=== PATIENT | female | born 1985 | race Caucasian/White ===

== ENCOUNTER 2016-12-15 11:42 | Emergency (ER) | payer SELFPAY ==
[2016-12-15] MEDS ORDERED: PROMETHAZINE HCL 25 MG/ML INJ IVP ONE (13:12)
[2016-12-15] MEDS ORDERED: LORazepam 2 MG/ML INJ IVP ONE (13:13)
--- NOTE | 2016-12-15 13:30 | EDPHY ---
H & P Stated Complaint: Exacerbation abd pain;@ [facility] Tuesday night for same Time Seen by Provider: 12/15/16 13:07 HPI/ROS: CHIEF COMPLAINT: Acute exacerbation of cyclic vomiting syndrome HISTORY OF PRESENT ILLNESS: The patient presents to the ED with an acute exacerbation of cyclic vomiting syndrome. The patient reportedly was hospitalized at [facility] several days ago with similar symptoms. The patient has a longstanding history of this diagnosis. We have seen her here in our department multiple times with this presentation in the past. The patient reports she is typically treated with IV anti emetics and Dilaudid. The patient states that her exacerbation of this particular episode is secondary to stress. She denies any marijuana use. The patient denies any complaints of atypical acute abdominal pain. She denies fever, cough, congestion or additional complaints. REVIEW OF SYSTEMS: A comprehensive 10 point review of systems is otherwise negative aside from elements mentioned in the history of present illness. Source: Patient Exam Limitations: No limitations - Personal History LMP (Females 10-55): 1-7 Days Ago Tetanus Vaccine Date: < 10 years - Medical/Surgical History Hx Asthma: Yes Hx Chronic Respiratory Disease: No Hx Diabetes: No Hx Cardiac Disease: No Hx Renal Disease: No Hx Cirrhosis: No Hx Alcoholism: No Hx HIV/AIDS: No Hx Splenectomy or Spleen Trauma: No Other PMH: PMH:cyclic vomiting, pancreatitis,. PSH:cholycystecomy, dental, - Social History Smoking Status: Former smoker - Physical Exam Exam: General Appearance: Alert, no distress Eyes: Pupils equal and round no pallor or injection ENT, Mouth: Mucous membranes moist Respiratory: There are no retractions, lungs are clear to auscultation Cardiovascular: Regular rate and rhythm Gastrointestinal: Mild diffuse tenderness, no peritoneal signs, normal bowel sounds Neurological: A&O, normal motor function, normal sensory exam, normal cranial nerves Skin: Warm and dry, no rashes Musculoskeletal: Neck is supple nontender Extremities: symmetrical, full range of motion Constitutional: Initial Vital Signs Temperature (C) 36.7 C 12/15/16 11:53 Heart Rate 68 12/15/16 11:53 Respiratory Rate 18 12/15/16 11:53 Blood Pressure 156/109 H 12/15/16 11:53 O2 Sat (%) 98 12/15/16 11:53 O2 Delivery Mode Room Air Allergies/Adverse Reactions: Penicillins Allergy (Severe, Verified 12/15/16 11:56) swells airway haloperidol [From Haldol] Allergy (Mild, Verified 12/15/16 11:56) agitation tramadol Allergy (Mild, Verified 12/15/16 11:56) agitation Home Medications: Medication Instructions Recorded Ondansetron Odt [Zofran Odt 4 mg 4 mg PO Q4 PRN 01/07/15 (*)] Prochlorperazine Maleate 25 mg CA Q6 PRN 01/07/15 [Compazine 25mg supp (*)] Diazepam [Valium 5 MG (*)] 5 mg PO Q8 PRN #15 tab 01/09/15 Amitriptyline HCl [Elavil 50 mg 100 mg PO HS 05/04/15 (*)] Promethazine HCl [Phenergan 25mg 25 mg PO Q6 PRN 05/04/15 (*)] Albuterol Hfa Anes Only [Proair 2 puffs IH Q4 PRN #0 mdi 05/05/15 Hfa Icu (*)] Prochlorperazine Maleate 25 mg CA TID PRN #10 suppr 12/15/16 [Compazine 25mg supp (*)] Medical Decision Making ED Course/Re-evaluation: I reviewed the patient's past medical records. I find her abdominal examination to be benign. She is hemodynamically stable and afebrile. The patient was given 25 mg of Phenergan IM and 1 mg of Ativan orally. I have told the patient that I will not treat cyclic vomiting with IV Dilaudid on narcotics. The patient was understanding of this plan. The patient underwent serial examinations in the ED. She remained well- appearing without active vomiting. I do not feel that further workup is indicated at this point time. The patient is noted to have unremarkable laboratory studies and a negative test. Patient was re-evaluated at 2:40 p.m.. She continues to complain of mild pain. She received 30 mg of IM Toradol. I also ordered an additional 1 mg of oral Ativan. I went evaluate the patient at 3:10 p.m. and found that she had left the department without further workup. She did not fall nursing staff or myself over decision to leave without reassessment. Differential Diagnosis: Differential diagnosis considered includes dehydration, cyclic vomiting syndrome , metabolic abnormality, intrauterine , ectopic - Data Points Laboratory Results: Laboratory Results 12/15/16 13:20 12/15/16 12/15/16 13:20 13:20 Sodium 141 mEq/L mEq/L (134-144) Potassium 3.4 mEq/L L mEq/L (3.5-5.2) Chloride 107 mEq/L mEq/L (97-110) Carbon Dioxide 18 mEq/l L mEq/l (22-31) Anion Gap 16 mEq/L mEq/L (8-16) BUN 9 mg/dL mg/dL (7-23) Creatinine 0.7 mg/dL mg/dL (0.6-1.0) Estimated GFR > 60 Glucose 107 mg/dL H mg/dL (70-100) Calcium 9.4 mg/dL mg/dL (8.5-10.4) Beta HCG, Qual NEGATIVE Medications Given: Discontinued Medications Ketorolac Tromethamine (Toradol) 30 mg IM EDNOW ONE Stop: 12/15/16 14:55 Last Admin: 12/15/16 14:58 Dose: 30 mg Lorazepam (Ativan Injection) 1 mg IVP EDNOW ONE Stop: 12/15/16 13:14 Last Admin: 12/15/16 13:58 Dose: Not Given Lorazepam (Ativan) 1 mg PO ONCE ONE Stop: 12/15/16 13:50 Last Admin: 12/15/16 13:54 Dose: 1 mg Lorazepam (Ativan) 1 mg PO ONCE ONE Stop: 12/15/16 14:54 Last Admin: 12/15/16 14:58 Dose: 1 mg Promethazine HCl (Phenergan) 25 mg IVP EDNOW ONE Stop: 12/15/16 13:13 Last Admin: 12/15/16 13:59 Dose: Not Given Promethazine HCl (Phenergan) 25 mg IM EDNOW ONE Stop: 12/15/16 13:49 Last Admin: 12/15/16 13:54 Dose: 25 mg Departure - Departure Disposition: Home, Routine, Self-Care Clinical Impression: Cyclic vomiting syndrome Condition: Good Instructions: Acute Nausea and Vomiting (ED) Additional Instructions: 1. Compazine as needed for nausea. 2. Please follow up with your primary care provider regarding your ongoing chronic pain management needs. Referrals: Hong Borrego MD [Primary Care Provider] - As per Instructions Prescriptions: Prochlorperazine Maleate [Compazine 25mg supp (*)] 25 mg CA TID PRN #10 suppr PRN Reason: for nausea
[2016-12-15] MEDS ORDERED: PROMETHAZINE HCL 25 MG/ML INJ IM ONE (13:48)
[2016-12-15 13:49] LABS: ANION GAP 16 mEq/L (8-16); CALCIUM 9.4 mg/dL (8.5-10.4); CARBON DIOXIDE 18 mEq/l (22-31); CHLORIDE 107 mEq/L (97-110); CREATININE 0.7 mg/dL (0.6-1.0); GLOMERULAR FILTRATION RATE > 60; GLUCOSE 107 mg/dL (70-100); POTASSIUM 3.4 mEq/L (3.5-5.2); SODIUM 141 mEq/L (134-144)
[2016-12-15] MEDS ORDERED: LORazepam 1 MG TAB PO ONE ×2 (13:49→14:53)
[2016-12-15] MEDS ORDERED: KETOROLAC 30 MG/1 ML SDV IM ONE (14:54)
[2016-12-15 15:01] VITALS: BP 168/108; PULSE 57; RESP 20; TEMP 97.9; O2SAT 99
== END 2016-12-15 15:32 | disposition home or self-care (01) ==
DX: G43.A0 Cyclical vomiting, in migraine, not intractable (principal); J45.909 Unspecified asthma, uncomplicated; Z87.891 Personal history of nicotine dependence
CPT/HCPCS: J1885; J2550

== ENCOUNTER 2017-08-30 21:46 | Emergency (ER) | payer SELFPAY ==
[2017-08-30] MEDS ORDERED: IBUPROFEN 600 MG TAB PO ONE ×2 (22:06→22:09)
[2017-08-30] MEDS ORDERED: CLINDAMYCIN 150MG PREPACK#6 BTL TAKEHOME ONE (23:19)
[2017-08-30] MEDS ORDERED: CIPROFLOXACIN 500MG PREPACK#2 BTL TAKEHOME ONE (23:19)
[2017-08-30] MEDS ORDERED: HYDROCOD/APAP 5/325 PREPACK#6 BTL TAKEHOME ONE (23:22)
--- NOTE | 2017-08-30 23:22 | EDPHY ---
H & P Time Seen by Provider: 08/30/17 22:15 HPI/ROS: CHIEF COMPLAINT: Dog bite left hand HISTORY OF PRESENT ILLNESS: 32-year-old female presents to the emergency department with dog bite to her left hand. The patient was playing with her own dog who subsequently bit the dorsal aspect of her left hand just prior to arrival. She is right-hand dominant. The dog is up-to-date on vaccinations. Her tetanus shot was 2 years ago. She describes pain especially to the dorsal aspect of her left hand. Denies retained foreign body. Has pain with range of motion. ROS: Denies numbness or tingling in her fingers, retained foreign body, pain in her left wrist or elbow. Denies pain in her left axilla. Past Medical/Surgical History: Cyclical vomiting syndrome Social History: Single and lives in [place] Smoking Status: Former smoker Physical Exam: On examination the patient has a deep 1/2 cm puncture wound to the dorsal aspect of her left hand overlying 2nd metacarpal. There is a smaller puncture wound just proximal to that area over the dorsal aspect of her left hand. There is a smaller superficial abrasion the dorsal aspect of her left middle finger overlying mid phalanx. She has soft tissue swelling without evidence of redness. No evidence of retained foreign body. She has full range of motion of her fingers. No injuries noted to the palmar aspect of her left hand. No rotational deformities noted. Constitutional: Initial Vital Signs Temperature (C) 37.6 C 08/30/17 21:52 Heart Rate 98 08/30/17 21:52 Respiratory Rate 16 08/30/17 21:52 Blood Pressure 135/93 H 08/30/17 21:52 O2 Sat (%) 98 08/30/17 21:52 O2 Delivery Mode Room Air Allergies/Adverse Reactions: Penicillins Allergy (Severe, Verified 12/15/16 11:56) swells airway haloperidol [From Haldol] Allergy (Mild, Verified 12/15/16 11:56) agitation tramadol Allergy (Mild, Verified 12/15/16 11:56) agitation Home Medications: Medication Instructions Recorded Ondansetron Odt [Zofran Odt 4 mg 4 mg PO Q4 PRN 01/07/15 (*)] Prochlorperazine Maleate 25 mg VT Q6 PRN 01/07/15 [Compazine 25mg supp (*)] Diazepam [Valium 5 MG (*)] 5 mg PO Q8 PRN #15 tab 01/09/15 Amitriptyline HCl [Elavil 50 mg 100 mg PO HS 05/04/15 (*)] Promethazine HCl [Phenergan 25mg 25 mg PO Q6 PRN 05/04/15 (*)] Albuterol Hfa Anes Only [Proair 2 puffs IH Q4 PRN #0 mdi 05/05/15 Hfa Icu (*)] Prochlorperazine Maleate 25 mg VT TID PRN #10 suppr 12/15/16 [Compazine 25mg supp (*)] Ciprofloxacin [Cipro 500 mg] 500 mg PO BID #14 tab 08/30/17 Clindamycin 450 mg PO TID #63 cap 08/30/17 MDM/Departure - [facility] Procedures: Verbal consent was obtained from the patient. The wounds to her left hand were anesthetized with 1% lidocaine with epinephrine. The wounds were then thoroughly irrigated and dressed. Patient tolerated this quite well. No sutures placed. Medications Given: Discontinued Medications Hydrocodone Bitart/Acetaminophen ([place] 5/325mg Prepack#6) 1 btl TAKEHOME EDNOW ONE Stop: 08/30/17 23:23 Last Admin: 08/30/17 23:34 Dose: 1 btl Ciprofloxacin (Cipro 500mg Prepack#2) 1 btl TAKEHOME EDNOW ONE Stop: 08/30/17 23:20 Last Admin: 08/30/17 23:34 Dose: 1 btl Clindamycin (Cleocin 150 Mg Prepack#6) 1 btl TAKEHOME EDNOW ONE PRN Reason: Protocol Stop: 08/30/17 23:20 Last Admin: 08/30/17 23:35 Dose: 1 btl Ibuprofen (Motrin) 600 mg PO EDNOW ONE Stop: 08/30/17 22:10 Last Admin: 08/30/17 22:10 Dose: 600 mg ED Course/Re-evaluation: 32-year-old female presents emergency department with dog bite to her left hand. Patient's tetanus shot is current. The wounds were thoroughly irrigated. They will not be closed. She has a known penicillin allergy. She was started on clindamycin 450 mg three times daily for 1 week and ciprofloxacin 500 mg twice daily for 1 week. We did discuss delayed primary closure. She may return to the emergency department in 72 hr for possible closure of her wounds after she has been on oral antibiotics for 72 hr. Patient verbalized understanding and agreed she was given a take-home pack of hydrocodone for her pain. She was encouraged to elevate her hand. The case was discussed with Dr. Hong Joe, secondary supervising physician , who did not directly evaluate the patient but agrees with treatment plan. - Depart Disposition: Home, Routine, Self-Care Clinical Impression: Dog bite of left hand Qualifiers: Encounter type: initial encounter Qualified Code(s): S61.452A - Open bite of left hand, initial encounter; W54.0XXA - Bitten by dog, initial encounter; W54.0XXA - Bitten by dog, initial encounter Condition: Good Instructions: Ciprofloxacin (By mouth), Hydrocodone/Acetaminophen (By mouth), Animal Bite (ED), Acute Wounds (ED) Additional Instructions: Clindamycin and ciprofloxacin as prescribed for 1 week to prevent infection. Return to the emergency department after you have been on oral antibiotics for 72 hr for laceration repair of the wound to the dorsal aspect of the left hand. Return to the emergency department sooner if you develop redness, swelling, increased pain, fever, purulent drainage. Prescriptions: Ciprofloxacin [Cipro 500 mg] 500 mg PO BID #14 tab Clindamycin 450 mg PO TID #63 cap Referrals: Hong Borrego MD [Primary Care Provider] - As per Instructions
[2017-08-30 23:24] VITALS: BP 142/91
== END 2017-08-30 23:38 | disposition home or self-care (01) ==
DX: S61.452A Open bite of left hand, initial encounter (principal); Z87.891 Personal history of nicotine dependence; W54.0XXA Bitten by dog, initial encounter; Y99.8 Other external cause status; Y93.89 Activity, other specified

== ENCOUNTER 2017-08-31 17:23 | Inpatient (IN) | payer SELFPAY ==
--- NOTE | 2017-08-31 18:15 | EDPHY ---
H & P Smoking Status: Former smoker Time Seen by Provider: 08/31/17 18:00 HPI/ROS: CHIEF COMPLAINT: Swelling left hand HISTORY OF PRESENT ILLNESS: 32-year-old female presents to the emergency department with concerns about increasing pain and swelling to the dorsal aspect of her left hand. She was seen in the emergency department yesterday evening after she was bit by her own dog. Her wounds were thoroughly irrigated. She has a history of penicillin allergy and was started on clindamycin and ciprofloxacin last night. She has taken this medication as prescribed and continued today. She was concerned because over last 2-3 hour she has noticed more acute swelling and pain and was concerned about progressing infection. She had x-rays obtained last night which revealed no fractures. Her tetanus shot is current. Denies numbness in her fingers, retained foreign body. Denies fevers, chills. REVIEW OF SYSTEMS: Constitutional: No fever, no chills. Eyes: No double or blurry vision. ENT: No sore throat. Respiratory: No cough, no shortness of breath. Cardiac: No chest pain. Gastrointestinal: No abdominal pain, vomiting or diarrhea. Genitourinary: No dysuria. Musculoskeletal: No neck or back pain. Skin: No rashes. Neurological: No headache. (Deb Matias) Past Medical/Surgical History: Cyclical vomiting syndrome (Deb Matias) Social History: Single (Deb Matias) Physical Exam: General Appearance: Alert, no distress. Temperature 37.2 degrees. Nontoxic appearing. Eyes: Pupils equal and round. Extraocular motions are all intact. ENT: Mouth: Mucous membranes moist. Respiratory: No wheezing, rhonchi, or rales, lungs are clear to auscultation. Cardiovascular: Regular rate and rhythm. Gastrointestinal: Abdomen is soft and nontender, no masses, no rebound or guarding, bowel sounds normal. Neurological: Alert and oriented x 3, cranial nerves II through XII grossly intact Skin: See extremities. Warm and dry, no rashes. Musculoskeletal: Nontender to palpate along the cervical, thoracic or lumbar spine. Neck is supple. Extremities: Healing puncture wound to the dorsal aspect of her left hand between the webspace of the thumb and left index finger. She also has a smaller puncture wound just proximal to that. There is soft tissue swelling and some mild erythema. There is no lymphangitis. She is able to fully extend her fingers. She is able to make a fist. She also has a healing abrasion noted to the dorsal aspect of her left 3rd finger overlying mid phalanx. Nontender to palpate the left axilla. No palpable bony tenderness. Psychiatric: Patient is oriented X 3, there is no agitation. (Deb Matias) Constitutional: Initial Vital Signs Temperature (C) 37.2 C 08/31/17 17:28 Heart Rate 92 08/31/17 17:28 Respiratory Rate 16 08/31/17 17:28 Blood Pressure 133/92 H 08/31/17 17:28 O2 Sat (%) 98 08/31/17 17:28 O2 Delivery Mode Room Air Allergies/Adverse Reactions: Penicillins Allergy (Severe, Verified 12/15/16 11:56) swells airway haloperidol [From Haldol] Allergy (Mild, Verified 12/15/16 11:56) agitation tramadol Allergy (Mild, Verified 12/15/16 11:56) agitation Home Medications: Medication Instructions Recorded Prochlorperazine Maleate 25 mg [place] Q6 PRN 01/07/15 [Compazine 25mg supp (*)] Promethazine HCl [Phenergan 25mg 25 mg PO Q6H PRN 05/04/15 (*)] Ciprofloxacin [Cipro 500 mg] 500 mg PO BID #14 tab 08/30/17 Clindamycin 450 mg PO TID #63 cap 08/30/17 Albuterol [Proventil Inhaler HFA 1 - 2 puffs IH Q4H PRN 08/31/17 (*)] Amitriptyline HCl 150 mg PO HS 08/31/17 Diazepam [Valium 5 MG (*)] 5 mg PO HS PRN 08/31/17 MDM/Departure - MDM Medications Given: Ciprofloxacin/Dextrose (Cipro 400 Mg (Premix)) 200 mls @ 200 mls/hr IV EDNOW ONE PRN Reason: Protocol Stop: 08/31/17 20:34 Last Admin: 08/31/17 20:00 Dose: 200 mls Metronidazole/Sodium Chloride (Flagyl 500 Mg (Premix)) 100 mls @ 100 mls/hr IV EDNOW ONE PRN Reason: Protocol Stop: 08/31/17 20:34 Last Admin: 08/31/17 19:43 Dose: 100 mls Discontinued Medications Hydromorphone HCl (Dilaudid) 0.5 mg IVP EDNOW ONE Stop: 08/31/17 20:03 Last Admin: 08/31/17 20:05 Dose: 0.5 mg Ketorolac Tromethamine (Toradol) 30 mg IVP EDNOW ONE Stop: 08/31/17 18:58 Last Admin: 08/31/17 19:00 Dose: 30 mg ED Course/Re-evaluation: Independent physician evaluation The patient presents to the ED with worsening left hand redness, swelling and tenderness in the setting of a recent dog bite. Physical exam: Left hand: Swelling noted along the dorsum of the left hand with erythema and tenderness. Neuro: Sensation intact to light touch, normal range of motion noted in the fingers. Musculoskeletal: No wrist effusion She has no clinical evidence of a septic arthritis or abscess. She does have progressive cellulitis. The patient will be admitted to the hospital for IV antibiotic therapy. (Elijah Keita) The patient was also seen examined by Dr. Keita, secondary supervising physician. He recommended blood cultures and IV antibiotics and admission to the hospital. The patient has been taking ciprofloxacin and clindamycin as prescribed. She has a penicillin allergy which causes throat swelling and difficulty breathing as a child. She was started on 500 mg of IV metronidazole and 4 mg of IV ciprofloxacin. Blood cultures are pending. White blood cell count is 9.8. Chemistries are otherwise unremarkable. She is afebrile and nontoxic-appearing. The patient will be admitted to Dr. Jose Antonio Aldridge who will come see the patient in the emergency department. (Deb Matias) - Depart Disposition: [facility] Inpatient Acute Clinical Impression: Cellulitis of left hand Dog bite of left hand with infection Qualifiers: Encounter type: subsequent encounter Qualified Code(s): S61.452D - Open bite of left hand, subsequent encounter; L08.9 - Local infection of the skin and subcutaneous tissue, unspecified; L08.9 - Local infection of the skin and subcutaneous tissue, unspecified; W54.0XXD - Bitten by dog, subsequent encounter ; W54.0XXD - Bitten by dog, subsequent encounter Condition: Good
[2017-08-31 18:36] LABS: PLATELET COUNT 425 10^3/uL (150-400)
[2017-08-31] MEDS ORDERED: KETOROLAC 30 MG/1 ML SDV IVP ONE (18:57)
[2017-08-31] MEDS ORDERED: KETOROLAC 30 MG/1 ML SDV ONE (18:58)
[2017-08-31] MEDS ORDERED: CIPROFLOXACIN 400 MG/DEXTROSE 200 ML IV ONE (19:35)
[2017-08-31] MEDS ORDERED: HYDROmorphONE/DILAUDID 2 MG/ML INJ ONE (19:56)
[2017-08-31] MEDS ORDERED: ACETAMINOPHEN 325 MG TAB PO PRN (19:57)
[2017-08-31] MEDS ORDERED: ONDANSETRON DISINTEGRATING 4 MG TAB PO PRN (19:57)
[2017-08-31] MEDS ORDERED: IBUPROFEN 200 MG TAB PO PRN (19:57)
[2017-08-31] MEDS ORDERED: ONDANSETRON 4 MG/2 ML VIAL IVP PRN (19:57)
[2017-08-31] MEDS ORDERED: KETOROLAC 30 MG/1 ML SDV IVP PRN (20:00)
[2017-08-31] MEDS ORDERED: HYDROmorphONE/DILAUDID 2 MG/ML INJ IVP ONE (20:02)
[2017-08-31] MEDS ORDERED: DIAZEPAM 5 MG TAB PO PRN (20:37)
[2017-08-31] MEDS ORDERED: ALBUTEROL 60 PUFFS/8 GM MDI IH PRN (20:37)
[2017-08-31] MEDS ORDERED: PROCHLORPERAZINE MALEATE 25 MG SUPPR PR PRN (20:37)
[2017-08-31] MEDS ORDERED: PROMETHAZINE HCL 25 MG TAB PO PRN (20:37)
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
[2017-08-31] MEDS: LORazepam 1 MG TAB PO PRN (21:11)
[2017-08-31] MEDS ORDERED: HYDROmorphONE/DILAUDID 1 MG/ML INJ IVP ONE (21:22)
[2017-08-31] MEDS: oxyCODONE IR 5 MG TAB PO PRN (22:34)
[2017-08-31] MEDS: AMITRIPTYLINE HCL 50 MG TAB PO SCH (22:59)
[2017-08-31] MEDS: HYDROmorphone HCL/NS 0.5 MG/ML SYR IVP PRN (23:51)
[2017-09-01] MEDS: oxyCODONE IR 5 MG TAB PO PRN ×4 (04:10→22:58)
[2017-09-01] MEDS: HYDROmorphone HCL/NS 0.5 MG/ML SYR IVP PRN ×6 (04:44→21:19)
[2017-09-01 05:00] LABS: PLATELET COUNT 346 10^3/uL (150-400)
[2017-09-01] MEDS: CIPROFLOXACIN 400 MG/DEXTROSE 200 ML IV SCH ×2 (08:57→20:13)
--- NOTE | 2017-09-01 13:17 | HOSPPROG ---
Hospitalist Progress Note Assessment/Plan: 32-year-old female presents with acute dog bite and resultant hand trauma with cellulitis. First encounter, chart reviewed. Plan: 1. Cellulitis. -dog bite trauma, -IV ciprofloxacin and clindamycin, -discharge on doxycycline and Flagyl -consider MRI if not improving -blood cultures currently pending continue to monitor -follow white blood cell count, monitor for fever -good mobility 2. Traumatic dog bite. -Most recent tetanus booster 2014, currently up-to-date -treat with antibiotics as above -treat pain with Tylenol, ibuprofen, Toradol, oxycodone, IV Dilaudid for breakthrough, ice if tolerates -patient reports that the bite was unintentional on the part of the animal and was not aggressive act, no further action required on our part 3. Chronic cyclic vomiting syndrome. -Symptoms currently in remission, continue home medications -given patient's strong mood/anxiety component, she has requested as needed Ativan during hospitalization and will comply for Diet. Regular Prophylaxis. Low risk, SCDs Code. Full Disposition. Will need further IV abx in hospital. change to inpt status given needs. Subjective: Feeling well. Hand still warm and red. Still having some pain. Objective: Vital Signs Temp Pulse Resp BP Pulse Ox 36.9 C 71 18 140/92 H 97 09/01/17 11:27 09/01/17 11:27 09/01/17 11:27 09/01/17 11:27 09/01/17 11:27 Laboratory Results 09/01/17 04:40 08/31/17 09/01/17 09/02/17 05:59 05:59 05:59 Intake Total 1300 Balance 1300 - Physical Exam Constitutional: no apparent distress, appears nourished, obese, uncomfortable Eyes: PERRL, anicteric sclera, EOMI Ears, Nose, Mouth, Throat: moist mucous membranes, hearing normal, ears appear normal Cardiovascular: regular rate and rhythym, No JVD, No edema Respiratory: no respiratory distress, no rales or rhonchi, clear to auscultation , reduced air movement Gastrointestinal: normoactive bowel sounds, No tenderness, No ascites Skin: warm, abrasion, erythema, No mottled Musculoskeletal: full muscle strength, no joint effusions, pain with ROM Neurologic: AAOx3 Psychiatric: interacting appropriately, not anxious, not encephalopathic, thought process linear ICD10 Worksheet Patient Problems: Problems Problem Status Onset Hyperglycemia Active Leukocytosis Active Hypokalemia Active Pancreatitis Acute Cellulitis Acute Dog bite of arm Acute Dog bite of left hand Acute Cellulitis of left hand Acute Dog bite of left hand with infection Acute
--- NOTE | 2017-09-01 14:45 | ASMTCMCOM ---
CM Note CM Note Notes: Reviewed chart, pt works and is independent with ADLs. Anticipate will dc home independent when medically stable. CM available for any changes. DC Plan: Independent Date Signed: 09/01/2017 02:44 PM Electronically Signed By:Babs Byers RN
--- NOTE | 2017-09-01 14:48 | ASMTLACE ---
THERESE Acuity / Level of Answers: Yes Care: Did the patient have an inpatient admission? Comorbidities - select Answers: Other Notes: TBI, Gilbert's syndrome all that apply # of Emergency department Answers: 1-2 visits in the last 6 months Score: 5 Date Signed: 09/01/2017 02:47 PM Electronically Signed By:Babs Byers RN
--- NOTE | 2017-09-01 15:45 | PDMN ---
Medical Necessity Medical necessity: Patient meets inpatient criteria per physician note and [facility] [place] [facility] -70 Cellulitis (failed O/P management of L hand cellulitis from dog bite, with ongoing pain, erythema, warmth after 24 hrs of IV antibiotics and earlier p.o antibiotics; LOS will be > 2 midnights for ongoing IV antibiotics, ongoing breath-through pain control with IV Dilaudid as necessary, continued monitoring of wound and WBC, possible MRI if no improvement.)
[2017-09-01] MEDS: LORazepam 1 MG TAB PO PRN (20:14)
[2017-09-01] MEDS: AMITRIPTYLINE HCL 50 MG TAB PO SCH (22:58)
[2017-09-02] MEDS: HYDROmorphone HCL/NS 0.5 MG/ML SYR IVP PRN ×2 (02:41→06:24)
[2017-09-02] MEDS: oxyCODONE IR 5 MG TAB PO PRN ×2 (04:05→08:33)
[2017-09-02 07:59] VITALS: BP 118/85
[2017-09-02] MEDS ORDERED: metroNIDAZOLE 500 MG TAB PO SCH ×2 (09:56→12:00)
[2017-09-02] MEDS ORDERED: DOXYCYCLINE HYCLATE 100 MG CAP/TAB PO SCH (10:00)
--- NOTE | 2017-09-02 12:54 | GDS ---
[f rep st] DISCHARGE SUMMARY DISCHARGE DIAGNOSIS: Dog bite. PHYSICAL EXAM: GENERAL: The patient is alert. VITAL SIGNS: Afebrile at 37, pulse is 85, respiratory rate 16, blood pressure is 118/85, she is satu rating 98% on room air. I have seen evaluated the patient on the day of discharge. HOSPITAL COURSE: The patient is a 32-year-old female who presented to the emergency room after suffe ring a traumatic dog bite. She was evaluated and diagnosed with cellulitis as well as a traumatic do g bite. She was treated with IV ciprofloxacin and clindamycin. She has now been transitioned to ora l doxycycline and Flagyl. Her cellulitis has completely resolved. Her swelling is significantly imp roved. She has mobility in all of her fingers. Her pain is significantly decreased. She will follo w up in the outpatient setting with her primary care physician. She has been instructed to return to the emergency room if any of her condition changes, becomes worse, more erythema is present or pain is increased. She is comfortable in agreement with this plan. DISCHARGE MEDICATIONS: Please refer to EMR form. I have provided the patient a prescription for dox ycycline as well as Flagyl and oxycodone IR #10. DISPOSITION: There are no pending studies. Again, followup will be with her primary care physician as needed. /[id number]/MODL
== END 2017-09-02 10:33 | disposition home or self-care (01) | DRG 603 ==
LOC: OBSVTOIN 19:53 → F3E 21:40
PROVIDERS: ADMIT Internal Medicine; ATTEND Internal Medicine
DX: L03.113 Cellulitis of right upper limb (principal); S61.451D Open bite of right hand, subsequent encounter; W54.0XXD Bitten by dog, subsequent encounter; Y93.K9 Activity, other involving animal care; G43.A0 Cyclical vomiting, in migraine, not intractable
CPT/HCPCS: 96374; G0378; J0744; J1170; J1885

== ENCOUNTER 2017-09-02 20:40 | Emergency (ER) | payer SELFPAY ==
--- NOTE | 2017-09-02 21:12 | EDPHY ---
H & P Stated Complaint: dog bite tues, increased redness/swelling since d/c Time Seen by Provider: 09/02/17 21:05 HPI/ROS: CHIEF COMPLAINT: wound infection HISTORY OF PRESENT ILLNESS: The patient is a 32-year-old female who comes to the emergency department after being discharged a few hours ago. She was bitten by her dog a few days ago and was seen here and had irrigated and was started on ciprofloxacin and clindamycin because of penicillin allergy. She came back next day because she felt it was getting worse and was admitted to the hospital for 2 days on IV ciprofloxacin and clindamycin. Her erythema improved significantly and she was discharged today. She was transitioned to Flagyl and doxycycline and also given a prescription for oxycodone. She came back this evening concerned because her hand is slightly more swollen and feels tight. She has not had a fever. The rash is not significantly progressed. REVIEW OF SYSTEMS: Constitutional: denies: chills, fever, recent illness, recent injury EENTM: denies: blurred vision, double vision, nose congestion Respiratory: denies: cough, shortness of breath Cardiac: denies: chest pain, irregular heart rate, lightheadedness, palpitations Gastrointestinal/Abdominal: denies: abdominal pain, diarrhea, nausea, vomiting, blood streaked stools Genitourinary: denies: dysuria, frequency, hematuria, pain Musculoskeletal: denies: joint pain, muscle pain Skin: See HPI Neurological: denies: headache, numbness, paresthesia, tingling, dizziness, weakness Hematologic/Lymphatic: denies: blood clots, easy bleeding, easy bruising Immunologic/allergic: denies: HIV/AIDS, transplant EXAM: GENERAL: Well-appearing, well-nourished and in no acute distress. HEAD: Atraumatic, normocephalic. EYES: Pupils equal round and reactive to light, extraocular movements intact, sclera anicteric, conjunctiva are normal. ENT: TMs normal, nares patent, oropharynx clear without exudates. Moist mucous membranes. NECK: Normal range of motion, supple without lymphadenopathy or JVD. LUNGS: Breath sounds clear to auscultation bilaterally and equal. No wheezes rales or rhonchi. HEART: Regular rate and rhythm without murmurs, rubs or gallops. ABDOMEN: Soft, nontender, normoactive bowel sounds. No guarding, no rebound. No masses appreciated. BACK: No CVA tenderness, no spinal tenderness, step-offs or deformities EXTREMITIES: Normal range of motion, no pitting or edema. No clubbing or cyanosis. NEUROLOGICAL: Cranial nerves II through XII grossly intact. Normal speech, normal gait. 5/5 strength, normal movement in all extremities, normal sensation PSYCH: Normal mood, normal affect. SKIN: 3 bite wounds to the dorsum of left hand with surrounding erythema that extends to about the wrist. No purulence. Minimal swelling. Source: Patient Exam Limitations: No limitations - Personal History LMP (Females 10-55): 1-7 Days Ago Current Tetanus/Diphtheria Vaccine: Yes Tetanus Vaccine Date: 2014 - Medical/Surgical History Hx Asthma: Yes Hx Chronic Respiratory Disease: No Hx Diabetes: No Hx Cardiac Disease: No Hx Renal Disease: No Hx Cirrhosis: No Hx Alcoholism: No Hx HIV/AIDS: No Hx Splenectomy or Spleen Trauma: No Other PMH: PMH:cyclic vomiting, pancreatitis,. PSH:cholycystecomy, dental, - Family History Significant Family History: No pertinent family hx - Social History Smoking Status: Former smoker Alcohol Use: Sober Drug Use: None Constitutional: Initial Vital Signs Temperature (C) 37.1 C 09/02/17 20:42 Heart Rate 113 H 09/02/17 20:42 Respiratory Rate 20 09/02/17 20:42 Blood Pressure 111/81 H 09/02/17 20:42 O2 Sat (%) 98 09/02/17 20:42 O2 Delivery Mode Room Air Allergies/Adverse Reactions: Penicillins Allergy (Severe, Verified 09/02/17 20:44) swells airway haloperidol [From Haldol] Allergy (Mild, Verified 09/02/17 20:44) agitation tramadol Allergy (Mild, Verified 09/02/17 20:44) agitation Home Medications: Medication Instructions Recorded Prochlorperazine Maleate 25 mg SD Q6 PRN 01/07/15 [Compazine 25mg supp (*)] Promethazine HCl [Phenergan 25mg 25 mg PO Q6H PRN 05/04/15 (*)] Albuterol [Proventil Inhaler HFA 1 - 2 puffs IH Q4H PRN 08/31/17 (*)] Amitriptyline HCl 150 mg PO HS 08/31/17 Diazepam [Valium 5 MG (*)] 5 mg PO HS PRN 08/31/17 Acetaminophen [Tylenol 325mg (*)] 650 mg PO Q4HRS PRN tab 09/02/17 Doxycycline Hyclate [Vibramycin 100 mg PO BID #14 capsule 09/02/17 100 MG (*)] Ibuprofen [Motrin (*)] 400 mg PO Q4HRS PRN tab 09/02/17 metroNIDAZOLE [Flagyl 500 mg (*)] 500 mg PO Q8HRS #21 tab 09/02/17 oxyCODONE IR [Oxycodone Ir (*)] 5 - 10 mg PO Q3HRS PRN #10 tab 09/02/17 Medical Decision Making ED Course/Re-evaluation: The patient's hand has a very mild cellulitis. It seems to be improving overall. At this point I do not think is a good idea to change antibiotics again. She certainly does not need readmission at this time. She is still likely at therapeutic levels for her most recent IV infusions. We agreed to watch it for another 24 hr at home and return if it worsens or she develops a fever and cetera. She is happy with this and declines further workup or testing at this time. Differential Diagnosis: Partial list of the Differential diagnosis considered include but were not limited to; cellulitis, wound infection, foreign body and although unlikely based on the history and physical exam, I also considered tenosynovitis, fracture. I discussed these differential diagnoses and the plan with the patient as well as the usual and expected course. The patient understands that the diagnosis is provisional and that in medicine we are not always correct and that further workup is often warranted. Usual and customary warnings were given. All of the patient's questions were answered. The patient was instructed to return to the emergency department should the symptoms at all worsen or return, otherwise to followup with the physician as we discussed. Departure - Departure Disposition: Home, Routine, Self-Care Clinical Impression: Dog bite of left hand with infection Qualifiers: Encounter type: initial encounter Qualified Code(s): S61.452A - Open bite of left hand, initial encounter Condition: Fair Instructions: Animal Bite (ED), Cellulitis (ED) Referrals: Hong Borrego MD [Primary Care Provider] - As per Instructions
[2017-09-02 21:39] VITALS: BP 119/86
== END 2017-09-02 21:39 | disposition home or self-care (01) ==
DX: L08.9 Local infection of the skin and subcutaneous tissue, unspecified (principal); J45.909 Unspecified asthma, uncomplicated; S61.452D Open bite of left hand, subsequent encounter; Z87.891 Personal history of nicotine dependence; W54.0XXD Bitten by dog, subsequent encounter

== ENCOUNTER 2017-09-28 10:05 | Observation (INO) | payer SELFPAY ==
--- NOTE | 2017-09-28 10:19 | EDPHY ---
H & P Stated Complaint: UPPER ABD PAIN N/V/D Time Seen by Provider: 09/28/17 10:17 HPI/ROS: CHIEF COMPLAINT: Acute vomiting HISTORY OF PRESENT ILLNESS: The patient presents to the ED with acute vomiting and abdominal pain. She has a history of cyclic vomiting syndrome which has been relatively quiescent over the past several months. The patient did attempt to use rectal Compazine at home. She has continued to have bilious vomiting. The patient has a past medical history significant for cholecystectomy. The patient denies any recent fever, cough or congestion. She became symptomatic at 2 o'clock in the morning. REVIEW OF SYSTEMS: A comprehensive 10 point review of systems is otherwise negative aside from elements mentioned in the history of present illness. Source: Patient Exam Limitations: No limitations - Personal History LMP (Females 10-55): 15-21 Days Ago Current Tetanus Diphtheria and Acellular Pertussis (TDAP): Yes Tetanus Vaccine Date: 2014 - Medical/Surgical History Hx Asthma: Yes Hx Chronic Respiratory Disease: No Hx Diabetes: No Hx Cardiac Disease: No Hx Renal Disease: No Hx Cirrhosis: No Hx Alcoholism: No Hx HIV/AIDS: No Hx Splenectomy or Spleen Trauma: No Other PMH: PMH:cyclic vomiting, pancreatitis,. PSH:cholycystecomy, dental, - Social History Smoking Status: Former smoker - Physical Exam Exam: General Appearance: Alert, mild discomfort Eyes: Pupils equal and round no pallor or injection ENT, Mouth: Mucous membranes moist Respiratory: There are no retractions, lungs are clear to auscultation Cardiovascular: Regular rate and rhythm Gastrointestinal: Minimal epigastric tenderness to palpation Neurological: 5/5 strength all 4 extremities Skin: Warm and dry, no rashes Musculoskeletal: Neck is supple nontender Extremities: symmetrical, full range of motion Constitutional: Initial Vital Signs Temperature (C) 36.4 C 09/28/17 10:08 Heart Rate 78 09/28/17 10:08 Respiratory Rate 18 09/28/17 10:08 Blood Pressure 143/123 H 09/28/17 10:08 O2 Sat (%) 98 09/28/17 10:08 O2 Delivery Mode Room Air Allergies/Adverse Reactions: Penicillins Allergy (Severe, Verified 09/28/17 10:05) swells airway haloperidol [From Haldol] Allergy (Mild, Verified 09/28/17 10:05) agitation tramadol Allergy (Mild, Verified 09/28/17 10:05) agitation Home Medications: Medication Instructions Recorded Promethazine HCl [Phenergan 25mg 25 mg PO Q6H PRN 05/04/15 (*)] Albuterol [Proventil Inhaler HFA 1 - 2 puffs IH Q4H PRN 08/31/17 (*)] Amitriptyline HCl 150 mg PO HS 08/31/17 Diazepam [Valium 5 MG (*)] 5 mg PO HS PRN 08/31/17 Acetaminophen [Tylenol 325mg (*)] 650 mg PO Q4HRS PRN tab 09/02/17 Medical Decision Making ED Course/Re-evaluation: The patient presents to the ED with an acute exacerbation of her chronic cyclic vomiting syndrome. The patient had an IV established. She received 2 L of normal saline. She received IV Ativan, Zofran and rehydration. The patient's laboratory studies are unremarkable. She has no clinical evidence of peritonitis, pancreatitis or hepatitis. The patient was not given narcotic medications for management of her chronic abdominal pain. I did review the patient's past medical records. The patient continued to have nausea and vomiting in the emergency department. She was given a small dose of IV ketamine. The patient continues to have ongoing vomiting. She will be admitted to the hospital for ongoing symptoms. Differential Diagnosis: Differential diagnosis considered includes cyclic vomiting syndrome, dehydration , pancreatitis - Data Points Laboratory Results: Laboratory Results 09/28/17 10:43 09/28/17 09/28/17 12:25 10:43 Sodium 145 mEq/L mEq/L (135-145) Potassium 4.2 mEq/L mEq/L (3.3-5.0) Chloride 108 mEq/L mEq/L (97-110) Carbon Dioxide 20 mEq/l L mEq/l (22-31) Anion Gap 17 mEq/L H mEq/L (8-16) BUN 7 mg/dL mg/dL (7-23) Creatinine 0.7 mg/dL mg/dL (0.6-1.0) Estimated GFR > 60 Glucose 149 mg/dL H mg/dL (70-100) Calcium 9.8 mg/dL mg/dL (8.5-10.4) Total Bilirubin 1.1 mg/dL mg/dL (0.1-1.4) Conjugated Bilirubin 0.4 mg/dL mg/dL (0.0-0.5) Unconjugated Bilirubin 0.7 mg/dL mg/dL (0.0-1.1) AST 26 IU/L IU/L (14-46) ALT 34 IU/L IU/L (9-52) Alkaline Phosphatase 78 IU/L IU/L (38-126) Total Protein 7.5 g/dL g/dL (6.3-8.2) Albumin 4.7 g/dL g/dL (3.5-5.0) Lipase 292 IU/L IU/L (23-300) Urine Color YELLOW Urine Appearance MODERATELY TURBID Urine pH 8.0 H (5.0-7.5) Ur Specific Prince 1.012 (1.002-1.030) Urine Protein NEGATIVE (NEGATIVE) Urine Ketones NEGATIVE (NEGATIVE) Urine Blood 2+ H (NEGATIVE) Urine Nitrate NEGATIVE (NEGATIVE) Urine Bilirubin NEGATIVE (NEGATIVE) Urine Urobilinogen NEGATIVE EU EU (0.2-1.0) Ur Leukocyte Esterase NEGATIVE (NEGATIVE) Urine RBC 5-10 /hpf H /hpf (0-3) Urine WBC 0-1 /hpf /hpf (0-3) Ur Epithelial Cells TRACE /lpf /lpf (NONE-1+) Urine Bacteria TRACE /hpf H /hpf (NONE SEEN) Urine Mucus TRACE /lpf /lpf (NONE-1+) Urine Glucose 1+ H (NEGATIVE) Medications Given: Discontinued Medications Sodium Chloride (Ns) 1,000 mls @ 0 mls/hr IV EDNOW ONE; Wide Open PRN Reason: Protocol Stop: 09/28/17 10:40 Last Admin: 09/28/17 10:53 Dose: 1,000 mls Sodium Chloride (Ns) 1,000 mls @ 0 mls/hr IV ONCE ONE PRN Reason: Wide Open Stop: 09/28/17 12:36 Last Admin: 09/28/17 12:37 Dose: 1,000 mls Ketamine HCl (Ketamine) 22.7 mg 0.2 mg/kg (22.7 mg) IVP EDNOW ONE Stop: 09/28/17 14:05 Last Admin: 09/28/17 14:24 Dose: 22.7 mg Ketorolac Tromethamine (Toradol) 30 mg IVP EDNOW ONE Stop: 09/28/17 10:40 Last Admin: 09/28/17 10:54 Dose: 30 mg Lorazepam (Ativan Injection) 1 mg IVP EDNOW ONE Stop: 09/28/17 11:14 Last Admin: 09/28/17 11:15 Dose: 1 mg Lorazepam (Ativan Injection) 1 mg IVP EDNOW ONE Stop: 09/28/17 12:31 Last Admin: 09/28/17 12:35 Dose: 1 mg Promethazine HCl (Phenergan) 12.5 mg IVP EDNOW ONE Stop: 09/28/17 10:40 Last Admin: 09/28/17 10:55 Dose: 12.5 mg Promethazine HCl (Phenergan) 12.5 mg IVP ONCE ONE Stop: 09/28/17 12:31 Last Admin: 09/28/17 12:33 Dose: 12.5 mg Departure - Departure Disposition: [facility] Acute Clinical Impression: Cyclic vomiting syndrome Condition: Fair Referrals: Hong Borrego MD [Primary Care Provider] - As per Instructions
[2017-09-28] MEDS ORDERED: NS 1,000 ML IV ONE ×2 (10:39→12:35)
[2017-09-28] MEDS ORDERED: KETOROLAC 30 MG/1 ML SDV IVP ONE (10:39)
[2017-09-28] MEDS ORDERED: PROMETHAZINE HCL 25 MG/ML INJ IVP ONE ×2 (10:39→12:30)
[2017-09-28] MEDS ORDERED: LORazepam 2 MG/ML INJ IVP ONE ×2 (11:13→12:30)
[2017-09-28] MEDS ORDERED: KETAMINE 200 MG/20 ML VIAL IVP ONE (14:04)
[2017-09-28] MEDS ORDERED: ONDANSETRON DISINTEGRATING 4 MG TAB PO PRN ×2 (16:15→16:43)
[2017-09-28] MEDS ORDERED: ACETAMINOPHEN 325 MG TAB PO PRN ×2 (16:15→16:43)
[2017-09-28] MEDS ORDERED: ONDANSETRON 4 MG/2 ML VIAL IVP PRN ×2 (16:15→16:43)
[2017-09-28] MEDS ORDERED: DIAZEPAM 5 MG TAB PO PRN (16:53)
[2017-09-28 17:07] LABS: PLATELET COUNT 475 10^3/uL (150-400)
[2017-09-28] MEDS: LORazepam 2 MG/ML INJ IVP PRN ×2 (17:11→21:36)
[2017-09-28] MEDS: NS 1,000 ML IV SCH (17:11)
[2017-09-28] MEDS: KETOROLAC 15 MG/1 ML SDV IVP SCH ×2 (17:20→23:32)
[2017-09-28] MEDS: PROMETHAZINE HCL 25 MG/ML INJ IVP PRN ×2 (17:20→23:33)
--- NOTE | 2017-09-28 17:42 | GHP ---
[f rep st] HISTORY AND PHYSICAL DATE OF ADMISSION: 09/28/2017 HISTORY OF PRESENT ILLNESS: The patient is a pleasant 32-year-old female with history of recent admi ssion for infected dog bite not requiring surgery, as well as a history of cyclic vomiting syndrome. Her last flare-up was about a year ago. She underwent cognitive behavioral therapy and has actually done quite well. She describes numerous psychosocial stressors, including her grandmother being recently diagnosed wit h pancreatic cancer and her hospitalization. At 2 a.m., she presented with vomiting nausea, and abdo jaqueline pain. She was seen in the emergency department where normal labs were obtained and no peritoneal signs were noted. She is admitted for further evaluation. She failed management with Phenergan, Ativan, and k etamine in the emergency department. She denies fever, chills, urinary symptoms. She has not have a history of kidney stones. REVIEW OF SYSTEMS: Complete 10-point review of systems conducted is negative, except as noted in the HPI. PAST MEDICAL HISTORY: 1. Cyclic vomiting syndrome. 2. Recent dog bite. ALLERGIES: Penicillin, haloperidol, and tramadol. MEDICATIONS: Amitriptyline and diazepam HS. SOCIAL HISTORY: No tobacco. No alcohol. Lives locally. FAMILY HISTORY: As in the HPI. REVIEW OF SYSTEMS: See HPI. She describes her pain as bilateral and down the lateral side of her ab domen. PHYSICAL EXAMINATION: VITAL SIGNS: Temp 36, blood pressure 143/123, now 102/86, pulse 80, breathing 18 times a minute, 96% on room air. GENERAL: In no acute distress. HEENT: Sclerae anicteric. Darlene pharynx is clear. Mucous membranes moist. NECK: Supple. No lymphadenopathy or JVD. LUNGS: Clear to auscultation bilaterally. HEART: S1, S2. ABDOMEN: Soft, nontender, nondistended. LOWER EXTRE MITIES: Without edema. Calves are nontender. SKIN: Without rash. NEUROLOGIC: Exam non-focal. LABORATORY DATA: UA shows 2+ blood with 5-10 red cells. Sodium 145, potassium 4.2, chloride 108, bi carb 20, BUN 7, creatinine 0.7 glucose 149. LFTs, lipase normal. I discussed the case with Dr. Elijah Keita. ASSESSMENT/PLAN: 32-year-old female with cyclic vomiting syndrome. 1. Cyclic vomiting. Patient has cyclic vomiting syndrome. I observed her emesis. Her emesis was b ilious in nature. We discussed the role of narcotics and determined that there was little to no role for narcotics. We will manage her with scheduled Toradol and p.r.n. antiemetics, as well as some p. r.n. Ativan. No further imaging is indicated. 2. Question kidney stones. The patient has bilateral syndrome symptoms making nephrolithiasis less likely. We will follow. I have not chosen to do imaging at this time. 3. Recent dog bite. Her hand looks excellent without evidence of residual infection. 4. Prophylaxis. Low risk. DISPOSITION: Observation status. /[id number]/MODL
[2017-09-28] MEDS: HYDROmorphONE/DILAUDID 1 MG/ML INJ IVP PRN (18:29)
[2017-09-28] MEDS ORDERED: AMITRIPTYLINE HCL 100 MG TAB PO SCH (21:00)
[2017-09-28] MEDS ORDERED: CALCIUM CARBONATE 500 MG CHEWABLE TAB PO PRN (21:27)
[2017-09-28] MEDS ORDERED: oxyCODONE IR 5 MG TAB PO ONE (21:28)
[2017-09-29] MEDS: HYDROmorphONE/DILAUDID 1 MG/ML INJ IVP PRN ×2 (01:34→07:44)
[2017-09-29] MEDS: KETOROLAC 15 MG/1 ML SDV IVP SCH ×2 (04:20→10:59)
[2017-09-29] MEDS: NS 1,000 ML IV SCH (07:44)
[2017-09-29] MEDS: PROMETHAZINE HCL 25 MG/ML INJ IVP PRN ×2 (07:47→14:44)
[2017-09-29] MEDS: LORazepam 2 MG/ML INJ IVP PRN (11:10)
--- NOTE | 2017-09-29 11:44 | ASMTCMCOM ---
CM Note CM Note Notes: Pt admitted for cyclic vomitting. Pt will likely have no DC needs. Date Signed: 09/29/2017 11:44 AM Electronically Signed By:Alia Dent LCSW
[2017-09-29] MEDS ORDERED: ONDANSETRON 4 MG/2 ML VIAL IVP ONE (12:08)
--- NOTE | 2017-09-29 12:22 | HOSPPROG ---
Hospitalist Progress Note Assessment/Plan: 32 yo f cyclic vomiting still w sx we have dc'd narcotics and benzos- I discussed this plan w her and she concurs dc IVF encourage po hope for dc later today Subjective: still w abdominal pain and nausea Objective: Vital Signs Temp Pulse Resp BP Pulse Ox 36.7 C 76 16 121/81 H 95 09/29/17 07:48 09/29/17 07:48 09/29/17 07:48 09/29/17 07:48 09/29/17 07:48 09/28/17 09/29/17 09/30/17 05:59 05:59 05:59 Intake Total 2900 Balance 2900 - Physical Exam Constitutional: no apparent distress, appears nourished Eyes: PERRL, anicteric sclera Ears, Nose, Mouth, Throat: moist mucous membranes, hearing normal Cardiovascular: regular rate and rhythym, no murmur, rub, or gallop Respiratory: no respiratory distress, no rales or rhonchi Gastrointestinal: normoactive bowel sounds, No guarding, No rebound Genitourinary: no bladder fullness Skin: warm, normal color Musculoskeletal: full muscle strength Neurologic: AAOx3 ICD10 Worksheet Patient Problems: Problems Problem Status Onset Cyclic vomiting syndrome Acute Hyperglycemia Active Hypokalemia Active Leukocytosis Active Cellulitis Acute Cellulitis of left hand Acute Dog bite of arm Acute Dog bite of left hand Acute Pancreatitis Acute
--- NOTE | 2017-09-29 16:17 | GDS ---
[f rep st] DISCHARGE SUMMARY DISCHARGE DIAGNOSES: 1. Cyclic vomiting. 2. Recent hospitalization for dog bite. HISTORY AND HOSPITAL COURSE: Patient presented with abdominal pain, nausea, and vomiting that was re fractory to the emergency department management including ketamine and Phenergan. She was admitted. We discussed narcotics and initially try to avoid them, but ultimately, overnight, she received some IV Dilaudid that was discontinued this morning. The patient continued to have abdominal pain but no further vomiting. Patient has a fair amount of insight into her condition. She has been through cognitive behavioral t herapy with vast improvement. We wish to not escalate her care into the realm of narcotics and IV me dicine, so she is currently tolerating orals. I gave her prescription for Phenergan suppositories an d she is discharged home. /[id number]/MODL
[2017-09-29 16:27] VITALS: BP 112/80
== END 2017-09-29 17:15 | disposition home or self-care (01) ==
LOC: F1N 16:17
PROVIDERS: ADMIT Internal Medicine; ATTEND Internal Medicine
DX: G43.A0 Cyclical vomiting, in migraine, not intractable (principal); R10.9 Unspecified abdominal pain; E86.9 Volume depletion, unspecified
CPT/HCPCS: 96374; G0378; J1170; J1200; J1885; J2060; J2405; J2550

== ENCOUNTER 2017-09-30 07:01 | Observation (INO) | payer SELFPAY ==
[2017-09-30] MEDS ORDERED: FAMOTIDINE 20 MG/NACL 50 ML IV ONE (07:19)
[2017-09-30] MEDS ORDERED: NS 1,000 ML IV ONE (07:19)
[2017-09-30] MEDS ORDERED: ONDANSETRON 4 MG/2 ML VIAL IVP ONE ×2 (07:19→08:23)
[2017-09-30] MEDS ORDERED: HYDROmorphONE/DILAUDID 2 MG/ML INJ IVP ONE ×2 (07:19→08:16)
[2017-09-30] MEDS ORDERED: PROMETHAZINE HCL 25 MG/ML INJ IVP ONE ×2 (07:19→08:23)
--- NOTE | 2017-09-30 07:24 | EDPHY ---
H & P Time Seen by Provider: 09/30/17 07:13 HPI/ROS: HPI Cyclic vomiting exacerbation. 32-year-old female by private vehicle with significant other. Patient has a long history of cyclic vomiting. She was just seen in our emergency department 2 days ago and admitted overnight for this exact complaint. Multiple different antiemetic combination medications were given without significant relief to the patient. She has had successful stoppage of her cyclic vomiting with IV narcotics. Ultimately, she was given IV hydromorphone with good relief of her abdominal pain and vomiting and discharged home yesterday. She felt all right last night but then woke up this morning with the same crampy abdominal pain and associated nausea and vomiting, inability to keep fluids down, which has been the trade ari of her multiple previous exacerbations of this cyclic vomiting. She states that she only uses narcotics when she has these exacerbations. She is asking frankly for IV Dilaudid. Saying that she does not want to be admitted again and this is the only thing that will work for her. ROS: Constitutional: No fever, no chills. No weakness. Eyes: No discharge. No changes in vision. ENT: No sore throat. No nasal congestion or rhinorrhea. Respiratory: No cough. No shortness of breath. Cardiac: No chest pain, no palpitations. Gastrointestinal: As above, no diarrhea. Genitourinary: No hematuria. No dysuria or increased frequency with urination. Musculoskeletal: No back pain. No neck pain. No myalgias or arthralgias. Skin: No rashes. Neurological: No headache. No focal weakness or altered sensation. Past medical history: Cyclic vomiting, recent dog bite. Social history: Here with boyfriend. No alcohol. No tobacco. Physical Exam: General Appearance: Alert, no distress. Vomit basin at her side. This patient is responding to questions appropriately and in full sentences. This patient appears well-hydrated and well-nourished. Eyes: Pupils equal and round no pallor or injection. No lid edema, erythema or injection. Respiratory: There are no retractions, lungs are clear to auscultation with good air movement bilaterally. Cardiovascular: Regular rate and rhythm. No murmur. Gastrointestinal: Abdomen is soft and nontender, no masses, bowel sounds normal. No focal tenderness at McBurney's point. No Elise sign. Neurological: Motor sensory function is grossly intact. Cranial nerves are normal. Gait is normal. Skin: Warm and dry, no rashes. Musculoskeletal: Neck is supple and nontender. Extremities are symmetrical. All joints range without pain or impingement. Psychiatric: No agitation. No depression. Database: EKG: Imaging: Procedures: Emergency department course: Vital signs reviewed. She is moderately hypertensive. I reviewed her medication allergies. She is allergic to Haldol. She states that Toradol has been ineffective. Considering her recurrent exacerbations of her cyclic vomiting and to try and avoid another admission for this problem alone she will be given 1 mg of IV hydromorphone, 6.25 mg of IV Phenergan, 4 mg of IV Zofran and 20 mg of IV Pepcid initially. She will be given 1 L of IV normal saline over the next hour. 8:15 a.m., patient re-evaluated. She is sleeping but easily arousable. She states that she still has some nausea and is asking for 1 more round of pain and nausea medication. I agreed to give her another 0.5 mg of IV hydromorphone , 6.25 mg of IV Phenergan and 4 mg of IV Zofran. 9:00 a.m., patient re-evaluated. The patient states she is still feeling nauseous. She is currently not able to tolerate oral fluids. She is asking for admission. Repeat abdominal exam is unchanged from above. Hospitalist paged. 9:10 a.m., spoke with on-call hospitalist. They are very familiar with this patient. Her presentation today was discussed in detail. He accepts this patient for admission for continued IV hydration and IV antiemetics. Patient admitted to the hospitalist service in stable condition. Note: I spoke with hospitalist Dr. Aldridge. He requested that we keep the patient in the emergency department until he evaluates her. The patient and remained symptomatic on his evaluation. She was admitted to the hospitalist service as above. Differential Diagnosis: The differential diagnosis on this patient includes but is not limited to cyclic vomiting exacerbation. Bowel obstruction, appendicitis, food-borne illness, other surgical etiology of vomiting unlikely. This represents a partial list of diagnoses considered. These considerations are based on history , physical exam, past history, reassessment and diagnostic testing. Smoking Status: Former smoker Constitutional: Initial Vital Signs Temperature (C) 36.7 C 09/30/17 07:09 Heart Rate 76 09/30/17 07:09 Respiratory Rate 18 09/30/17 07:09 Blood Pressure 179/129 H 09/30/17 07:09 O2 Sat (%) 98 09/30/17 07:09 O2 Delivery Mode Room Air Allergies/Adverse Reactions: Penicillins Allergy (Severe, Verified 09/30/17 07:09) swells airway haloperidol [From Haldol] Allergy (Mild, Verified 09/30/17 07:09) agitation tramadol Allergy (Mild, Verified 09/30/17 07:09) agitation Home Medications: Medication Instructions Recorded Amitriptyline HCl 150 mg PO HS 08/31/17 Diazepam [Valium 5 MG (*)] 5 mg PO HS PRN 08/31/17 Promethazine HCl [Phenergan 12.5mg 12.5 mg IN Q6 PRN #24 suppr 09/29/17 supp (*)] Medical Decision Making - Data Points Laboratory Results: Laboratory Results 09/30/17 09:51 09/30/17 10:30 09/30/17 09/30/17 09/30/17 10:30 09:51 09:51 WBC 14.90 10^3/uL H 10^3/uL (3.80-9.50) RBC 4.32 10^6/uL 10^6/uL (4.18-5.33) Hgb 13.0 g/dL g/dL (12.6-16.3) Hct 37.5 % L % (38.0-47.0) MCV 86.8 fL fL (81.5-99.8) MCH 30.1 pg pg (27.9-34.1) MCHC 34.7 g/dL g/dL (32.4-36.7) RDW 12.4 % % (11.5-15.2) Plt Count 396 10^3/uL 10^3/uL (150-400) MPV 8.5 fL L fL (8.7-11.7) Neut % (Auto) 80.5 % H % (39.3-74.2) Lymph % (Auto) 13.2 % L % (15.0-45.0) Letcher % (Auto) 4.8 % % (4.5-13.0) Eos % (Auto) 0.5 % L % (0.6-7.6) Baso % (Auto) 0.6 % % (0.3-1.7) Nucleat RBC Rel Count 0.0 % % (0.0-0.2) Absolute Neuts (auto) 12.00 10^3/uL H 10^3/uL (1.70-6.50) Absolute Lymphs (auto) 1.97 10^3/uL 10^3/uL (1.00-3.00) Absolute Monos (auto) 0.71 10^3/uL 10^3/uL (0.30-0.80) Absolute Eos (auto) 0.07 10^3/uL 10^3/uL (0.03-0.40) Absolute Basos (auto) 0.09 10^3/uL 10^3/uL (0.02-0.10) Absolute Nucleated RBC 0.00 10^3/uL 10^3/uL (0-0.01) Immature Gran % 0.4 % % (0.0-1.1) Immature Gran # 0.06 10^3/uL 10^3/uL (0.00-0.10) Sodium 142 mEq/L mEq/L REJ (135-145) Potassium 3.9 mEq/L mEq/L REJ (3.3-5.0) Chloride 106 mEq/L mEq/L REJ (97-110) Carbon Dioxide 21 mEq/l L mEq/l REJ (22-31) Anion Gap 15 mEq/L mEq/L REJ (8-16) BUN 12 mg/dL mg/dL REJ (7-23) Creatinine 0.7 mg/dL mg/dL REJ (0.6-1.0) Estimated GFR > 60 REJ Glucose 100 mg/dL mg/dL REJ (70-100) Calcium 8.8 mg/dL mg/dL REJ (8.5-10.4) Total Bilirubin Pending REJ Conjugated Bilirubin REJ Unconjugated Bilirubin REJ AST Pending REJ ALT Pending REJ Alkaline Phosphatase Pending REJ Total Protein Pending REJ Albumin Pending REJ Lipase REJ Medications Given: Discontinued Medications Hydromorphone HCl (Dilaudid) 1 mg IVP EDNOW ONE Stop: 09/30/17 07:20 Last Admin: 09/30/17 07:35 Dose: 1 mg Hydromorphone HCl (Dilaudid) 0.5 mg IVP EDNOW ONE Stop: 09/30/17 08:17 Last Admin: 09/30/17 08:20 Dose: 0.5 mg Sodium Chloride (Ns) 1,000 mls @ 0 mls/hr IV EDNOW ONE; Wide Open PRN Reason: Protocol Stop: 09/30/17 07:20 Last Admin: 09/30/17 07:33 Dose: 1,000 mls Famotidine/Sodium Chloride (Pepcid 20 Mg (Premix)) 50 mls @ 200 mls/hr IV EDNOW ONE Stop: 09/30/17 07:33 Last Admin: 09/30/17 07:36 Dose: 50 mls Olanzapine (Zyprexa Im Injection) 5 mg IV EDNOW ONE Stop: 09/30/17 10:35 Last Admin: 09/30/17 10:47 Dose: Not Given Ondansetron HCl (Zofran) 4 mg IVP EDNOW ONE Stop: 09/30/17 07:20 Last Admin: 09/30/17 07:33 Dose: 4 mg Ondansetron HCl (Zofran) 4 mg IVP EDNOW ONE Stop: 09/30/17 08:24 Last Admin: 09/30/17 08:25 Dose: 4 mg Promethazine HCl (Phenergan) 6.25 mg IVP EDNOW ONE Stop: 09/30/17 07:20 Last Admin: 09/30/17 07:34 Dose: 6.25 mg Promethazine HCl (Phenergan) 6.25 mg IVP EDNOW ONE Stop: 09/30/17 08:24 Last Admin: 09/30/17 08:25 Dose: 6.25 mg Departure - Departure Disposition: [facility] Acute Clinical Impression: Cyclic vomiting syndrome
[2017-09-30] MEDS ORDERED: HYDROmorphONE/DILAUDID 1 MG/ML INJ ONE ×2 (07:27→08:19)
[2017-09-30 09:59] LABS: PLATELET COUNT 396 10^3/uL (150-400)
[2017-09-30] MEDS ORDERED: OLANZapine 10 MG/2 ML VIAL IV ONE (10:34)
[2017-09-30] MEDS ORDERED: PROMETHAZINE HCL 25 MG/ML INJ IVP PRN (10:44)
[2017-09-30] MEDS ORDERED: ACETAMINOPHEN 325 MG TAB PO PRN (10:44)
[2017-09-30] MEDS ORDERED: ONDANSETRON 4 MG/2 ML VIAL IVP PRN (10:44)
[2017-09-30] MEDS ORDERED: PROMETHAZINE HCL 25 MG TAB PO PRN (10:44)
[2017-09-30] MEDS ORDERED: HYDROmorphONE/DILAUDID 2 MG TAB PO ONE (10:48)
[2017-09-30] MEDS ORDERED: OLANZapine DISINTEGR 5 MG TAB PO PRN (10:48)
[2017-09-30] MEDS: DICYCLOMINE 20 MG TAB PO PRN ×2 (12:34→18:42)
[2017-09-30] MEDS: LORazepam 2 MG/ML INJ IVP PRN ×2 (12:34→18:42)
[2017-09-30] MEDS: HYDROmorphONE/DILAUDID 1 MG/ML INJ IVP PRN ×5 (13:05→21:34)
[2017-09-30] MEDS ORDERED: BISACODYL 10 MG SUPP PR PRN (13:30)
[2017-09-30] MEDS ORDERED: MAGNESIUM HYDROXIDE 30 ML UDCUP PO PRN (13:30)
[2017-09-30] MEDS ORDERED: LACTULOSE 20 GM/30 ML UDCUP PO PRN (13:30)
[2017-09-30] MEDS ORDERED: POLYETHYLENE GLYCOL 3350 17 GM PKT PO PRN (13:30)
[2017-09-30] MEDS: NS 1,000 ML IV SCH (13:46)
[2017-09-30] MEDS: ONDANSETRON DISINTEGRATING 4 MG TAB PO PRN (13:49)
[2017-09-30] MEDS: SENNOSIDES/DOCUSATE SODIUM TAB PO SCH ×2 (13:51→20:51)
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
[2017-09-30] MEDS ORDERED: PROMETHAZINE HCL 12.5 MG SUPPR PR PRN (18:23)
[2017-09-30] MEDS ORDERED: DIAZEPAM 5 MG TAB PO PRN (18:23)
[2017-09-30] MEDS ORDERED: AMITRIPTYLINE HCL 100 MG TAB PO SCH (21:00)
[2017-10-01] MEDS: HYDROmorphONE/DILAUDID 1 MG/ML INJ IVP PRN ×4 (00:44→07:42)
[2017-10-01] MEDS: ONDANSETRON DISINTEGRATING 4 MG TAB PO PRN (04:43)
[2017-10-01 04:51] LABS: PLATELET COUNT 370 10^3/uL (150-400)
[2017-10-01 07:37] VITALS: BP 118/75
[2017-10-01] MEDS: NS 1,000 ML IV SCH (07:49)
[2017-10-01] MEDS ORDERED: ENOXAPARIN 40 MG/0.4 ML SYR SC SCH (09:00)
[2017-10-01] MEDS: SENNOSIDES/DOCUSATE SODIUM TAB PO SCH (10:10)
--- NOTE | 2017-10-01 12:41 | GDS ---
[f rep st] DISCHARGE SUMMARY DISCHARGE DIAGNOSIS: Cyclic vomiting. PHYSICAL EXAM: GENERAL: The patient is alert. VITAL SIGNS: Afebrile at 36.8, pulse is 90, respira tory rate 16, blood pressure is 118/75. She is saturating 98% on room air. I have seen and evaluate d the patient on the day of discharge. HOSPITAL COURSE: The patient is a 32-year-old female who has a longstanding history of cyclic vomiti ng disorder. She was previously in the hospital secondary to cyclic vomiting with outside stressor i nduced. Her symptoms have resolved. She is tolerating a regular diet. She has had no further episo fanta of vomiting. She is facing her anxiety and triggers head on regarding this episode. She will be discharged home to followup in the outpatient setting with her primary care physician. DISCHARGE MEDICATIONS: Please refer to EMR form. I have provided the patient a prescription for Dil audid 2 mg, #5. /[id number]/MODL
== END 2017-10-01 11:44 | disposition home or self-care (01) ==
LOC: UNDOADMOB 09:13 → F3N 11:10
PROVIDERS: ADMIT Internal Medicine; ATTEND Hospitalist
DX: G43.A0 Cyclical vomiting, in migraine, not intractable (principal); R10.10 Upper abdominal pain, unspecified; E86.9 Volume depletion, unspecified; F41.9 Anxiety disorder, unspecified; E80.4 Gilbert syndrome; Z87.820 Personal history of traumatic brain injury; Z87.891 Personal history of nicotine dependence; Z88.0 Allergy status to penicillin; Z88.6 Allergy status to analgesic agent
CPT/HCPCS: 96365; G0378; J1170; J1650; J2060; J2405; J2550

== ENCOUNTER 2018-01-12 13:41 | Emergency (ER) | payer SELFPAY ==
[2018-01-12] MEDS ORDERED: CAPSACIAN 0.075% CREAM TP ONE (13:56)
[2018-01-12] MEDS ORDERED: ONDANSETRON 4 MG/2 ML VIAL IVP ONE (14:06)
[2018-01-12] MEDS ORDERED: HYDROmorphONE/DILAUDID 1 MG/ML INJ IVP ONE ×2 (14:06→15:44)
[2018-01-12] MEDS ORDERED: LORazepam 2 MG/ML INJ IVP ONE (14:06)
[2018-01-12] MEDS ORDERED: NS 1,000 ML IV ONE (14:06)
--- NOTE | 2018-01-12 14:06 | EDPHY ---
H & P Stated Complaint: UPPER ABD PAIN N/V - Personal History LMP (Females 10-55): 15-21 Days Ago Tetanus Vaccine Date: 2014 - Medical/Surgical History Hx Asthma: Yes Hx Chronic Respiratory Disease: No Hx Diabetes: No Hx Cardiac Disease: No Hx Renal Disease: No Hx Cirrhosis: No Hx Alcoholism: No Hx HIV/AIDS: No Hx Splenectomy or Spleen Trauma: No Other PMH: PMH:cyclic vomiting, pancreatitis,. PSH:cholycystecomy, dental, - Social History Smoking Status: Former smoker Time Seen by Provider: 01/12/18 13:53 HPI/ROS: CHIEF COMPLAINT: Vomiting abdominal pain HISTORY OF PRESENT ILLNESS: 32-year-old female history of cyclic vomiting syndrome, remote history of cholecystectomy, prior hospital admissions for intractable vomiting, arrives via private vehicle complaining of intractable vomiting and diffuse abdominal pain since yesterday. REVIEW OF SYSTEMS: 10 systems reviewed and negative with the exception of the elements mentioned in the history of present illness PAST MEDICAL & SURGICAL HISTORY: Cyclic vomiting syndrome. Cholecystectomy SOCIAL HISTORY:Nonsmoker PHYSICAL EXAM (Prior to examination, patient consented to physical exam, hands were washed and my usual and customary physical exam procedures followed) 1) GENERAL: Well-developed, well-nourished, alert and oriented. Appears uncomfortable and anxious 2) HEAD: Normocephalic, atraumatic 3) HEENT: Pupils equal, round, reactive to light bilaterally. Sclera anicteric. Nasopharynx, oropharynx, clear, no lesions. Dry mucous membranes. 4) NECK: Full range of motion, no meningeal signs. 5) LUNGS: Clear auscultation bilaterally, no wheezes, no rhonchi, no retractions. 6) HEART: Regular rate and rhythm, no murmur, no heave, no gallop. 7) ABDOMEN: Guarding abdomen, diffusely tender to palpation all quadrants., 8) MUSCULOSKELETAL: Moving all extremities, no focal areas of tenderness, no obvious trauma. No peripheral edema or discoloration. 9) BACK: No CVA tenderness, no midline vertebral tenderness, no fluctuance, no step-off, no obvious trauma, no visual or palpable abnormality. 10) SKIN: No rash, no petechiae. 11) Psychiatric: Patient is oriented X 3, there is no agitation. DIFFERENTIAL DIAGNOSIS: My differential diagnosis includes, but is not limited to, acute appendicitis, acute cholecystitis, bowel obstruction, acute pancreatitis, ovarian torsion, ectopic , gastritis and urinary tract infection. The patient understands that this diagnosis is provisional and can never be 100% accurate. This is a partial list of diagnoses considered. These considerations are based on history, physical exam, past history and reassessment. (Stalin Jones) Constitutional: Initial Vital Signs Temperature (C) 37 C 01/12/18 13:48 Heart Rate 74 01/12/18 13:48 Respiratory Rate 18 01/12/18 13:48 Blood Pressure 135/119 H 01/12/18 13:48 O2 Sat (%) 99 01/12/18 13:48 O2 Delivery Mode Room Air O2 (L/minute) 2 Allergies/Adverse Reactions: Penicillins Allergy (Severe, Verified 01/13/18 07:11) swells airway haloperidol [From Haldol] Allergy (Mild, Verified 01/13/18 07:11) agitation tramadol Allergy (Mild, Verified 01/13/18 07:11) agitation Home Medications: Medication Instructions Recorded Amitriptyline HCl 150 mg PO HS 08/31/17 Diazepam [Valium 5 MG (*)] 5 mg PO HS PRN 08/31/17 Promethazine HCl [Phenergan 12.5mg 12.5 mg MO Q6 PRN #24 suppr 09/29/17 supp (*)] Acetaminophen [Tylenol 325mg (*)] 650 mg PO Q4HRS PRN tab 10/01/17 oxyCODONE/APAP 5/325 [Percocet 1 tab PO Q6 PRN #5 tab 01/16/18 5/325 (*)] Medical Decision Making ED Course/Re-evaluation: 2:03 p.m: I reviewed the patient's old medical records. Patient states that this feels like her usual exacerbation of her cyclic vomiting syndrome. Diffusely tender to palpation all quadrants. Remote history of cholecystectomy. Discussed options for treatment. Discussed alternatives to opiates. Specifically discussed capsaicin which she states does not work and declines this. Discussed Haldol and/or ketamine which she declines stating that she does not like the way it makes her feel. States that she typically gets relief with IV Dilaudid and Phenergan but does not want Phenergan in IV form. I have agreed to administer a dose of Dilaudid as well as Zofran Benadryl Ativan and re-evaluate. 2:55 p.m.: Re-evaluation, resting comfortably states that she has by enlarged asymptomatic but would like to be observed for a further period of time in the ER 3:44 p.m.: Re-evaluation. She is requesting further dose of Dilaudid. Agreed to give her 1 final dose . At this time, I think that acute surgical abdominal pathology is less than likely this patient. I do not think that imaging studies are currently indicated. She would like to be discharged home after next dose of medication. 4:39 p.m.: Re-evaluation, sleeping, easily woken. She would like to be discharged. Recommend follow up with her bee tender and primary care provider. At this time I do not think that further diagnostic studies are indicated. I saw this patient independently based on established practice protocols. Care of patient under supervision of secondary supervising physician Dr Gonzalez . (Stalin Jones) Other Provider: The patient was evaluated and managed by the Physician Enamel Cracker. I discussed the patient's presentation and course with the physician library serials assistant and agree with the evaluation. My co-signature indicates that I have reviewed this chart and I agree with the findings and plan of care as documented. I am the secondary supervising physician. (Denia Gonzalez) - Data Points Laboratory Results: Laboratory Results 01/12/18 14:12 01/12/18 14:12 Medications Given: Discontinued Medications Capsaicin (Capsacian 0.075%) 1 michelle TP EDNOW ONE Stop: 01/12/18 13:57 Last Admin: 01/12/18 15:25 Dose: 1 tube Diphenhydramine HCl (Benadryl Injection) 25 mg IVP EDNOW ONE Stop: 01/12/18 14:07 Last Admin: 01/12/18 14:36 Dose: 25 mg Hydromorphone HCl (Dilaudid) 1 mg IVP EDNOW ONE Stop: 01/12/18 14:07 Last Admin: 01/12/18 14:35 Dose: 1 mg Hydromorphone HCl (Dilaudid) 1 mg IVP EDNOW ONE Stop: 01/12/18 15:45 Last Admin: 01/12/18 15:58 Dose: 1 mg Sodium Chloride (Ns) 1,000 mls @ 0 mls/hr IV EDNOW ONE; Wide Open PRN Reason: Protocol Stop: 01/12/18 14:07 Last Admin: 01/12/18 14:35 Dose: 1,000 mls Lorazepam (Ativan Injection) 1 mg IVP EDNOW ONE Stop: 01/12/18 14:07 Last Admin: 01/12/18 14:36 Dose: 1 mg Ondansetron HCl (Zofran) 4 mg IVP EDNOW ONE Stop: 01/12/18 14:07 Last Admin: 01/12/18 14:36 Dose: 4 mg Departure - Departure Disposition: Home, Routine, Self-Care Clinical Impression: Abdominal pain, Cyclic vomiting syndrome Condition: Good Instructions: Acute Nausea and Vomiting (ED) Additional Instructions: Seek immediate medical attention if you develop new or worsening symptoms, if you develop fevers, chills, inability to tolerate oral intake or any other symptoms that concerns you. Referrals: Hong Borrego MD [Primary Care Provider] - 1-2 days without fail David Daniel MD, FACG [Medical Doctor] - 1-2 days without fail
[2018-01-12 14:24] LABS: PLATELET COUNT 475 10^3/uL (150-400)
[2018-01-12 16:59] VITALS: BP 118/77
== END 2018-01-12 16:58 | disposition home or self-care (01) ==
DX: R10.9 Unspecified abdominal pain (principal); G43.A0 Cyclical vomiting, in migraine, not intractable; E86.9 Volume depletion, unspecified; Z87.891 Personal history of nicotine dependence; Z90.49 Acquired absence of other specified parts of digestive tract
CPT/HCPCS: 96374; J1170; J1200; J2060; J2405

== ENCOUNTER 2018-01-13 07:10 | Inpatient (IN) | payer SELFPAY ==
--- NOTE | 2018-01-13 08:02 | EDPHY ---
H & P Time Seen by Provider: 01/13/18 07:48 HPI/ROS: HPI Cyclic vomiting exacerbation. 32-year-old female by private vehicle with her . This patient has a long history of cyclic vomiting. I have seen her in the past personally. She has been to our emergency department multiple times for this disorder. She was just seen here yesterday for cyclic vomiting. She was given 2 rounds of Dilaudid as well as Zofran Benadryl and Ativan. She felt better was discharged to home. She tells me that once the Dilaudid wore off she started vomiting again and has been vomiting through the night. She describes having the same crampy diffuse abdominal pain which she has had in the past associated with her cyclic vomiting. She describes this episode as typical of her previous exacerbations of cyclic vomiting. ROS: Constitutional: No fever, no chills. No weakness. Eyes: No discharge. No changes in vision. ENT: No sore throat. No nasal congestion or rhinorrhea. Respiratory: No cough. No shortness of breath. Cardiac: No chest pain, no palpitations. Gastrointestinal: As above, no diarrhea. Genitourinary: No hematuria. No dysuria or increased frequency with urination. Musculoskeletal: No back pain. No neck pain. No myalgias or arthralgias. Skin: No rashes. Neurological: No headache. No focal weakness or altered sensation. Past medical history: Pancreatitis, cyclic vomiting syndrome, cholecystectomy. Social history: Here with her . Nonsmoker. No alcohol. Physical Exam: General Appearance: Alert, no distress. This patient is responding to questions appropriately and in full sentences. This patient appears well- hydrated and well-nourished. Eyes: Pupils equal and round no pallor or injection. No lid edema, erythema or injection. Respiratory: There are no retractions, lungs are clear to auscultation with good air movement bilaterally. Cardiovascular: Regular rate and rhythm. No murmur. Gastrointestinal: Abdomen is soft and nontender, no masses, bowel sounds normal. No focal tenderness at McBurney's point. No Elise sign. Neurological: Motor sensory function is grossly intact. Cranial nerves are normal. Gait is normal. Skin: Warm and dry, no rashes. Musculoskeletal: Neck is supple and nontender. Extremities are symmetrical. All joints range without pain or impingement. Psychiatric: No agitation. No depression. Database: EKG: Imaging: Procedures: Emergency department course: Triage vital signs reviewed. She is mildly tachycardic. Vital signs are otherwise unremarkable. She states that Dilaudid is the only medication that works for her. I discussed my concern that she was becoming addicted to narcotic pain medication. She tells me that she has been dealing with this for 9 years and does not use narcotics outside of her visits to the emergency department for this problem. After further discussion I agreed to give her a dose of Dilaudid I will also give her some Valium. She was started on IV normal saline with 1-2 L to be given over the next 1-2 hours. 9:15 a.m., the patient states she was feeling better but is now feeling nauseous again. She is requesting more medication. She will be given an additional 0.5 mg of IV hydromorphone and 6.25 mg of IV Phenergan. 10:00 a.m., patient re-evaluated, sleepy, easily arousable, repeat abdominal exam she is soft, nontender nondistended. She states that she was feeling better but is now feeling nauseous again. She reports she tried to drink some oral fluids and vomited. She is now requesting admission. I feel this is reasonable. She does have a significant elevation of her lipase which is new compared to her previous workups. Hospitalist paged. 10:15 a.m., spoke with hospitalist. Case discussed in detail. Patient accepted for admission. Her remaining emergency department course under my care has been uneventful. She was admitted in stable condition to the hospitalist service. Differential Diagnosis: The differential diagnosis on this patient includes but is not limited to cyclic vomiting syndrome, pancreatitis. Bowel obstruction, food-borne illness, DKA, cholecystitis, appendicitis unlikely. This represents a partial list of diagnoses considered. These considerations are based on history, physical exam , past history, reassessment and diagnostic testing. Smoking Status: Former smoker Constitutional: Initial Vital Signs Temperature (C) 36.9 C 01/13/18 07:12 Heart Rate 107 H 01/13/18 07:12 Respiratory Rate 18 01/13/18 07:12 Blood Pressure 153/102 H 01/13/18 07:12 O2 Sat (%) 97 01/13/18 07:12 O2 Delivery Mode Room Air Allergies/Adverse Reactions: Penicillins Allergy (Severe, Verified 01/13/18 07:11) swells airway haloperidol [From Haldol] Allergy (Mild, Verified 01/13/18 07:11) agitation tramadol Allergy (Mild, Verified 01/13/18 07:11) agitation Home Medications: Medication Instructions Recorded Amitriptyline HCl 150 mg PO HS 08/31/17 Diazepam [Valium 5 MG (*)] 5 mg PO HS PRN 08/31/17 Promethazine HCl [Phenergan 12.5mg 12.5 mg MD Q6 PRN #24 suppr 09/29/17 supp (*)] Acetaminophen [Tylenol 325mg (*)] 650 mg PO Q4HRS PRN tab 10/01/17 Medical Decision Making - Data Points Laboratory Results: Laboratory Results 01/13/18 08:26 01/13/18 08:26 01/13/18 01/13/18 01/13/18 08:26 08:26 08:26 WBC 14.53 10^3/uL H 10^3/uL (3.80-9.50) RBC 4.36 10^6/uL 10^6/uL (4.18-5.33) Hgb 13.2 g/dL g/dL (12.6-16.3) Hct 38.0 % % (38.0-47.0) MCV 87.2 fL fL (81.5-99.8) MCH 30.3 pg pg (27.9-34.1) MCHC 34.7 g/dL g/dL (32.4-36.7) RDW 12.4 % % (11.5-15.2) Plt Count 434 10^3/uL H 10^3/uL (150-400) MPV 8.5 fL L fL (8.7-11.7) Neut % (Auto) 75.1 % H % (39.3-74.2) Lymph % (Auto) 16.5 % % (15.0-45.0) [place] % (Auto) 6.2 % % (4.5-13.0) Eos % (Auto) 0.7 % % (0.6-7.6) Baso % (Auto) 0.7 % % (0.3-1.7) Nucleat RBC Rel Count 0.0 % % (0.0-0.2) Absolute Neuts (auto) 10.91 10^3/uL H 10^3/uL (1.70-6.50) Absolute Lymphs (auto) 2.40 10^3/uL 10^3/uL (1.00-3.00) Absolute Monos (auto) 0.90 10^3/uL H 10^3/uL (0.30-0.80) Absolute Eos (auto) 0.10 10^3/uL 10^3/uL (0.03-0.40) Absolute Basos (auto) 0.10 10^3/uL 10^3/uL (0.02-0.10) Absolute Nucleated RBC 0.00 10^3/uL 10^3/uL (0-0.01) Immature Gran % 0.8 % % (0.0-1.1) Immature Gran # 0.12 10^3/uL H 10^3/uL (0.00-0.10) Sodium 140 mEq/L mEq/L (135-145) Potassium 3.6 mEq/L mEq/L (3.3-5.0) Chloride 103 mEq/L mEq/L (97-110) Carbon Dioxide 24 mEq/l mEq/l (22-31) Anion Gap 13 mEq/L mEq/L (8-16) BUN 5 mg/dL L mg/dL (7-23) Creatinine 0.6 mg/dL mg/dL (0.6-1.0) Estimated GFR > 60 Glucose 129 mg/dL H mg/dL (70-100) Calcium 9.4 mg/dL mg/dL (8.5-10.4) Total Bilirubin 1.1 mg/dL mg/dL (0.1-1.4) Conjugated Bilirubin 0.1 mg/dL mg/dL (0.0-0.5) Unconjugated Bilirubin 1.0 mg/dL mg/dL (0.0-1.1) AST 20 IU/L IU/L (14-46) ALT 37 IU/L IU/L (9-52) Alkaline Phosphatase 68 IU/L IU/L (38-126) Total Protein 6.9 g/dL g/dL (6.3-8.2) Albumin 4.2 g/dL g/dL (3.5-5.0) Lipase 1313 IU/L H IU/L (23-300) Beta HCG, Qual NEGATIVE Medications Given: Discontinued Medications Diazepam (Valium) 5 mg IVP EDNOW ONE Stop: 01/13/18 08:06 Last Admin: 01/13/18 08:31 Dose: 5 mg Hydromorphone HCl (Dilaudid) 0.5 mg IVP EDNOW ONE Stop: 01/13/18 08:05 Last Admin: 01/13/18 08:28 Dose: 0.5 mg Hydromorphone HCl (Dilaudid) 0.5 mg IVP EDNOW ONE Stop: 01/13/18 09:08 Last Admin: 01/13/18 09:23 Dose: 0.5 mg Sodium Chloride (Ns) 1,000 mls @ 0 mls/hr IV EDNOW ONE; Wide Open PRN Reason: Protocol Stop: 01/13/18 08:05 Last Admin: 01/13/18 08:30 Dose: 1,000 mls Sodium Chloride (Ns) 1,000 mls @ 0 mls/hr IV EDNOW ONE; Wide Open PRN Reason: Protocol Stop: 01/13/18 08:05 Last Admin: 01/13/18 09:24 Dose: 1,000 mls Famotidine/Sodium Chloride (Pepcid 20 Mg (Premix)) 50 mls @ 200 mls/hr IV EDNOW ONE Stop: 01/13/18 08:18 Last Admin: 01/13/18 08:32 Dose: 50 mls Promethazine HCl (Phenergan) 6.25 mg IVP EDNOW ONE Stop: 01/13/18 08:05 Last Admin: 01/13/18 08:31 Dose: 6.25 mg Promethazine HCl (Phenergan) 6.25 mg IVP ONCE ONE Stop: 01/13/18 09:09 Last Admin: 01/13/18 09:23 Dose: 6.25 mg Departure - Departure Disposition: [facility] Inpatient Acute Clinical Impression: Cyclic vomiting syndrome, Pancreatitis Referrals: Hong Borrego MD [Primary Care Provider] - As per Instructions
[2018-01-13] MEDS ORDERED: FAMOTIDINE 20 MG/NACL 50 ML IV ONE (08:04)
[2018-01-13] MEDS ORDERED: NS 1,000 ML IV ONE ×2 (08:04)
[2018-01-13] MEDS ORDERED: PROMETHAZINE HCL 25 MG/ML INJ IVP ONE ×2 (08:04→09:08)
[2018-01-13] MEDS ORDERED: HYDROmorphONE/DILAUDID 2 MG/ML INJ IVP ONE ×3 (08:04→11:44)
[2018-01-13] MEDS ORDERED: DIAZEPAM 5 MG/ML 1 ML SYR IVP ONE (08:05)
[2018-01-13 08:36] LABS: PLATELET COUNT 434 10^3/uL (150-400)
[2018-01-13] MEDS ORDERED: ACETAMINOPHEN 325 MG TAB PO PRN (10:51)
[2018-01-13] MEDS ORDERED: LORazepam 2 MG/ML INJ IVP PRN (10:51)
[2018-01-13] MEDS ORDERED: PROMETHAZINE HCL 12.5 MG SUPPR PR PRN (10:53)
[2018-01-13] MEDS ORDERED: HYDROmorphONE/DILAUDID 1 MG/ML INJ IVP ONE (10:58)
[2018-01-13] MEDS ORDERED: HYDROmorphONE/DILAUDID 1 MG/ML INJ IVP PRN (11:11)
--- NOTE | 2018-01-13 11:16 | PDGENHP ---
History and Physical - Chief Complaint abdominal pain - History of Present Illness 32yo F with functional abdominal pain/cyclic vomiting syndrome presents with abdominal pain and nausea. Symptoms started 2 days ago. Came to ED yesterday, got pain meds and anti-emetics with relief, felt well enough to go home. Symptoms returned last night which consist of severe, cramping upper abdominal pain associated with nausea and bilious vomiting. No diarrhea, fevers, chills. No recent travel or antibiotics. Tried valium and phenergan suppository without relief. Not tolerating PO. She states that this episode is slightly different than past cyclic vomiting exacerbations as she has more pain and less vomiting than usual. In ED, slightly tachycardic. Received IV pain and nausea medications but unable to control symptoms and lipase elevated so being admitted for acute pancreatitis. I have reviewed prior records including recent discharge summary from 09/2017 and prior abdominal imaging dating back to 2011. History Information - Allergies/Home Medication List Allergies/Adverse Reactions: Penicillins Allergy (Severe, Verified 01/13/18 07:11) swells airway haloperidol [From Haldol] Allergy (Mild, Verified 01/13/18 07:11) agitation tramadol Allergy (Mild, Verified 01/13/18 07:11) agitation Home Medications: Amitriptyline HCl 150 mg PO HS 08/31/17 [Last Taken 01/12/18] Diazepam [Valium 5 MG (*)] 5 mg PO HS PRN 08/31/17 [Last Taken 01/12/18] I have personally reviewed and updated: family history, medical history, social history, surgical history - Past Medical History Additional medical history: Cyclic vomiting syndrome/functional abdominal pain, Gilbert's syndrome, etcopic , TBI, idiopathic pancreatitis - Surgical History Additional surgical history: Cholecystectomy, last EGD December 2014 - Family History Additional family history: No family history of immune deficiency disorder, second-degree relative with breast cancer, biliary disease; grandmother (92yo) recently diagnosed with pancreatic cancer - Social History Smoking Status: Former smoker Alcohol Use: None Drug Use: Marijuana (smokes daily) Additional social history: Lives with , works for local [employer], currently in a lapse with her health insurance Review of Systems Review of Systems: ROS: 10pt was reviewed & negative except for what was stated in HPI & below Physical Exam Physical Exam: Temp Pulse Resp BP Pulse Ox 36.9 C 72 16 160/110 H 94 01/13/18 07:12 01/13/18 10:25 01/13/18 10:25 01/13/18 10:25 01/13/18 10:25 Constitutional: appears nourished, uncomfortable (related to pain) Eyes: PERRL, anicteric sclera, EOMI Ears, Nose, Mouth, Throat: moist mucous membranes, hearing normal, ears appear normal, no oral mucosal ulcers Cardiovascular: regular rate and rhythym, no murmur, rub, or gallop, No edema Respiratory: no respiratory distress, no rales or rhonchi, clear to auscultation Gastrointestinal: normoactive bowel sounds, tenderness (bilateral upper quadrants), guarding (voluntary), No hepatosplenomegally, No distension Skin: warm, normal color, no rashes or abrasions, no fluctuance, no induration, No mottled Musculoskeletal: full muscle strength, no muscle tenderness, normal joint ROM, no joint effusions Neurologic: AAOx3 Psychiatric: interacting appropriately, not anxious, not encephalopathic, thought process linear, other (tearful) Lab Data & Imaging Review 01/13/18 08:26 01/13/18 08:26 WBC 14.53 10^3/uL (3.80-9.50) H 01/13/18 08:26 RBC 4.36 10^6/uL (4.18-5.33) 01/13/18 08:26 Hgb 13.2 g/dL (12.6-16.3) 01/13/18 08:26 Hct 38.0 % (38.0-47.0) 01/13/18 08:26 MCV 87.2 fL (81.5-99.8) 01/13/18 08:26 MCH 30.3 pg (27.9-34.1) 01/13/18 08:26 MCHC 34.7 g/dL (32.4-36.7) 01/13/18 08:26 RDW 12.4 % (11.5-15.2) 01/13/18 08:26 Plt Count 434 10^3/uL (150-400) H 01/13/18 08:26 MPV 8.5 fL (8.7-11.7) L 01/13/18 08:26 Neut % (Auto) 75.1 % (39.3-74.2) H 01/13/18 08:26 Lymph % (Auto) 16.5 % (15.0-45.0) 01/13/18 08:26 [place] % (Auto) 6.2 % (4.5-13.0) 01/13/18 08:26 Eos % (Auto) 0.7 % (0.6-7.6) 01/13/18 08:26 Baso % (Auto) 0.7 % (0.3-1.7) 01/13/18 08:26 Nucleat RBC Rel Count 0.0 % (0.0-0.2) 01/13/18 08:26 Absolute Neuts (auto) 10.91 10^3/uL (1.70-6.50) H 01/13/18 08:26 Absolute Lymphs (auto) 2.40 10^3/uL (1.00-3.00) 01/13/18 08:26 Absolute Monos (auto) 0.90 10^3/uL (0.30-0.80) H 01/13/18 08:26 Absolute Eos (auto) 0.10 10^3/uL (0.03-0.40) 01/13/18 08:26 Absolute Basos (auto) 0.10 10^3/uL (0.02-0.10) 01/13/18 08:26 Absolute Nucleated RBC 0.00 10^3/uL (0-0.01) 01/13/18 08:26 Immature Gran % 0.8 % (0.0-1.1) 01/13/18 08:26 Immature Gran # 0.12 10^3/uL (0.00-0.10) H 01/13/18 08:26 Sodium 140 mEq/L (135-145) 01/13/18 08:26 Potassium 3.6 mEq/L (3.3-5.0) 01/13/18 08:26 Chloride 103 mEq/L (97-110) 01/13/18 08:26 Carbon Dioxide 24 mEq/l (22-31) 01/13/18 08:26 Anion Gap 13 mEq/L (8-16) 01/13/18 08:26 BUN 5 mg/dL (7-23) L 01/13/18 08:26 Creatinine 0.6 mg/dL (0.6-1.0) 01/13/18 08:26 Estimated GFR > 60 01/13/18 08:26 Glucose 129 mg/dL (70-100) H 01/13/18 08:26 Calcium 9.4 mg/dL (8.5-10.4) 01/13/18 08:26 Total Bilirubin 1.1 mg/dL (0.1-1.4) 01/13/18 08:26 Conjugated Bilirubin 0.1 mg/dL (0.0-0.5) 01/13/18 08:26 Unconjugated Bilirubin 1.0 mg/dL (0.0-1.1) 01/13/18 08:26 AST 20 IU/L (14-46) 01/13/18 08:26 ALT 37 IU/L (9-52) 01/13/18 08:26 Alkaline Phosphatase 68 IU/L (38-126) 01/13/18 08:26 Total Protein 6.9 g/dL (6.3-8.2) 01/13/18 08:26 Albumin 4.2 g/dL (3.5-5.0) 01/13/18 08:26 Lipase 1313 IU/L (23-300) H 01/13/18 08:26 Beta HCG, Qual NEGATIVE 01/13/18 08:26 Assessment & Plan Assessment: 32yo F with functional abdominal pain/cyclic vomiting syndrome presents with 2 days of abdominal pain and nausea/emesis found to have acute pancreatitis. Plan: #Acute pancreatitis: Manifested as abd pain, elevated lipase. Unclear precipitant. Has h/o idiopathic pancreatitis in the past with lab and imaging work up unrevealing for etiology. Doesn't have gallbladder and bilirubin normal. Not a drinker. - Clear diet, advance as tolerates - IVF with LR - Abdominal US (not done since 2014) - Check triglycerides - IV dilaudid, IV anti-emetics #Functional abdominal pain/cyclic vomiting syndrome: Seems to be acutely exacerbated by above. She's had this for 9 years with extensive lab (autoimmune , celiac, cortisol, A1c, etc) work up and EGD/imaging. Previously has seen Dr Collazo in GI clinic. - IV ativan - Continue home amitriptyline, which she says helps significantly - Has tried cognitive behavioral therapy recently without much benefit #Leukocytosis: Related to above. Monitor. VTE ppx: LMWH Code: full Dispo: Admit under observation for management of acute pancreatitis with IV pain and nausea medications.
--- NOTE | 2018-01-13 12:42 | ASMTCMCOM ---
CM Note CM Note Notes: Pt admitted for abdominal pain and cyclic vomiting, pt has non etoh pancreatitis. Anticipate she will dc home w/support of when medically stable. CM available for any changes. DC Plan: Independent Date Signed: 01/13/2018 12:23 PM Electronically Signed By:Babs Byers RN
[2018-01-13] MEDS: LR 1,000 ML IV SCH (13:05)
[2018-01-13] MEDS: ONDANSETRON DISINTEGRATING 4 MG TAB PO PRN ×3 (13:23→22:07)
[2018-01-13] MEDS: HYDROmorphONE/DILAUDID 1 MG/ML INJ IVP PRN ×4 (15:15→22:18)
[2018-01-13] MEDS: AMITRIPTYLINE HCL 100 MG TAB PO SCH (21:43)
[2018-01-13] MEDS: HYDROmorphONE/DILAUDID 2 MG TAB PO PRN ×2 (21:43→22:07)
[2018-01-14] MEDS: ONDANSETRON 4 MG/2 ML VIAL IVP PRN ×3 (00:05→17:45)
[2018-01-14] MEDS: HYDROmorphONE/DILAUDID 1 MG/ML INJ IVP PRN ×5 (00:18→10:35)
[2018-01-14 06:00] LABS: PLATELET COUNT 428 10^3/uL (150-400)
[2018-01-14] MEDS: ENOXAPARIN 40 MG/0.4 ML SYR SC SCH (08:22)
[2018-01-14] MEDS: HYDROmorphONE/DILAUDID 2 MG TAB PO PRN (08:22)
[2018-01-14] MEDS: LR 1,000 ML IV SCH ×2 (08:28→17:45)
[2018-01-14] MEDS ORDERED: NALOXONE HCL 0.4 MG/ML INJ IVP PRN (09:38)
[2018-01-14] MEDS ORDERED: PROMETHAZINE HCL 25 MG/ML INJ IVP PRN (09:39)
[2018-01-14] MEDS: HYDROmorphONE/DILAUDID 6 MG/30 ML PCA IV PRN ×2 (11:48→23:48)
--- NOTE | 2018-01-14 12:17 | HOSPPROG ---
Hospitalist Progress Note Assessment/Plan: 32yo F with functional abdominal pain/cyclic vomiting syndrome presents with 2 days of abdominal pain and nausea/emesis found to have acute pancreatitis. First encounter, chart reviewed. Reviewed ultrasound. Plan: #Acute pancreatitis: Manifested as abd pain and elevated lipase. Unclear precipitant. Has h/o idiopathic pancreatitis in the past with lab and imaging work up unrevealing for etiology. Doesn't have gallbladder and bilirubin normal. Not a drinker. - NPO - IVF with LR - Abdominal US stable - triglycerides stable - IV DONOR CENTER TECHNICIAN, antimetics #Functional abdominal pain/cyclic vomiting syndrome: Seems to be acutely exacerbated by above. She's had this for 9 years with extensive lab (autoimmune, celiac, cortisol, A1c, etc) work up and EGD/imaging. Previously has seen Dr Collazo in GI clinic. - IV ativan - Continue home amitriptyline, which she says helps significantly - Has tried cognitive behavioral therapy recently without much benefit #Leukocytosis: Related to above. Monitor. VTE ppx: LMWH Code: full Dispo: Unclear, cont supportive care for acute pancreatitis. D/W pt education regarding care and follow up. Subjective: Still having stabbing abd pain. Not throwing up. Some nausea. Objective: Vital Signs Temp Pulse Resp BP Pulse Ox 36.9 C 77 18 153/113 H 99 01/14/18 11:54 01/14/18 11:54 01/14/18 11:54 01/14/18 11:54 01/14/18 11:54 Laboratory Results 01/14/18 05:02 01/14/18 05:02 01/13/18 01/14/18 01/15/18 05:59 05:59 05:59 Intake Total 2550 Output Total 0 Balance 2550 - Physical Exam Constitutional: appears nourished, obese, uncomfortable Eyes: PERRL, anicteric sclera, EOMI Ears, Nose, Mouth, Throat: moist mucous membranes, hearing normal, ears appear normal Cardiovascular: regular rate and rhythym, No JVD, No tachycardia, No edema Respiratory: no respiratory distress, no rales or rhonchi, reduced air movement Gastrointestinal: tenderness, distension, No ascites, No rebound Skin: warm, normal color, No mottled Musculoskeletal: full muscle strength, normal joint ROM, no joint effusions Neurologic: AAOx3 Psychiatric: interacting appropriately, not anxious, not encephalopathic, thought process linear ICD10 Worksheet Patient Problems: Problems Problem Status Onset Hyperglycemia Active Leukocytosis Active Hypokalemia Active Pancreatitis Acute Cellulitis Acute Dog bite of arm Acute Dog bite of left hand Acute Cellulitis of left hand Acute Cyclic vomiting syndrome Acute
--- NOTE | 2018-01-14 13:04 | PDMN ---
Medical Necessity Medical necessity: Change to inpt as of 01/13/18 @ 1334. Pt meets inpt criteria per MD order and [facility] M-250, Pancreatitis. 32 y/o w/abd pain/cyclic vomiting syndrome admitted w/acute pancreatitis, presents w/abd pain and nusea, elevated lipase (1313), leukocytosis (WBC 14.24), hx of idiopathic pancreatitis. Cont NPO ,IVF, IV Dilaudid COMPUTER HARDWARE TECHNICIAN for pain, IV Zofran for N/V, anticipate >2MN for med nec ongoing monitoring/treatment of acute pancreatitis.
[2018-01-14] MEDS: AMITRIPTYLINE HCL 100 MG TAB PO SCH (20:45)
[2018-01-15] MEDS: ENOXAPARIN 40 MG/0.4 ML SYR SC SCH (07:36)
[2018-01-15] MEDS ORDERED: LORazepam 2 MG/ML INJ IM PRN (09:14)
--- NOTE | 2018-01-15 09:15 | HOSPPROG ---
Hospitalist Progress Note Assessment/Plan: 32yo F with functional abdominal pain/cyclic vomiting syndrome presents with 2 days of abdominal pain and nausea/emesis found to have acute pancreatitis. Plan: #Acute pancreatitis: Manifested as abd pain and elevated lipase. Unclear precipitant. Has h/o idiopathic pancreatitis in the past with lab and imaging work up unrevealing for etiology. Doesn't have gallbladder and bilirubin normal. Not a drinker. - NPO - IVF with LR - Abdominal US stable - triglycerides stable - IV WARDROBE SUPERVISOR, antimetics #Functional abdominal pain/cyclic vomiting syndrome: -stable, no symptoms -She's had this for 9 years with extensive lab (autoimmune, celiac, cortisol , A1c, etc) work up and EGD/imaging. - IV ativan helps - Continue home amitriptyline, which she says helps significantly - Has tried cognitive behavioral therapy recently without much benefit #Leukocytosis: Related to above. Monitor. VTE ppx: LMWH Code: full Dispo: Unclear, cont supportive care for acute pancreatitis. D/W pt education regarding care and follow up. cont bowel rest at this time. Subjective: Still having some pain but controlled with WARDROBE SUPERVISOR. Not feeling hungry. Anxious this am. Objective: Vital Signs Temp Pulse Resp BP Pulse Ox 36.8 C 84 12 131/97 H 95 01/15/18 08:00 01/15/18 08:00 01/15/18 08:00 01/15/18 08:00 01/15/18 08:00 Laboratory Results 01/14/18 05:02 01/14/18 05:02 01/14/18 01/15/18 01/16/18 05:59 05:59 05:59 Intake Total 550 200 Output Total 0 Balance 550 200 - Physical Exam Constitutional: appears nourished, obese Eyes: PERRL, anicteric sclera Ears, Nose, Mouth, Throat: moist mucous membranes, hearing normal Cardiovascular: regular rate and rhythym, No JVD Respiratory: no respiratory distress, reduced air movement Gastrointestinal: tenderness, distension, No ascites, No guarding Skin: warm, normal color Musculoskeletal: normal joint ROM, no joint effusions, generalized weakness Neurologic: AAOx3 Psychiatric: not encephalopathic, thought process linear, anxious ICD10 Worksheet Patient Problems: Problems Problem Status Onset Hyperglycemia Active Leukocytosis Active Hypokalemia Active Pancreatitis Acute Cellulitis Acute Dog bite of arm Acute Dog bite of left hand Acute Cellulitis of left hand Acute Cyclic vomiting syndrome Acute
[2018-01-15] MEDS: ONDANSETRON 4 MG/2 ML VIAL IVP PRN ×2 (13:12→21:18)
[2018-01-15] MEDS: LR 1,000 ML IV SCH (13:55)
[2018-01-15] MEDS: LORazepam 2 MG/ML INJ IVP PRN ×2 (13:55→21:18)
[2018-01-15] MEDS: AMITRIPTYLINE HCL 100 MG TAB PO SCH (21:19)
[2018-01-16] MEDS: LORazepam 2 MG/ML INJ IVP PRN (05:02)
[2018-01-16] MEDS: ONDANSETRON 4 MG/2 ML VIAL IVP PRN (05:02)
--- NOTE | 2018-01-16 08:39 | HOSPPROG ---
Hospitalist Progress Note Assessment/Plan: 32yo F with functional abdominal pain/cyclic vomiting syndrome presents with 2 days of abdominal pain and nausea/emesis found to have acute pancreatitis. #Acute pancreatitis,has h/o idiopathic pancreatitis -having less pain today #Functional abdominal pain/cyclic vomiting syndrome -this precipitated the above -she has had this x 9 years, and says she had this as a child -antidepressant has helped. #Leukocytosis: Rel -better #plan: trial of clear liquids Subjective: Chhaya says she is much better than when being admitted. Objective: Vital Signs Temp Pulse Resp BP Pulse Ox 36.6 C 85 16 118/88 H 95 01/16/18 04:00 01/16/18 04:00 01/16/18 04:00 01/16/18 04:00 01/16/18 04:00 Laboratory Results 01/16/18 04:58 01/16/18 04:58 01/15/18 01/16/18 01/17/18 05:59 05:59 05:59 Intake Total 200 0 Balance 200 0 - Physical Exam Constitutional: no apparent distress, obese Eyes: PERRL Ears, Nose, Mouth, Throat: hearing normal Cardiovascular: regular rate and rhythym Respiratory: no respiratory distress Gastrointestinal: normoactive bowel sounds, tenderness (epigastric area) Skin: warm Musculoskeletal: full muscle strength Neurologic: AAOx3 Psychiatric: interacting appropriately ICD10 Worksheet Patient Problems: Problems Problem Status Onset Cyclic vomiting syndrome Acute Pancreatitis Acute Hyperglycemia Active Hypokalemia Active Leukocytosis Active Cellulitis Acute Cellulitis of left hand Acute Dog bite of arm Acute Dog bite of left hand Acute
[2018-01-16] MEDS: ENOXAPARIN 40 MG/0.4 ML SYR SC SCH (09:27)
[2018-01-16] MEDS ORDERED: HYDROmorphone HCL 0.5 MG/0.5 ML SYR IVP PRN (11:00)
[2018-01-16] MEDS ORDERED: LORazepam 0.5 MG TAB PO ONE (14:31)
[2018-01-16 15:36] VITALS: BP 130/81
--- NOTE | 2018-01-16 17:53 | GDS ---
DISCHARGE DIAGNOSES: 1. Acute pancreatitis. 2. Functional abdominal pain with associated cyclic vomiting syndrome. 3. Leukocytosis. HISTORY OF PRESENT ILLNESS: Briefly, the patient is a very sweet 32-year-old woman with functional a bdominal pain, cyclic vomiting syndrome. She presented to the emergency room with abdominal pain and nausea. She came to the emergency room yesterday and got some pain medications and antiemetics with relief and felt well enough to go home. She returned because she had ongoing abdominal pain. In e emergency room, she was slightly tachycardic, and her lipase was elevated. She was admitted for ac [place] pancreatitis. She was treated with IV pain medications, as well as hydration. Today, she is eat ing and drinking well. She has tolerated a low-fat diet and has not had any narcotics throughout the day. She will be discharged home. HOSPITAL COURSE: 1. Acute pancreatitis. The pain is almost completely resolved. 2. Functional abdominal pain with cyclic vomiting syndrome. She has had this for 9 years. Antidepre ssants have helped. Encouraged her if this should return, to follow up with Gastroenterology. 3. Leukocytosis, better. DISCHARGE CONDITION: Stable. Blood pressure is 130/81, heart rate of 90, respiratory rate of 16, O2 sats on room air 95%. Temperature is 36.9 Celsius. DISCHARGE MEDICATIONS: Please see the EMR. DISCHARGE INSTRUCTIONS: 1. To stay on a low-fat diet. 2. She was given a prescription for 5 Percocet in case she should have further pain. I told her to not drink or drive while on these medications. 3. Her liver is mildly enlarged, and she has a fatty liver. She should get a followup ultrasound in 3-6 months. 4. If she develops fever, chills, and unable to take adequate intake, to return to the ER. /[id number]/MODL
== END 2018-01-16 17:06 | disposition home or self-care (01) | DRG 440 ==
LOC: F3E 11:53 → OBSVTOIN 13:34
PROVIDERS: ADMIT Internal Medicine; ATTEND Internal Medicine
DX: K85.90 Acute pancreatitis without necrosis or infection, unspecified (principal); G43.A0 Cyclical vomiting, in migraine, not intractable; E86.9 Volume depletion, unspecified
CPT/HCPCS: 96374; J1170; J1650; J2060; J2405; J2550; J3360

== ENCOUNTER 2018-01-24 09:23 | Observation (INO) | payer SELFPAY ==
--- NOTE | 2018-01-24 09:41 | EDPHY ---
H & P Stated Complaint: ABD PAIN HX CYCLICAL VOMITING/PANCREATITIS DC FROM HOSP 01/16 IS OUT OF MEDS Time Seen by Provider: 01/24/18 09:39 HPI/ROS: CHIEF COMPLAINT: Abdominal pain HISTORY OF PRESENT ILLNESS: 33-year-old female arrives via private vehicle. Patient has recent hospital admission for functional abdominal pain, cyclic vomiting syndrome, idiopathic pancreatitis. Patient states that she woke this morning with similar symptoms, intractable retching, diffuse nonfocal abdominal pain. Feels like her usual episodes. At prior hospital admission she was seen the ER the day previously and felt better however returned the next day with intractable symptoms. She is concerned that this will occur again. REVIEW OF SYSTEMS: 10 systems reviewed and negative with the exception of the elements mentioned in the history of present illness PAST MEDICAL & SURGICAL HISTORY: Idiopathic pancreatitis. Cyclic vomiting. Chronic abdominal pain. SOCIAL HISTORY:Nonsmoker. No alcohol. PHYSICAL EXAM (Prior to examination, patient consented to physical exam, hands were washed and my usual and customary physical exam procedures followed) 1) GENERAL: [Well-developed, well-nourished, alert and oriented .appears uncomfortable. Retching. 2) HEAD: Normocephalic, atraumatic 3) HEENT: Pupils equal, round, reactive to light bilaterally. Sclera anicteric. Nasopharynx, oropharynx, clear, no lesions. MoistDry mucous membranes. Ears bilaterally with normal tympanic membranes. 4) NECK: Full range of motion, no meningeal signs. 5) LUNGS: Clear auscultation bilaterally, no wheezes, no rhonchi, no retractions. 6) HEART: Regular rate and rhythm, no murmur, no heave, no gallop. 7) ABDOMEN: Diffusely tender to palpation all quadrants. Soft., 8) MUSCULOSKELETAL: Moving all extremities, no focal areas of tenderness, no obvious trauma. No peripheral edema or discoloration. 9) BACK: No CVA tenderness, no midline vertebral tenderness, no fluctuance, no step-off, no obvious trauma, no visual or palpable abnormality. 10) SKIN: No rash, no petechiae. 11) Psychiatric: Patient is oriented X 3, there is no agitation. DIFFERENTIAL DIAGNOSIS: My differential diagnosis includes, but is not limited to, acute appendicitis, acute cholecystitis, bowel obstruction, acute pancreatitis, ovarian torsion, ectopic , gastritis and urinary tract infection. The patient understands that this diagnosis is provisional and can never be 100% accurate. This is a partial list of diagnoses considered. These considerations are based on history, physical exam, past history and reassessment. - Personal History LMP (Females 10-55): 1-7 Days Ago Current Tetanus Diphtheria and Acellular Pertussis (TDAP): Yes Tetanus Vaccine Date: 2014 - Medical/Surgical History Hx Asthma: Yes Hx Chronic Respiratory Disease: No Hx Diabetes: No Hx Cardiac Disease: No Hx Renal Disease: No Hx Cirrhosis: No Hx Alcoholism: No Hx HIV/AIDS: No Hx Splenectomy or Spleen Trauma: No Other PMH: PMH:cyclic vomiting, pancreatitis,. PSH:cholycystecomy, major dental , - Social History Smoking Status: Former smoker Constitutional: Initial Vital Signs Temperature (C) 37.1 C 01/24/18 09:26 Heart Rate 88 01/24/18 09:26 Respiratory Rate 18 01/24/18 09:26 Blood Pressure 177/116 H 01/24/18 09:26 O2 Sat (%) 97 01/24/18 09:26 O2 Delivery Mode Nasal Cannula O2 (L/minute) 2 Allergies/Adverse Reactions: Penicillins Allergy (Severe, Verified 01/24/18 09:25) swells airway haloperidol [From Haldol] Allergy (Mild, Verified 01/24/18 09:25) agitation tramadol Allergy (Mild, Verified 01/24/18 09:25) agitation Home Medications: Medication Instructions Recorded Amitriptyline HCl 150 mg PO HS 08/31/17 Diazepam [Valium 5 MG (*)] 5 mg PO HS PRN 08/31/17 Promethazine HCl [Phenergan 12.5mg 12.5 mg PA Q6 PRN #24 suppr 09/29/17 supp (*)] Acetaminophen [Tylenol 325mg (*)] 650 mg PO Q4HRS PRN tab 10/01/17 oxyCODONE/APAP 5/325 [Percocet 1 tab PO Q6 PRN #5 tab 01/16/18 5/325 (*)] Medical Decision Making ED Course/Re-evaluation: 9:47 a.m.: I am familiar with this patient having seen her in the ER previously. I have reviewed her old medical records. States that the only thing that works for her is Dilaudid. I have agreed to initial dosages of Dilaudid. Have discussed other alternatives such as ketamine, Haldol however states that she is either allergic or does not like the way it makes her feel. 10:30 a.m.: Re-evaluation no dictation after 2 mg of Dilaudid, 1 mg of Ativan, complaining of continued symptoms. She does not feel she can be discharged home. 10:46 a.m.: Phone consultation with hospitalist, Emily, admit to Dr. Damari Carmona - Data Points Laboratory Results: Laboratory Results 01/24/18 09:49 01/24/18 09:49 01/24/18 01/24/18 01/24/18 09:49 09:49 09:49 WBC 8.01 10^3/uL 10^3/uL (3.80-9.50) RBC 4.50 10^6/uL 10^6/uL (4.18-5.33) Hgb 13.6 g/dL g/dL (12.6-16.3) Hct 40.1 % % (38.0-47.0) MCV 89.1 fL fL (81.5-99.8) MCH 30.2 pg pg (27.9-34.1) MCHC 33.9 g/dL g/dL (32.4-36.7) RDW 12.7 % % (11.5-15.2) Plt Count 383 10^3/uL 10^3/uL (150-400) MPV 8.5 fL L fL (8.7-11.7) Neut % (Auto) 70.2 % % (39.3-74.2) Lymph % (Auto) 21.7 % % (15.0-45.0) Pettis % (Auto) 4.9 % % (4.5-13.0) Eos % (Auto) 1.6 % % (0.6-7.6) Baso % (Auto) 0.5 % % (0.3-1.7) Nucleat RBC Rel Count 0.0 % % (0.0-0.2) Absolute Neuts (auto) 5.62 10^3/uL 10^3/uL (1.70-6.50) Absolute Lymphs (auto) 1.74 10^3/uL 10^3/uL (1.00-3.00) Absolute Monos (auto) 0.39 10^3/uL 10^3/uL (0.30-0.80) Absolute Eos (auto) 0.13 10^3/uL 10^3/uL (0.03-0.40) Absolute Basos (auto) 0.04 10^3/uL 10^3/uL (0.02-0.10) Absolute Nucleated RBC 0.00 10^3/uL 10^3/uL (0-0.01) Immature Gran % 1.1 % % (0.0-1.1) Immature Gran # 0.09 10^3/uL 10^3/uL (0.00-0.10) Sodium 141 mEq/L mEq/L (135-145) Potassium 3.8 mEq/L mEq/L (3.3-5.0) Chloride 104 mEq/L mEq/L (97-110) Carbon Dioxide 26 mEq/l mEq/l (22-31) Anion Gap 11 mEq/L mEq/L (8-16) BUN 4 mg/dL L mg/dL (7-23) Creatinine 0.6 mg/dL mg/dL (0.6-1.0) Estimated GFR > 60 Glucose 147 mg/dL H mg/dL (70-100) Calcium 9.2 mg/dL mg/dL (8.5-10.4) Total Bilirubin 0.7 mg/dL mg/dL (0.1-1.4) Conjugated Bilirubin 0.1 mg/dL mg/dL (0.0-0.5) Unconjugated Bilirubin 0.6 mg/dL mg/dL (0.0-1.1) AST 77 IU/L H IU/L (14-46) ALT 132 IU/L H IU/L (9-52) Alkaline Phosphatase 82 IU/L IU/L (38-126) Total Protein 7.0 g/dL g/dL (6.3-8.2) Albumin 4.3 g/dL g/dL (3.5-5.0) Lipase 187 IU/L IU/L (23-300) Beta HCG, Qual NEGATIVE Medications Given: Discontinued Medications Hydromorphone HCl (Dilaudid) 2 mg IVP EDNOW ONE Stop: 01/24/18 09:47 Last Admin: 01/24/18 10:03 Dose: 2 mg Hydromorphone HCl (Dilaudid) 1 mg IVP EDNOW ONE Stop: 01/24/18 10:30 Last Admin: 01/24/18 10:39 Dose: 1 mg Sodium Chloride (Ns) 1,000 mls @ 0 mls/hr IV ONCE ONE PRN Reason: Wide Open Stop: 01/24/18 09:47 Last Admin: 01/24/18 10:03 Dose: 1,000 mls Lorazepam (Ativan Injection) 1 mg IVP EDNOW ONE Stop: 01/24/18 09:47 Last Admin: 01/24/18 10:06 Dose: 1 mg Ondansetron HCl (Zofran) 4 mg IVP EDNOW ONE Stop: 01/24/18 09:47 Last Admin: 01/24/18 10:06 Dose: 4 mg Departure - Departure Disposition: [facility] Inpatient Acute Clinical Impression: Intractable abdominal pain Intractable vomiting Qualifiers: Vomiting type: cyclical vomiting Nausea presence: with nausea Qualified Code(s) : G43.A1 - Cyclical vomiting, intractable Condition: Fair Referrals: Hong Borrego MD [Primary Care Provider] - As per Instructions
[2018-01-24] MEDS ORDERED: LORazepam 2 MG/ML INJ IVP ONE (09:46)
[2018-01-24] MEDS ORDERED: ONDANSETRON 4 MG/2 ML VIAL IVP ONE (09:46)
[2018-01-24] MEDS ORDERED: HYDROmorphONE/DILAUDID 1 MG/ML INJ IVP ONE ×2 (09:46→10:29)
[2018-01-24] MEDS ORDERED: NS 1,000 ML IV ONE (09:46)
[2018-01-24 09:56] LABS: PLATELET COUNT 383 10^3/uL (150-400)
[2018-01-24] MEDS ORDERED: ONDANSETRON DISINTEGRATING 4 MG TAB PO PRN (10:59)
[2018-01-24] MEDS ORDERED: ACETAMINOPHEN 325 MG TAB PO PRN ×2 (10:59→12:24)
[2018-01-24] MEDS ORDERED: HYDROmorphONE/DILAUDID 1 MG/ML INJ IVP PRN (11:06)
--- NOTE | 2018-01-24 11:48 | ASMTCMCOM ---
CM Note CM Note Notes: Patient re-admitted with acute on chronic pancreatitis/abdominal pain. Chart reviewed, patient discharged home from IP admission on 01/16/18. I have LM with patient's PCP's (Dr. Borrego) RN [employer], [facility] #[id number] regarding patient's ER return/admission Date Signed: 01/24/2018 11:47 AM Electronically Signed By:Kaye Telles RN
[2018-01-24] MEDS ORDERED: PROMETHAZINE HCL 25 MG TAB PO PRN (12:24)
[2018-01-24] MEDS ORDERED: ALBUTEROL 60 PUFFS/8 GM MDI IH PRN (12:24)
[2018-01-24] MEDS ORDERED: DIAZEPAM 5 MG TAB PO PRN (12:24)
[2018-01-24] MEDS: ONDANSETRON 4 MG/2 ML VIAL IVP PRN ×2 (12:36→19:20)
[2018-01-24] MEDS ORDERED: NS 1,000 ML IV SCH (12:45)
[2018-01-24] MEDS: KETOROLAC 30 MG/1 ML SDV IVP PRN ×2 (12:54→20:34)
[2018-01-24] MEDS: DICYCLOMINE 10 MG CAP PO SCH ×2 (15:05→20:51)
[2018-01-24] MEDS ORDERED: PROMETHAZINE HCL 25 MG/ML INJ IVP PRN (15:22)
--- NOTE | 2018-01-24 15:38 | GHP ---
DATE OF ADMISSION: 01/24/2018 CHIEF COMPLAINT: Abdominal pain, epigastric pain. HISTORY OF PRESENT ILLNESS: A 33-year-old female with functional abdominal pain, plus cyclic vomitin g syndrome, presenting with recurrent abdominal pain. She was recently hospitalized 01/13 through , with abdominal pain. At that time, she described severe cramping upper abdominal pain associated with nausea and bilious vomiting. Her lipase was elevated greater than 1300. Ultrasound did not sh ow intra/extrahepatic biliary dilatation. She was treated with IV opioids and eating at time of disc harge. She says was doing well until this morning. Last night, she ate dinner, including falafel an d hummus at 7 p.m. She awoke at 3 in the morning with menstrual cramps, took some Advil, went back t o bed. When she awoke this morning, she had vomiting that was nonbloody. Denies fevers, chills, or sweats. No dysuria. Denies alcohol. Uses marijuana twice a week, which is much less than previous. Denies ill contacts. Does not follow upwith GI outpatient, but was provided Dr. Dubon' number at last visit, and she h as not scheduled appointment. PAST MEDICAL HISTORY: Cyclic vomiting syndrome diagnosed 2008, functional abdominal pain, Guillain-B arre syndrome, ectopic , TBI, idiopathic pancreatitis January 13. PAST SURGICAL HISTORY: Cholecystectomy, EGD in 2014. SOCIAL HISTORY: Lives in [place] with her fiance. Has a good support system. Uses marijuana 2 time s a week. 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 FAMILY HISTORY: Cousin with cystic fibrosis. Maternal grandmother with breast cancer. ALLERGIES: Tramadol, penicillins, and Haldol. HOME MEDICATIONS: Promethazine 25 mg q.6 hours p.r.n., herbal supplement, Valium 5 mg p.r.n., amitri ptyline 150 mg q.h.s., albuterol as needed, Tylenol. PHYSICAL EXAM: VITAL SIGNS: Temperature 36.9, blood pressure 119/87, heart rate in the 70s, respira tions 16, 98% on room air. GENERAL: Overweight, in no acute distress. HEENT: PERRLA. Slightly dr y mucous membranes. CV: Regular rhythm. LUNGS: Clear. ABDOMEN: Obese. Epigastric tenderness to palpation. No rebound or guarding. Positive bowel sounds. : No May musculoskeletal 5/5 upper lower extremity strength. NEURO: 2 through 12 intact. PSYCH: Alert and oriented x3. LABORATORY DATA: Sodium 141, potassium 3.8, chloride 104, carbon dioxide 26, BUN 4, creatinine 0.6, glucose 147. Total bilirubin 0.7, conjugated 0.1, AST of 77, ALT 132, albumin 4.3, protein 7.0. Neg ative urine . Lipase 187 (1313 on 01/13). WBC 8, hemoglobin 13, hematocrit 40, platelets 3 83. ASSESSMENT/PLAN: 1. Acute on chronic abdominal pain, history of cyclic vomiting/functional abdominal pain: Likely vincent s a component of irritable bowel syndrome as reports intermittent diarrhea. Her lipase is normal tod ay. Minimal elevation in AST, ALT. She is afebrile without leukocytosis. Denies alcohol. Will pro vide supportive care with intravenous fluids, p.r.n. opioids and antiemetics. Stressed the importanc e of establishing care with Gastroenterology as an outpatient and finding other modalities to help wi th this pain, including cognitive behavior therapy, exercise and weight loss. We will also trial Tor adol and Bentyl. She is afebrile without leukocytosis. Ultrasound at last week showed in mild hepat omegaly and steatosis. She has had extensive evaluation in the past, including negative serology and hepatitis testing. Denies nonsteroidal anti-inflammatory drugs. N.P.O., intravenous fluids. 2. Deep venous thrombosis prophylaxis. Low risk, ambulatory. DISPOSITION: Warrants observation admission given acute intractable pain warranting IV opioids, anti emetics, and fluids. /[id number]/MODL
[2018-01-24] MEDS ORDERED: DICYCLOMINE 10 MG CAP PO SCH (16:00)
[2018-01-24] MEDS: HYDROmorphONE/DILAUDID 1 MG/ML INJ IVP PRN ×4 (16:43→23:34)
[2018-01-24] MEDS ORDERED: AMITRIPTYLINE HCL 100 MG TAB PO SCH (21:00)
[2018-01-24] MEDS: LORazepam 2 MG/ML INJ IVP PRN (23:04)
[2018-01-25] MEDS: HYDROmorphONE/DILAUDID 1 MG/ML INJ IVP PRN ×4 (01:43→08:59)
[2018-01-25] MEDS: ONDANSETRON 4 MG/2 ML VIAL IVP PRN (02:52)
[2018-01-25] MEDS: KETOROLAC 30 MG/1 ML SDV IVP PRN (02:52)
[2018-01-25] MEDS: DICYCLOMINE 10 MG CAP PO SCH ×2 (05:46→13:06)
[2018-01-25 08:13] VITALS: BP 130/85
[2018-01-25] MEDS: LORazepam 2 MG/ML INJ IVP PRN (08:28)
[2018-01-25] MEDS ORDERED: MAG HYDROX/AL HYDROX/SIMETH 30 ML UDCUP PO ONE (08:34)
[2018-01-25] MEDS ORDERED: HYOSCYAMINE SULFATE 0.125 MG TAB PO ONE (08:34)
[2018-01-25] MEDS ORDERED: LIDOCAINE 2% VISCOUS 15 ML UDCUP PO ONE (08:34)
[2018-01-25] MEDS ORDERED: oxyCODONE IR 5 MG TAB PO PRN (08:35)
[2018-01-25] MEDS ORDERED: Herbals/Supplements -Info Only PO SCH (09:00)
--- NOTE | 2018-01-25 14:18 | GDS ---
DISCHARGE DIAGNOSES: 1. Acute on chronic functional abdominal pain. 2. Cyclic vomiting syndrome. 3. Possible irritable bowel syndrome. 4. Hepatosis. 5. Recent pancreatitis, idiopathic. 6. Guillain-Owendale syndrome. 7. Ectopic . 8. Traumatic brain injury. HISTORY OF PRESENT ILLNESS: A 33-year-old female with functional abdominal pain , cyclic vomiting syndrome, presenting with recurrent abdominal pain. She was recently hospitalized 01/13 through at [facility] with abdominal pain, with an elevated lipase greater than 1300. Ultrasound at that time did not show intra/ extrahepatic biliary dilatation. She was treated with IV opioids and eating at the time of discharge. She says she was doing well until this morning of admission. She had eaten dinner, including falafel and hummus at 7 p.m., and awoke at 3 in the morning with menstrual cramps, took some Advil and went back to bed. When she woke, she had vomiting that was nonbloody and epigastric abdominal pain similar to last presentation. Denies NSAID use. HOSPITAL COURSE BY PROBLEM: 1. Acute on chronic functional abdominal pain: Labs are reassuring here. She had mild transaminitis that is trending down at discharge. No evidence of obstructive pattern. Ultrasound on last admission showed hepatosis. She was provided Dr. Dubon' number with [facility] to follow up as this is going to be a chronic issue. My concern is that patient will have frequent admissions for opioids. Had a long discussion as ways of dealing with stress, anxiety and pain. Those include other modalities, such as Bentyl, cognitive therapy, which she is doing, along with exercise and weight loss diet. She has been afebrile, without leukocytosis. 2. Cyclic vomiting syndrome: No evidence of infection. UA is negative. Does still smoke marijuana a couple times a week. I explained that this could be contributing and to avoid if possible. 3. Obesity. Counseled on diet and exercise. DISPOSITION: Patient is stable for discharge home. NEW MEDICATIONS: None. FOLLOWUP: 1. Follow up with her primary care physician. 2. Establish care with Dr. Dubon. She was provided number at last admission and again today. PHYSICAL EXAM: VITAL SIGNS: Today, temperature 36.9, blood pressure 130/85, heart rate 70s, respirations 18, 96% on room air. GENERAL: She is anxious and tearful, but no acute distress. HEENT: PERRLA. Moist mucous membranes. CV: Regular rate and rhythm. LUNGS: Clear. ABDOMEN: Soft. Pain is out of proportion. Positive bowel sounds. No rebound or guarding. : No May. MUSCULOSKELETAL: 5/5 upper and lower extremity strength. NEURO: 2 through 12 intact. PSYCH: Alert, oriented x3. She is anxious, tearful. Time spent on discharge: Greater than 30 minutes counseling patient on other modalities besides opioids and recommend followup with Dr. uDbon and her PCP. /[id number]/MODL MTDD
--- NOTE | 2018-01-25 15:59 | ASMTLACE ---
[facility] Length of stay for Answers: 1 day current admission Comorbidities - select Answers: Other Notes: Idiopathic pancreatitis all that apply # of Emergency department Answers: 5-8 visits in the last 6 months Social determinants Answers: Mental health diagnosis (anxiety, depression, pers onality disorders, etc.) Score: 9 Date Signed: 01/25/2018 03:59 PM Electronically Signed By:Babs Byers RN
== END 2018-01-25 15:50 | disposition home or self-care (01) ==
LOC: F3E 11:46
PROVIDERS: ADMIT Internal Medicine; ATTEND Internal Medicine
DX: R10.9 Unspecified abdominal pain (principal); G43.A1 Cyclical vomiting, in migraine, intractable; K76.89 Other specified diseases of liver; E66.9 Obesity, unspecified; Z87.820 Personal history of traumatic brain injury
CPT/HCPCS: 96374; G0378; J1170; J1885; J2060; J2405; J2550

== ENCOUNTER 2018-04-19 08:36 | Inpatient (IN) | payer SELFPAY ==
[2018-04-19] MEDS ORDERED: NS 1,000 ML IV ONE (09:04)
[2018-04-19] MEDS ORDERED: HYDROmorphONE/DILAUDID 2 MG/ML INJ IVP ONE ×2 (09:18→12:15)
[2018-04-19] MEDS ORDERED: FAMOTIDINE 20 MG/NACL 50 ML IV ONE (09:18)
[2018-04-19] MEDS ORDERED: METOCLOPRAMIDE 10 MG/2 ML VIAL IVP ONE (09:18)
[2018-04-19] MEDS ORDERED: LORazepam 2 MG/ML INJ IVP ONE ×2 (09:19→12:15)
--- NOTE | 2018-04-19 09:24 | EDPHY ---
HPI/HX/ROS/PE/MDM Narrative: CLINICAL IMPRESSION: Cyclic vomiting syndrome, chronic abdominal pain ASSESSMENT/PLAN: This is a 33-year-old female well-known to the emergency department and [facility] who has a history of cyclic vomiting syndrome and chronic intermittent abdominal pain, and idiopathic pancreatitis Patient presents to the ED with 4 days of abdominal pain and 24 hr of vomiting. Patient is initially requesting"IV Ativan, IV Phenergan, and IV Dilaudid. She had a very small peripheral venous access and I therefore did not feel comfortable giving her IV Phenergan. However she received Reglan, Benadryl, IV Ativan, Zofran, fluids, and 2 single doses of Dilaudid. She also received capsaicin cream. She continued to have intermittent abdominal pain and cramping. Labs are reassuring. Mild hypokalemia 3.3. Normal lipase, no leukocytosis. Patient admits that she does continue to intermittently smoke marijuana. She also states she has uninsured and has not followed up with GI. She has been trying home Phenergan without relief. Unfortunately despite IV therapies patient continued to have pain at, bilious emesis, and was ultimately admitted to the hospitalist service. Case management will likely need to be involved with this patient as she continues to present to the ED with similar symptoms. DIFFERENTIAL DX: Differential diagnosis includes but not limited to pancreatitis, electrolyte imbalance, cyclic vomiting syndrome, Abdominal pain includes but not limited to urinary tract infection, pyelonephritis, infection, ectopic , salpingitis, TOA, ovarian torsion, ovarian cyst, endometriosis, uterine fibroids , acute appendicitis, acute diverticulitis, small-bowel obstruction, constipation ED PROCEDURES: See lab results below ED COURSE: 1:00 p.m.. Patient reassessed after 2nd round of IV analgesics, antiemetics, and application of capsaicin cream. She is now sitting in bed comfortable, looking on her phone, and willing to try ice chips. She is concerned that she may bounce back. I discussed that we will give her 30 more minutes of observation and if symptoms return she will be admitted. Patient agrees to this plan. 1:50 p.m.: Patient reassessed, states she tried 3 ice chips and immediately had nausea and abdominal pain. Given the patient has been observed for nearly 5 hr without resolution in her symptoms she will be admitted. Patient in agreement this plan. 2:00 p.m.: Discussed with Emily from hospital service. Dr. Rivas to admit. Patient in stable condition. CHIEF COMPLAINT: Abdominal pain nausea and vomiting HPI: This is a 33-year-old female with a known history of cyclic vomiting disorder who presents to the emergency department with 3 days of abdominal pain associated with her menstrual cycle and vomiting that began this morning. Patient is sleeping comfortably when I enter the room but but then begins writhing around stating that she is in"severe pain". She admits to using marijuana but has done so for 9 years. She has not seen a GI specialist for this and states she currently does not have insurance which is her reason for not following up. She has been admitted in the past for this. She denies alcohol. She states she has also been diagnosed with idiopathic pancreatitis and feels this may be occurring again today. She denies and UTI symptoms. No flank pain. No bloody emesis. She did have diarrhea this morning. Patient is specifically requesting "IV Dilaudid, IV Phenergan, IV Ativan". Patient says she has tried ketamine in the past with adverse reactions. She gets anaphylaxis with penicillin and also reports a severe reaction with Toradol. Patient's last admission for the symptoms was in December of this year. She has been trying her own promethazine at home. She has a prescription for diazepam as well but has not been using this. She has a small IV in place on the ventral forearm with good flush although unable to draw labs. I explained to her that I would like an adequate IV before I give IV Phenergan. PMH: Idiopathic pancreatitis, cyclic vomiting syndrome Pertinent Past Surgical History: Cholecystectomy, major dental work Family History: None reported Social History: Smokes marijuana intermittently, no cigarette smoking, no alcohol use, , lives with her REVIEW OF SYSTEMS: All other systems negative Constitutional: No fever, no chills, positive for appetite change. Cardiovascular: No chest pain, no palpitations. Respiratory: No cough, no shortness of breath. Gastrointestinal: Positive for abdominal pain, nausea and diarrhea] Genitourinary: No hematuria, dysuria, flank pain, pelvic pain Musculoskeletal: No back pain, joint swelling, joint pain, myalgias. Skin: No rashes, color change. Neurological: No headache, dizziness, weakness. PHYSICAL EXAM: General Appearance: Alert, oriented, appropriate, cooperative, NAD, well hydrated, non-toxic appearing, VSS, no hypoxia, laying comfortably in the bed on arrival to the room but then becomes tearful, wailing, writhing in pain when I began talking to her. Neck: Supple, nontender, no lymphadenopathy, no midline pain, FROM, no meningismus. Respiratory: There are no retractions, lungs are clear to auscultation. Cardiac: Regular rate and rhythm, no murmurs or gallops. Gastrointestinal: Abdomen is soft, diffusely tender bowel sounds normal, no masses/hernia, no rigidity, guarding or focal peritoneal findings. Patient presentation and subjective complaints out of proportion to exam findings Neurological: Alert and oriented x 3, CN 2-12 grossly intact Skin: Warm, dry, no rashes, no nodules on palpation. Musculoskeletal: Extremities are symmetrical, full range of motion, no tenderness, deformity, swelling, or erythema. Psychiatric: Patient is oriented X 3, there is no agitation. MEDICAL DECISION MAKING: Patient was seen independently. Secondary supervising physician at time of evaluation was Dr. Rm. Diagnosis: Cyclic vomiting syndrome, chronic intermittent abdominal pain. New, requires workup Summary: See Assessment and Plan for summary of ED visit Clinical lab tests: ordered / reviewed. Discussed with hospitalist Emily who accepts admission Patient Progress: Stable. - Data Points Laboratory Results: Laboratory Results 04/19/18 09:55 18 09:55 04/19/18 04/19/1818 09:55 09:55 09:22 WBC 12.79 10^3/uL H 10^3/uL (3.80-9.50) RBC 4.30 10^6/uL 10^6/uL (4.18-5.33) Hgb 13.2 g/dL g/dL (12.6-16.3) Hct 38.0 % % (38.0-47.0) MCV 88.4 fL fL (81.5-99.8) MCH 30.7 pg pg (27.9-34.1) MCHC 34.7 g/dL g/dL (32.4-36.7) RDW 12.5 % % (11.5-15.2) Plt Count 383 10^3/uL 10^3/uL (150-400) MPV 8.8 fL fL (8.7-11.7) Neut % (Auto) 85.1 % H % (39.3-74.2) Lymph % (Auto) 10.2 % L % (15.0-45.0) [place] % (Auto) 3.1 % L % (4.5-13.0) Eos % (Auto) 0.2 % L % (0.6-7.6) Baso % (Auto) 0.7 % % (0.3-1.7) Nucleat RBC Rel Count 0.0 % % (0.0-0.2) Absolute Neuts (auto) 10.87 10^3/uL H 10^3/uL (1.70-6.50) Absolute Lymphs (auto) 1.31 10^3/uL 10^3/uL (1.00-3.00) Absolute Monos (auto) 0.40 10^3/uL 10^3/uL (0.30-0.80) Absolute Eos (auto) 0.03 10^3/uL 10^3/uL (0.03-0.40) Absolute Basos (auto) 0.09 10^3/uL 10^3/uL (0.02-0.10) Absolute Nucleated RBC 0.00 10^3/uL 10^3/uL (0-0.01) Immature Gran % 0.7 % % (0.0-1.1) Immature Gran # 0.09 10^3/uL 10^3/uL (0.00-0.10) Sodium 141 mEq/L mEq/L (135-145) Potassium 3.3 mEq/L L mEq/L (3.5-5.2) Chloride 111 mEq/L H mEq/L (97-110) Carbon Dioxide 20 mEq/l L mEq/l (22-31) Anion Gap 10 mEq/L mEq/L (6-14) BUN 7 mg/dL mg/dL (7-23) Creatinine 0.7 mg/dL mg/dL (0.6-1.0) Estimated GFR > 60 Glucose 160 mg/dL H mg/dL (70-100) Calcium 8.9 mg/dL mg/dL (8.5-10.4) Total Bilirubin 1.0 mg/dL mg/dL (0.1-1.4) Conjugated Bilirubin 0.3 mg/dL mg/dL (0.0-0.5) Unconjugated Bilirubin 0.7 mg/dL mg/dL (0.0-1.1) AST 29 IU/L IU/L (14-46) ALT 37 IU/L IU/L (9-52) Alkaline Phosphatase 75 IU/L IU/L (38-126) Total Protein 6.9 g/dL g/dL (6.3-8.2) Albumin 4.3 g/dL g/dL (3.5-5.0) Lipase 231 IU/L IU/L (23-300) Beta HCG, Qual NEGATIVE Urine Color Urine Appearance Urine pH Ur Specific [place] Urine Protein Urine Ketones Urine Blood Urine Nitrate Urine Bilirubin Urine Urobilinogen Ur Leukocyte Esterase Urine RBC Urine WBC Ur Epithelial Cells Urine Mucus Urine Glucose 04/19/18 09:00 WBC RBC Hgb Hct MCV MCH MCHC RDW Plt Count MPV Neut % (Auto) Lymph % (Auto) [place] % (Auto) Eos % (Auto) Baso % (Auto) Nucleat RBC Rel Count Absolute Neuts (auto) Absolute Lymphs (auto) Absolute Monos (auto) Absolute Eos (auto) Absolute Basos (auto) Absolute Nucleated RBC Immature Gran % Immature Gran # Sodium Potassium Chloride Carbon Dioxide Anion Gap BUN Creatinine Estimated GFR Glucose Calcium Total Bilirubin Conjugated Bilirubin Unconjugated Bilirubin AST ALT Alkaline Phosphatase Total Protein Albumin Lipase Beta HCG, Qual Urine Color YELLOW Urine Appearance CLEAR Urine pH 7.0 (5.0-7.5) Ur Specific [place] 1.015 (1.002-1.030) Urine Protein NEGATIVE (NEGATIVE) Urine Ketones TRACE H (NEGATIVE) Urine Blood 3+ H (NEGATIVE) Urine Nitrate NEGATIVE (NEGATIVE) Urine Bilirubin NEGATIVE (NEGATIVE) Urine Urobilinogen NEGATIVE EU EU (0.2-1.0) Ur Leukocyte Esterase NEGATIVE (NEGATIVE) Urine RBC 15-25 /hpf H /hpf (0-3) Urine WBC 1-3 /hpf /hpf (0-3) Ur Epithelial Cells TRACE /lpf /lpf (NONE-1+) Urine Mucus TRACE /lpf /lpf (NONE-1+) Urine Glucose 1+ H (NEGATIVE) Medications Given: Discontinued Medications Capsaicin (Capsacian 0.075%) 1 michelle TP EDNOW ONE Stop: 04/19/18 10:40 Last Admin: 04/19/18 12:34 Dose: 1 imchelle Diphenhydramine HCl (Benadryl Injection) 50 mg IVP EDNOW ONE Stop: 04/19/18 09:20 Last Admin: 04/19/18 09:27 Dose: 50 mg Hydromorphone HCl (Dilaudid) 1 mg IVP EDNOW ONE Stop: 04/19/18 09:19 Last Admin: 04/19/18 09:29 Dose: 1 mg Hydromorphone HCl (Dilaudid) 1 mg IVP EDNOW ONE Stop: 04/19/18 12:16 Last Admin: 04/19/18 12:23 Dose: 1 mg Sodium Chloride (Ns) 1,000 mls @ 0 mls/hr IV EDNOW ONE; Wide Open PRN Reason: Protocol Stop: 04/19/18 09:05 Last Admin: 04/19/18 09:29 Dose: 1,000 mls Famotidine/Sodium Chloride (Pepcid 20 Mg (Premix)) 50 mls @ 200 mls/hr IV EDNOW ONE Stop: 04/19/18 09:32 Last Admin: 04/19/18 09:41 Dose: 50 mls Lorazepam (Ativan Injection) 1 mg IVP EDNOW ONE Stop: 04/19/18 09:20 Last Admin: 04/19/18 09:27 Dose: 1 mg Lorazepam (Ativan Injection) 1 mg IVP EDNOW ONE Stop: 04/19/18 12:16 Last Admin: 04/19/18 12:24 Dose: 1 mg Metoclopramide HCl (Reglan Injection) 10 mg IVP EDNOW ONE Stop: 04/19/18 09:19 Last Admin: 04/19/18 09:29 Dose: 10 mg Ondansetron HCl (Zofran) 4 mg IVP EDNOW ONE Stop: 04/19/18 10:39 Last Admin: 04/19/18 10:47 Dose: 4 mg Ondansetron HCl (Zofran) 4 mg IVP EDNOW ONE Stop: 04/19/18 12:16 Last Admin: 04/19/18 12:24 Dose: 4 mg General Time Seen by Provider: 04/19/18 08:56 Initial Vital Signs: Initial Vital Signs Temperature (C) 36.7 C 04/19/18 08:40 Heart Rate 87 04/19/18 08:40 Respiratory Rate 20 04/19/18 08:40 Blood Pressure 119/109 H 04/19/18 08:40 O2 Sat (%) 99 04/19/18 08:40 O2 Delivery Mode Room Air Allergies/Adverse Reactions: Penicillins Allergy (Severe, Verified 04/19/18 08:40) swells airway haloperidol [From Haldol] Allergy (Mild, Verified 04/19/18 08:40) agitation tramadol Allergy (Mild, Verified 04/19/18 08:40) agitation Home Medications: Medication Instructions Recorded Amitriptyline HCl 150 mg PO HS 08/31/17 Diazepam [Valium 5 MG (*)] 5 mg PO DAILY PRN 08/31/17 Acetaminophen [Tylenol 325mg (*)] 650 mg PO Q4HRS PRN tab 10/01/17 Albuterol [Proventil Inhaler HFA 1 - 2 puffs IH Q4HRS PRN 01/24/18 (*)] Herbals/Supplements -Info Only 1 ea PO DAILY 01/24/18 Promethazine HCl [Phenergan 25mg 25 mg PO Q6HRS PRN 01/24/18 (*)] Promethazine HCl [Phenergan 12.5mg 12.5 mg [place] DAILY PRN 04/19/18 supp (*)] Departure - Departure Disposition: [facility] Acute Clinical Impression: Cyclic vomiting syndrome Qualifiers: Vomiting Intractability: intractable Nausea presence: with nausea Qualified Code(s): G43.A1 - Cyclical vomiting, intractable Abdominal pain Qualifiers: Abdominal location: generalized Qualified Code(s): R10.84 - Generalized abdominal pain Condition: Fair
[2018-04-19 10:11] LABS: PLATELET COUNT 383 10^3/uL (150-400)
[2018-04-19] MEDS ORDERED: ONDANSETRON 4 MG/2 ML VIAL IVP ONE ×2 (10:38→12:15)
[2018-04-19] MEDS: CAPSACIAN 0.075% CREAM TP ONE ×2 (12:12→12:34)
[2018-04-19] MEDS ORDERED: ACETAMINOPHEN 325 MG TAB PO PRN (15:49)
[2018-04-19] MEDS ORDERED: HYDROCODONE/APAP 5/325 TAB PO PRN (15:49)
[2018-04-19] MEDS ORDERED: LORazepam 2 MG/ML INJ IVP PRN (15:49)
[2018-04-19] MEDS ORDERED: LORazepam 0.5 MG TAB PO PRN (15:49)
[2018-04-19] MEDS ORDERED: ALBUTEROL 60 PUFFS/8 GM MDI IH PRN (15:51)
[2018-04-19] MEDS ORDERED: NS 1,000 ML IV SCH (16:00)
[2018-04-19] MEDS: ONDANSETRON 4 MG/2 ML VIAL IVP PRN (16:31)
[2018-04-19] MEDS: HYDROmorphONE/DILAUDID 1 MG/ML INJ IVP PRN ×2 (16:33→16:59)
--- NOTE | 2018-04-19 16:34 | PDGENHP ---
History and Physical - Chief Complaint abdominal pain/vomiting - History of Present Illness 33 yo F with hx of cyclic vomiting, functional abdominal pain and idiopathic pancreatitis presenting with several days of abdominal pain and nausea and vomiting very similar to her prior episodes of cyclic vomiting. She notes that this problem all began in 2008 at which time she underwent significant amounts of testing, quit alcohol, tobacco and marijuana and ultimately was diagnosed with cyclic vomiting. She has noted that it seems to be associated with stress and can often accompany her menstrual cycle. She is currently on her period and also has been under a lot of stress from the recent of her grandmother. She notes that she is very careful about what she eats and though she has begun to smoke MJ again on occasion, she still does not smoke cigarettes or use alcohol. She has previously achieved remission on amitriptyline in the past, but notes that she began having sxs again in the last 3 years. She was last hospitalized here in December twice, once for acute pancreatitis and once for abd pain/n/v. History Information - Allergies/Home Medication List Allergies/Adverse Reactions: Penicillins Allergy (Severe, Verified 04/19/18 08:40) swells airway haloperidol [From Haldol] Allergy (Mild, Verified 04/19/18 08:40) agitation tramadol Allergy (Mild, Verified 04/19/18 08:40) agitation Home Medications: Amitriptyline HCl 150 mg PO HS 08/31/17 [Last Taken 04/17/18] Diazepam [Valium 5 MG (*)] 5 mg PO DAILY PRN 08/31/17 [Last Taken 01/23/18] Albuterol [Proventil Inhaler HFA (*)] 1 - 2 puffs IH Q4HRS PRN 01/24/18 [Last Taken Unknown] Herbals/Supplements -Info Only 1 ea PO DAILY 01/24/18 [Last Taken Unknown] Promethazine HCl [Phenergan 25mg (*)] 25 mg PO Q6HRS PRN 01/24/18 [Last Taken ] Promethazine HCl [Phenergan 12.5mg supp (*)] 12.5 mg [place] DAILY PRN 04/19/18 [ Last Taken Unknown] I have personally reviewed and updated: family history, medical history, social history, surgical history - Past Medical History Additional medical history: Cyclic vomiting syndrome/functional abdominal pain, Gilbert's syndrome, etcopic , TBI, idiopathic pancreatitis - Surgical History Additional surgical history: Cholecystectomy, last EGD December 2014 - Family History Additional family history: No family history of immune deficiency disorder, second-degree relative with breast cancer, biliary disease; grandmother (92yo) recently diagnosed with pancreatic cancer - Social History Smoking Status: Former smoker Alcohol Use: None Drug Use: Marijuana Additional social history: Lives with , works for local [employer], currently in a lapse with her health insurance Review of Systems Review of Systems: ROS: 10pt was reviewed & negative except for what was stated in HPI & below Physical Exam Physical Exam: Temp Pulse Resp BP Pulse Ox 36.7 C 66 16 116/72 98 04/19/18 08:40 04/19/18 14:26 04/19/18 14:26 04/19/18 14:26 04/19/18 14:26 Constitutional: no apparent distress, appears nourished Eyes: PERRL, anicteric sclera Ears, Nose, Mouth, Throat: moist mucous membranes, hearing normal Cardiovascular: regular rate and rhythym, no murmur, rub, or gallop, No edema Respiratory: no respiratory distress, no rales or rhonchi Gastrointestinal: soft, non-tender abdomen, No normoactive bowel sounds, No guarding, No rebound Genitourinary: no bladder tenderness Skin: warm, normal color Musculoskeletal: full muscle strength Neurologic: sensation intact bilaterally Psychiatric: interacting appropriately, not anxious, not encephalopathic Lab Data & Imaging Review 04/19/18 09:55 04/19/18 09:55 WBC 12.79 10^3/uL (3.80-9.50) H 04/19/18 09:55 RBC 4.30 10^6/uL (4.18-5.33) 04/19/18 09:55 Hgb 13.2 g/dL (12.6-16.3) 04/19/18 09:55 Hct 38.0 % (38.0-47.0) 04/19/18 09:55 MCV 88.4 fL (81.5-99.8) 04/19/18 09:55 MCH 30.7 pg (27.9-34.1) 04/19/18 09:55 MCHC 34.7 g/dL (32.4-36.7) 04/19/18 09:55 RDW 12.5 % (11.5-15.2) 04/19/18 09:55 Plt Count 383 10^3/uL (150-400) 04/19/18 09:55 MPV 8.8 fL (8.7-11.7) 04/19/18 09:55 Neut % (Auto) 85.1 % (39.3-74.2) H 04/19/18 09:55 Lymph % (Auto) 10.2 % (15.0-45.0) L 04/19/18 09:55 [place] % (Auto) 3.1 % (4.5-13.0) L 04/19/18 09:55 Eos % (Auto) 0.2 % (0.6-7.6) L 04/19/18 09:55 Baso % (Auto) 0.7 % (0.3-1.7) 04/19/18 09:55 Nucleat RBC Rel Count 0.0 % (0.0-0.2) 04/19/18 09:55 Absolute Neuts (auto) 10.87 10^3/uL (1.70-6.50) H 04/19/18 09:55 Absolute Lymphs (auto) 1.31 10^3/uL (1.00-3.00) 04/19/18 09:55 Absolute Monos (auto) 0.40 10^3/uL (0.30-0.80) 04/19/18 09:55 Absolute Eos (auto) 0.03 10^3/uL (0.03-0.40) 04/19/18 09:55 Absolute Basos (auto) 0.09 10^3/uL (0.02-0.10) 04/19/18 09:55 Absolute Nucleated RBC 0.00 10^3/uL (0-0.01) 04/19/18 09:55 Immature Gran % 0.7 % (0.0-1.1) 04/19/18 09:55 Immature Gran # 0.09 10^3/uL (0.00-0.10) 04/19/18 09:55 Sodium 141 mEq/L (135-145) 04/19/18 09:55 Potassium 3.3 mEq/L (3.5-5.2) L 04/19/18 09:55 Chloride 111 mEq/L (97-110) H 04/19/18 09:55 Carbon Dioxide 20 mEq/l (22-31) L 04/19/18 09:55 Anion Gap 10 mEq/L (6-14) 04/19/18 09:55 BUN 7 mg/dL (7-23) 04/19/18 09:55 Creatinine 0.7 mg/dL (0.6-1.0) 04/19/18 09:55 Estimated GFR > 60 04/19/18 09:55 Glucose 160 mg/dL (70-100) H 04/19/18 09:55 Calcium 8.9 mg/dL (8.5-10.4) 04/19/18 09:55 Total Bilirubin 1.0 mg/dL (0.1-1.4) 04/19/18 09:55 Conjugated Bilirubin 0.3 mg/dL (0.0-0.5) 04/19/18 09:55 Unconjugated Bilirubin 0.7 mg/dL (0.0-1.1) 04/19/18 09:55 AST 29 IU/L (14-46) 04/19/18 09:55 ALT 37 IU/L (9-52) 04/19/18 09:55 Alkaline Phosphatase 75 IU/L (38-126) 04/19/18 09:55 Total Protein 6.9 g/dL (6.3-8.2) 04/19/18 09:55 Albumin 4.3 g/dL (3.5-5.0) 04/19/18 09:55 Lipase 231 IU/L (23-300) 04/19/18 09:55 Beta HCG, Qual NEGATIVE 04/19/18 09:22 Urine Color YELLOW 04/19/18 09:00 Urine Appearance CLEAR 04/19/18 09:00 Urine pH 7.0 (5.0-7.5) 04/19/18 09:00 Ur Specific [place] 1.015 (1.002-1.030) 04/19/18 09:00 Urine Protein NEGATIVE (NEGATIVE) 04/19/18 09:00 Urine Ketones TRACE (NEGATIVE) H 04/19/18 09:00 Urine Blood 3+ (NEGATIVE) H 04/19/18 09:00 Urine Nitrate NEGATIVE (NEGATIVE) 04/19/18 09:00 Urine Bilirubin NEGATIVE (NEGATIVE) 04/19/18 09:00 Urine Urobilinogen NEGATIVE EU (0.2-1.0) 04/19/18 09:00 Ur Leukocyte Esterase NEGATIVE (NEGATIVE) 04/19/18 09:00 Urine RBC 15-25 /hpf (0-3) H 04/19/18 09:00 Urine WBC 1-3 /hpf (0-3) 04/19/18 09:00 Ur Epithelial Cells TRACE /lpf (NONE-1+) 04/19/18 09:00 Urine Mucus TRACE /lpf (NONE-1+) 04/19/18 09:00 Urine Glucose 1+ (NEGATIVE) H 04/19/18 09:00 Assessment & Plan Assessment: Abdominal pain (Acute) Cyclic vomiting syndrome (Acute) 33 yo F with PMH of functional abdominal pain, cyclic vomiting and prior bouts of pancreatitis admitted with n/v/abd pain # n/v/abd pain: much improved already with IV dilaudid, ativan, benadryl and zofran given in the ER. She notes that this is the 'cocktail' that usually will work for her to break her bouts once they have begun. She does not have any associated sxs such as fever, blood or mucous in diarrhea or vomit or other unusual sxs. She notes the trigger is likely increased stress from her grandmothers and her menstrual cycle. # cyclic vomiting: as above. Continue amitriptyline. # hx of pancreatitis: presumably idiopathic, does not have elevated lipase currently # hypokalemia: likely due to n/v--will replete # elevated wbc: presumably stress related, will trend # observation status Patient new to my care. Old records reviewed and summarized as above. Care plan reviewed with ER doctor including plans for observation.
[2018-04-19] MEDS: DIAZEPAM 5 MG TAB PO PRN (16:59)
[2018-04-19] MEDS: oxyCODONE IR 5 MG TAB PO PRN ×2 (18:54→19:54)
[2018-04-19] MEDS: AMITRIPTYLINE HCL 100 MG TAB PO SCH (19:54)
[2018-04-20] MEDS: oxyCODONE IR 5 MG TAB PO PRN (00:01)
[2018-04-20] MEDS: HYDROmorphONE/DILAUDID 1 MG/ML INJ IVP PRN ×9 (04:17→22:35)
[2018-04-20] MEDS: ONDANSETRON 4 MG/2 ML VIAL IVP PRN ×5 (04:17→22:35)
[2018-04-20] MEDS: PROMETHAZINE HCL 25 MG/ML INJ IVP PRN ×4 (04:36→20:33)
[2018-04-20] MEDS ORDERED: HYDROmorphONE/DILAUDID 2 MG/ML INJ IVP ONE (05:05)
[2018-04-20] MEDS: ONDANSETRON DISINTEGRATING 4 MG TAB PO PRN (07:30)
[2018-04-20] MEDS ORDERED: LORazepam 2 MG/ML INJ IVP ONE (07:34)
[2018-04-20] MEDS: CAPSAICIN 0.025% CREAM TP PRN (07:40)
--- NOTE | 2018-04-20 11:43 | HOSPPROG ---
Hospitalist Progress Note Assessment/Plan: 33 yo F w cyclic vomiting and possible chronic pancreatitis here w vomiting, abdominal pain ?chronic pancreatitis: I don't believe she has chronic or acute pancreatitis no steatorrhea elevated lipase can occur in setting of vomiting without pancreatitis she has never had particularly high lipase MRCP today. if normal, will remove this from her problem list cyclic vomiting: recent stressor of of grandmother has been on chronic narcotics and no longer we discussed this at length continue IV narcotics today w goal to transition to po she agreed w this plan no furher escalation of narcotics add simethicone dc IVF follow anxiety: on TCA may benefit from additonal med dispo: change to inpt proph: lmwh Subjective: a lot of pain this AM. previous hospital records reviewed. 35 minutes spent at bedside Objective: Vital Signs Temp Pulse Resp BP Pulse Ox 36.8 C 83 18 135/93 H 99 04/20/18 07:21 04/20/18 07:21 04/20/18 07:21 04/20/18 07:21 04/20/18 07:21 Laboratory Results 04/20/18 04:25 04/19/18 04/20/18 04/21/18 05:59 05:59 05:59 Intake Total 1000 Output Total 2 Balance 998 - Physical Exam Constitutional: no apparent distress, other (tearful) Eyes: PERRL, anicteric sclera Ears, Nose, Mouth, Throat: moist mucous membranes, hearing normal Cardiovascular: regular rate and rhythym, no murmur, rub, or gallop Respiratory: no respiratory distress, no rales or rhonchi Gastrointestinal: normoactive bowel sounds, soft, non-tender abdomen, No guarding, No rebound Genitourinary: no bladder fullness, No hobson in urethra Skin: warm, normal color Musculoskeletal: full muscle strength ICD10 Worksheet Patient Problems: Problems Problem Status Onset Abdominal pain Acute Cyclic vomiting syndrome Acute Hyperglycemia Active Hypokalemia Active Leukocytosis Active Cellulitis Acute Cellulitis of left hand Acute Dog bite of arm Acute Dog bite of left hand Acute Intractable abdominal pain Acute Intractable vomiting Acute Pancreatitis Acute
[2018-04-20] MEDS: SIMETHICONE 80 MG TAB CHEW PO SCH ×3 (12:02→22:35)
--- NOTE | 2018-04-20 12:21 | ASMTCMCOM ---
CM Note CM Note Notes: Pt admitted to hospital for cyclic vomiting, she has been here for same symptoms before. States was triggered by stress of grandmother passing and her menstrual cycle. She lives at home w/her /fiance, anticipate she will dc home independent when medically stable. CM available for any chagnes. DC Plan: Independent Date Signed: 04/20/2018 12:20 PM Electronically Signed By:Babs Byers RN
[2018-04-20] MEDS ORDERED: GADOBUTROL 10 ML VIAL IVP ONE (14:30)
--- NOTE | 2018-04-20 14:43 | PDMN ---
Medical Necessity Medical necessity: Change to inpt as of 04/20/18 @ 11:44. Pt meets inpt criteria per MD order and MCG M-[id number], Vomiting. 33 y/o w/hx of cyclic vomiting and possible chronic pancreatitis admitted with N/V, abd pain, hypokalemia. Upgraded to inpt for persistent abd pain requiring IV Dilaudid and PO pain meds and persistent N/V requiring IV Phenergan and IV Zofran, still on cl liq diet, still hypokalemic at 3.3, MRCP today. Est LOS>2MN for med nec ongoing eval/ treatment of above.
[2018-04-20] MEDS ORDERED: MAG HYDROX/AL HYDROX/SIMETH 30 ML UDCUP PO PRN (19:04)
[2018-04-20] MEDS: AMITRIPTYLINE HCL 100 MG TAB PO SCH (22:35)
[2018-04-21] MEDS: HYDROmorphONE/DILAUDID 1 MG/ML INJ IVP PRN ×4 (00:39→07:15)
[2018-04-21] MEDS: PROMETHAZINE HCL 25 MG/ML INJ IVP PRN ×2 (02:55→09:28)
[2018-04-21] MEDS: ONDANSETRON 4 MG/2 ML VIAL IVP PRN (05:00)
[2018-04-21] MEDS: oxyCODONE IR 5 MG TAB PO PRN ×3 (08:18→14:28)
[2018-04-21] MEDS: SIMETHICONE 80 MG TAB CHEW PO SCH ×2 (08:18→14:50)
[2018-04-21] MEDS ORDERED: ENOXAPARIN 40 MG/0.4 ML SYR SC SCH (09:00)
[2018-04-21] MEDS: CAPSAICIN 0.025% CREAM TP PRN (09:30)
[2018-04-21 11:52] VITALS: BP 120/83
[2018-04-21] MEDS: ONDANSETRON DISINTEGRATING 4 MG TAB PO PRN (12:51)
[2018-04-21] MEDS: DIAZEPAM 5 MG TAB PO PRN (12:51)
--- NOTE | 2018-04-21 13:58 | HOSPPROG ---
Hospitalist Progress Note Assessment/Plan: 33 yo F w cyclic vomiting and possible chronic pancreatitis here w vomiting, abdominal pain ?chronic pancreatitis: I don't believe she has chronic or acute pancreatitis no steatorrhea elevated lipase can occur in setting of vomiting without pancreatitis she has never had particularly high lipase MRCP normal she does not have pancreatitis cyclic vomiting: recent stressor of of grandmother has been on chronic narcotics and no longer we discussed this at length continue IV narcotics today w goal to transition to po she agreed w this plan no furher escalation of narcotics add simethicone dc IVF follow anxiety: on TCA may benefit from additonal med dispo: change to inpt proph: [facility] home today see dc summary Subjective: MRCP w no evidence of chronic pancreatitis. amenable to dc Objective: Vital Signs Temp Pulse Resp BP Pulse Ox 36.9 C 84 16 120/83 H 97 04/21/18 11:50 04/21/18 11:50 04/21/18 08:00 04/21/18 11:50 04/21/18 11:50 04/20/18 04/21/18 04/22/18 05:59 05:59 05:59 Intake Total 500 Balance 500 - Physical Exam Constitutional: no apparent distress, appears nourished Eyes: PERRL, anicteric sclera Ears, Nose, Mouth, Throat: moist mucous membranes, hearing normal Cardiovascular: regular rate and rhythym, no murmur, rub, or gallop Respiratory: no respiratory distress, no rales or rhonchi Gastrointestinal: normoactive bowel sounds, soft, non-tender abdomen Genitourinary: no bladder fullness, No hobson in urethra Skin: warm Musculoskeletal: full muscle strength, other (areas of infiltrated IV indurated but no warmth or fluctuance) Neurologic: AAOx3 ICD10 Worksheet Patient Problems: Problems Problem Status Onset Abdominal pain Acute Cyclic vomiting syndrome Acute Hyperglycemia Active Hypokalemia Active Leukocytosis Active Cellulitis Acute Cellulitis of left hand Acute Dog bite of arm Acute Dog bite of left hand Acute Intractable abdominal pain Acute Intractable vomiting Acute Pancreatitis Acute
--- NOTE | 2018-04-21 19:15 | GDS ---
DISCHARGE DIAGNOSES: 1. Cyclic vomiting with recurrence. 2. History of chronic narcotic use, although she is no longer on chronic narcotics. 3. Functional abdominal pain, Gilbert syndrome. 4. The patient has been given a diagnosis of idiopathic pancreatitis. She does not have this. Please see admission history and physical by Dr. Michelle Suarez. The patient presented with abdomin al pain, nausea and vomiting, this is attributed to the of her grandmother recently. She has r eceived 24 hours of IV narcotics which have been discontinued. She is now tolerating orals. MRCP wa s performed, showing no evidence of chronic pancreatitis. She does not have chronic pancreatitis. H er previous elevation of lipase had been due to the vomiting. This is discussed with the patient. S he is provided with prescriptions for Zofran ODT and Compazine suppositories. She has Phenergan at h ome. She is also given 3 Percocet. /[id number]/MODL
== END 2018-04-21 14:50 | disposition home or self-care (01) | DRG 103 ==
LOC: F3E 15:45 → OBSVTOIN 04-20 11:44
PROVIDERS: ADMIT Internal Medicine; ATTEND Internal Medicine
DX: G43.A0 Cyclical vomiting, in migraine, not intractable (principal); E80.4 Gilbert syndrome; F12.90 Cannabis use, unspecified, uncomplicated; F41.9 Anxiety disorder, unspecified
CPT/HCPCS: 96365; A9585; G0378; J1170; J1200; J1650; J2060; J2405; J2550; J2765

== ENCOUNTER 2018-04-24 08:26 | Inpatient (IN) | payer SELFPAY ==
--- NOTE | 2018-04-24 08:44 | EDPHY ---
H & P Time Seen by Provider: 04/24/18 08:42 HPI/ROS: CHIEF COMPLAINT: Abdominal pain and vomiting HISTORY OF PRESENT ILLNESS: Patient has a diagnosis of cyclic vomiting syndrome diagnosed in 2008, was recently admitted with increased stress on the of her grandmother. Returns today with recurrent and worsening symptoms. She says pain and vomiting is severe, not helped by home medications. Identical to previous episodes of cyclic vomiting. Worse with oral intake. Associated with worsening anxiety. Slight amount of diarrhea but no vomiting blood or coffee grounds. REVIEW OF SYSTEMS: Eye: no change in vision ENT: no sore throat Cardiac: no chest pain or syncope Pulmonary: no cough or SOB Abdomen: HPI Musculoskeletal: no back pain Skin: no rash Neuro: no headache Constitutional: no fever : no urinary symptoms A comprehensive 10 point review of systems is otherwise negative aside from elements mentioned in the history of present illness. PAST MEDICAL HISTORY: [facility] includes discharge summary dated 04/21 2018, does not have pancreatitis, abnormal MRI abdomen on April 20. Previous admissions from the ED on January 24, January 13 with ED visit on January 12, September 30, September 28. Social history: Here with her mother General Appearance: Alert and conversant, cooperative. Eyes: No scleral icterus. ENT, Mouth: Dry mucous membranes. Respiratory: Normal respiratory effort, breath sounds equal, lungs are clear to auscultation. Cardiovascular: Regular rate and rhythm. Gastrointestinal: She has some generalized abdominal tenderness but no rebound or guarding. No peritoneal signs, bowel sounds present. Neurological: Alert, face symmetric, normal motor and sensory in extremities. Skin: Warm and dry, no rashes. Musculoskeletal: No peripheral edema. Psychiatric: Tearful, anxious. Emergency Department course/MDM: Heart rate noted to be 121, afebrile. Had a long discussion about treatment for her diagnosis, and avoiding IV opioids. She is willing to try other therapy. She is aware that there is likely a psychological component to her symptoms. 1005: symptoms improved; additional 1 mg IV Ativan. Admission for treatment of continued worsening symptoms, not adequately controlled as an outpatient. No opioids in the ER discussed and consented. Smoking Status: Former smoker Constitutional: Initial Vital Signs Temperature (C) 36.9 C 04/24/18 08:39 Heart Rate 121 H 04/24/18 08:39 Respiratory Rate 20 04/24/18 08:39 Blood Pressure 176/124 H 04/24/18 08:39 O2 Sat (%) 98 04/24/18 08:39 O2 Delivery Mode Room Air Allergies/Adverse Reactions: Penicillins Allergy (Severe, Verified 04/24/18 08:38) swells airway haloperidol [From Haldol] Allergy (Mild, Verified 04/24/18 08:38) agitation tramadol Allergy (Mild, Verified 04/24/18 08:38) agitation Home Medications: Medication Instructions Recorded Amitriptyline HCl 150 mg PO HS 08/31/17 Diazepam [Valium 5 MG (*)] 5 mg PO DAILY PRN 08/31/17 Acetaminophen [Tylenol 325mg (*)] 650 mg PO Q4HRS PRN tab 10/01/17 Albuterol [Proventil Inhaler HFA 1 - 2 puffs IH Q4HRS PRN 01/24/18 (*)] Herbals/Supplements -Info Only 1 ea PO DAILY 01/24/18 Promethazine HCl [Phenergan 25mg 25 mg PO Q6HRS PRN 01/24/18 (*)] Promethazine HCl [Phenergan 12.5mg 12.5 mg OR DAILY PRN 04/19/18 supp (*)] Ondansetron Odt [Zofran Odt 4 mg 4 mg PO Q4 PRN #20 tab 04/21/18 (*)] Prochlorperazine Maleate 25 mg OR Q6 PRN #20 suppr 04/21/18 [Compazine 25mg supp (*)] oxyCODONE HCL/ACETAMINOPHEN 1 each PO Q4 PRN #3 tablet 04/21/18 [Percocet 10-325 mg Tablet] Medical Decision Making Differential Diagnosis: Differential considered including but not limited to bowel obstruction, cyclic vomiting syndrome, gastroenteritis, pancreatitis Consult/Admit Bed Type: [place] [id number] - Data Points Laboratory Results: Laboratory Results 04/24/18 09:05 04/24/18 09:05 04/24/18 04/24/18 04/24/18 09:05 09:05 09:05 WBC 15.01 10^3/uL H 10^3/uL (3.80-9.50) RBC 4.71 10^6/uL 10^6/uL (4.18-5.33) Hgb 14.5 g/dL g/dL (12.6-16.3) Hct 39.0 % % (38.0-47.0) MCV 82.8 fL fL (81.5-99.8) MCH 30.8 pg pg (27.9-34.1) MCHC 37.2 g/dL H g/dL (32.4-36.7) RDW 12.5 % % (11.5-15.2) Plt Count 433 10^3/uL H 10^3/uL (150-400) MPV 8.6 fL L fL (8.7-11.7) Neut % (Auto) 85.4 % H % (39.3-74.2) Lymph % (Auto) 9.0 % L % (15.0-45.0) [place] % (Auto) 4.5 % % (4.5-13.0) Eos % (Auto) 0.1 % L % (0.6-7.6) Baso % (Auto) 0.5 % % (0.3-1.7) Nucleat RBC Rel Count 0.0 % % (0.0-0.2) Absolute Neuts (auto) 12.80 10^3/uL H 10^3/uL (1.70-6.50) Absolute Lymphs (auto) 1.35 10^3/uL 10^3/uL (1.00-3.00) Absolute Monos (auto) 0.68 10^3/uL 10^3/uL (0.30-0.80) Absolute Eos (auto) 0.02 10^3/uL L 10^3/uL (0.03-0.40) Absolute Basos (auto) 0.08 10^3/uL 10^3/uL (0.02-0.10) Absolute Nucleated RBC 0.00 10^3/uL 10^3/uL (0-0.01) Immature Gran % 0.5 % % (0.0-1.1) Immature Gran # 0.08 10^3/uL 10^3/uL (0.00-0.10) Sodium 137 mEq/L mEq/L (135-145) Potassium 3.2 mEq/L L mEq/L (3.5-5.2) Chloride 103 mEq/L mEq/L (97-110) Carbon Dioxide 21 mEq/l L mEq/l (22-31) Anion Gap 13 mEq/L mEq/L (6-14) BUN 16 mg/dL mg/dL (7-23) Creatinine 0.8 mg/dL mg/dL (0.6-1.0) Estimated GFR > 60 Glucose 159 mg/dL H mg/dL (70-100) Calcium 9.4 mg/dL mg/dL (8.5-10.4) Beta HCG, Qual NEGATIVE Medications Given: Discontinued Medications Diphenhydramine HCl (Benadryl Injection) 25 mg IVP EDNOW ONE Stop: 04/24/18 08:57 Last Admin: 04/24/18 09:22 Dose: 25 mg Ketamine HCl (Ketamine) 30 mg IVP EDNOW ONE Stop: 04/24/18 09:01 Last Admin: 04/24/18 09:24 Dose: 30 mg Lorazepam (Ativan Injection) 2 mg IVP EDNOW ONE Stop: 04/24/18 08:56 Last Admin: 04/24/18 09:18 Dose: 2 mg Lorazepam (Ativan Injection) 1 mg IVP EDNOW ONE Stop: 04/24/18 10:08 Last Admin: 04/24/18 10:49 Dose: 1 mg Metoclopramide HCl (Reglan Injection) 10 mg IVP EDNOW ONE Stop: 04/24/18 08:57 Last Admin: 04/24/18 09:20 Dose: 10 mg Departure - Departure Disposition: [facility] Acute Clinical Impression: Cyclic vomiting syndrome Qualifiers: Vomiting Intractability: intractable Nausea presence: with nausea Qualified Code(s): G43.A1 - Cyclical vomiting, intractable Condition: Good
[2018-04-24] MEDS ORDERED: LORazepam 2 MG/ML INJ IVP ONE ×2 (08:55→10:07)
[2018-04-24] MEDS ORDERED: METOCLOPRAMIDE 10 MG/2 ML VIAL IVP ONE (08:56)
[2018-04-24] MEDS ORDERED: KETAMINE 200 MG/20 ML VIAL IVP ONE (09:00)
[2018-04-24 09:13] LABS: PLATELET COUNT 433 10^3/uL (150-400)
[2018-04-24] MEDS ORDERED: ONDANSETRON DISINTEGRATING 4 MG TAB PO PRN (12:27)
[2018-04-24] MEDS ORDERED: ACETAMINOPHEN 325 MG TAB PO PRN (12:27)
[2018-04-24] MEDS ORDERED: CYCLOBENZAPRINE 10 MG TAB PO PRN (12:57)
[2018-04-24] MEDS ORDERED: ALBUTEROL 60 PUFFS/8 GM MDI IH PRN (13:07)
--- NOTE | 2018-04-24 13:31 | GHP ---
DATE OF ADMISSION: 04/24/2018 The patient is a 33-year-old female with a history of cyclic vomiting and chronic abdominal pain. She presents today with recurrent nausea, vomiting, abdominal pain. I had taken care of her previously last week and discharged her 3 days prior. Symptoms never really improved. In the past, she has been on chronic narcotics but weaned herself off, although she still feels that they are an important part of her inpatient management. She has not had fever, chills. She has been eating okay but not great. She is unable to keep things down now. REVIEW OF SYSTEMS: Complete 10-point review of systems conducted negative as in the HPI. PAST MEDICAL HISTORY: Cyclic vomiting/functional abdominal pain, Gilbert's, ectopic . TBI. She does not have pancreatitis. She had MRCP last week that was normal. She has had a cholecystectomy. FAMILY HISTORY: Grandmother recently . This is a stress for her. SOCIAL HISTORY: Former smoker. No alcohol. Occasional marijuana though less recently. PHYSICAL EXAMINATION: PRESENTING VITALS: Temp 36.9, blood pressure 176/124, pulse 121, now 82, breathing 20 times a minute, 98% on room air. GENERAL: No acute distress. HEENT: Sclerae anicteric. Oropharynx clear. Mucous membranes moist. NECK: Supple. No lymphadenopathy or JVD. LUNGS: Clear to auscultation bilaterally. HEART: S1, S2. ABDOMEN: Soft, nontender, nondistended. LOWER EXTREMITIES: No edema. Calves are nontender. SKIN: Without rash. NEUROLOGIC: Exam is nonfocal. LABS: White count is 15, hematocrit 39, platelets are 433,000. Sodium 137, potassium 3.2, chloride 103, bicarb 21, BUN 16, creatinine 0.8, glucose 159. Beta HCG is negative. I discussed case Dr. Meng Knowles. ASSESSMENT/PLAN: A 33-year-old female with functional abdominal pain. 1. Functional abdominal pain/cyclic vomiting. The patient has cyclic vomiting. She agrees to no narcotics. I think the patient is not drug-seeking per se, but does have a bit of an unhealthy relationship with wanting narcotics in these acute episodes. 2. She has contracted to manage this episode without narcotics. I placed her on Phenergan, Benadryl, Flexeril. p.r.n. Ativan as well as Zofran. She has an unremarkable abdominal exam. 3. Hyperkalemia. This is mild. We will give her potassium containing intravenous fluids. 4. Leukocytosis. She typically has leukocytosis when presenting with these episodes. 5. Prophylaxis. Low risk given age. DISPOSITION: Observation status. /[id number]/MODL MTDD
[2018-04-24] MEDS: ONDANSETRON 4 MG/2 ML VIAL IVP PRN ×3 (13:38→22:59)
[2018-04-24] MEDS: D5W 1/2 NS W/ 20 KCl/L 1,000 ML IV SCH (13:38)
[2018-04-24] MEDS: LORazepam 2 MG/ML INJ IVP PRN ×3 (13:38→22:59)
[2018-04-24] MEDS: PROMETHAZINE HCL 25 MG/ML INJ IVP PRN ×2 (14:54→21:04)
[2018-04-24] MEDS: KETOROLAC 30 MG/1 ML SDV IVP PRN (16:08)
[2018-04-24] MEDS ORDERED: MAG HYDROX/AL HYDROX/SIMETH 30 ML UDCUP PO ONE (19:53)
[2018-04-24] MEDS ORDERED: LIDOCAINE 2% VISCOUS 15 ML UDCUP PO ONE (19:53)
[2018-04-24] MEDS ORDERED: HYOSCYAMINE SULFATE 0.125 MG TAB PO ONE (19:53)
[2018-04-24] MEDS: AMITRIPTYLINE HCL 100 MG TAB PO SCH (21:04)
[2018-04-25] MEDS: DIAZEPAM 5 MG TAB PO PRN ×2 (00:02→13:39)
[2018-04-25] MEDS: D5W 1/2 NS W/ 20 KCl/L 1,000 ML IV SCH ×2 (03:54→20:54)
[2018-04-25] MEDS: PROMETHAZINE HCL 25 MG/ML INJ IVP PRN ×3 (03:54→17:50)
[2018-04-25] MEDS: LORazepam 2 MG/ML INJ IVP PRN ×2 (04:38→09:00)
[2018-04-25] MEDS: ONDANSETRON 4 MG/2 ML VIAL IVP PRN (04:38)
[2018-04-25] MEDS: METOCLOPRAMIDE 10 MG/2 ML VIAL IVP PRN ×2 (07:44→17:49)
[2018-04-25] MEDS ORDERED: Herbals/Supplements -Info Only PO SCH (09:00)
[2018-04-25] MEDS: ONDANSETRON 4 MG/2 ML VIAL IVP SCH ×4 (09:24→20:49)
--- NOTE | 2018-04-25 12:25 | ASMTCMCOM ---
CM Note CM Note Notes: Pt discharged 3 days ago with the same symptome of cyclical vomiting and abdominal pain. She discharged independent with support of fiance/. So far cause of her pain has not been found. Anticipate she will dc again independent when medically stable. CM available for any changes. DC Plan: Independent Date Signed: 04/25/2018 12:25 PM Electronically Signed By:Babs Byers RN
--- NOTE | 2018-04-25 12:29 | HOSPPROG ---
Hospitalist Progress Note Assessment/Plan: DIAGNOSES: PLANS: SUBJECTIVE: OBJECTIVE Vitals reviewed: Patient Access Associate, my review: Exam: alert oriented skin warm dry color ok resps not labored lungs clear BSs heart regular abd soft nondistended nontender, bowel sounds present limbs warm, no edema iv site ok Objective: Vital Signs Temp Pulse Resp BP Pulse Ox 36.8 C 96 16 117/85 H 92 04/25/18 11:09 04/25/18 11:09 04/25/18 11:09 04/25/18 11:09 04/25/18 11:09 Laboratory Results 04/25/18 04:44 04/24/18 04/25/18 04/26/18 06:59 06:59 06:59 Intake Total 200 Output Total 200 Balance 0 ICD10 Worksheet Patient Problems: Problems Problem Status Onset Cyclic vomiting syndrome Acute Hyperglycemia Active Hypokalemia Active Leukocytosis Active Abdominal pain Acute Cellulitis Acute Cellulitis of left hand Acute Dog bite of arm Acute Dog bite of left hand Acute Intractable abdominal pain Acute Intractable vomiting Acute Pancreatitis Acute
[2018-04-25] MEDS: MBX SOLN 30 ML BOTTLE PO PRN ×4 (12:30→21:00)
[2018-04-25] MEDS ORDERED: DIAZEPAM 5 MG TAB PO PRN (13:17)
[2018-04-25] MEDS ORDERED: PROCHLORPERAZINE MALEATE 25 MG SUPPR PR PRN (13:17)
--- NOTE | 2018-04-25 13:23 | HOSPPROG ---
Hospitalist Progress Note Assessment/Plan: 33 yo F w cyclic vo,iting continue non narcotic management change ativan to valium compazine suppositories replete potassium change to inpt Subjective: tearful. still w crampy pain Objective: Vital Signs Temp Pulse Resp BP Pulse Ox 36.8 C 96 16 117/85 H 92 04/25/18 11:09 04/25/18 11:09 04/25/18 11:09 04/25/18 11:09 04/25/18 11:09 Laboratory Results 04/25/18 04:44 04/24/18 04/25/18 04/26/18 05:59 05:59 05:59 Intake Total 200 Output Total 200 Balance 0 - Physical Exam Constitutional: no apparent distress, appears nourished Eyes: PERRL, anicteric sclera Ears, Nose, Mouth, Throat: moist mucous membranes, hearing normal Cardiovascular: regular rate and rhythym, no murmur, rub, or gallop, tachycardia Respiratory: no respiratory distress, no rales or rhonchi Gastrointestinal: normoactive bowel sounds, soft, non-tender abdomen, No guarding, No rebound Genitourinary: no bladder fullness, No hobson in urethra Skin: warm, normal color Musculoskeletal: full muscle strength ICD10 Worksheet Patient Problems: Problems Problem Status Onset Cyclic vomiting syndrome Acute Hyperglycemia Active Hypokalemia Active Leukocytosis Active Abdominal pain Acute Cellulitis Acute Cellulitis of left hand Acute Dog bite of arm Acute Dog bite of left hand Acute Intractable abdominal pain Acute Intractable vomiting Acute Pancreatitis Acute
[2018-04-25] MEDS: KETOROLAC 30 MG/1 ML SDV IVP PRN ×2 (13:35→20:08)
[2018-04-25] MEDS ORDERED: DIAZEPAM 10 MG/2 ML SYR IVP PRN (15:01)
[2018-04-25] MEDS ORDERED: DIAZEPAM 5 MG/ML 1 ML SYR IVP PRN (15:07)
[2018-04-25] MEDS: DIAZEPAM 5 MG/ML 1 ML SYR IVP PRN (20:49)
[2018-04-25] MEDS: AMITRIPTYLINE HCL 100 MG TAB PO SCH (22:57)
[2018-04-26] MEDS: PROMETHAZINE HCL 25 MG/ML INJ IVP PRN ×3 (00:30→21:26)
[2018-04-26] MEDS: METOCLOPRAMIDE 10 MG/2 ML VIAL IVP PRN ×3 (00:30→23:24)
[2018-04-26] MEDS: DIAZEPAM 5 MG/ML 1 ML SYR IVP PRN ×3 (01:33→11:44)
[2018-04-26] MEDS: ONDANSETRON 4 MG/2 ML VIAL IVP SCH ×6 (01:33→21:42)
[2018-04-26] MEDS: KETOROLAC 30 MG/1 ML SDV IVP PRN ×2 (03:05→09:12)
[2018-04-26] MEDS: D5W 1/2 NS W/ 20 KCl/L 1,000 ML IV SCH ×2 (07:47→15:46)
--- NOTE | 2018-04-26 08:15 | PDMN ---
Medical Necessity Medical necessity: MCG: M370 vomiting- A-1 day INPT for ongoing vomiting req IVF, IV antiemetics , IV pain, IV valium,
[2018-04-26] MEDS ORDERED: HYDROmorphONE/DILAUDID 2 MG/ML INJ IVP ONE (09:48)
--- NOTE | 2018-04-26 14:04 | HOSPPROG ---
Hospitalist Progress Note Assessment/Plan: 33 yo F w cyclic vomiting, first encounter this hospital course. >35 minutes spent at bedside. #Cyclic vomiting continue supportive management one dose iv Dilaudid d/w pt and family regarding therapy and outpt follow up # Hypokalemia replete potassium #Dispo likely DC in am if tolerating PO Subjective: Still very tearful. Having pain and nausea. Objective: Vital Signs Temp Pulse Resp BP Pulse Ox 36.7 C 93 18 135/94 H 96 04/26/18 11:14 04/26/18 11:14 04/26/18 11:14 04/26/18 11:14 04/26/18 11:14 04/25/18 04/26/18 04/27/18 05:59 05:59 05:59 Intake Total 200 100 Balance 200 100 - Physical Exam Constitutional: appears nourished, obese, uncomfortable Eyes: PERRL, anicteric sclera, EOMI Ears, Nose, Mouth, Throat: moist mucous membranes, hearing normal, ears appear normal Cardiovascular: regular rate and rhythym, No JVD, No edema Respiratory: no respiratory distress, no rales or rhonchi, reduced air movement Gastrointestinal: normoactive bowel sounds, No tenderness, No ascites Skin: warm, normal color, No mottled Musculoskeletal: full muscle strength, normal joint ROM, no joint effusions Neurologic: AAOx3 Psychiatric: not encephalopathic, thought process linear, anxious ICD10 Worksheet Patient Problems: Problems Problem Status Onset Hyperglycemia Active Leukocytosis Active Hypokalemia Active Pancreatitis Acute Cellulitis Acute Dog bite of arm Acute Dog bite of left hand Acute Cellulitis of left hand Acute Cyclic vomiting syndrome Acute Intractable abdominal pain Acute Intractable vomiting Acute Abdominal pain Acute
[2018-04-26] MEDS ORDERED: HYDROmorphONE/DILAUDID 1 MG/ML INJ IVP ONE (15:20)
[2018-04-26] MEDS: DIAZEPAM 5 MG TAB PO PRN (15:49)
[2018-04-26] MEDS: AMITRIPTYLINE HCL 100 MG TAB PO SCH (21:18)
[2018-04-27] MEDS: DIAZEPAM 5 MG/ML 1 ML SYR IVP PRN ×2 (00:31→09:09)
[2018-04-27] MEDS: D5W 1/2 NS W/ 20 KCl/L 1,000 ML IV SCH (03:00)
[2018-04-27] MEDS: KETOROLAC 30 MG/1 ML SDV IVP PRN (03:08)
[2018-04-27] MEDS: PROMETHAZINE HCL 25 MG/ML INJ IVP PRN (03:09)
[2018-04-27] MEDS: ONDANSETRON 4 MG/2 ML VIAL IVP SCH ×3 (04:20→08:50)
[2018-04-27] MEDS: METOCLOPRAMIDE 10 MG/2 ML VIAL IVP PRN (06:40)
[2018-04-27 08:36] VITALS: BP 150/70
[2018-04-27] MEDS ORDERED: HYDROmorphONE/DILAUDID 1 MG/ML INJ IVP ONE (10:03)
[2018-04-27] MEDS ORDERED: PROMETHAZINE HCL 25 MG/ML INJ IVP ONE (10:07)
[2018-04-27] MEDS ORDERED: DIAZEPAM 5 MG/ML 1 ML SYR IVP ONE (10:07)
--- NOTE | 2018-04-27 14:26 | GDS ---
DISCHARGE DIAGNOSES: 1. Anxiety. 2. Cyclic vomiting. 3. Hypokalemia. PHYSICAL EXAM: GENERAL: The patient is alert. VITAL SIGNS: Afebrile at 36.8, pulse is 86, respira tory rate is 13, blood pressure is 150/70. She is saturating 97% on room air. I have seen and evaluated the patient on the day of discharge. HOSPITAL COURSE: The patient is a 33-year-old female who has a history of anxiety-induced cyclic vom iting. She was admitted to the hospital secondary to cyclic vomiting episode and received supportive management during this hospitalization. Her condition has significantly improved. She is toleratin g a regular diet. She did have notable hypokalemia at the time of admission and received potassium r eplacement. She has returned to close to her baseline and will be discharged home. To follow up in the outpatient setting with a therapist of her choice as well as her primary care physician. There a re no pending studies. DISCHARGE MEDICATIONS: Please refer to EMR form. I have provided her a prescription for Valium 5 mg , #5, as well as Dilaudid 2 mg, #4. I have not discontinued any of her other previously prescribed h ome medications. I spent a significant amount of time counseling the patient as far as outpatient th erapies and resources. Again, greater than 35 minutes spent in management and disposition of this rito dheeraj. /[id number]/MODL
== END 2018-04-27 16:17 | disposition home or self-care (01) | DRG 103 ==
LOC: F3E 11:38 → OBSVTOIN 04-25 13:18
PROVIDERS: ADMIT Internal Medicine; ATTEND Internal Medicine
DX: G43.A0 Cyclical vomiting, in migraine, not intractable (principal); F41.9 Anxiety disorder, unspecified; E87.6 Hypokalemia
CPT/HCPCS: 96374; G0378; J1170; J1200; J1885; J2060; J2405; J2550; J2765; J3360

== ENCOUNTER 2018-06-16 23:53 | Observation (INO) | payer OTHER ==
[2018-06-17] MEDS ORDERED: ONDANSETRON 4 MG/2 ML VIAL IVP ONE (00:17)
[2018-06-17] MEDS ORDERED: NS 1,000 ML IV ONE ×3 (00:17→04:52)
--- NOTE | 2018-06-17 00:19 | EDPHY ---
H & P Stated Complaint: Abdominal pain N/V Time Seen by Provider: 06/17/18 00:19 HPI/ROS: HPI CHIEF COMPLAINT: Nausea and vomiting HISTORY OF PRESENT ILLNESS: This is a very pleasant 33-year-old female, she suffers from cyclic vomiting syndrome and anxiety, she presents emergency room nausea vomiting. She states she has has intermittent nausea vomiting since Tuesday. Mainly watery, some yellow bile. She denies any blood. She complains of anxiety, increasing vomiting. Patient states feels exactly like her previous cyclic vomiting syndrome that improves with Ativan anxiety medicine. Past Medical History: Significant medical history for cyclic vomiting syndrome. Past Surgical History: No recent surgery Social History: Denies drugs alcohol tobacco. Family History: Noncontributory ROS REVIEW OF SYSTEMS: 10 Systems were reviewed and negative with the exception of the elements mentioned in the history of present illness. Exam Constitutional nontoxic no acute distress, triage nursing summary reviewed, vital signs reviewed, awake/alert. Eyes normal conjunctivae and sclera, EOMI, PERRLA. HENT normal inspection, atraumatic, moist mucus membranes, no epistaxis, neck supple/ no meningismus, no raccoon eyes. Respiratory clear to auscultation bilaterally, normal breath sounds, no respiratory distress, no wheezing. Cardiovascular rate normal, regular rhythm, no murmur, no edema, distal pulses normal. Gastrointestinal mild tenderness diffusely. No peritoneal signs., no rebound , no guarding, normal bowel sounds, no distension, no pulsatile mass. Genitourinary no CVA tenderness. Musculoskeletal no midline vertebral tenderness, full range of motion, no calf swelling, no tenderness of extremities, no meningismus, good pulses, neurovascularly intact. Skin pink, warm, & dry, no rash, skin atraumatic. Neurologic awake, alert and oriented x 3, AAOx3, moves all 4 extremities equally, motor intact, sensory intact, CN II-XII intact, normal cerebellar, normal vision, normal speech. Psychiatric normal mood/affect. Heme/Lymph/Immune no lymphadenopathy. Differential Diagnosis: Differential diagnosis includes but is not limited to and in no particular order: Bowel obstruction, appendicitis, gallbladder disease, diverticulitis, colitis, enteritis, perforated viscus, gastritis, GERD , esophagitis, urinary tract infection, pyelonephritis, kidney stones Medical Decision Making: Plan for this patient IV establishment IV fluid bolus 2 L normal saline, IV Ativan 2 mg for anxiety, IV Pepcid for GI upset, Zofran for nausea, basic blood work, and re-evaluate. Re-evaluation: 0453: Patient re-evaluated this time she states she felt better after IV Ativan and fluids. She has had 2 L of fluid. However she states her nausea returning requesting more medication. She is requesting Dilaudid as well as Ativan. I have ordered her 0.5 of Dilaudid for pain control as well as 1 more mg IV Ativan and a third L of fluid will re-evaluate. 0651: Long discussed with the patient after multiple rounds of medications IV fluids the patient states she does not really feel much better would like to be admitted to the hospital for ongoing nausea vomiting. Source: Patient - Personal History LMP (Females 10-55): 8-14 Days Ago Current Tetanus/Diphtheria Vaccine: Yes Current Tetanus Diphtheria and Acellular Pertussis (TDAP): Yes Tetanus Vaccine Date: 2014 - Medical/Surgical History Hx Asthma: Yes Hx Chronic Respiratory Disease: No Hx Diabetes: No Hx Cardiac Disease: No Hx Renal Disease: No Hx Cirrhosis: No Hx Alcoholism: No Hx HIV/AIDS: No Hx Splenectomy or Spleen Trauma: No Other PMH: PMH:cyclic vomiting, pancreatitis,. PSH:cholycystecomy, major dental - Social History Smoking Status: Former smoker Constitutional: Initial Vital Signs Temperature (C) 37.1 C 06/16/18 23:58 Heart Rate 99 06/16/18 23:58 Respiratory Rate 18 06/16/18 23:58 Blood Pressure 159/116 H 06/16/18 23:58 O2 Sat (%) 99 06/16/18 23:58 O2 Delivery Mode Room Air Allergies/Adverse Reactions: Penicillins Allergy (Severe, Verified 06/16/18 23:57) swells airway haloperidol [From Haldol] Allergy (Mild, Verified 06/16/18 23:57) agitation tramadol Allergy (Mild, Verified 06/16/18 23:57) agitation Home Medications: Medication Instructions Recorded Amitriptyline HCl 150 mg PO HS 08/31/17 LORazepam [Ativan] 1 mg PO TID PRN #10 tablet 06/18/18 Prochlorperazine Maleate 10 mg PO Q6HRS PRN #10 tab 06/18/18 [Compazine 10mg (*)] oxyCODONE IR [Oxycodone Ir (*)] 5 - 10 mg PO Q6H PRN #10 tab 06/18/18 Medical Decision Making - Data Points Laboratory Results: Laboratory Results 06/17/18 00:32 06/17/18 00:32 Medications Given: Discontinued Medications Al Hydroxide/Mg Hydroxide (Maalox Susp) 30 ml PO ONCE ONE Stop: 06/17/18 02:21 Last Admin: 06/17/18 02:30 Dose: 30 ml Amitriptyline HCl (Elavil) 150 mg PO HS NAMRATA Stop: 12/14/18 20:59 Last Admin: 06/17/18 20:46 Dose: 150 mg Diphenhydramine HCl (Benadryl Injection) 25 mg IVP EDNOW ONE Stop: 06/17/18 04:53 Last Admin: 06/17/18 04:56 Dose: 25 mg Famotidine (Pepcid) 20 mg IVP EDNOW ONE Stop: 06/17/18 00:25 Last Admin: 06/17/18 00:38 Dose: 20 mg Hydromorphone HCl (Dilaudid) 0.5 mg IVP EDNOW ONE Stop: 06/17/18 01:00 Last Admin: 06/17/18 01:04 Dose: 0.5 mg Hydromorphone HCl (Dilaudid) 0.5 mg IVP EDNOW ONE Stop: 06/17/18 04:53 Last Admin: 06/17/18 04:56 Dose: 0.5 mg Hydromorphone HCl (Dilaudid) 0.5 mg IVP EDNOW ONE Stop: 06/17/18 07:37 Last Admin: 06/17/18 07:43 Dose: 0.5 mg Hydromorphone HCl (Dilaudid) 0.2 - 0.5 mg IVP Q2HRS PRN PRN Reason: Pain, Severe Unable to Take PO Stop: 06/27/18 08:45 Last Admin: 06/18/18 06:22 Dose: 0.5 mg Hydromorphone HCl (Dilaudid) 0.2 - 0.5 mg IVP Q6H PRN PRN Reason: Pain, Severe Unable to Take PO Stop: 06/27/18 09:37 Last Admin: 06/18/18 08:19 Dose: 0.5 mg Hyoscyamine Sulfate (Levsin, Hyomax-Sl) 0.25 mg PO ONCE ONE Stop: 06/17/18 02:21 Last Admin: 06/17/18 02:30 Dose: 0.25 mg Sodium Chloride (Ns) 1,000 mls @ 0 mls/hr IV EDNOW ONE; Wide Open PRN Reason: Protocol Stop: 06/17/18 00:18 Last Admin: 06/17/18 00:32 Dose: 1,000 mls Sodium Chloride (Ns) 1,000 mls @ 0 mls/hr IV ONCE ONE PRN Reason: Wide Open Stop: 06/17/18 00:25 Last Admin: 06/17/18 00:38 Dose: 1,000 mls Sodium Chloride (Ns) 1,000 mls @ 0 mls/hr IV ONCE ONE PRN Reason: Wide Open Stop: 06/17/18 04:53 Last Admin: 06/17/18 04:59 Dose: 1,000 mls Sodium Chloride (Ns) 1,000 mls @ 100 mls/hr IV CONT NAMRATA Stop: 12/14/18 08:59 Last Admin: 06/18/18 08:26 Dose: 1,000 mls Ketorolac Tromethamine (Toradol) 15 mg IVP EDNOW ONE Stop: 06/17/18 00:56 Last Admin: 06/17/18 01:03 Dose: 15 mg Lidocaine (Lidocaine 2% Viscous) 15 ml PO ONCE ONE Stop: 06/17/18 02:21 Last Admin: 06/17/18 02:30 Dose: 15 ml Lorazepam (Ativan Injection) 2 mg IVP ONCE ONE Stop: 06/17/18 00:24 Last Admin: 06/17/18 00:38 Dose: 2 mg Lorazepam (Ativan Injection) 1 mg IVP EDNOW ONE Stop: 06/17/18 04:54 Last Admin: 06/17/18 04:56 Dose: 1 mg Lorazepam (Ativan Injection) 0.5 - 1 mg IVP Q4H PRN PRN Reason: anxiety/n/v Stop: 12/14/18 08:45 Last Admin: 06/18/18 08:18 Dose: 1 mg Ondansetron HCl (Zofran) 4 mg IVP EDNOW ONE Stop: 06/17/18 00:18 Last Admin: 06/17/18 00:32 Dose: 4 mg Potassium Chloride (Klor-Con) 40 meq PO ONCE ONE PRN Reason: Protocol Stop: 06/17/18 10:10 Last Admin: 06/17/18 10:18 Dose: 40 meq Potassium Chloride (Klor-Con) 10 - 40 meq PO ONCE ONE PRN Reason: Protocol Stop: 06/17/18 20:26 Last Admin: 06/17/18 20:46 Dose: 30 meq Promethazine HCl (Phenergan) 6.25 - 12.5 mg IVP Q6HRS PRN PRN Reason: Nausea/Vomiting, Use 2nd Stop: 12/14/18 08:45 Last Admin: 06/18/18 06:22 Dose: 12.5 mg Departure - Departure Disposition: Home, Routine, Self-Care Clinical Impression: Anxiety Cyclic vomiting syndrome Qualifiers: Vomiting Intractability: intractable Nausea presence: with nausea Qualified Code(s): G43.A1 - Cyclical vomiting, intractable Condition: Good
[2018-06-17] MEDS ORDERED: LORazepam 2 MG/ML INJ IVP ONE ×2 (00:23→04:53)
[2018-06-17] MEDS ORDERED: FAMOTIDINE 20 MG/2 ML SDV IVP ONE (00:24)
[2018-06-17] MEDS ORDERED: KETOROLAC 15 MG/1 ML SDV IVP ONE (00:55)
[2018-06-17] MEDS ORDERED: HYDROmorphONE/DILAUDID 2 MG/ML INJ IVP ONE ×2 (00:59→04:52)
[2018-06-17 01:01] LABS: PLATELET COUNT 452 10^3/uL (150-400)
[2018-06-17] MEDS ORDERED: MAG HYDROX/AL HYDROX/SIMETH 30 ML UDCUP PO ONE (02:20)
[2018-06-17] MEDS ORDERED: LIDOCAINE 2% VISCOUS 15 ML UDCUP PO ONE (02:20)
[2018-06-17] MEDS ORDERED: HYOSCYAMINE SULFATE 0.125 MG TAB PO ONE (02:20)
[2018-06-17] MEDS ORDERED: HYDROmorphONE/DILAUDID 2 MG/ML INJ ONE (04:53)
[2018-06-17] MEDS ORDERED: LORazepam 2 MG/ML INJ ONE (04:54)
[2018-06-17] MEDS ORDERED: HYDROmorphONE/DILAUDID 1 MG/ML INJ IVP ONE (07:36)
[2018-06-17] MEDS ORDERED: ACETAMINOPHEN 325 MG TAB PO PRN (08:46)
[2018-06-17] MEDS ORDERED: ONDANSETRON 4 MG/2 ML VIAL IVP PRN (08:46)
[2018-06-17] MEDS ORDERED: LORazepam 2 MG/ML INJ IVP PRN (08:46)
[2018-06-17] MEDS ORDERED: ONDANSETRON DISINTEGRATING 4 MG TAB PO PRN (08:46)
[2018-06-17] MEDS ORDERED: oxyCODONE IR 5 MG TAB PO PRN (08:46)
[2018-06-17] MEDS ORDERED: HYDROCODONE/APAP 5/325 TAB PO PRN (08:46)
[2018-06-17] MEDS ORDERED: HYDROmorphONE/DILAUDID 1 MG/ML INJ IVP PRN (08:46)
[2018-06-17] MEDS ORDERED: DIAZEPAM 5 MG TAB PO PRN (08:48)
[2018-06-17] MEDS ORDERED: PROTOCOL MAGNESIUM 1 DOSE IV PRN (08:49)
[2018-06-17] MEDS ORDERED: PROTOCOL POTASSIUM 1 DOSE MISC PRN (08:49)
[2018-06-17] MEDS: NS 1,000 ML IV SCH ×2 (09:08→20:52)
[2018-06-17] MEDS ORDERED: PROCHLORPERAZINE MALEATE 10 MG TAB PO PRN (09:37)
--- NOTE | 2018-06-17 09:38 | PDGENHP ---
History and Physical - Chief Complaint nausea/vomiting and abdominal pain - History of Present Illness 33 yo F with PMH that includes cyclic vomiting syndrome as well as chronic functional abdominal pain presenting with flare of cyclic vomiting with associated severe abdominal pain. Patient was treated in the ER with the combination of medications that are typically effective which includes compazine , ativan and dilaudid however her pain and nausea continued and it was determined that she would require at least overnight management. She had two hospitalizations for similar issues in April and notes that since then she has had symptoms intermittently but not so severe that she has required hospitalization. She notes she was previously on chronic high dose narcotics for her chronic abdominal pain but has been off of them at home for some time, yet she does states that without them in the hospital she tends to not improve quickly. She does admit to smoking marijuana daily but states she had these symptoms even when she quit MJ for 2 years and therefore does not feel that this is MJ hyperemesis syndrome. She has recently gotten into counseling and is working on CBT as a means to hopefuly decrease these episodes. History Information - Allergies/Home Medication List Allergies/Adverse Reactions: Penicillins Allergy (Severe, Verified 06/16/18 23:57) swells airway haloperidol [From Haldol] Allergy (Mild, Verified 06/16/18 23:57) agitation tramadol Allergy (Mild, Verified 06/16/18 23:57) agitation Home Medications: Amitriptyline HCl 150 mg PO HS 08/31/17 [Last Taken 06/16/18] Promethazine HCl [Phenergan 25mg (*)] 25 mg PO Q6HRS PRN 01/24/18 [Last Taken 12:00] Diazepam [Valium 5 MG (*)] 5 mg PO BID PRN 06/17/18 [Last Taken 3 Weeks Ago ~] I have personally reviewed and updated: family history, medical history, social history, surgical history - Past Medical History Additional medical history: Cyclic vomiting syndrome/functional abdominal pain, Gilbert's syndrome, etcopic , TBI, idiopathic pancreatitis - Surgical History Additional surgical history: Cholecystectomy, last EGD December 2014 - Family History Additional family history: No family history of immune deficiency disorder, second-degree relative with breast cancer, biliary disease; grandmother (92yo) recently diagnosed with pancreatic cancer - Social History Smoking Status: Former smoker Alcohol Use: None Drug Use: Marijuana Additional social history: Lives with carlos, works for local [employer] Review of Systems Review of Systems: ROS: 10pt was reviewed & negative except for what was stated in HPI & below Physical Exam Physical Exam: Temp Pulse Resp BP Pulse Ox 36.9 C 81 16 129/103 H 97 06/17/18 08:10 06/17/18 08:10 06/17/18 08:10 06/17/18 08:10 06/17/18 08:10 Constitutional: no apparent distress, appears nourished Eyes: PERRL Ears, Nose, Mouth, Throat: moist mucous membranes, hearing normal Cardiovascular: regular rate and rhythym, no murmur, rub, or gallop Respiratory: no respiratory distress, no rales or rhonchi Gastrointestinal: normoactive bowel sounds, soft, non-tender abdomen Genitourinary: no bladder tenderness Skin: warm, normal color Musculoskeletal: full muscle strength Neurologic: AAOx3 Psychiatric: interacting appropriately, not anxious, not encephalopathic Lab Data & Imaging Review 06/17/18 00:32 06/17/18 00:32 WBC 12.37 10^3/uL (3.80-9.50) H 06/17/18 00:32 RBC 4.43 10^6/uL (4.18-5.33) 06/17/18 00:32 Hgb 13.4 g/dL (12.6-16.3) 06/17/18 00:32 Hct 38.0 % (38.0-47.0) 06/17/18 00:32 MCV 85.8 fL (81.5-99.8) 06/17/18 00:32 MCH 30.2 pg (27.9-34.1) 06/17/18 00:32 MCHC 35.3 g/dL (32.4-36.7) 06/17/18 00:32 RDW 12.3 % (11.5-15.2) 06/17/18 00:32 Plt Count 452 10^3/uL (150-400) H 06/17/18 00:32 MPV 8.6 fL (8.7-11.7) L 06/17/18 00:32 Neut % (Auto) 70.2 % (39.3-74.2) 06/17/18 00:32 Lymph % (Auto) 21.7 % (15.0-45.0) 06/17/18 00:32 [place] % (Auto) 6.1 % (4.5-13.0) 06/17/18 00:32 Eos % (Auto) 0.8 % (0.6-7.6) 06/17/18 00:32 Baso % (Auto) 0.7 % (0.3-1.7) 06/17/18 00:32 Nucleat RBC Rel Count 0.0 % (0.0-0.2) 06/17/18 00:32 Absolute Neuts (auto) 8.68 10^3/uL (1.70-6.50) H 06/17/18 00:32 Absolute Lymphs (auto) 2.68 10^3/uL (1.00-3.00) 06/17/18 00:32 Absolute Monos (auto) 0.76 10^3/uL (0.30-0.80) 06/17/18 00:32 Absolute Eos (auto) 0.10 10^3/uL (0.03-0.40) 06/17/18 00:32 Absolute Basos (auto) 0.09 10^3/uL (0.02-0.10) 06/17/18 00:32 Absolute Nucleated RBC 0.00 10^3/uL (0-0.01) 06/17/18 00:32 Immature Gran % 0.5 % (0.0-1.1) 06/17/18 00:32 Immature Gran # 0.06 10^3/uL (0.00-0.10) 06/17/18 00:32 Sodium 140 mEq/L (135-145) 06/17/18 00:32 Potassium 3.2 mEq/L (3.5-5.2) L 06/17/18 00:32 Chloride 107 mEq/L (97-110) 06/17/18 00:32 Carbon Dioxide 20 mEq/l (22-31) L 06/17/18 00:32 Anion Gap 13 mEq/L (6-14) 06/17/18 00:32 BUN 13 mg/dL (7-23) 06/17/18 00:32 Creatinine 0.9 mg/dL (0.6-1.0) 06/17/18 00:32 Estimated GFR > 60 06/17/18 00:32 Glucose 156 mg/dL (70-100) H 06/17/18 00:32 Calcium 9.9 mg/dL (8.5-10.4) 06/17/18 00:32 Magnesium 1.9 mg/dL (1.6-2.3) 06/17/18 00:32 Total Bilirubin 2.1 mg/dL (0.1-1.4) H 06/17/18 00:32 Conjugated Bilirubin 0.4 mg/dL (0.0-0.5) 06/17/18 00:32 Unconjugated Bilirubin 1.7 mg/dL (0.0-1.1) H 06/17/18 00:32 AST 23 IU/L (14-46) 06/17/18 00:32 ALT 33 IU/L (9-52) 06/17/18 00:32 Alkaline Phosphatase 81 IU/L (38-126) 06/17/18 00:32 Total Protein 7.5 g/dL (6.3-8.2) 06/17/18 00:32 Albumin 4.7 g/dL (3.5-5.0) 06/17/18 00:32 Lipase 660 IU/L (23-300) H 06/17/18 00:32 Beta HCG, Qual NEGATIVE 06/17/18 00:32 Specimen Hemolysis Cancelled 06/17/18 00:32 Urine Color YELLOW 06/17/18 01:55 Urine Appearance HAZY 06/17/18 01:55 Urine pH 8.0 (5.0-7.5) H 06/17/18 01:55 Ur Specific [place] 1.014 (1.002-1.030) 06/17/18 01:55 Urine Protein NEGATIVE (NEGATIVE) 06/17/18 01:55 Urine Ketones 1+ (NEGATIVE) H 06/17/18 01:55 Urine Blood 2+ (NEGATIVE) H 06/17/18 01:55 Urine Nitrate NEGATIVE (NEGATIVE) 06/17/18 01:55 Urine Bilirubin NEGATIVE (NEGATIVE) 06/17/18 01:55 Urine Urobilinogen 2.0 EU (0.2-1.0) H 06/17/18 01:55 Ur Leukocyte Esterase NEGATIVE (NEGATIVE) 06/17/18 01:55 Urine RBC 1-3 /hpf (0-3) 06/17/18 01:55 Urine WBC 1-3 /hpf (0-3) 06/17/18 01:55 Ur Epithelial Cells 2+ /lpf (NONE-1+) H 06/17/18 01:55 Urine Bacteria TRACE /hpf (NONE SEEN) H 06/17/18 01:55 Urine Mucus TRACE /lpf (NONE-1+) 06/17/18 01:55 Urine Glucose 1+ (NEGATIVE) H 06/17/18 01:55 Assessment & Plan Assessment: Cyclic vomiting syndrome (Acute) Anxiety (Acute) 33 yo F with PMH of cyclic vomiting syndrome and functional abdominal pain here for flare of both # cyclic vomiting syndrome: patient with frequent recent episodes for same, sxs have improved somewhat s/p treatment in ER with ativan, phenergan and dilaudid but still unable to tolerate PO and dry on exam. Will continue IVF, antiemetics as needed, monitor electrolytes # acute on chronic abdominal pain: functional abdominal pain, patient has been told in the past that she has chronic pancreatitis however recent MRCP without any evidence of that. Reviewed prior notes and discussed with patient and her father at length that some of her relationship to pain medications are unhealthy and put her at increased risk. She agrees and seems to have insight into this but insists that without IV narcotics her hospital stays and flares are prolonged--in reviewing her records that does seem to be confirmed. Will continue opiates for the first 24 hours, if sxs have not resolved at that point will dc opiates--patient agrees to this plan. # ? depression/anxiety/ptsd: patient not very forthcoming but does acknowledge there is likely a psychiatric component to her presentation. She is in counseling and does agree to conintinue looking into that going forward. # hypokalemia: repleting # elevated bilirubin: 2/2 [place] # leukocytosis: in setting of stress response, will recheck in am # observation status Patient new to my care. Old records reviewed and summarized as above. Care plan reviewed with ER doctor as above. Further hx obtained from patients father present at bedside.
[2018-06-17] MEDS: PROMETHAZINE HCL 25 MG/ML INJ IVP PRN ×2 (09:58→16:15)
[2018-06-17] MEDS: HYDROmorphONE/DILAUDID 1 MG/ML INJ IVP PRN ×7 (10:04→23:01)
[2018-06-17] MEDS: LORazepam 2 MG/ML INJ IVP PRN ×4 (10:07→23:01)
[2018-06-17] MEDS ORDERED: POTASSIUM CL 10 MEQ TAB PO ONE ×2 (10:09→20:25)
--- NOTE | 2018-06-17 14:48 | ASMTCMCOM ---
CM Note CM Note Notes: Reviewed pt chart, she is well known to [facility]. She has frequent episodes of cyclic vomiting and anxiety. She lives at home with and is otherwise independent. Anticipate she will dc home w/support of family when medically stable. CM available for any changes. DC Plan: Independent Date Signed: 06/17/2018 02:47 PM Electronically Signed By:Babs Byers RN
[2018-06-17] MEDS ORDERED: AMITRIPTYLINE HCL 50 MG TAB PO SCH (21:00)
[2018-06-18] MEDS: LORazepam 2 MG/ML INJ IVP PRN ×2 (04:12→08:18)
[2018-06-18] MEDS: HYDROmorphONE/DILAUDID 1 MG/ML INJ IVP PRN ×2 (04:13→06:22)
[2018-06-18] MEDS: PROMETHAZINE HCL 25 MG/ML INJ IVP PRN (06:22)
[2018-06-18] MEDS ORDERED: HYDROmorphONE/DILAUDID 1 MG/ML INJ IVP PRN (08:03)
[2018-06-18 08:11] VITALS: BP 134/78
[2018-06-18] MEDS: NS 1,000 ML IV SCH (08:26)
--- NOTE | 2018-06-18 09:11 | PDDCSUM ---
Discharge Summary Discharge Summary: Dates of service 06/17-06/18/18 Consultations/procedures: none Hospital course by problem: 33 yo F with PMH of cyclic vomiting syndrome and functional abdominal pain here for flare of both # cyclic vomiting syndrome: patient with frequent recent episodes for same, sxs have nearly completely resolved overnight and patient able to take small amounts of PO--will dc home with 3 day rx of compazine and ativan which she states has been working well. She will continue to f/u with her PCP and therapist and is working on establishing care with GI doctor. # acute on chronic abdominal pain: functional abdominal pain, much improved, dc with 5 doses of oxycodone, as next # ? opiate use disorder: patient very adamant that she does not use opiates as an outpatient though she acknowledges a prior opiate dependency and states she still has a very high tolerance. Query if some of her sxs could be related to opiate withdrawal if she is not being forthcoming regarding her outpatient use. It would be useful to get a full drug screen prior to her receiving opiates here in the future. # ? depression/anxiety/ptsd: patient not very forthcoming but does acknowledge there is likely a psychiatric component to her presentation. She is in counseling and does agree to continue looking into that going forward. # hypokalemia: repletedd # elevated bilirubin: / [place] # leukocytosis: in setting of stress response DC home f/u with PCP and therapist, continue to look into options of establishing care with GI (having issues due to insurance) Items for follow up: continued therapy --consideration for extensive drug testing as an OP or on next ER visit as there are concerns that she continues perhaps to have an opiate use disorder and perhaps opiate withdrawal is contributing to her presentations here > 35 min spent in dc more than half in counseling patient regarding above
--- NOTE | 2018-06-18 09:27 | ASMTLACE ---
[facility] Length of stay for Answers: 1 day current admission Comorbidities - select Answers: Other Notes: TBI all that apply # of Emergency department Answers: 5-8 visits in the last 6 months Social determinants Answers: Mental health diagnosis (anxiety, depression, pers onality disorders, etc.) Score: 9 Date Signed: 06/18/2018 09:26 AM Electronically Signed By:Delmy Morales RN
--- NOTE | 2018-06-18 09:29 | ASMTDCNOTE ---
Case Management Discharge Discharge Order Complete? Answers: Yes Patient to Obtain Answers: Independently Medications Transportation Arranged Answers: Family/Friends Family Notified Answers: Yes Discharge Comments Notes: Medically cleared to discharge . No needs identifed. Date Signed: 06/18/2018 09:28 AM Electronically Signed By:Delmy Morales RN
== END 2018-06-18 10:13 | disposition home or self-care (01) ==
LOC: F1N 06-17 08:01
PROVIDERS: ADMIT Family Medicine; ATTEND Family Medicine
DX: G43.A1 Cyclical vomiting, in migraine, intractable (principal); R10.9 Unspecified abdominal pain; F41.9 Anxiety disorder, unspecified; E86.9 Volume depletion, unspecified; Z90.49 Acquired absence of other specified parts of digestive tract; Z88.0 Allergy status to penicillin; Z87.891 Personal history of nicotine dependence
CPT/HCPCS: G0378; J1170; J1200; J1885; J2060; J2405; J2550

== ENCOUNTER 2018-07-27 05:25 | Observation (INO) | payer OTHER ==
[2018-07-27] MEDS ORDERED: NS 1,000 ML IV ONE ×3 (05:32→07:12)
--- NOTE | 2018-07-27 05:32 | EDPHY ---
H & P Stated Complaint: VOMTING FOR PAST 3 DAYS UNABLE TO KEEP FLUIDS IN Time Seen by Provider: 07/27/18 05:32 HPI/ROS: HPI CHIEF COMPLAINT: Nausea/vomiting HISTORY OF PRESENT ILLNESS: 33-year-old female, very familiar to myself as well as the emergency room, she has a history of cyclic vomiting syndrome, she presents to the emergency room with nausea and vomiting. States she has been like this for the past 3 days . Denies significant pain anywhere. Mainly vomiting clear fluids, as well as some yellow bile. Denies blood. She states she had increased stress and was recently [place] the mountains and thinks this is what triggered it. Denies chest pain or shortness of breath. Denies fever. Feels very similar to her previous cyclic vomiting syndrome episodes. She states she gets relief with IV Ativan/IV Phenergan. Past Medical History: History of cyclic vomiting syndrome, pancreatitis, Chronic abdominal pain, Chronic nausea/vomiting. Past Surgical History: Cholecystectomy Social History: Marijuana Use. Family History: Noncontributory ROS REVIEW OF SYSTEMS: 10 Systems were reviewed and negative with the exception of the elements mentioned in the history of present illness. Exam Constitutional triage nursing summary reviewed, vital signs reviewed, awake/ alert. VSS. Eyes normal conjunctivae and sclera, EOMI, PERRLA. HENT normal inspection, atraumatic, moist mucus membranes, no epistaxis, neck supple/ no meningismus, no raccoon eyes. Respiratory clear to auscultation bilaterally, normal breath sounds, no respiratory distress, no wheezing. Cardiovascular rate normal, regular rhythm, no murmur, no edema, distal pulses normal. Gastrointestinal benign abdomen on exam, no significant tenderness on exam, no peritoneal signs, no rebound, no guarding, normal bowel sounds, no distension , no pulsatile mass. Genitourinary no CVA tenderness. Musculoskeletal no midline vertebral tenderness, full range of motion, no calf swelling, no tenderness of extremities, no meningismus, good pulses, neurovascularly intact. Skin pink, warm, & dry, no rash, skin atraumatic. Neurologic awake, alert and oriented x 3, AAOx3, moves all 4 extremities equally, motor intact, sensory intact, CN II-XII intact, normal cerebellar, normal vision, normal speech. Psychiatric normal mood/affect. Heme/Lymph/Immune no lymphadenopathy. Differential Diagnosis: Differential diagnosis includes but is not limited to and in no particular order: Cyclic vomiting syndrome, , Bowel obstruction, appendicitis, gallbladder disease, diverticulitis, colitis, enteritis, perforated viscus, gastritis, GERD, esophagitis, urinary tract infection, pyelonephritis, kidney stones Medical Decision Making: Upon arrival: Plan for this patient IV establishment IV fluid bolus, IV Phenergan, IV Ativan, IV Benadryl, IV Pepcid, 2 L of fluid, basic labs and re-evaluate. Re-evaluation: Labs reviewed. 0630M: Abdomen re-evaluated, soft nt, not vomiting in ER. Will continue to observe in hospital, as patient prefers to be in the hospital and declined to go home do to ongoing nausea. 0708: Patient re-evaluated this time she continues to complain of nausea and vomiting. I have given her multiple medications here in emergency room as well as 2 L of fluid. She states with minimal improvement. I offered go home with medications however she has declined this and wants to be admitted to the hospital for ongoing nausea. (no vomiting in ER) Call casanova with father yelling: at 8am. 0803AM: Patient is demanding more Dilaudid. She states that she wants more Dilaudid and has not had enough. The father at bedside is yelling at me in my face, stating that they demanded to know what medication she got, which I did explain that she got multiple doses of nausea medicine, IV fluids, IV Benadryl, IV Pepcid and, IV Ativan, IV Phenergan, IV Dilaudid. They are requesting more Dilaudid and explained that I would not give any more Dilaudid in the ER, however I would be happy to observe her today in the hospital for ongoing nausea (she has not had further vomiting in ER). Father is quite upset she is not getting more IV dilaudid. I explained that she has gotten 2 doses of IV Dilaudid here which is very powered for narcotic. She had her father demanded to have more IV Dilaudid however I have declined to give her further doses of a very powerful narcotic. I did offer her more IV fluids, nausea medicine admission to the hospital. She has agreed for admission to the hospital. Mark VIDES at bedside, witnessed father yelling at me, demanding narcotics. 0816AM: Patient admitted to the hospitalist service for ongoing care, nausea, CVS. Patient should be admitted to the hospital for ongoing nausea/abdominal pain control. Will contact hospalist service for admission. Patient had large amount og medication given in the ER, with some improvement. Plan for admission for further care. Spoke with Emily LOUIE, who agrees to admit patient to hospalist service Dr. Madison. Additionally, patient nausea vomiting and abdominal pain is been a treated aggressively here in emergency room with 3 L of fluid, IV Phenergan, IV Zofran, IV Ativan, IV Pepcid, IV Benadryl, IV Dilaudid. Source: Patient - Personal History LMP (Females 10-55): 8-14 Days Ago Current Tetanus/Diphtheria Vaccine: Yes Current Tetanus Diphtheria and Acellular Pertussis (TDAP): Yes Tetanus Vaccine Date: 2014 - Medical/Surgical History Hx Asthma: Yes Hx Chronic Respiratory Disease: No Hx Diabetes: No Hx Cardiac Disease: No Hx Renal Disease: No Hx Cirrhosis: No Hx Alcoholism: No Hx HIV/AIDS: No Hx Splenectomy or Spleen Trauma: No Other PMH: PMH:cyclic vomiting, pancreatitis,. PSH:cholycystecomy, major dental - Social History Smoking Status: Former smoker Constitutional: Initial Vital Signs Temperature (C) 37.0 C 07/27/18 05:28 Heart Rate 95 07/27/18 05:28 Respiratory Rate 18 07/27/18 05:28 Blood Pressure 144/122 H 07/27/18 05:28 O2 Sat (%) 97 07/27/18 05:28 O2 Delivery Mode Room Air Allergies/Adverse Reactions: Penicillins Allergy (Severe, Verified 07/27/18 05:30) swells airway haloperidol [From Haldol] Allergy (Mild, Verified 07/27/18 05:30) agitation tramadol Allergy (Mild, Verified 07/27/18 05:30) agitation Home Medications: Medication Instructions Recorded Amitriptyline HCl [Elavil 100 MG 100 mg PO HS 07/27/18 (*)] Citalopram [CeleXA 20 MG] 20 mg PO HS 07/27/18 clonazePAM [klonoPIN (*)] 1 mg PO DAILY PRN 07/27/18 Promethazine HCl [Phenergan 12.5mg 12.5 mg PO TID PRN #20 tablet 07/29/18 tab] oxyCODONE HCL/ACETAMINOPHEN 1 each PO Q4HRS PRN #15 tablet 07/29/18 [Percocet 10-325 mg Tablet] Medical Decision Making - Data Points Laboratory Results: Laboratory Results 07/27/18 05:50 07/27/18 05:50 Medications Given: Discontinued Medications Amitriptyline HCl (Elavil) 100 mg PO HS NAMRATA Stop: 01/23/19 20:59 Last Admin: 07/28/18 21:56 Dose: 100 mg Citalopram Hydrobromide (Celexa) 20 mg PO HS NAMRATA Stop: 01/23/19 20:59 Last Admin: 07/28/18 21:56 Dose: 20 mg Clonazepam (Klonopin) 1 mg PO DAILY PRN PRN Reason: Anxiety Stop: 01/23/19 08:33 Last Admin: 07/27/18 09:34 Dose: 1 mg Diphenhydramine HCl (Benadryl Injection) 25 mg IVP EDNOW ONE Stop: 07/27/18 05:39 Last Admin: 07/27/18 05:47 Dose: 25 mg Diphenhydramine HCl (Benadryl Injection) 6.25 mg IVP ONCE ONE Stop: 07/27/18 08:26 Last Admin: 07/27/18 08:28 Dose: 6.25 mg Diphenhydramine HCl (Benadryl Injection) 25 mg IVP Q4HRS PRN PRN Reason: nausea Stop: 01/23/19 11:30 Last Admin: 07/29/18 05:26 Dose: 25 mg Famotidine (Pepcid) 20 mg IVP EDNOW ONE Stop: 07/27/18 05:39 Last Admin: 07/27/18 05:47 Dose: 20 mg Hydromorphone HCl (Dilaudid) 0.25 mg IVP EDNOW ONE Stop: 07/27/18 06:03 Last Admin: 07/27/18 06:05 Dose: 0.25 mg Hydromorphone HCl (Dilaudid) 0.25 mg IVP EDNOW ONE Stop: 07/27/18 06:38 Last Admin: 07/27/18 06:41 Dose: 0.25 mg Hydromorphone HCl (Dilaudid) 0.5 mg IVP Q8HRS PRN PRN Reason: Pain, Severe Unable to Take PO Stop: 08/06/18 11:32 Last Admin: 07/28/18 12:16 Dose: 0.5 mg Hydromorphone HCl (Dilaudid) 0.5 mg IVP ONCE ONE Stop: 07/28/18 09:18 Last Admin: 07/28/18 09:35 Dose: 0.5 mg Hydromorphone HCl (Dilaudid) 0.5 - 1 mg IVP Q4HRS PRN PRN Reason: Pain, Severe ABLE TO TAKE PO Stop: 08/06/18 11:32 Last Admin: 07/29/18 07:45 Dose: 1 mg Sodium Chloride (Ns) 1,000 mls @ 0 mls/hr IV EDNOW ONE; Wide Open PRN Reason: Protocol Stop: 07/27/18 05:33 Last Admin: 07/27/18 05:46 Dose: 1,000 mls Sodium Chloride (Ns) 1,000 mls @ 0 mls/hr IV EDNOW ONE; Wide Open PRN Reason: Protocol Stop: 07/27/18 05:33 Last Admin: 07/27/18 05:46 Dose: 1,000 mls Sodium Chloride (Ns) 1,000 mls @ 0 mls/hr IV ONCE ONE PRN Reason: Wide Open Stop: 07/27/18 07:13 Last Admin: 07/27/18 07:29 Dose: 1,000 mls Potassium Chloride/Sodium Chloride (Ns W/ 20 Kcl/L) 1,000 mls @ 75 mls/hr IV CONT NAMRATA Stop: 01/23/19 08:44 Last Admin: 07/29/18 05:29 Dose: 1,000 mls Ketorolac Tromethamine (Toradol) 15 mg IVP ONCE ONE Stop: 07/28/18 05:43 Last Admin: 07/28/18 06:01 Dose: 15 mg Ketorolac Tromethamine (Toradol) 30 mg IVP ONCE ONE Stop: 07/28/18 09:19 Last Admin: 07/28/18 09:34 Dose: 30 mg Lorazepam (Ativan Injection) 1 mg IVP EDNOW ONE Stop: 07/27/18 05:39 Last Admin: 07/27/18 05:47 Dose: 1 mg Lorazepam (Ativan Injection) 0.5 mg IVP Q8HRS PRN PRN Reason: Anxiety Stop: 01/23/19 11:31 Last Admin: 07/29/18 05:27 Dose: 0.5 mg Metoclopramide HCl (Reglan Injection) 10 mg IVP Q6HRS PRN PRN Reason: GI Motility, unable to take PO Stop: 01/23/19 08:38 Last Admin: 07/27/18 09:32 Dose: 10 mg Ondansetron HCl (Zofran) 4 mg IVP EDNOW ONE Stop: 07/27/18 06:38 Last Admin: 07/27/18 06:40 Dose: 4 mg Ondansetron HCl (Zofran) 4 mg IVP Q4HRS PRN PRN Reason: Nausea/Vomiting, Can't Take PO Stop: 01/23/19 08:38 Last Admin: 07/27/18 11:09 Dose: 4 mg Oxycodone/Acetaminophen (Percocet 5/325) 1 tab PO Q8HRS PRN PRN Reason: Pain, Severe Able to Take PO Stop: 08/06/18 11:41 Last Admin: 07/29/18 11:13 Dose: 1 tab Pantoprazole Sodium (Protonix) 40 mg IVP BID NAMRATA Stop: 01/23/19 08:59 Last Admin: 07/29/18 10:46 Dose: 40 mg Promethazine HCl (Phenergan) 6.25 mg IVP ONCE ONE Stop: 07/27/18 05:39 Last Admin: 07/27/18 05:47 Dose: 6.25 mg Promethazine HCl (Phenergan) 12.5 mg IVP ONCE ONE Stop: 07/27/18 08:20 Last Admin: 07/27/18 08:23 Dose: 12.5 mg Promethazine HCl (Phenergan) 6.25 - 12.5 mg IVP Q6HRS PRN PRN Reason: Nausea/Vomiting, Use 2nd Stop: 01/23/19 08:38 Last Admin: 07/28/18 15:13 Dose: 12.5 mg Departure - Departure Disposition: [facility] Inpatient Acute Clinical Impression: Vomiting Qualifiers: Vomiting type: unspecified Vomiting Intractability: non-intractable Nausea presence: with nausea Qualified Code(s): R11.2 - Nausea with vomiting, unspecified Condition: Good
[2018-07-27] MEDS ORDERED: FAMOTIDINE 20 MG/2 ML SDV IVP ONE (05:38)
[2018-07-27] MEDS ORDERED: LORazepam 2 MG/ML INJ IVP ONE (05:38)
[2018-07-27] MEDS ORDERED: PROMETHAZINE HCL 25 MG/ML INJ IVP ONE ×2 (05:38→08:19)
[2018-07-27] MEDS ORDERED: FAMOTIDINE 20 MG/2 ML SDV ONE (05:45)
[2018-07-27 05:55] LABS: PLATELET COUNT 487 10^3/uL (150-400)
[2018-07-27] MEDS ORDERED: HYDROmorphONE/DILAUDID 1 MG/ML INJ IVP ONE ×2 (06:02→06:37)
[2018-07-27] MEDS ORDERED: ONDANSETRON 4 MG/2 ML VIAL IVP ONE (06:37)
[2018-07-27] MEDS ORDERED: PROMETHAZINE HCL 25 MG/ML INJ ONE (07:56)
[2018-07-27] MEDS ORDERED: clonazePAM 1 MG TAB PO PRN (08:34)
[2018-07-27] MEDS ORDERED: ONDANSETRON DISINTEGRATING 4 MG TAB PO PRN (08:39)
[2018-07-27] MEDS ORDERED: ONDANSETRON 4 MG/2 ML VIAL IVP PRN (08:39)
[2018-07-27] MEDS ORDERED: METOCLOPRAMIDE 10 MG/2 ML VIAL IVP PRN (08:39)
[2018-07-27] MEDS ORDERED: ACETAMINOPHEN 325 MG TAB PO PRN (08:39)
[2018-07-27] MEDS: NS W/ 20 KCl/L 1,000 ML IV SCH ×2 (09:46→18:02)
[2018-07-27] MEDS: PANTOPRAZOLE SODIUM 40 MG VIAL IVP SCH ×2 (10:05→19:48)
--- NOTE | 2018-07-27 11:36 | PDGENHP ---
History and Physical - Chief Complaint Nausea, abd pain - History of Present Illness 33-year-old female with history of cyclic vomiting syndrome, she presents with nausea and vomiting. States he shas been like this for the past 3 days . Per ER report denied significant pain anywhere but now that she is on floor reports epigastric pain radiating to all quadrants. Mainly clear fluids that she vomits as well as some yellow bile. Denies blood. She states she had increased stress and [place] the [place] and thinks this is what triggered it. Denies chest pain or shortness of breath. Denies fever. Feels very similar to her previous cyclic vomiting syndrome episodes. She states she gets relief with IV Ativan/IV Phenergan/IV Dilaudid. She reports her pain is out of control and has not been addressed with 0.25mg IV Dilaudid in the ER. Reports that the "longer you wait, the longer and more days it will take for me to get better and leave the hospital". Past Medical History: History of cyclic vomiting syndrome, pancreatitis, Chronic abdominal pain, Chronic nausea/vomiting. Past Surgical History: Cholecystectomy Social History: Denies drugs alcohol tobacco. Family History: Noncontributory History Information - Allergies/Home Medication List Allergies/Adverse Reactions: Penicillins Allergy (Severe, Verified 07/27/18 05:30) swells airway haloperidol [From Haldol] Allergy (Mild, Verified 07/27/18 05:30) agitation tramadol Allergy (Mild, Verified 07/27/18 05:30) agitation Home Medications: Amitriptyline HCl [Elavil 100 MG (*)] 100 mg PO HS 07/27/18 [Last Taken 07/25/18 ] Citalopram [CeleXA] 20 mg PO HS 07/27/18 [Last Taken 07/25/18] clonazePAM [klonoPIN (*)] 1 mg PO DAILY PRN 07/27/18 [Last Taken 07/25/18] I have personally reviewed and updated: medical history, social history - Past Medical History Additional medical history: Cyclic vomiting syndrome/functional abdominal pain, Gilbert's syndrome, etcopic , TBI, idiopathic pancreatitis - Surgical History Additional surgical history: Cholecystectomy, last EGD December 2014 - Family History Additional family history: No family history of immune deficiency disorder, second-degree relative with breast cancer, biliary disease; grandmother (92yo) recently diagnosed with pancreatic cancer - Social History Smoking Status: Former smoker Additional social history: Lives with carlos, works for local [employer] Review of Systems Review of Systems: ROS: 10pt was reviewed & negative except for what was stated in HPI & below Physical Exam Physical Exam: Temp Pulse Resp BP Pulse Ox 36.9 C 62 18 144/94 H 98 07/27/18 10:23 07/27/18 10:23 07/27/18 10:23 07/27/18 10:23 07/27/18 10:23 Constitutional: no apparent distress Eyes: PERRL, EOMI Ears, Nose, Mouth, Throat: moist mucous membranes, hearing normal Cardiovascular: regular rate and rhythym, No edema Respiratory: no respiratory distress, no rales or rhonchi, clear to auscultation Gastrointestinal: other, No guarding (mostly epigastric pain with mild tenderness which is generalized), No rebound, No distension Skin: warm Neurologic: AAOx3 Psychiatric: interacting appropriately, not anxious, not encephalopathic, agitated Lymph, Heme, Immunologic: No petechiae Lab Data & Imaging Review 07/27/18 05:50 07/27/18 05:50 WBC 12.04 10^3/uL (3.80-9.50) H 07/27/18 05:50 RBC 4.83 10^6/uL (4.18-5.33) 07/27/18 05:50 Hgb 14.3 g/dL (12.6-16.3) 07/27/18 05:50 Hct 41.4 % (38.0-47.0) 07/27/18 05:50 MCV 85.7 fL (81.5-99.8) 07/27/18 05:50 MCH 29.6 pg (27.9-34.1) 07/27/18 05:50 MCHC 34.5 g/dL (32.4-36.7) 07/27/18 05:50 RDW 12.4 % (11.5-15.2) 07/27/18 05:50 Plt Count 487 10^3/uL (150-400) H 07/27/18 05:50 MPV 8.4 fL (8.7-11.7) L 07/27/18 05:50 Neut % (Auto) 47.8 % (39.3-74.2) 07/27/18 05:50 Lymph % (Auto) 41.2 % (15.0-45.0) 07/27/18 05:50 Burke % (Auto) 8.8 % (4.5-13.0) 07/27/18 05:50 Eos % (Auto) 0.5 % (0.6-7.6) L 07/27/18 05:50 Baso % (Auto) 1.2 % (0.3-1.7) 07/27/18 05:50 Nucleat RBC Rel Count 0.0 % (0.0-0.2) 07/27/18 05:50 Absolute Neuts (auto) 5.76 10^3/uL (1.70-6.50) 07/27/18 05:50 Absolute Lymphs (auto) 4.96 10^3/uL (1.00-3.00) H 07/27/18 05:50 Absolute Monos (auto) 1.06 10^3/uL (0.30-0.80) H 07/27/18 05:50 Absolute Eos (auto) 0.06 10^3/uL (0.03-0.40) 07/27/18 05:50 Absolute Basos (auto) 0.14 10^3/uL (0.02-0.10) H 07/27/18 05:50 Absolute Nucleated RBC 0.00 10^3/uL (0-0.01) 07/27/18 05:50 Immature Gran % 0.5 % (0.0-1.1) 07/27/18 05:50 Immature Gran # 0.06 10^3/uL (0.00-0.10) 07/27/18 05:50 ESR 10 MM/HR (0-20) 07/27/18 05:50 Sodium 136 mEq/L (135-145) 07/27/18 05:50 Potassium 3.3 mEq/L (3.5-5.2) L 07/27/18 05:50 Chloride 98 mEq/L (97-110) 07/27/18 05:50 Carbon Dioxide 26 mEq/l (22-31) 07/27/18 05:50 Anion Gap 12 mEq/L (6-14) 07/27/18 05:50 BUN 20 mg/dL (7-23) 07/27/18 05:50 Creatinine 0.9 mg/dL (0.6-1.0) 07/27/18 05:50 Estimated GFR > 60 07/27/18 05:50 Glucose 126 mg/dL (70-100) H 07/27/18 05:50 Calcium 9.6 mg/dL (8.5-10.4) 07/27/18 05:50 Magnesium 2.1 mg/dL (1.6-2.3) 07/27/18 05:50 Total Bilirubin 2.4 mg/dL (0.1-1.4) H 07/27/18 05:50 Conjugated Bilirubin 0.4 mg/dL (0.0-0.5) 07/27/18 05:50 Unconjugated Bilirubin 2.0 mg/dL (0.0-1.1) H 07/27/18 05:50 AST 54 IU/L (14-46) H 07/27/18 05:50 ALT 49 IU/L (9-52) 07/27/18 05:50 Alkaline Phosphatase 88 IU/L (38-126) 07/27/18 05:50 C-Reactive Protein < 5.0 mg/L (<10.0) 07/27/18 05:50 Total Protein 7.7 g/dL (6.3-8.2) 07/27/18 05:50 Albumin 4.8 g/dL (3.5-5.0) 07/27/18 05:50 Lipase 548 IU/L (23-300) H 07/27/18 05:50 Beta HCG, Qual NEGATIVE 07/27/18 05:50 Assessment & Plan Assessment: #acute on chronic abd pain, etiology unclear. Likely functional pain #Emesis, cyclic vomiting syndrome #elevated lipase, slight -possibly chronically elevated -negative CRP or ESR today -negative MRCP and abd MRI on 04/18 #Hypokalemia #Marijuana use, she eats it -reports that she quit 2 years ago with no improvement of her symptoms. Denies MJ Hyperemesis syndrome #Leukocytosis, no left shift, likely reactive Plan: Her pain is likely functional She is demanding IV narcotics as abd pain is very painful, reports that Dilaudid , Phenergan, Ativan, Benadryl, Zofran are the only meds that will bring her back to baseline She agrees to the following: -Dilaudid 0.5mg IV TID PRN -Ativan 0.5mg IV TID PRN -IV Phenergan, Benadryl, Zofran -She will only get IV narcotics at this regimen x 24 hrs and will transition to PO tomorrow. No additional increase to her acute pain meds today.
[2018-07-27] MEDS: HYDROmorphONE/DILAUDID 1 MG/ML INJ IVP PRN ×2 (11:47→19:47)
[2018-07-27] MEDS: OXYCODONE/APAP 5/325 TAB PO PRN (15:41)
[2018-07-27] MEDS: PROMETHAZINE HCL 25 MG/ML INJ IVP PRN (16:22)
[2018-07-27] MEDS: LORazepam 2 MG/ML INJ IVP PRN (16:28)
[2018-07-27] MEDS: AMITRIPTYLINE HCL 100 MG TAB PO SCH (19:48)
[2018-07-27] MEDS: CITALOPRAM 20 MG TAB PO SCH (19:48)
[2018-07-28] MEDS: PROMETHAZINE HCL 25 MG/ML INJ IVP PRN ×3 (03:46→15:13)
[2018-07-28] MEDS: HYDROmorphONE/DILAUDID 1 MG/ML INJ IVP PRN ×6 (03:46→22:05)
[2018-07-28] MEDS: NS W/ 20 KCl/L 1,000 ML IV SCH ×2 (03:50→17:52)
[2018-07-28 05:31] LABS: PLATELET COUNT 324 10^3/uL (150-400)
[2018-07-28] MEDS ORDERED: KETOROLAC 15 MG/1 ML SDV IVP ONE (05:42)
[2018-07-28] MEDS: LORazepam 2 MG/ML INJ IVP PRN ×2 (06:08→15:13)
[2018-07-28] MEDS: PANTOPRAZOLE SODIUM 40 MG VIAL IVP SCH ×2 (08:16→21:56)
[2018-07-28] MEDS ORDERED: HYDROmorphONE/DILAUDID 1 MG/ML INJ IVP ONE (09:17)
[2018-07-28] MEDS ORDERED: KETOROLAC 30 MG/1 ML SDV IVP ONE (09:18)
--- NOTE | 2018-07-28 10:31 | ASMTCMCOM ---
CM Note CM Note Notes: Pt well known to [facility], she is admitted with n/v abdominal pain. She lives at home with her boyfriend and will dc home independent when medically stable. CM available for any changes. DC Plan: Independent Date Signed: 07/28/2018 10:23 AM Electronically Signed By:Babs Byers RN
--- NOTE | 2018-07-28 17:59 | HOSPPROG ---
Hospitalist Progress Note Assessment/Plan: #acute on chronic abd pain, etiology unclear. Likely functional pain #Emesis, cyclic vomiting syndrome #elevated lipase, slight -possibly chronically elevated -negative CRP or ESR today -negative MRCP and abd MRI on 04/18 #Hypokalemia #Marijuana use, she eats it -reports that she quit 2 years ago with no improvement of her symptoms. Denies MJ Hyperemesis syndrome #Leukocytosis, no left shift, likely reactive Plan: Her pain is likely functional increase IV Dilaudid cont Phenergan, Ativan, Benadryl, Zofran Subjective: no cp or sob. still with nausea and significant abd pain. requesting increase to IV Dilaudid Objective: Vital Signs Temp Pulse Resp BP Pulse Ox 36.9 C 80 16 119/72 98 07/28/18 15:25 07/28/18 15:25 07/28/18 15:25 07/28/18 15:25 07/28/18 15:25 Laboratory Results 07/28/18 05:22 07/28/18 05:22 07/27/18 07/28/18 07/29/18 05:59 05:59 05:59 Intake Total 3807 500 Output Total 100 Balance 3707 500 - Physical Exam Constitutional: no apparent distress Eyes: PERRL, EOMI Ears, Nose, Mouth, Throat: moist mucous membranes, hearing normal Cardiovascular: regular rate and rhythym, No edema Respiratory: no respiratory distress, no rales or rhonchi, clear to auscultation Gastrointestinal: normoactive bowel sounds, tenderness (mid epigastric) Skin: warm Neurologic: AAOx3 Psychiatric: interacting appropriately, not anxious, not encephalopathic ICD10 Worksheet Patient Problems: Problems Problem Status Onset Vomiting Acute Hyperglycemia Active Hypokalemia Active Leukocytosis Active Abdominal pain Acute Anxiety Acute Cellulitis Acute Cellulitis of left hand Acute Cyclic vomiting syndrome Acute Dog bite of arm Acute Dog bite of left hand Acute Intractable abdominal pain Acute Intractable vomiting Acute Pancreatitis Acute
[2018-07-28] MEDS: CITALOPRAM 20 MG TAB PO SCH (21:56)
[2018-07-28] MEDS: AMITRIPTYLINE HCL 100 MG TAB PO SCH (21:56)
[2018-07-29] MEDS: HYDROmorphONE/DILAUDID 1 MG/ML INJ IVP PRN ×2 (03:23→07:45)
[2018-07-29] MEDS: LORazepam 2 MG/ML INJ IVP PRN (05:27)
[2018-07-29] MEDS: NS W/ 20 KCl/L 1,000 ML IV SCH (05:29)
[2018-07-29] MEDS: PANTOPRAZOLE SODIUM 40 MG VIAL IVP SCH (10:46)
[2018-07-29 11:12] VITALS: BP 139/84
[2018-07-29] MEDS: OXYCODONE/APAP 5/325 TAB PO PRN (11:13)
--- NOTE | 2018-07-29 13:43 | PDDCSUM ---
Discharge Summary Discharge Summary: Pt is a 33 yo female who was admitted with acute on chronic abd pain. She spent a total of 2 nights in the hospital. She was given IV medications per below. Today she reports that her abd pain has resolved and has requested discharge. Etiology of her abd pain remains unknown, but likely functional Inpatient Med/Strategy. She was treated with the following. If she need a future admission would use this as a starting point. We attempted a dose lower than below but were unsuccessful. -Dilaudid 0.5-1 IV q 4hrs prn (she requested a taper that included a starting point of Dilaudid 1 mg q 2hrs. She did well w/o this taper or starting point). Would decrease frequency of IV narcotics daily. -Phenergan 12.5 mg IV q 8hrs PRN nausea -Benadryl IV PRN Nausea -Ativan 0.5 mg IV q 8hrs prn nausea She is being discharged on Phenergan 12.5 mg PRN #20 and Percocet 10/325 #15. She is encouraged to f/u with her PCP next week DDX: #acute on chronic abd pain, etiology unclear. Likely functional pain #Emesis, cyclic vomiting syndrome #elevated lipase, slight -possibly chronically elevated -negative CRP or ESR today -negative MRCP and abd MRI on 04/18 #Hypokalemia #Marijuana use, she eats it -reports that she quit 2 years ago with no improvement of her symptoms. Denies MJ Hyperemesis syndrome #Leukocytosis, no left shift, likely reactive Exam: NAD AAOX3 RRR CTA B S/NT/ND Meds: see med rec total time spent on d/c is 35 mins
[2018-07-29] MEDS ORDERED: PANTOPRAZOLE SODIUM 40 MG TAB PO SCH (21:00)
== END 2018-07-29 15:08 | disposition home or self-care (01) ==
LOC: F3E 10:12
PROVIDERS: ADMIT Family Medicine; ATTEND Family Medicine
DX: R10.9 Unspecified abdominal pain (principal); G89.29 Other chronic pain; E86.9 Volume depletion, unspecified; G43.A0 Cyclical vomiting, in migraine, not intractable; E87.6 Hypokalemia; F12.10 Cannabis abuse, uncomplicated; D72.829 Elevated white blood cell count, unspecified; R74.8 Abnormal levels of other serum enzymes; E80.4 Gilbert syndrome; J45.909 Unspecified asthma, uncomplicated; Z87.891 Personal history of nicotine dependence; Z87.820 Personal history of traumatic brain injury; Z88.0 Allergy status to penicillin
CPT/HCPCS: 96374; G0378; J1170; J1200; J1885; J2060; J2405; J2550; J2765

== ENCOUNTER 2018-08-29 09:24 | Inpatient (IN) | payer OTHER ==
--- NOTE | 2018-08-29 10:06 | EDPHY ---
H & P Time Seen by Provider: 08/29/18 09:52 HPI/ROS: Chief complaint. Abdominal pain HPI. 33-year-old female with history of cyclic vomiting syndrome and pancreatitis presents with nausea vomiting and upper abdominal pain. She was hospitalized July 27 for 2 days for similar symptoms. She tells me she has had flare-up for the past couple weeks and has been managing it with her Phenergan for nausea. She has had some abdominal pain for the past 2 weeks. However her menstrual. Began 3 days ago which typically increases her symptoms. Yesterday she began have nausea vomiting and increased pain. Symptoms were not controlled by Phenergan. This appears to be typical flare-up per patient ROS 10 systems were reviewed and negative with the exception of the elements mentioned in the history of present illness Past Medical/Surgical History: Cyclic vomiting syndrome, pancreatitis, cholecystectomy Social History: Single, nonsmoker, no alcohol Smoking Status: Former smoker Physical Exam: General Appearance: Alert well-developed female moderate distress vital signs significant for initial blood pressure 181/125 Eyes: Pupils equal and round no pallor or injection. ENT, Mouth: Mucous membranes are moist. Respiratory: There are no retractions, lungs are clear to auscultation. Cardiovascular: Regular rate and rhythm. Gastrointestinal: Abdomen is soft with tenderness in the epigastrium. Normal bowel sounds. No masses Neurological: Awake and alert, sensory and motor exams grossly normal. Skin: Warm and dry, no rashes. Musculoskeletal: Neck is supple nontender. Extremities symmetrical, full range of motion. Psychiatric: Patient is oriented X 3, there is no agitation. Constitutional: Initial Vital Signs Temperature (C) 36.7 C 08/29/18 09:30 Heart Rate 62 08/29/18 09:30 Respiratory Rate 18 08/29/18 09:30 Blood Pressure 181/125 H 08/29/18 09:30 O2 Sat (%) 99 08/29/18 09:30 Allergies/Adverse Reactions: Penicillins Allergy (Severe, Verified 08/29/18 09:30) swells airway haloperidol [From Haldol] Allergy (Mild, Verified 08/29/18 09:30) agitation tramadol Allergy (Mild, Verified 08/29/18 09:30) agitation Home Medications: Medication Instructions Recorded Promethazine HCl [Phenergan 12.5mg 12.5 mg PO TID PRN #20 tablet 07/29/18 tab] Citalopram Hydrobromide [Celexa] 40 mg PO HS 08/29/18 clonazePAM [Klonopin (*)] 0.5 mg PO DAILY PRN 08/29/18 Medical Decision Making Procedures: IV normal saline. Patient is given IV Ativan, Phenergan, Dilaudid, Benadryl ED Course/Re-evaluation: Re-evaluation 10:45 a.m.. Patient continues to have abdominal pain and nausea. Patient and I discussed laboratory evaluation, treatment plan including recommendation for admission. She expresses understanding and agreement I consulted discussed case with hospitalist who agrees to the admission Differential Diagnosis: Patient has had previous pancreatitis with similar symptoms of presentation today. I considered pancreatitis, electrolyte abnormalities, dehydration - Data Points Laboratory Results: Laboratory Results 08/29/18 09:55 08/29/18 09:55 08/29/18 08/29/18 08/29/18 09:55 09:55 09:55 WBC 14.76 10^3/uL H 10^3/uL (3.80-9.50) RBC 4.56 10^6/uL 10^6/uL (4.18-5.33) Hgb 13.5 g/dL g/dL (12.6-16.3) Hct 40.7 % % (38.0-47.0) MCV 89.3 fL fL (81.5-99.8) MCH 29.6 pg pg (27.9-34.1) MCHC 33.2 g/dL g/dL (32.4-36.7) RDW 12.7 % % (11.5-15.2) Plt Count 447 10^3/uL H 10^3/uL (150-400) MPV 8.7 fL fL (8.7-11.7) Neut % (Auto) 86.0 % H % (39.3-74.2) Lymph % (Auto) 9.1 % L % (15.0-45.0) [place] % (Auto) 3.0 % L % (4.5-13.0) Eos % (Auto) 0.5 % L % (0.6-7.6) Baso % (Auto) 0.7 % % (0.3-1.7) Nucleat RBC Rel Count 0.0 % % (0.0-0.2) Absolute Neuts (auto) 12.70 10^3/uL H 10^3/uL (1.70-6.50) Absolute Lymphs (auto) 1.34 10^3/uL 10^3/uL (1.00-3.00) Absolute Monos (auto) 0.44 10^3/uL 10^3/uL (0.30-0.80) Absolute Eos (auto) 0.07 10^3/uL 10^3/uL (0.03-0.40) Absolute Basos (auto) 0.10 10^3/uL 10^3/uL (0.02-0.10) Absolute Nucleated RBC 0.00 10^3/uL 10^3/uL (0-0.01) Immature Gran % 0.7 % % (0.0-1.1) Immature Gran # 0.11 10^3/uL H 10^3/uL (0.00-0.10) Sodium 139 mEq/L mEq/L (135-145) Potassium 3.1 mEq/L L mEq/L (3.5-5.2) Chloride 101 mEq/L mEq/L (97-110) Carbon Dioxide 22 mEq/l mEq/l (22-31) Anion Gap 16 mEq/L H mEq/L (6-14) BUN 7 mg/dL mg/dL (7-23) Creatinine 0.6 mg/dL mg/dL (0.6-1.0) Estimated GFR > 60 Glucose 172 mg/dL H mg/dL (70-100) Calcium 9.7 mg/dL mg/dL (8.5-10.4) Total Bilirubin 1.6 mg/dL H mg/dL (0.1-1.4) Conjugated Bilirubin 0.1 mg/dL mg/dL (0.0-0.5) Unconjugated Bilirubin 1.5 mg/dL H mg/dL (0.0-1.1) AST 67 IU/L H IU/L (14-46) ALT 106 IU/L H IU/L (9-52) Alkaline Phosphatase 122 IU/L IU/L (38-126) Total Protein 7.7 g/dL g/dL (6.3-8.2) Albumin 4.7 g/dL g/dL (3.5-5.0) Lipase 1011 IU/L H IU/L (23-300) Beta HCG, Qual NEGATIVE Medications Given: Diphenhydramine HCl (Benadryl Injection) 25 mg IVP Q4HRS PRN PRN Reason: Itching Stop: 02/25/19 13:35 Last Admin: 08/29/18 14:41 Dose: 25 mg Hydromorphone HCl (Dilaudid) 0.5 - 1 mg IVP Q2HRS PRN PRN Reason: Pain, Severe Unable to Take PO Stop: 09/08/18 13:32 Last Admin: 08/29/18 13:58 Dose: 1 mg Discontinued Medications Diphenhydramine HCl (Benadryl Injection) 12.5 mg IVP EDNOW ONE Stop: 08/29/18 10:12 Last Admin: 08/29/18 10:28 Dose: 12.5 mg Hydromorphone HCl (Dilaudid) 1 mg IVP EDNOW ONE Stop: 08/29/18 10:11 Last Admin: 08/29/18 10:28 Dose: 1 mg Hydromorphone HCl (Dilaudid) 1 mg IVP EDNOW ONE Stop: 08/29/18 10:55 Last Admin: 08/29/18 11:06 Dose: 1 mg Lorazepam (Ativan Injection) 1 mg IVP EDNOW ONE Stop: 08/29/18 10:12 Last Admin: 08/29/18 10:28 Dose: 1 mg Promethazine HCl (Phenergan) 12.5 mg IVP EDNOW ONE Stop: 08/29/18 10:11 Last Admin: 08/29/18 10:28 Dose: 12.5 mg Promethazine HCl (Phenergan) 12.5 mg IVP EDNOW ONE Stop: 08/29/18 10:55 Last Admin: 08/29/18 11:06 Dose: 12.5 mg Departure - Departure Disposition: [facility] Acute Clinical Impression: Abdominal pain Qualifiers: Abdominal location: epigastric Qualified Code(s): R10.13 - Epigastric pain Pancreatitis Qualifiers: Chronicity: acute Acute pancreatitis complication: unspecified Condition: Fair
[2018-08-29] MEDS ORDERED: HYDROmorphONE/DILAUDID 2 MG/ML INJ IVP ONE ×2 (10:10→10:54)
[2018-08-29] MEDS ORDERED: PROMETHAZINE HCL 25 MG/ML INJ IVP ONE ×2 (10:10→10:54)
[2018-08-29] MEDS ORDERED: LORazepam 2 MG/ML INJ IVP ONE (10:11)
[2018-08-29 10:24] LABS: PLATELET COUNT 447 10^3/uL (150-400)
[2018-08-29] MEDS ORDERED: ACETAMINOPHEN 325 MG TAB PO PRN (13:33)
[2018-08-29] MEDS ORDERED: PROTOCOL POTASSIUM 1 DOSE MISC PRN (13:34)
[2018-08-29] MEDS: HYDROmorphONE/DILAUDID 1 MG/ML INJ IVP PRN ×5 (13:58→22:35)
--- NOTE | 2018-08-29 14:19 | GHP ---
[f rep st] HISTORY AND PHYSICAL DATE OF ADMISSION: 08/29/2018 CHIEF COMPLAINT: Abdominal pain. HISTORY: The patient is a 33-year-old female, who has had intermittent episodes of nausea, vomiting, and abdominal pain dating back to 2008. She had a big workup in 2008 that was negative. She was di agnosed with cyclic vomiting syndrome. She has intermittently had elevated lipase, but never any CT evidence of pancreatic abnormality or any imaging evidence of pancreatic abnormality. She was just d ischarged from the hospital 1 month ago. She says she never really got better after that last flare. She was just trying to power through. Last Tuesday, she started her menstrual cycle. These pain episodes correlate with her menstrual cycle approximately 75% of the time. She woke up at 2 a.m. thi s morning with severe vomiting and has come back to the emergency room. Over the last year, her abdo jaqueline pain has gotten dramatically worse than it has over the more prolonged period. She has never b een evaluated for endometriosis. She describes a severe epigastric pain radiating to her back. She had one episode of diarrhea this morning. There has been no blood in her stool or vomitus. She does not use control. She had been on oral contraceptives in the past, and it might have improved her pain. She is not currently using anything for control. She lives with her fiance, and the y have been together since they were 18 years old. She would totally be fine if she got , al though, despite using absolutely no protection, has not occurred. test is negati ve in the emergency room. PAST MEDICAL HISTORY: 1. Cyclic vomiting diagnosed in 2008 as discussed above. 2. Possible pancreatitis. 3. Gilbert. 4. Traumatic brain injury. PAST SURGICAL HISTORY: Cholecystectomy. MEDICATIONS: Please see computerized record for full detailed list. ALLERGIES: Penicillin, Haldol, and tramadol. SOCIAL HISTORY: No smoking. No alcohol. She adamantly denies alcohol, stating she knows she has vincent d intermittent lipase elevations in the past. She does, however, smoke marijuana. At one point, she stopped marijuana for 2 years to rule out cannabis hyperemesis. Her symptoms got worse off the el walt because she could no longer use it for the nausea. She is smoking less marijuana than previous ly, currently once per day. She lives with her fiance. 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 REVIEW OF SYSTEMS: Complete review of systems obtained. Review of systems is negative regarding con stitutional, HEENT, GI, pulmonary, vascular, , hematologic, skin, muscle, endocrine, and psychiatri c except for positives as in HPI. FAMILY HISTORY: Reviewed and noncontributory to presenting complaint. PHYSICAL EXAMINATION: GENERAL: A well-developed, well-nourished female, visibly uncomfortable, writ mary in bed, unable to sit still because she is in so much pain. VITAL SIGNS: Temperature is 37.0, pulse 65, blood pressure 138/82, and saturating 95% on room air. EYES: Normal conjunctivae. Pupils react to light. ENT: Normal ears and nose. Hearing intact. Normal lips and teeth. Oropharynx mo ist. NECK: Trachea midline. No thyromegaly. CHEST: Normal symmetric chest rise. LUNGS: Clear t o auscultation bilaterally. CARDIOVASCULAR: Regular rate and rhythm. No murmur. No extremity luis fernando a. ABDOMEN: Soft. Some positive epigastric tenderness to palpation without rebound or guarding. N o hepatosplenomegaly. SKIN: Warm, dry, and intact without rash. MUSCULOSKELETAL: No cyanosis or c lubbing. Strength is 5/5 in upper and lower extremities. NEUROLOGICAL: Cranial nerves are intact. Normal sensation to light touch. PSYCHIATRIC: Alert and oriented x3. She is pleasant and cooperat spring, although visibly in pain. Normal judgment and insight. Normal memory. LABORATORY DATA: White count 14.76, hematocrit 40.7, and platelets 447. Sodium 139, potassium 3.1, chloride 101, bicarbonate 22, BUN 7, creatinine 0.6, and glucose 172. AST is 67, and ALT is 106. MEDICAL RECORDS REVIEW: Medical records are extensive. I reviewed them in depth. Her last abdomina l CT scan was 2014. She did have an MRCP in April 2018 that was negative. She has had 2 admissio ns already for 2019. She had 7 admissions in 2018. That was an escalation from 2017 where there wer e no admissions. ASSESSMENT/PLAN: 1. Severe epigastric pain with mildly elevated lipase in the setting of a longstanding nausea, vomit ing, and abdominal pain history. I query if she might have endometriosis given her infertility and h ow these pain episodes often correlate with onset of her menstrual cycle. It has been quite a long t gertrude since her last CT scan of the abdomen and pelvis. We will check a CT today, which will get a goo d look at her pancreas and liver, as well as evaluate for any obstruction or possible ovarian abnorma lities. Otherwise, she will be treated supportively with intravenous Dilaudid and antiemetics. 2. Hypokalemia. This is due to her vomiting. This will be repleted. 3. Increased LFTs. She does have a body mass index of 34 and may have an element of fatty liver dis ease. CODE STATUS: Full. ADMISSION STATUS: We will admit to observation. Reevaluate tomorrow regarding ongoing need for hosp italization. DVT PROPHYLAXIS: She is high risk. We will place her on subcu Lovenox. /[id number]/MODL
[2018-08-29] MEDS: NS 1,000 ML IV SCH (14:53)
[2018-08-29] MEDS: PROMETHAZINE HCL 25 MG/ML INJ IVP PRN (18:22)
[2018-08-29] MEDS: POTASSIUM Cl (KCl) 100 ML IV SCH ×3 (20:51→21:38)
[2018-08-29] MEDS: LORazepam 2 MG/ML INJ IVP PRN (22:47)
[2018-08-29] MEDS: CITALOPRAM 20 MG TAB PO SCH (23:14)
[2018-08-30] MEDS: PROMETHAZINE HCL 25 MG/ML INJ IVP PRN ×4 (01:23→18:32)
[2018-08-30] MEDS: HYDROmorphONE/DILAUDID 1 MG/ML INJ IVP PRN ×10 (01:29→22:55)
[2018-08-30] MEDS: NS 1,000 ML IV SCH ×2 (04:57→14:21)
[2018-08-30 07:17] LABS: HEPATITIS A ANTIBODY IGM (BCH) NEGATIVE (NEGATIVE); HEPATITIS B CORE AB IGM NEGATIVE (NEGATIVE); HEPATITIS B SURFACE ANTIGEN NEGATIVE (NEGATIVE); HEPATITIS C ANTIBODY TOTAL NEGATIVE (NEGATIVE)
[2018-08-30] MEDS: ENOXAPARIN 40 MG/0.4 ML SYR SC SCH (08:15)
[2018-08-30] MEDS: clonazePAM 0.5 MG TAB PO PRN (08:29)
[2018-08-30 08:43] LABS: PLATELET COUNT 396 10^3/uL (150-400)
[2018-08-30] MEDS ORDERED: ENOXAPARIN 40 MG/0.4 ML SYR SC SCH (09:00)
[2018-08-30] MEDS: ONDANSETRON 4 MG/2 ML VIAL IVP PRN ×2 (09:16→16:12)
[2018-08-30] MEDS: POTASSIUM Cl (KCl) 100 ML IV SCH ×2 (09:34→15:58)
[2018-08-30] MEDS ORDERED: IOPAMIDOL (ISOVUE-300) 100 ML BTL ONE (10:09)
[2018-08-30] MEDS ORDERED: POTASSIUM CL 20 MEQ TAB PO ONE (13:00)
[2018-08-30] MEDS: LORazepam 2 MG/ML INJ IVP PRN ×2 (14:10→22:54)
--- NOTE | 2018-08-30 15:22 | ASMTCMCOM ---
CM Note CM Note Notes: Pt discussed in rounds and chart reviewed for discharge. Pt is a 33yr old admitted with nausea, vomiting and abdominal pain with pancreatitis. PMH of Cyclic vomiting Syndrome, Gilbert, TBI. Pt denies Alcohol and smokes Marijuana. Live with her fianc and live in [place]. CM available for needs. PLAN: Likely home independently when medically cleared. Date Signed: 08/30/2018 03:21 PM Electronically Signed By:Carina Howell
[2018-08-30] MEDS ORDERED: HYDROmorphONE/DILAUDID 1 MG/ML INJ IVP PRN (16:16)
--- NOTE | 2018-08-30 16:43 | HOSPPROG ---
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 * Obesity BMI 34 * Fatty liver disease -weight loss advised Subjective: Doing better, ready to wean dilaudid Objective: Vital Signs Temp Pulse Resp BP Pulse Ox 37.0 C 74 16 121/87 H 95 08/30/18 15:20 08/30/18 15:20 08/30/18 15:20 08/30/18 15:20 08/30/18 15:20 Laboratory Results 08/30/18 08:29 08/30/18 04:56 08/29/18 08/30/18 08/31/18 05:59 05:59 05:59 Intake Total 300 1500 Output Total 1775 Balance -14[address] abd/pelvis - large fibroid, cystic ovaries, fatty liver - Physical Exam Constitutional: no apparent distress, appears nourished, not in pain Cardiovascular: regular rate and rhythym, no murmur, rub, or gallop Respiratory: no respiratory distress, no rales or rhonchi, clear to auscultation Gastrointestinal: normoactive bowel sounds, soft, non-tender abdomen, no palpable masses Skin: no rashes or abrasions, no fluctuance, no induration Neurologic: AAOx3, sensation intact bilaterally Psychiatric: interacting appropriately, not anxious, not encephalopathic, thought process linear ICD10 Worksheet Patient Problems: Problems Problem Status Onset Hyperglycemia Active Leukocytosis Active Hypokalemia Active Pancreatitis Acute Cellulitis Acute Dog bite of arm Acute Dog bite of left hand Acute Cellulitis of left hand Acute Cyclic vomiting syndrome Acute Intractable abdominal pain Acute Intractable vomiting Acute Abdominal pain Acute Anxiety Acute Vomiting Acute
[2018-08-30] MEDS ORDERED: POTASSIUM CL 10 MEQ TAB PO ONE (20:28)
[2018-08-30] MEDS: CITALOPRAM 20 MG TAB PO SCH (20:39)
--- NOTE | 2018-08-30 22:55 | PDMN ---
Medical Necessity Medical necessity: Change to inpt as of 08/30/18 @ 12:43, meets inpt criteria per MD order and MCG M-05, Abdominal Pain, Undiagnosed, upgraded to inpt for ongoing pain management needs and N/V outside of obs window, pt rec'd IV Dilaudid every 2-4 hours since MN today for pain, IV antiemetics for N/V. 33 y/ o admitted w/severe epigastric pain in setting of longstanding N/V and abd pain hx, hypokalemia, and elevated LFT's. K 3.1 on admission, then improved, now back down to 3.2. Est LOS>2MN for ongoing eval/management of above.
[2018-08-31] MEDS: PROMETHAZINE HCL 25 MG/ML INJ IVP PRN (04:04)
[2018-08-31] MEDS: HYDROmorphONE/DILAUDID 1 MG/ML INJ IVP PRN (04:04)
[2018-08-31] MEDS: oxyCODONE IR 5 MG TAB PO PRN ×3 (06:08→13:22)
[2018-08-31] MEDS ORDERED: POTASSIUM CL 10 MEQ TAB PO ONE (08:11)
[2018-08-31] MEDS ORDERED: diphenhydrAMINE 25 MG CAP PO PRN (08:35)
[2018-08-31] MEDS: ENOXAPARIN 40 MG/0.4 ML SYR SC SCH (09:37)
[2018-08-31] MEDS: clonazePAM 0.5 MG TAB PO PRN (09:55)
[2018-08-31 12:05] VITALS: BP 129/79
--- NOTE | 2018-08-31 15:08 | ASMTLACE ---
GERALDINEE Length of stay for Answers: 1 day current admission Acuity / Level of Answers: Yes Care: Did the patient have an inpatient admission? Comorbidities - select Answers: Opioid dependence all that apply / Chronic pain Other Notes: Cyclic vomiting syndrome; Pancreatitis # of Emergency department Answers: 5-8 visits in the last 6 months Score: 13 Date Signed: 08/31/2018 03:07 PM Electronically Signed By:Maryellen Carlos RN
--- NOTE | 2018-08-31 19:37 | GDS ---
[f rep st] DISCHARGE SUMMARY DISCHARGE DIAGNOSES: 1. Recurrent abdominal pain. 2. Possible endometriosis. 3. Infertility. 4. Possible polycystic ovarian disease. 5. Uterine fibroid. 6. Obesity, BMI 34. 7. Fatty liver disease. HISTORY: Chhaya is a 33-year-old female who has recurrent admissions for abdominal pain. These t ypically correlate with her menstrual cycle. She has never been evaluated for endometriosis. She di d get a CT scan of the abdomen and pelvis, which was relatively unremarkable, though it did show poly cystic ovaries and a uterine fibroid. She has been struggling with infertility, and has not been abl e to get despite not using any protection. She was admitted and did get IV Dilaudid prior t o transitioning on oral medications. I recommended she follow up with [facility] to discuss the possibility of endometriosis as her diagnosis, as well as workup for possible polycystic ovarian syndrome, and e valuate her uterine fibroid. She made an appointment with [facility] for next week. DISCHARGE MEDICATIONS: Please see computerized record for full detailed list. New medications: Oxycodone 5-10 mg p.o. q.3 hours as needed, 20 tablets were dispensed. DISCHARGE INSTRUCTIONS: Recommend outpatient Gynecology follow up to discuss possible endometriosis, possible polycystic ovarian syndrome, and uterine fibroid seen on CT scan. Greater than 30 minutes' time spent arranging this discharge. Patient seen examined by me on the day of discharge. /[id number]/MODL
== END 2018-08-31 15:50 | disposition home or self-care (01) | DRG 761 ==
LOC: INTOOBSV 11:00 → F1N 13:21 → OBSVTOIN 08-30 12:43
PROVIDERS: ADMIT Internal Medicine; ATTEND Internal Medicine
DX: N80.9 Endometriosis, unspecified (principal); E28.2 Polycystic ovarian syndrome; D25.9 Leiomyoma of uterus, unspecified; E66.9 Obesity, unspecified; K76.0 Fatty (change of) liver, not elsewhere classified; E87.6 Hypokalemia; Z68.34 Body mass index [BMI] 34.0-34.9, adult; Z87.891 Personal history of nicotine dependence
CPT/HCPCS: 96374; G0378; G0472; J1170; J1200; J1650; J2060; J2405; J2550; J3480; Q9967

== ENCOUNTER 2018-09-02 03:53 | Observation (INO) | payer OTHER ==
--- NOTE | 2018-09-02 04:03 | EDPHY ---
H & P Stated Complaint: Abdominal pain Time Seen by Provider: 09/02/18 04:03 HPI/ROS: HPI CHIEF COMPLAINT: Nausea vomiting. HISTORY OF PRESENT ILLNESS: Patient is a 33-year-old female well known to myself as well as the emergency room, she has a history of cyclic vomiting syndrome, traumatic brain injury, pancreatitis, presents emergency room nausea vomiting. Patient reports to me that she was just in the hospital for pancreatitis. She was discharged . She spent a day home in Tuesday and did rather well. Early this morning she started developing nausea and vomiting. Mainly clear yellow. No blood. Denies any chest pain or shortness of breath does complain of mid abdominal pain. Patient states that she Past Medical History: History of cyclic vomiting syndrome, pancreatitis, traumatic brain injury, Marcy Past Surgical History: Denies recent surgery Social History: Denies drugs alcohol tobacco. Family History: Noncontributory ROS REVIEW OF SYSTEMS: 10 Systems were reviewed and negative with the exception of the elements mentioned in the history of present illness. Exam Constitutional nontoxic appearing, triage nursing summary reviewed, vital signs reviewed, awake/alert. Eyes normal conjunctivae and sclera, EOMI, PERRLA. HENT normal inspection, atraumatic, moist mucus membranes, no epistaxis, neck supple/ no meningismus, no raccoon eyes. Respiratory clear to auscultation bilaterally, normal breath sounds, no respiratory distress, no wheezing. Cardiovascular rate normal, regular rhythm, no murmur, no edema, distal pulses normal. Gastrointestinal mild tender palpation epigastric, no rebound, no guarding, normal bowel sounds, no distension, no pulsatile mass. Genitourinary no CVA tenderness. Musculoskeletal no midline vertebral tenderness, full range of motion, no calf swelling, no tenderness of extremities, no meningismus, good pulses, neurovascularly intact. Skin pink, warm, & dry, no rash, skin atraumatic. Neurologic awake, alert and oriented x 3, AAOx3, moves all 4 extremities equally, motor intact, sensory intact, CN II-XII intact, normal cerebellar, normal vision, normal speech. Psychiatric normal mood/affect. Heme/Lymph/Immune no lymphadenopathy. Differential Diagnosis: Differential diagnosis includes but is not limited to and in no particular order: Bowel obstruction, appendicitis, gallbladder disease, diverticulitis, colitis, enteritis, perforated viscus, gastritis, GERD , esophagitis, urinary tract infection, pyelonephritis, kidney stones Medical Decision Making: Plan for this patient IV establishment IV fluid bolus , IV Phenergan for nausea, IV Pepcid, IV fluids, lab work, check lipase, CBC and chemistry, IV Dilaudid 0.5 mg for pain control, and re-evaluate. Re-evaluation: 0534: Patient re-evaluated still complaining of abdominal pain nausea vomiting. Dry heaving here. Labs reviewed lipase 900s Given ongoing abdominal pain nausea vomiting plan for admission. Patient's complicated medical history of cyclic vomiting syndrome and pancreatitis. Continues to have nausea vomiting. Mild tender palpation epigastric. No chest pain or shortness of breath. Plan for readmission hospital given she was just discharged. Spoke with the hospitalist service Dr. Javier Agrees to admit. Source: Patient - Personal History LMP (Females 10-55): 1-7 Days Ago Current Tetanus/Diphtheria Vaccine: Yes Current Tetanus Diphtheria and Acellular Pertussis (TDAP): Yes Tetanus Vaccine Date: 2014 - Medical/Surgical History Hx Asthma: Yes Hx Chronic Respiratory Disease: No Hx Diabetes: No Hx Cardiac Disease: No Hx Renal Disease: No Hx Cirrhosis: No Hx Alcoholism: No Hx HIV/AIDS: No Hx Splenectomy or Spleen Trauma: No Other PMH: PMH:cyclic vomiting, pancreatitis, TBI, asthma. PSH:cholycystecomy, major dental - Social History Smoking Status: Former smoker Constitutional: Initial Vital Signs Temperature (C) 36.9 C 09/02/18 03:55 Heart Rate 91 09/02/18 03:55 Respiratory Rate 18 09/02/18 03:55 Blood Pressure 160/130 H 09/02/18 03:55 O2 Sat (%) 97 09/02/18 03:55 O2 Delivery Mode Room Air Allergies/Adverse Reactions: Penicillins Allergy (Severe, Verified 09/02/18 03:54) swells airway haloperidol [From Haldol] Allergy (Mild, Verified 09/02/18 03:54) agitation tramadol Allergy (Mild, Verified 09/02/18 03:54) agitation Home Medications: Medication Instructions Recorded Promethazine HCl [Phenergan 12.5mg 12.5 mg PO TID PRN #20 tablet 07/29/18 tab] Citalopram Hydrobromide [Celexa] 40 mg PO HS 08/29/18 clonazePAM [Klonopin (*)] 0.5 mg PO DAILY PRN 08/29/18 oxyCODONE IR [Oxycodone Ir (*)] 5 - 10 mg PO Q3HRS PRN #20 tab 08/31/18 Promethazine HCl [Phenergan 12.5mg 12.5 mg ME Q6 PRN #12 suppr 09/03/18 supp (*)] oxyCODONE IR [Oxycodone Ir (*)] 5 - 10 mg PO Q3HRS PRN #12 tab 09/03/18 Medical Decision Making - Data Points Laboratory Results: Laboratory Results 09/02/18 05:05 09/02/18 04:20 Medications Given: Discontinued Medications Hydrocodone Bitart/Acetaminophen ([place] 5/325) 1 - 2 tab PO Q3HRS PRN PRN Reason: Pain, Moderate Able to Take PO Stop: 09/12/18 05:38 Last Admin: 09/03/18 15:24 Dose: 2 tab Citalopram Hydrobromide (Celexa) 40 mg PO HS NAMRATA Stop: 03/01/19 20:59 Last Admin: 09/02/18 20:02 Dose: 40 mg Diphenhydramine HCl (Benadryl Injection) 50 mg IVP EDNOW ONE Stop: 09/02/18 04:21 Last Admin: 09/02/18 04:25 Dose: 50 mg Famotidine (Pepcid) 20 mg IVP EDNOW ONE Stop: 09/02/18 04:21 Last Admin: 09/02/18 04:25 Dose: 20 mg Hydromorphone HCl (Dilaudid) 0.5 mg IVP EDNOW ONE Stop: 09/02/18 04:22 Last Admin: 09/02/18 04:27 Dose: 0.5 mg Hydromorphone HCl (Dilaudid) 0.5 mg IVP EDNOW ONE Stop: 09/02/18 05:26 Last Admin: 09/02/18 05:28 Dose: 0.5 mg Hydromorphone HCl (Dilaudid) 0.5 - 1 mg IVP Q4HRS PRN PRN Reason: Breakthrough pain Stop: 09/12/18 06:53 Last Admin: 09/03/18 06:39 Dose: 0.5 mg Hydromorphone HCl (Dilaudid) 0.5 mg IVP EDNOW ONE Stop: 09/02/18 07:01 Last Admin: 09/02/18 06:56 Dose: 0.5 mg Sodium Chloride (Ns) 1,000 mls @ 0 mls/hr IV EDNOW ONE; Wide Open PRN Reason: Protocol Stop: 09/02/18 04:21 Last Admin: 09/02/18 04:28 Dose: 1,000 mls Famotidine 20 mg/ Sodium (Chloride) 102 mls @ 408 mls/hr IV EDNOW ONE Stop: 09/02/18 04:34 Last Admin: 09/02/18 04:45 Dose: Not Given Sodium Chloride (Ns) 1,000 mls @ 0 mls/hr IV ONCE ONE PRN Reason: Wide Open Stop: 09/02/18 04:22 Last Admin: 09/02/18 04:28 Dose: 1,000 mls Potassium Chloride/Sodium Chloride (Ns W/ 20 Kcl/L) 1,000 mls @ 100 mls/hr IV CONT NAMRATA Stop: 03/01/19 05:44 Last Admin: 09/03/18 04:42 Dose: 1,000 mls Potassium Chloride (Potassium Cl 10 Meq (Premix)) 100 mls @ 100 mls/hr IV Q1H NAMRATA Stop: 09/02/18 17:59 Last Admin: 09/02/18 16:56 Dose: Not Given Lorazepam (Ativan Injection) 1 mg IVP Q4HRS PRN PRN Reason: Anxiety, Unable to Take PO Stop: 03/01/19 05:49 Last Admin: 09/03/18 06:39 Dose: 1 mg Ondansetron HCl (Zofran) 4 mg IVP Q4HRS PRN PRN Reason: Nausea/Vomiting, Can't Take PO Stop: 03/01/19 05:36 Last Admin: 09/03/18 08:36 Dose: 4 mg Ondansetron HCl (Zofran Odt) 4 mg PO Q4HRS PRN PRN Reason: Nausea/Vomiting, Use 1st Stop: 03/01/19 05:36 Last Admin: 09/03/18 08:32 Dose: 4 mg Oxycodone HCl (Oxycodone Ir) 5 - 10 mg PO Q3HRS PRN PRN Reason: Pain, Severe Able to Take PO Stop: 09/12/18 05:38 Last Admin: 09/03/18 13:30 Dose: 10 mg Promethazine HCl (Phenergan) 25 mg IVP EDNOW ONE Stop: 09/02/18 05:28 Last Admin: 09/02/18 05:28 Dose: 25 mg Promethazine HCl (Phenergan) 6.25 - 12.5 mg IVP Q6HRS PRN PRN Reason: Nausea/Vomiting, Use 2nd Stop: 03/01/19 05:36 Last Admin: 09/03/18 04:49 Dose: 12.5 mg Point of Care Test Results: Chemistry 09/02/18 05:06 POC Sodium 143 mEq/L mEq/L (135-145) POC Potassium 2.9 mEq/L L mEq/L (3.3-5.0) POC Chloride 107 mEq/L mEq/L (97-110) POC Total CO2 20 mEq/L L mEq/L (22-31) POC BUN 3 mg/dL L mg/dL (7-23) POC Creatinine 0.6 mg/dL mg/dL (0.6-1.0) POC Glucose 146 mg/dL H mg/dL (70-100) ISTAT H&H 09/02/18 05:06 POC Hgb 14.3 gm/dL gm/dL (12.6-16.3) POC Hct 42 % % (38-47) Departure - Departure Disposition: [facility] Inpatient Acute Clinical Impression: Vomiting Qualifiers: Vomiting type: unspecified Vomiting Intractability: intractable Nausea presence : with nausea Qualified Code(s): R11.2 - Nausea with vomiting, unspecified Condition: Fair
[2018-09-02] MEDS ORDERED: HYDROmorphONE/DILAUDID 1 MG/ML INJ ONE ×2 (04:07→05:25)
[2018-09-02] MEDS ORDERED: FAMOTIDINE 20 MG/2 ML SDV IVP ONE (04:20)
[2018-09-02] MEDS ORDERED: NS 1,000 ML IV ONE ×2 (04:20→04:21)
[2018-09-02] MEDS ORDERED: FAMOTIDINE 20 MG in NS 100 ML IV ONE (04:20)
[2018-09-02] MEDS ORDERED: HYDROmorphONE/DILAUDID 2 MG/ML INJ IVP ONE ×3 (04:21→07:00)
[2018-09-02] MEDS ORDERED: PROMETHAZINE HCL 25 MG/ML INJ IVP ONE (05:27)
[2018-09-02] MEDS ORDERED: PROMETHAZINE HCL 25 MG/ML INJ ONE (05:27)
[2018-09-02] MEDS ORDERED: ONDANSETRON DISINTEGRATING 4 MG TAB PO PRN (05:37)
[2018-09-02] MEDS ORDERED: ACETAMINOPHEN 325 MG TAB PO PRN (05:37)
[2018-09-02] MEDS ORDERED: HYDROmorphONE/DILAUDID 1 MG/ML INJ IVP PRN (05:39)
--- NOTE | 2018-09-02 06:06 | PDGENHP ---
History and Physical - Chief Complaint Abdominal pain - History of Present Illness 33 yo F w/ chronic abdominal pain presents with recurrent pain. She was discharged on 08/31 after treatment for the same. This simmons her 11th admission for the same over the last year. No clear etiology has been found; strong suspicion for functional pain. Some consideration was given to endometriosis and PCOS last admission; she is supposed to follow up with [facility]. After discharge she tells me oral opiates helped for about a day but then stopped working. She complains of severe epi-gastric pain in the usual location and character. She is tearfully requesting IV narcotics as soon as I enter the room. In the ED thus far she has been treated with Dilaudid 1 mg IV, Benadryl 50 mg IV, Famotidine 20 mg IV, Phenergan 25 mg IV, and 2 L IVF. She tells me these medications have not helped. Case discussed with ED physician Dr. Nicole; records reviewed and summarized above. History Information - Allergies/Home Medication List Allergies/Adverse Reactions: Penicillins Allergy (Severe, Verified 09/02/18 03:54) swells airway haloperidol [From Haldol] Allergy (Mild, Verified 09/02/18 03:54) agitation tramadol Allergy (Mild, Verified 09/02/18 03:54) agitation Home Medications: Citalopram Hydrobromide [Celexa] 40 mg PO HS 08/29/18 [Last Taken 08/28/18] clonazePAM [Klonopin (*)] 0.5 mg PO DAILY PRN 08/29/18 [Last Taken Unknown] I have personally reviewed and updated: family history, medical history - Past Medical History Additional medical history: Cyclic vomiting syndrome/functional abdominal pain, Gilbert's syndrome, etcopic , TBI, idiopathic pancreatitis - Surgical History Additional surgical history: Cholecystectomy, last EGD December 2014 - Family History Additional family history: No family history of immune deficiency disorder, second-degree relative with breast cancer, biliary disease; grandmother (92yo) recently diagnosed with pancreatic cancer - Social History Smoking Status: Former smoker Additional social history: Lives with carlos, works for [employer] Review of Systems Review of Systems: ROS: 10pt was reviewed & negative except for what was stated in HPI & below Physical Exam Physical Exam: Temp Pulse Resp BP Pulse Ox 36.9 C 68 18 159/102 H 98 05/04/19 03:55 09/02/18 05:41 09/02/18 05:41 09/02/18 05:41 09/02/18 05:41 Constitutional: obese, uncomfortable Eyes: PERRL, anicteric sclera Ears, Nose, Mouth, Throat: moist mucous membranes, no oral mucosal ulcers Cardiovascular: regular rate and rhythym, no murmur, rub, or gallop Respiratory: no respiratory distress, clear to auscultation Gastrointestinal: other (Will not allow me to examine) Skin: warm, normal color Musculoskeletal: full muscle strength, no muscle tenderness Neurologic: AAOx3, CN II-XII Intact Psychiatric: interacting appropriately, anxious, depressed Lab Data & Imaging Review 09/02/18 05:05 09/02/18 04:20 WBC REJ 09/02/18 05:05 RBC REJ 09/02/18 05:05 Hgb REJ 09/02/18 05:05 POC Hgb 14.3 gm/dL (12.6-16.3) 09/02/18 05:06 Hct REJ 09/02/18 05:05 POC Hct 42 % (38-47) 09/02/18 05:06 MCV REJ 09/02/18 05:05 MCH REJ 09/02/18 05:05 MCHC REJ 09/02/18 05:05 RDW REJ 09/02/18 05:05 Plt Count REJ 09/02/18 05:05 MPV REJ 09/02/18 05:05 Neut % (Auto) REJ 09/02/18 05:05 Lymph % (Auto) REJ 09/02/18 05:05 [place] % (Auto) REJ 09/02/18 05:05 Eos % (Auto) REJ 09/02/18 05:05 Baso % (Auto) REJ 09/02/18 05:05 Nucleat RBC Rel Count REJ 09/02/18 05:05 Absolute Neuts (auto) REJ 09/02/18 05:05 Absolute Lymphs (auto) REJ 09/02/18 05:05 Absolute Monos (auto) REJ 09/02/18 05:05 Absolute Eos (auto) REJ 09/02/18 05:05 Absolute Basos (auto) REJ 09/02/18 05:05 Absolute Nucleated RBC REJ 09/02/18 05:05 Immature Gran % REJ 09/02/18 05:05 Immature Gran # REJ 09/02/18 05:05 VBG Lactic Acid 3.3 mmol/L (0.7-2.1) H 09/02/18 05:05 POC Sodium 143 mEq/L (135-145) 09/02/18 05:06 Sodium 140 mEq/L (135-145) 09/02/18 04:20 POC Potassium 2.9 mEq/L (3.3-5.0) L 09/02/18 05:06 Potassium 3.8 mEq/L (3.5-5.2) 09/02/18 04:20 POC Chloride 107 mEq/L (97-110) 09/02/18 05:06 Chloride 107 mEq/L (97-110) 09/02/18 04:20 Carbon Dioxide 17 mEq/l (22-31) L 09/02/18 04:20 POC Total CO2 20 mEq/L (22-31) L 09/02/18 05:06 Anion Gap 16 mEq/L (6-14) H 09/02/18 04:20 POC BUN 3 mg/dL (7-23) L 09/02/18 05:06 BUN 6 mg/dL (7-23) L 09/02/18 04:20 Creatinine 0.6 mg/dL (0.6-1.0) 09/02/18 04:20 POC Creatinine 0.6 mg/dL (0.6-1.0) 09/02/18 05:06 Estimated GFR > 60 09/02/18 04:20 Glucose 137 mg/dL (70-100) H 09/02/18 04:20 POC Glucose 146 mg/dL (70-100) H 09/02/18 05:06 Calcium 9.7 mg/dL (8.5-10.4) 09/02/18 04:20 Total Bilirubin 2.2 mg/dL (0.1-1.4) H 09/02/18 04:20 Conjugated Bilirubin 0.3 mg/dL (0.0-0.5) 09/02/18 04:20 Unconjugated Bilirubin 1.9 mg/dL (0.0-1.1) H 09/02/18 04:20 AST 41 IU/L (14-46) 09/02/18 04:20 ALT 45 IU/L (9-52) 09/02/18 04:20 Alkaline Phosphatase 96 IU/L (38-126) 09/02/18 04:20 Total Protein 7.8 g/dL (6.3-8.2) 09/02/18 04:20 Albumin 4.8 g/dL (3.5-5.0) 09/02/18 04:20 Lipase 932 IU/L (23-300) H 09/02/18 04:20 Urine Color PALE YELLOW 09/02/18 05:05 Urine Appearance HAZY 09/02/18 05:05 Urine pH 8.0 (5.0-7.5) H 09/02/18 05:05 Ur Specific [place] 1.006 (1.002-1.030) 09/02/18 05:05 Urine Protein NEGATIVE (NEGATIVE) 09/02/18 05:05 Urine Ketones NEGATIVE (NEGATIVE) 09/02/18 05:05 Urine Blood 2+ (NEGATIVE) H 09/02/18 05:05 Urine Nitrate NEGATIVE (NEGATIVE) 09/02/18 05:05 Urine Bilirubin NEGATIVE (NEGATIVE) 09/02/18 05:05 Urine Urobilinogen NEGATIVE EU (0.2-1.0) 09/02/18 05:05 Ur Leukocyte Esterase NEGATIVE (NEGATIVE) 09/02/18 05:05 Urine RBC 1-3 /hpf (0-3) 09/02/18 05:05 Urine WBC 1-3 /hpf (0-3) 09/02/18 05:05 Ur Epithelial Cells 1+ /lpf (NONE-1+) 09/02/18 05:05 Urine Bacteria TRACE /hpf (NONE SEEN) H 09/02/18 05:05 Urine Mucus TRACE /lpf (NONE-1+) 09/02/18 05:05 Urine Glucose 1+ (NEGATIVE) H 09/02/18 05:05 Assessment & Plan Assessment: 33 yo F w/ hx of chronic abdominal pain presents with recurrence. Plan: 1. Acute on chronic abdominal pain - Unclear etiology; discharged 08/31 after period of observation for the same. Lipase 900's but lower than last check. Vital signs and laboratory work-up reassuring. CT scan from 08/30 did not reveal any acute findings. She will not allow me to examine her abdomen. Last admission it was recommended she follow up with [facility] for evaluation of possible endometriosis and/or PCOS. - Admit for observation - NPO, mIVF, anti-emetics - Pain control order set - will limit IV opiates to q4h; would discontinue quickly today if possible Diet - NPO, mIVF Code - Full Ppx - Low risk Dispo - Admit under observation status
[2018-09-02 06:22] LABS: PLATELET COUNT 207 10^3/uL (150-400)
[2018-09-02] MEDS: ONDANSETRON 4 MG/2 ML VIAL IVP PRN ×2 (06:50→20:00)
[2018-09-02 07:02] LABS: INR 0.93 (0.83-1.16); PROTIME(PATIENT) 12.1 SEC (12.0-15.0)
[2018-09-02] MEDS: LORazepam 2 MG/ML INJ IVP PRN ×3 (07:47→17:27)
[2018-09-02] MEDS: NS W/ 20 KCl/L 1,000 ML IV SCH ×2 (07:54→18:40)
[2018-09-02] MEDS: oxyCODONE IR 5 MG TAB PO PRN ×3 (07:54→15:18)
[2018-09-02] MEDS: HYDROCODONE/APAP 5/325 TAB PO PRN ×2 (09:31→20:00)
[2018-09-02] MEDS: HYDROmorphONE/DILAUDID 1 MG/ML INJ IVP PRN ×3 (13:34→21:33)
[2018-09-02] MEDS: PROMETHAZINE HCL 25 MG/ML INJ IVP PRN ×2 (13:34→21:33)
[2018-09-02] MEDS ORDERED: POTASSIUM Cl (KCl) 100 ML IV SCH (14:00)
--- NOTE | 2018-09-02 14:38 | HOSPPROG ---
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 [employer] to visit continue narcotic sparing regimen Objective: Vital Signs Temp Pulse Resp BP Pulse Ox 36.8 C 109 H 18 129/91 H 94 09/02/18 12:09 09/02/18 12:09 09/02/18 12:09 09/02/18 12:09 09/02/18 12:09 Laboratory Results 09/02/18 05:55 PT 12.1 SEC (12.0-15.0) 09/02/18 06:20 INR 0.93 (0.83-1.16) 09/02/18 06:20 ICD10 Worksheet Patient Problems: Problems Problem Status Onset Vomiting Acute Hyperglycemia Active Hypokalemia Active Leukocytosis Active Abdominal pain Acute Anxiety Acute Cellulitis Acute Cellulitis of left hand Acute Cyclic vomiting syndrome Acute Dog bite of arm Acute Dog bite of left hand Acute Intractable abdominal pain Acute Intractable vomiting Acute Pancreatitis Acute
[2018-09-02] MEDS ORDERED: clonazePAM 0.5 MG TAB PO PRN (14:40)
--- NOTE | 2018-09-02 14:46 | PDCONSULT ---
Specialist Physicians Note: CONSULTING SERVICE: Hospitalist Medicine HISTORY OF PRESENT ILLNESS: Juan José is a 33 yo (suspected MAB vs ectopic 20 yrs ago) female with a history of longstanding chronic abdominal pain and cyclic vomiting syndrome who was admitted from the ER early this morning with an acute exacerbation of her chronic pain. She describes a progression that begins with periumbilical and upper epigastric pain that evolves and leads to nausea and vomiting, and then vomiting seems to just further exacerbate her pain. There has never been a clear explanation for this pain, despite approximately 11 hospital admissions this past year and obviously quite a bit of evaluation. Leading diagnosis is functional abdominal pain. There has been a question raised as to whether this could be related to endometiosis. She has also been noted to have uterine fibroids and multiple ovarian cysts on recent and past CT scans - no recent pelvic US. She used to not notice a connection between her CVS and pain and her menstrual cycle, but over the past 8-12 months does wonder if there's a connection. She reports that her acute attacks are indeed maybe monthly and "around the time" of her period. She says sometimes the pain preceeds bleeding, sometimes follows it. She admits that she can have attacks that are not temporally related to her period. She reports that periods have certainly been heavy and moreso recently, but with regard to pain she doesn't report a long history of painful periods. Occasional dyspareunia but not consistent. She was on OCP's years ago, but never Mirena/Nexplanon, has not been on anything in the past many many years. Family history of infertility issues, but not neccessarily known endo. They have been sexually active for years without protection, she suspects she has infertility, but would still like to be able to have kids if possible. She does describe some lower abdominal bloating and rectal pain with her period. No bladder changes with cycle. OBJECTIVE: No exam today. Laboratory Results 09/02/18 05:55 09/02/18 15:05 IMAGING: CT Scan of the Abdomen and Pelvis (With Contrast) Clinical Indications: Pancreatitis Technique: Dilute contrast was given orally prior to scanning. 90 ml of Isovue -300 were given intravenously by machine power injection. Multidetector helical CT imaging was performed from the diaphragm to the symphysis pubis. Dose reduction techniques were utilized. Compared to previous study from 01/05/2015 Findings: Abdomen: The lung bases are clear, and there is no significant pleural fluid. There is mild hepatomegaly and mild diffuse fatty infiltration of the liver. No enhancing hepatic masses with focal fatty eventration along the falciform ligament. No biliary ductal dilatation. Gallbladder surgically absent. The pancreas and spleen are normal. The adrenal glands and kidneys are within normal limits with a stable small left renal cystic lesion which is incompletely characterized but compatible with simple cyst with Hounsfield units average 13. No mesenteric or retroperitoneal lymphadenopathy. No destructive osseous lesions. Pelvis: The urinary bladder is is decompressed. Gas density tubular structure in the vagina compatible with tampon. Bilateral adnexal cystic lesions are seen the largest of which on the left measures 3.3 cm. Heterogenous appearance of the uterus with dominant intramural mass compatible with fibroid which is increased in size when compared to previous study from 01/15/2015. Ultrasound of the pelvis could be obtained for evaluation of these findings as clinically warranted. Impression: 1. No evidence of pancreatitis. 2. Mild hepatomegaly and diffuse fatty infiltration of the liver. ASSESSMENT & RECOMMENDATIONS: I am not convinced that her constellation of symptoms aligns with endometriosis. While its notable that there seems to be a connection between her cycle and her pain/vomiting attacks, there are many other features that don' t quite align with endo. She does not describe consistent significant dysmenorrhea, nor dyspareunia, but does have cramping certainly. It's also curious that her pain will sometimes preceed bleeding, sometimes follow, and sometimes not be connected at all - which is a little inconsistent with endo. Upper abdominal/distant endometriosis is still a possibility though. I don't think that ovarian cysts, possible diagnosis of PCOS or uterine fibroids have anything to do with her acute problems. We discussed possible treatment options for endo, and that these generally fall into surgical and medical management. I think that we should entertain the idea of medical management first as a treatment and diagnostic tool before we venture into surgery for her - which could help if there's an identifiable problem, but also may not and could lead to scar tissue. Medical mgmt can range from OCP's and Depo-Provera to more significant suppression of estrogen production with Depo-Lupron. There is a newly- available oral version of Lupron called Orlissa which has excellent initial clinical data and seems to work as well as Lupron in suppressing endometriosis- related pain and has far less hypo-estrogenic side effects. This is called Orlissa and I gave the patient that name to research. My recommendation would be to see her as an outpatient for Pelvic US and Rx of Orlissa. If that medication resolves or helps her pain than endometriosis more likely, if it has no effect that would be another step towards ruling that out. I recommended that after Orlissa we then transition to another strategy to continue to suppress her period with pills or Mirena. Ovarian cysts, PCOS and menorrhagia/fibroids also best dealt with as outpatient. Available for any questions - [phone]. VIOLA
--- NOTE | 2018-09-02 16:42 | ASMTCMCOM ---
CM Note CM Note Notes: Pt has been admitted with abdominal pain and vomiting. She was just discharged from [facility] 08/31 for similar sx. She has a hx of cyclic vomiting syndrome, Gilbert's syndrome, depression/anxiety, idiopathic pancreatitis. She has been hospitalized approximately 11 times over the past year for similar sx. She lives with her fiance in [place]. Anticipate she will d/c home independent when medically cleared. Met with pt and her mother. Pt very tearful and expressing frustration over what she feels is inconsistent care and lack of concern from [facility] providers, including the ED. Hospitalist informed of pt's concerns. Also provided pt rep card if pt feels she would like to pursue her concerns. CM will follow for any change in d/c needs. D/C plan: likely home independent Date Signed: 09/02/2018 04:41 PM Electronically Signed By:ANGELINA Joseph
[2018-09-02] MEDS ORDERED: CITALOPRAM 20 MG TAB PO SCH (21:00)
[2018-09-03] MEDS: HYDROmorphONE/DILAUDID 1 MG/ML INJ IVP PRN ×2 (02:26→06:39)
[2018-09-03] MEDS: LORazepam 2 MG/ML INJ IVP PRN ×2 (02:26→06:39)
[2018-09-03] MEDS: NS W/ 20 KCl/L 1,000 ML IV SCH (04:42)
[2018-09-03] MEDS: oxyCODONE IR 5 MG TAB PO PRN ×3 (04:49→13:30)
[2018-09-03] MEDS: PROMETHAZINE HCL 25 MG/ML INJ IVP PRN (04:49)
[2018-09-03] MEDS: ONDANSETRON 4 MG/2 ML VIAL IVP PRN (08:36)
[2018-09-03] MEDS: HYDROCODONE/APAP 5/325 TAB PO PRN ×2 (11:00→15:24)
[2018-09-03 12:13] VITALS: BP 135/85
--- NOTE | 2018-09-03 14:38 | ASMTCMCOM ---
CM Note CM Note Notes: Patient discussed during clinical rounds, it is possible for patient to be discharged today. No CM needs identified. CM to follow. D/C Plan: Independent. Date Signed: 09/03/2018 02:38 PM Electronically Signed By:Rachel Bernard
--- NOTE | 2018-09-03 15:21 | HOSPPROG ---
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 home today see dc summary Subjective: tolerating po Objective: Vital Signs Temp Pulse Resp BP Pulse Ox 37.0 C 61 16 135/85 H 91 L 09/03/18 12:11 09/03/18 12:11 09/03/18 12:11 09/03/18 12:11 09/03/18 12:11 Laboratory Results 09/02/18 05:55 09/02/18 15:05 09/02/18 09/03/18 09/04/18 05:59 05:59 05:59 Intake Total 100 1589 Balance 100 1589 PT 12.1 SEC (12.0-15.0) 09/02/18 06:20 INR 0.93 (0.83-1.16) 09/02/18 06:20 - Physical Exam Constitutional: no apparent distress, appears nourished Eyes: PERRL, anicteric sclera Ears, Nose, Mouth, Throat: moist mucous membranes, hearing normal Cardiovascular: regular rate and rhythym, no murmur, rub, or gallop Respiratory: no respiratory distress Gastrointestinal: normoactive bowel sounds, soft, non-tender abdomen Genitourinary: No hobson in urethra Skin: warm, normal color Musculoskeletal: full muscle strength Neurologic: AAOx3 ICD10 Worksheet Patient Problems: Problems Problem Status Onset Vomiting Acute Hyperglycemia Active Hypokalemia Active Leukocytosis Active Abdominal pain Acute Anxiety Acute Cellulitis Acute Cellulitis of left hand Acute Cyclic vomiting syndrome Acute Dog bite of arm Acute Dog bite of left hand Acute Intractable abdominal pain Acute Intractable vomiting Acute Pancreatitis Acute
--- NOTE | 2018-09-03 18:39 | GDS ---
[f rep st] DISCHARGE SUMMARY DISCHARGE DIAGNOSES: 1. Functional abdominal pain. 2. Not pancreatitis. 3. Cyclic vomiting. Please see admission History and Physical by Dr. Donny Javier. The patient presented with na usea/vomiting similar to previous presentations and 11 presentations to this hospital in the last yea r. In April 2018, I did an MRCP, which showed a normal pancreas, no ductal abnormality. I do bel ieve that her elevated lipases are due to vomiting and not pancreatitis. She has been able to eat du ring these episodes without increasing abdominal pain. There was some question that this represents endometriosis. She was seen in consultation by Dr. Vinson of [facility], who did not believe that this wa s consistent with endometriosis, although he was not 100% certain and recommended outpatient followup with the [facility]. She was given a limited prescription for oxycodone 12 pills and Phenergan suppositories. The patient has undergone cognitive behavioral therapy and is making a good anna ef fort to reduce her presentations to this hospital and to improve her quality of life. /[id number]/MODL
== END 2018-09-03 15:51 | disposition home or self-care (01) ==
LOC: F1N 06:40
PROVIDERS: ADMIT Student in an Organized Health Care Education/Training Program; ATTEND Student in an Organized Health Care Education/Training Program
DX: R10.13 Epigastric pain (principal); R10.33 Periumbilical pain; G89.29 Other chronic pain; G43.A0 Cyclical vomiting, in migraine, not intractable; E86.9 Volume depletion, unspecified; Z87.820 Personal history of traumatic brain injury
CPT/HCPCS: 82435-PO; 82565-PO; 82947-PO; 84132-PO; 84295-PO; 84520-PO; 85014-ER; 96374; G0378; J1170; J1200; J2060; J2405; J2550

== ENCOUNTER 2018-09-05 02:40 | Inpatient (IN) | payer OTHER ==
[2018-09-05] MEDS ORDERED: PROMETHAZINE HCL 25 MG/ML INJ IVP ONE (03:00)
[2018-09-05] MEDS ORDERED: NS 1,000 ML IV ONE ×2 (03:00→04:01)
[2018-09-05] MEDS ORDERED: KETOROLAC 15 MG/1 ML SDV IVP ONE (03:00)
[2018-09-05] MEDS ORDERED: CAPSACIAN 0.075% CREAM TP ONE (03:00)
--- NOTE | 2018-09-05 03:09 | EDPHY ---
H & P Stated Complaint: abd pain Time Seen by Provider: 09/05/18 02:52 HPI/ROS: Chief Complaint: Abdominal pain, nausea, vomiting HPI: 33-year-old woman with a longstanding history of functional abdominal pain presenting with an exacerbation of severe abdominal pain, nausea vomiting. Patient was discharged from the hospital yesterday. This is her 3rd hospital visit in the last week. Patient has had multiple presentations for similar pain in the past. She had been told there is pancreatitis but she had an MRCP which was normal. Was also some question of whether this was associated with her menstrual cycle. On her last admission Dr. Byrnes, OBGYN, was consulted. He did not feel that her symptoms for were entirely consistent with endometriosis. She does an appointment and outpatient follow-up next week. Patient had return of severe pain this morning. There are no aggravating or alleviating factors. She is unable to keep down her opioids or antiemetics. She was discharged with 10 oxycodone. Patient has been able to keep any fluids down. She has had multiple CT scans and evaluations for the similar episodes in the past. No fevers or chills. Last menstrual cycle is now. ROS: 10 systems were reviewed and were negative except those elements noted in the HPI. PMH: Functional abdominal pain Social History: No smoking, no alcohol, occasional marijuana Family History: non-contributory Physical Exam: Gen: Awake, Alert, No Distress HEENT: Nose: no rhinorrhea Eyes: PERRLA, EOMI Mouth: Moist mucosa Neck: Supple, no JVD Chest: nontender, lungs clear to auscultation Heart: S1, S2 normal, no murmur Abd: Soft, diffuse moderate tenderness without guarding, soft, benign Back: no CVA tenderness, no midline tenderness Ext: no edema, non-tender Skin: no rash Neuro: CN II-XII intact, Sensation grossly intact, Strength 5/5 in bilateral upper and lower extremities - Personal History LMP (Females 10-55): 1-7 Days Ago Current Tetanus/Diphtheria Vaccine: Yes Current Tetanus Diphtheria and Acellular Pertussis (TDAP): Yes Tetanus Vaccine Date: 2014 - Medical/Surgical History Hx Asthma: Yes Hx Chronic Respiratory Disease: No Hx Diabetes: No Hx Cardiac Disease: No Hx Renal Disease: No Hx Cirrhosis: No Hx Alcoholism: No Hx HIV/AIDS: No Hx Splenectomy or Spleen Trauma: No Other PMH: PMH:cyclic vomiting, pancreatitis, TBI, asthma. PSH:cholycystecomy, major dental - Social History Smoking Status: Former smoker Constitutional: Initial Vital Signs Temperature (C) 37.1 C 09/05/18 02:42 Heart Rate 105 H 09/05/18 02:42 Respiratory Rate 16 09/05/18 02:42 Blood Pressure 188/139 H 09/05/18 02:42 O2 Sat (%) 97 09/05/18 02:42 O2 Delivery Mode Room Air Allergies/Adverse Reactions: Penicillins Allergy (Severe, Verified 09/05/18 02:44) swells airway haloperidol [From Haldol] Allergy (Mild, Verified 09/05/18 02:44) agitation tramadol Allergy (Mild, Verified 09/05/18 02:44) agitation Home Medications: Medication Instructions Recorded Promethazine HCl [Phenergan 12.5mg 12.5 mg PO TID PRN #20 tablet 07/29/18 tab] Citalopram Hydrobromide [Celexa] 40 mg PO HS 08/29/18 clonazePAM [Klonopin (*)] 0.5 mg PO DAILY PRN 08/29/18 oxyCODONE IR [Oxycodone Ir (*)] 5 - 10 mg PO Q3HRS PRN #20 tab 08/31/18 Promethazine HCl [Phenergan 12.5mg 12.5 mg VA Q6 PRN #12 suppr 09/03/18 supp (*)] oxyCODONE IR [Oxycodone Ir (*)] 5 - 10 mg PO Q3HRS PRN #12 tab 09/03/18 Medical Decision Making ED Course/Re-evaluation: 33-year-old woman with functional abdominal pain presenting just 1 day after being discharged with persistence of her symptoms. She has had multiple episodes in cycles of this in the past. 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 She carries a diagnosis of pancreatitis but has never been a definitive findings suggestive of pancreatic disease. All of her symptoms have been attributed to functional abdominal pain. Patient is presenting stating that she needs to come back into the hospital to get her symptoms under control. She is not following up with gastroenterology. She does an appointment to follow up with OBGYN in a week. I have given her multiple medications. Initially attempted to treat her without any controlled substances. Patient did not have any relief with these. I have given her a mg of Dilaudid and a mg of Ativan. Patient states that none of the medicines have helped. I think the patient probably would benefit from being placed on a opioid contract and care plan. She would benefit from follow-up with GI. Also suspect that there is an anxiety and mental health component to her symptoms in would benefit from mental health consultation. Despite all my treatments here the patient states she has had absolutely no relief in the emergency department she. I discussed with Dr. Maher, hospitalist, she will admit to her service for symptomatic control. I have also suggested case management consultation for addressing a pain contract. - Data Points Laboratory Results: Laboratory Results 09/05/18 03:15 09/05/18 03:15 09/05/18 09/05/18 03:15 03:15 WBC 12.19 10^3/uL H 10^3/uL (3.80-9.50) RBC 4.67 10^6/uL 10^6/uL (4.18-5.33) Hgb 13.7 g/dL g/dL (12.6-16.3) Hct 39.3 % % (38.0-47.0) MCV 84.2 fL fL (81.5-99.8) MCH 29.3 pg pg (27.9-34.1) MCHC 34.9 g/dL g/dL (32.4-36.7) RDW 12.9 % % (11.5-15.2) Plt Count 453 10^3/uL H 10^3/uL (150-400) MPV 9.1 fL fL (8.7-11.7) Neut % (Auto) 68.5 % % (39.3-74.2) Lymph % (Auto) 22.5 % % (15.0-45.0) Page % (Auto) 6.3 % % (4.5-13.0) Eos % (Auto) 1.7 % % (0.6-7.6) Baso % (Auto) 0.6 % % (0.3-1.7) Nucleat RBC Rel Count 0.0 % % (0.0-0.2) Absolute Neuts (auto) 8.35 10^3/uL H 10^3/uL (1.70-6.50) Absolute Lymphs (auto) 2.74 10^3/uL 10^3/uL (1.00-3.00) Absolute Monos (auto) 0.77 10^3/uL 10^3/uL (0.30-0.80) Absolute Eos (auto) 0.21 10^3/uL 10^3/uL (0.03-0.40) Absolute Basos (auto) 0.07 10^3/uL 10^3/uL (0.02-0.10) Absolute Nucleated RBC 0.00 10^3/uL 10^3/uL (0-0.01) Immature Gran % 0.4 % % (0.0-1.1) Immature Gran # 0.05 10^3/uL 10^3/uL (0.00-0.10) Sodium 139 mEq/L mEq/L (135-145) Potassium 3.5 mEq/L mEq/L (3.5-5.2) Chloride 105 mEq/L mEq/L (97-110) Carbon Dioxide 18 mEq/l L mEq/l (22-31) Anion Gap 16 mEq/L H mEq/L (6-14) BUN 5 mg/dL L mg/dL (7-23) Creatinine 0.6 mg/dL mg/dL (0.6-1.0) Estimated GFR > 60 Glucose 141 mg/dL H mg/dL (70-100) Calcium 9.6 mg/dL mg/dL (8.5-10.4) Total Bilirubin 1.7 mg/dL H mg/dL (0.1-1.4) AST 26 IU/L IU/L (14-46) ALT 30 IU/L IU/L (9-52) Alkaline Phosphatase 78 IU/L IU/L (38-126) Total Protein 7.3 g/dL g/dL (6.3-8.2) Albumin 4.6 g/dL g/dL (3.5-5.0) Lipase 1908 IU/L H IU/L (23-300) Medications Given: Discontinued Medications Capsaicin (Capsacian 0.075%) 1 michelle TP EDNOW ONE Stop: 09/05/18 03:01 Last Admin: 09/05/18 03:20 Dose: 1 michelle Diphenhydramine HCl (Benadryl Injection) 50 mg IVP EDNOW ONE Stop: 09/05/18 03:05 Last Admin: 09/05/18 03:22 Dose: 50 mg Hydromorphone HCl (Dilaudid) 1 mg IVP EDNOW ONE Stop: 09/05/18 04:02 Last Admin: 09/05/18 04:05 Dose: 1 mg Sodium Chloride (Ns) 1,000 mls @ 0 mls/hr IV ONCE ONE; Wide Open PRN Reason: Protocol Stop: 09/05/18 03:01 Last Admin: 09/05/18 03:22 Dose: 1,000 mls Sodium Chloride (Ns) 1,000 mls @ 0 mls/hr IV ONCE ONE; Wide Open PRN Reason: Protocol Stop: 09/05/18 04:02 Last Admin: 09/05/18 04:05 Dose: 1,000 mls Ketorolac Tromethamine (Toradol) 15 mg IVP EDNOW ONE Stop: 09/05/18 03:01 Last Admin: 09/05/18 03:22 Dose: 15 mg Lorazepam (Ativan Injection) 1 mg IVP EDNOW ONE Stop: 09/05/18 04:51 Last Admin: 09/05/18 04:51 Dose: 1 mg Promethazine HCl (Phenergan) 25 mg IVP EDNOW ONE Stop: 09/05/18 03:01 Last Admin: 09/05/18 03:22 Dose: 25 mg Departure - Departure Disposition: [facility] In[facility] Acute Clinical Impression: Abdominal pain Condition: Fair Referrals: Jeny Bentley PA [Primary Care Provider] - As per Instructions
[2018-09-05] MEDS ORDERED: HYDROmorphONE/DILAUDID 1 MG/ML INJ IVP ONE ×2 (04:01→08:07)
[2018-09-05 04:15] LABS: PLATELET COUNT 453 10^3/uL (150-400)
[2018-09-05] MEDS ORDERED: LORazepam 2 MG/ML INJ IVP ONE ×2 (04:50→21:37)
[2018-09-05] MEDS ORDERED: LORazepam 2 MG/ML INJ ONE (04:50)
[2018-09-05] MEDS ORDERED: HYDROmorphONE/DILAUDID 2 MG/ML INJ IVP ONE (05:53)
[2018-09-05] MEDS ORDERED: HYDROmorphONE/DILAUDID 1 MG/ML INJ IVP PRN ×2 (06:57→12:12)
[2018-09-05] MEDS ORDERED: ACETAMINOPHEN 325 MG TAB PO PRN (06:57)
[2018-09-05] MEDS ORDERED: ONDANSETRON DISINTEGRATING 4 MG TAB PO PRN (06:57)
[2018-09-05] MEDS ORDERED: D5W 1/2 NS W/ 20 KCl/L 1,000 ML IV SCH (07:00)
--- NOTE | 2018-09-05 08:30 | PDGENHP ---
History and Physical - Chief Complaint Nausea vomiting abdominal pain - History of Present Illness Source-patient provides history appears reliable. EMR was reviewed and case discussed with ED provider. HPI - this is a pleasant 33-year-old female with past medical history significant for cyclic vomiting syndrome/the functional the abdominal pain is who presents emergency department again for the 3rd time this month with complaints of intractable nausea vomiting. No associated diarrhea. No known sick contacts. She reports some flushing and sweating. She denies any hematemesis. Abdominal pain is constant worse with movement and palpation. Patient reports that after discharge she was feeling fairly well. She returned to work and her symptoms the return. She is concerned that she is not rebounding as quickly as she normally does. 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 In she continues to follow through with therapy for CBT. Patient has had multiple admissions and ER visits for her cyclic vomiting and abdominal pain symptoms. CT abdomen pelvis and MRCP without any evidence of acute pancreatitis in either case although patient lipase is have been slightly elevated who suspected her rise in lipase was due to her vomiting and clarification with patient regarding diagnosis of pancreatitis versus an elevated lipase was clarified with patient and her at bedside. History Information - Allergies/Home Medication List Allergies/Adverse Reactions: Penicillins Allergy (Severe, Verified 09/05/18 02:44) swells airway haloperidol [From Haldol] Allergy (Mild, Verified 09/05/18 02:44) agitation tramadol Allergy (Mild, Verified 09/05/18 02:44) agitation Home Medications: Citalopram Hydrobromide [Celexa] 40 mg PO HS 08/29/18 [Last Taken 09/04/18] clonazePAM [Klonopin (*)] 0.5 mg PO DAILY PRN 08/29/18 [Last Taken 09/04/18] I have personally reviewed and updated: family history, medical history, social history, surgical history - Past Medical History Additional medical history: Cyclic vomiting syndrome/functional abdominal pain, Gilbert's syndrome, etcopic , TBI, idiopathic pancreatitis (pt with normal CT abd/pelvis and MRCP without evidence of pancreatitis) has had elevated lipase approx 3x upper limits of normal concerning more so 2/2 nausea/ vomiting rather than active pancreatitis as her imaging has not correlated with imaging evidence of. fatty liver on imaging. - Surgical History Additional surgical history: Cholecystectomy, last EGD December 2014 - Family History Additional family history: No family history of immune deficiency disorder, second-degree relative with breast cancer, biliary disease; grandmother (92yo) recently diagnosed with pancreatic cancer - Social History Smoking Status: Former smoker Alcohol Use: None Drug Use: None Additional social history: Lives with carlos, works for local [employer] Review of Systems Review of Systems: ROS: 10pt was reviewed & negative except for what was stated in HPI & below Constitutional: Reports: other (Sweats). Denies: fever, weight loss EENMT: Reports: no symptoms Cardiac: Reports: no symptoms Respiratory: Reports: no symptoms Gastrointestinal: Reports: vomitting, abdominal pain, abdominal distention, nausea. Denies: black stools, diarrhea Genitourinary: Reports: frequency (Occasional), urgency (Occasional). Denies: dysuria, hematuria Muscolosketal: Reports: no symptoms Skin: Reports: no symptoms Neurological: Reports: anxiety, emotional problems, headache (Occasional), numbness (Occasional numbness tingling with increasing abdominal pain no long- term neuropathy symptoms). Denies: weakness Hematologic/Lymphatic: Reports: no symptoms Physical Exam Physical Exam: Selected Entries 09/05/18 02:42 Blood Pressure Automatic Method Heart Rate 105 H Respiratory 16 Rate O2 Sat (%) 97 Temperature (C) 37.1 C Blood Pressure 188/139 H Mean Arterial 155 H Pressure (MAP) O2 Delivery Room Air Mode Temperature Oral Source Temp Pulse Resp BP Pulse Ox 36.7 C 79 16 132/86 H 95 09/05/18 08:18 09/05/18 08:18 09/05/18 08:18 09/05/18 08:18 09/05/18 08:18 Constitutional: obese, other (NAD. Pleasant adult female is sitting up in bed. at bedside. Patient awake resting quietly.) Eyes: PERRL (Slightly decreased reactivity light bilaterally but symmetric.), anicteric sclera, EOMI, No scleral injection Ears, Nose, Mouth, Throat: dry mucous membranes, other (No nasal discharge.), No poor dentition Cardiovascular: regular rate and rhythym, no murmur, rub, or gallop, pulses symmetric bilaterally, No edema Peripheral Pulses: 1+: dorsalis-pedis (R), dorsalis-pedis (L) Respiratory: no respiratory distress, no rales or rhonchi, clear to auscultation Gastrointestinal: normoactive bowel sounds, no palpable masses, tenderness ( Bilateral upper quadrants and epigastrium.), other (Obese abdomen soft.) Genitourinary: no bladder tenderness, No hobson in urethra Skin: warm, normal color, no rashes or abrasions Musculoskeletal: full muscle strength (Patient sits up independently.), No generalized weakness Neurologic: AAOx3, sensation intact bilaterally, other (Grossly nonfocal.), No facial droop Psychiatric: not encephalopathic, thought process linear, anxious, other ( Patient slightly anxious but she is pleasant and cooperative. Her thought process content and questions are all appropriate.), No agitated Lab Data & Imaging Review 09/05/18 03:15 09/05/18 03:15 WBC 12.19 10^3/uL (3.80-9.50) H 09/05/18 03:15 RBC 4.67 10^6/uL (4.18-5.33) 09/05/18 03:15 Hgb 13.7 g/dL (12.6-16.3) 09/05/18 03:15 Hct 39.3 % (38.0-47.0) 09/05/18 03:15 MCV 84.2 fL (81.5-99.8) 09/05/18 03:15 MCH 29.3 pg (27.9-34.1) 09/05/18 03:15 MCHC 34.9 g/dL (32.4-36.7) 09/05/18 03:15 RDW 12.9 % (11.5-15.2) 09/05/18 03:15 Plt Count 453 10^3/uL (150-400) H 09/05/18 03:15 MPV 9.1 fL (8.7-11.7) 09/05/18 03:15 Neut % (Auto) 68.5 % (39.3-74.2) 09/05/18 03:15 Lymph % (Auto) 22.5 % (15.0-45.0) 09/05/18 03:15 Boundary % (Auto) 6.3 % (4.5-13.0) 09/05/18 03:15 Eos % (Auto) 1.7 % (0.6-7.6) 09/05/18 03:15 Baso % (Auto) 0.6 % (0.3-1.7) 09/05/18 03:15 Nucleat RBC Rel Count 0.0 % (0.0-0.2) 09/05/18 03:15 Absolute Neuts (auto) 8.35 10^3/uL (1.70-6.50) H 09/05/18 03:15 Absolute Lymphs (auto) 2.74 10^3/uL (1.00-3.00) 09/05/18 03:15 Absolute Monos (auto) 0.77 10^3/uL (0.30-0.80) 09/05/18 03:15 Absolute Eos (auto) 0.21 10^3/uL (0.03-0.40) 09/05/18 03:15 Absolute Basos (auto) 0.07 10^3/uL (0.02-0.10) 09/05/18 03:15 Absolute Nucleated RBC 0.00 10^3/uL (0-0.01) 09/05/18 03:15 Immature Gran % 0.4 % (0.0-1.1) 09/05/18 03:15 Immature Gran # 0.05 10^3/uL (0.00-0.10) 09/05/18 03:15 Sodium 139 mEq/L (135-145) 09/05/18 03:15 Potassium 3.5 mEq/L (3.5-5.2) 09/05/18 03:15 Chloride 105 mEq/L (97-110) 09/05/18 03:15 Carbon Dioxide 18 mEq/l (22-31) L 09/05/18 03:15 Anion Gap 16 mEq/L (6-14) H 09/05/18 03:15 BUN 5 mg/dL (7-23) L 09/05/18 03:15 Creatinine 0.6 mg/dL (0.6-1.0) 09/05/18 03:15 Estimated GFR > 60 09/05/18 03:15 Glucose 141 mg/dL (70-100) H 09/05/18 03:15 Calcium 9.6 mg/dL (8.5-10.4) 09/05/18 03:15 Total Bilirubin 1.7 mg/dL (0.1-1.4) H 09/05/18 03:15 AST 26 IU/L (14-46) 09/05/18 03:15 ALT 30 IU/L (9-52) 09/05/18 03:15 Alkaline Phosphatase 78 IU/L (38-126) 09/05/18 03:15 Total Protein 7.3 g/dL (6.3-8.2) 09/05/18 03:15 Albumin 4.6 g/dL (3.5-5.0) 09/05/18 03:15 Lipase 1908 IU/L (23-300) H 09/05/18 03:15 Assessment & Plan Assessment: This is a pleasant 33-year-old female with past medical history significant for cyclic vomiting syndrome/the functional the abdominal pain is who presents emergency department again for the 3rd time this month with complaints of intractable nausea vomiting. #Abdominal pain (Acute) - with history of cyclical vomiting/functional abdominal pain - patient has had an extensive GI workup and was previously followed by Dr. Tapia. Additionally she had a recent CT abdomen pelvis and MRCP which were all negative for any acute findings or evidence of pancreatitis. I did sit down with the patient and her and discuss the differences between elevated lipase versus a diagnosis of pancreatitis and suspect that her elevated lipase at this point is due to her recurrent nausea vomiting. was requesting repeat laboratory studies at discharge were discussed with them typical course of care is to monitor clinically, allow for some bowel rest if needed but the advanced diet and see if tolerated. Patient reports that she thinks she can on safely drink at this time will advance her diet. She is asked multiple times during this hospital stay for IV narcotics even before it is due. Will deescalate very quickly. Patient received a dose of Dilaudid at 5 :00 a.m. Before leaving the emergency department. one additional dose of 0.5 mg has been ordered now and discussed with patient that this needs to be tapered rapidly. Holding any additional benzos. I did discuss with the patient use of antiemetics. 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 At this time there is no additional GI evaluation recommended unless patient should desire to follow up with Dr. Tapia on outpatient basis. Encourage patient to continue to keep her appointments CBT as there appears to be significant anxiety component to her symptoms. She also feels some association with her menstrual cycle however she had a gynecology consultation during her last stay and it was not felt to be due to endometriosis. less likely cause for patient's symptoms porphyria but continued c/o with negative workup, check random urine studies. #Intractable nausea vomiting - currently controlled. Antiemetics as noted above. Potassium replacement due to GI losses. # Gilbert - pt bilirubin 1.7. lfts WNL. #fatty liver - encourage patient to focus on lifestyle changes, dietary modifications and weight loss. Reviewed the LFTs are within normal limits. Previous MEGAN screens have been negative is no evidence of a autoimmune component. Recent hepatitis panel was also negative. # anxiety PTSD - continue patient's citalopram. No further benzos well in- patient. Patient should follow up with her mental health team. # obesity BMI 34.0-encourage patient to make lifestyle modifications and focus on weight loss as noted above. # elevated BP without history of HTN - 2/2 pain and anxiety. BPs currently improved. FEN - IV fluids with potassium replacement. Advance diet as tolerated. PPX-SCDs. Encourage mobilization. Anticipate short hospital stay. Cor status-full Disposition-patient admitted to observation status on the med surge floor for treatment of nausea. Focus treatment plan needs to be established as patient has had recurrent ER visits and hospital stays. Discussed with patient need to limit opiates. Case Management consultation ordered from the ED to see if a treatment plan can be established before discharge.
[2018-09-05] MEDS: ONDANSETRON 4 MG/2 ML VIAL IVP PRN ×3 (08:38→21:07)
[2018-09-05] MEDS: PROMETHAZINE HCL 25 MG/ML INJ IVP PRN ×2 (10:54→16:23)
--- NOTE | 2018-09-05 11:16 | ASMTCMCOM ---
CM Note CM Note Notes: Patient plan of care reviewed in interdisciplinary rounds. She has had multiple admissions for recurring symptoms but GI workup negative for pancreatitis, She is to be discharged to home independently. Plan: Dc to home with family support Date Signed: 09/05/2018 11:15 AM Electronically Signed By:Delmy Morales RN
--- NOTE | 2018-09-05 12:28 | HOSPPROG ---
Hospitalist Progress Note Assessment/Plan: patient w recurrent abd pain and elevated lipase thought to be related to vomiting, but marked elevation noted and she does not have much vomiting now abd exam w hypoactive bs discussed at length w Dr. Tapia MRCP in 04/18 was normal but not ideal for r/o chronic panc 1. NPO, IVF, Pain meds 2. EUS tomorrow 60 minutes spent on care Objective: Vital Signs Temp Pulse Resp BP Pulse Ox 36.8 C 74 16 133/90 H 91 L 09/05/18 11:35 09/05/18 11:35 09/05/18 11:35 09/05/18 11:35 09/05/18 11:35 09/04/18 09/05/18 09/06/18 05:59 05:59 05:59 Intake Total 1999 Balance 1999 ICD10 Worksheet Patient Problems: Problems Problem Status Onset Abdominal pain Acute Hyperglycemia Active Hypokalemia Active Leukocytosis Active Anxiety Acute Cellulitis Acute Cellulitis of left hand Acute Cyclic vomiting syndrome Acute Dog bite of arm Acute Dog bite of left hand Acute Intractable abdominal pain Acute Intractable vomiting Acute Pancreatitis Acute Vomiting Acute
[2018-09-05] MEDS: NS 1,000 ML IV SCH (12:41)
--- NOTE | 2018-09-05 14:25 | ASMTCMCOM ---
CM Note CM Note Notes: Per hospital medicine, patient will reamain overnight for further diagnostics tomorrow. CM available should needs arise. Plan: Likey independent at ma. Date Signed: 09/05/2018 02:24 PM Electronically Signed By:Delmy Morales RN
[2018-09-05] MEDS ORDERED: KETOROLAC 15 MG/1 ML SDV IVP PRN (15:21)
[2018-09-05] MEDS: HYDROmorphONE/DILAUDID 1 MG/ML INJ IVP PRN ×4 (16:23→23:08)
[2018-09-05] MEDS: CITALOPRAM 20 MG TAB PO SCH (22:35)
[2018-09-06] MEDS: HYDROmorphONE/DILAUDID 1 MG/ML INJ IVP PRN ×9 (01:46→22:07)
[2018-09-06] MEDS: NS 1,000 ML IV SCH (03:51)
[2018-09-06] MEDS: PROMETHAZINE HCL 25 MG/ML INJ IVP PRN ×3 (05:24→21:54)
[2018-09-06] MEDS: KETOROLAC 30 MG/1 ML SDV IVP PRN ×3 (05:25→23:35)
[2018-09-06] MEDS ORDERED: LR 1,000 ML IV ONE (07:28)
--- NOTE | 2018-09-06 07:56 | PDANEPAE ---
ANE History of Present Illness EUS EGD for abdominal pain ANE Past Medical History - Cardiovascular History Hx Hypertension: No Hx Arrhythmias: No Hx Chest Pain: No Hx Coronary Artery / Peripheral Vascular Disease: No Hx CHF / Valvular Disease: No - Pulmonary History Hx COPD: No Hx Asthma/Reactive Airway Disease: Yes Hx Recent Upper Respiratory Infection: No Hx Oxygen in Use at Home: No Hx Sleep Apnea: No Sleep Apnea Screening Result - Last Documented: Negative - Endocrine History Hx Diabetes: No Obesity: moderate - Chronic Pain History Chronic Pain: Yes ANE Review of Systems Review of Systems: - Exercise capacity Exercise capacity: >=4 METS ANE Patient History - Allergies Allergies/Adverse Reactions: Penicillins Allergy (Severe, Verified 09/05/18 02:44) swells airway haloperidol [From Haldol] Allergy (Mild, Verified 09/05/18 02:44) agitation tramadol Allergy (Mild, Verified 09/05/18 02:44) agitation - Home Medications Home Medications: Citalopram Hydrobromide [Celexa] 40 mg PO HS 08/29/18 [Last Taken 09/04/18] clonazePAM [Klonopin (*)] 0.5 mg PO DAILY PRN 08/29/18 [Last Taken 09/04/18] - NPO status NPO Status: no food or drink >8 hours NPO Since - Liquids (Date): 09/05/18 NPO Since - Liquids (Time): 21:00 NPO Since - Solids (Date): 09/04/18 NPO Since - Solids (Time): 08:00 - Anes Hx Anes Hx: no prior problems - Smoking Hx Smoking Status: Former smoker - Alcohol Use Alcohol Use: None - Family Anes Hx Family Anes Hx: none ANE Labs/Vital Signs - Labs Result Diagrams: 09/05/18 03:15 09/05/18 03:15 - Vital Signs Blood Pressure: 126/95 Heart Rate: 67 Respiratory Rate: 11 O2 Sat (%): 94 Height: 175.26 cm Weight: 104.326 kg ANE Physical Exam - Airway Neck exam: FROM Mallampati Score: Class 2 Mouth exam: normal dental/mouth exam - Pulmonary Pulmonary: no respiratory distress, clear to auscultation - Cardiovascular Cardiovascular: regular rate and rhythym, no murmur, rub, or gallop - ASA Status ASA Status: II ANE Anesthesia Plan Anesthesia Plan: GA with mask Total IV Anesthesia: Yes
[2018-09-06] MEDS ORDERED: PROPOFOL/EMULSION 500 MG/50 ML BOTTLE IV ONE ×2 (07:59→08:34)
[2018-09-06] MEDS ORDERED: NALOXONE HCL 0.4 MG/ML INJ IVP PRN (08:33)
--- NOTE | 2018-09-06 08:55 | POSTANESTH ---
Post Anesthetic Evaluation Cardiovascular Status: Normal, Stable, Similar to Pre-Op Cond Respiratory Status: Normal, Stable, Similar to Pre-op Cond. Level of Consciousness/Mental Status: Mildly Sleepy, Arousable Pain Control: Adequate, Prn Tx Ordered Nausea/Vomiting Control: Adequate, Prn Tx Ordered Complications Possibly Related to Anesthesia: None Noted
[2018-09-06] MEDS ORDERED: HYDROmorphONE/DILAUDID 1 MG/ML INJ ONE (09:05)
--- NOTE | 2018-09-06 09:08 | GIREPORT ---
[facility] - Endoscopy Department Patient Name: Chhaya White Procedure Date: 09/06/2018 8:12 AM Patient Type: Inpatient Attending MD/ ER Physician: Jeremi Tapia MD Procedure: Upper EUS Indications: Abnormal pancreatic tests, Epigastric abdominal pain, Nausea, Weight lo ss Patient Profile: 33 year old female presents for evaluation of epigastric pain, nausea, and elevated pancreatic enzymes. Providers: Jeremi Tapia MD Medicines: Monitored Anesthesia Care Complications: No immediate complications. Estimated blood loss: Minimal. Description of Procedure: After obtaining informed consent, the endoscope was passed under direct vision. Throughout the procedure, the patient's blood pressure, pulse, and oxygen saturations were monitored continuously. The Endosonoscope was introduced through the mouth, and advanced to the second part of duoden um. The Endoscope was introduced through the mouth, and advanced to the sec ond part of duodenum. The upper EUS was accomplished without difficulty. Th e esophagus, stomach, and duodenum were visualized endosonographically. T he patient tolerated the procedure well. Findings: ENDOSCOPIC FINDING: : The examined esophagus was normal. A hiatal hernia was present. Patchy mildly erythematous mucosa was found in the gastric body and in the gastric antrum. Biopsies were taken with a cold forceps for histology. The examined duodenum was normal. Biopsies for histology were taken wit h a cold forceps for evaluation of celiac disease. ENDOSONOGRAPHIC FINDING: : Pancreatic parenchymal abnormalities were noted in the entire pancreas. These consisted of lobularity (w/o honeycombing) Pancreatic parenchymal abnormalities were noted in the entire pancreas. These consisted of hyperechoic strands. The main pancreatic duct was not dilated or irregular. The pancreatic duct had a prominently branched endosonographic appearan ce and had hyperechoic ovalles in the entire pancreas. There was no sign of significant endosonographic abnormality in the com mon bile duct. There was no sign of significant endosonographic abnormality in the visualized portion of the liver. No masses were identified. No lymphadenopathy seen. Estimated Blood Loss: Estimated blood loss was minimal. Post Op Diagnosis: - Normal esophagus. - Hiatal hernia. - Erythematous mucosa in the gastric body and antrum. Biopsied. - Normal examined duodenum. Biopsied. - Pancreatic parenchymal abnormalities consisting of lobularity were no monie in the entire pancreas. - Pancreatic parenchymal abnormalities consisting of hyperechoic strand s were noted in the entire pancreas. - The pancreatic duct had a prominently branched endosonographic appear ance and had hyperechoic ovalles in the entire pancreas. - There was no sign of significant pathology in the common bile duct. - There was no evidence of significant pathology in the visualized port ion of the liver. - Etiology? Has parenchymal changes in pancreas (3 minor criteria?). No other abnormalities seen. Biopsies for gastritis taken. Await biopsy results. Recommend PPI therapy daily and a trial of pancreatic enzymes. Recommendation: - Return patient to [facility] for [facility] care. - Clear liquid diet. - Follow an antireflux regimen. - Continue present medications. - Trial of PPI - Trial of pancreatic enzymes - Follow up as outpatient in 4 weeks. - Thank you for allowing me to participate in the care of your patient. Attending Participation: I personally performed the entire procedure. Jeremi Tapia MD Jeremi Tapia MD 09/06/2018 9:07:34 AM This report has been signed electronicallyJeremi Tapia MD Number of Addenda: 0 Note Initiated On: 09/06/2018 8:12 AM [email or web address]
--- NOTE | 2018-09-06 09:09 | GCON ---
[f rep st] CONSULTATION DATE OF CONSULTATION: 09/06/2018 REFERRING PHYSICIAN: Kirt Torres MD REASON FOR CONSULTATION: Nausea and vomiting. CHIEF COMPLAINT: Nausea, vomiting, abdominal pain. HISTORY OF PRESENT ILLNESS: The patient is a 33-year-old female with a history of Gilbert's syndrome, possible cyclical nausea and vomiting syndrome, cholecystectomy, who presents to [facility] with an attack of nausea, vomiting, and abdominal pain. The patient has had chronic complaints of abdominal pain starting in 2008, where she had intermittent attacks of pain several times each year requiring hospitalization. Around 2012, these symptoms started to increase but got better a few year later. This year, however, she has had 4 admissions to the hospital for similar complaints. She states that she is now experiencing a burning, crampy, sharp pain in the midepigastrium area on a daily basis for the last several months. This pain can last up to days in length. She believes when she has these symptoms, that oral intake may make it worse with no alleviating factors. She also has significant nausea, worse in the morning, but occurs throughout the day. She is still experiencing intermittent symptoms where she gets suddenly nauseated and starts to throw up multiple times. When this happens, she can throw up approximately 20 times each day. Due to multiple hospitalizations due to her symptoms, she has had a significant workup including multiple CT scans as well as MRI scans, which have been unrevealing. She has blood work that has shown significant elevated pancreatic enzymes in the past, up to 6 times the normal value. However, on imaging, she has not shown any stranding around the pancreas. She has had blood work for C1 esterase deficiency and porphyria which was been negative. She does have a grandmother who had pancreatic cancer, but denies any family history of pancreatic disorders. I saw her in 2011 and did order a workup for chronic pancreatitis, including blood work for cationic trypsinogen gene which was negative. It was recommended that she get an endoscopic ultrasound as an outpatient, but due to insurance reason, she never did. Her last imaging was a CT scan on 08/30/2018, as well as an MRI done on 2018. I am being asked by Dr. Torres to evaluate this patient in consultation regarding her nausea, vomiting, abdominal pain. PAST MEDICAL HISTORY: 1. Cyclical nausea and vomiting syndrome. 2. Gilbert's syndrome. 3. Traumatic brain injury. 4. Elevations in her pancreatic enzymes. 5. Ectopic . PAST SURGICAL HISTORY: Cholecystectomy. ALLERGIES: Penicillin, haloperidol, tramadol, clonazepam. FAMILY HISTORY: Grandmother with pancreatic cancer. She has a cousin with cystic fibrosis. SOCIAL HISTORY: Former smoker. Occasional marijuana use. No significant tobacco use. REVIEW OF SYSTEMS: A 14-point comprehensive review of systems was asked. Pertinent positives and negatives per HPI. PHYSICAL EXAM: VITAL SIGNS: Blood pressure 126/95, pulse 67, respirations 11, temperature 97.2 GENERAL: Awake, alert, oriented x3. No distress. HEENT: Anicteric sclerae. Moist mucosa. NECK: No JVD. CARDIOVASCULAR: Regular rate and rhythm. Positive S1, S2. No murmurs or gallops appreciated. LUNGS: Clear to auscultation bilaterally. No wheezes, rales, rhonchi. ABDOMEN: Soft. Minimal tenderness in the midepigastrium. No guarding. No rebound. positive bowel sounds. Ho hepatosplenomegaly. EXTREMITIES: No cyanosis, clubbing, edema. NEUROLOGIC: 2 through 12 grossly intact. PSYCH: Normal affect. SKIN: No rash. MUSCULOSKELETAL: Full muscle strength. No joint effusions. BLOOD WORK: WBCs 12.1, hemoglobin 13.7, hematocrit 39.3, platelets 453. Sodium 139, potassium 3.5, chloride 105, bicarb 18, BUN 5, creatinine 0.6, glucose 141, total bilirubin 1.7, lipase 1908, AST 26, ALT 30, alkaline phosphatase 78. CT scan unrevealing. ASSESSMENT AND PLAN: 1. Abdominal pain-epigastric with nausea and vomiting. Intermittent symptoms. Does have chronic symptoms of abdominal pain and nausea for at least the last 6 months. She has had extensive work up in the past with multiple MRIs and CT scans, which have shown no significant pathology. Does have elevated pancreatic enzymes. She also had extensive workup including urine for porphyria and C1 esterase deficiency which have been unrevealing. Etiology? Atypical peptic ulcer disease versus sphincter of Oddi dysfunction versus chronic pancreatitis versus other? At this time, I recommend to proceed with upper endoscopy with endoscopic ultrasound to evaluate. The risks, benefits, and alternatives of the procedure were discussed in great detail with the patient. The risk of infection, bleeding, perforation, sedation, and pancreatitis were discussed. All questions answered and informed consent was obtained. 2. History of cyclical nausea and vomiting syndrome? 3. Traumatic brain injury. 4. Elevations in pancreatic enzymes. 5. Cholecystectomy. Thank you very much for this consultation. /[id number]/MODL MTDD
[2018-09-06] MEDS: clonazePAM 0.5 MG TAB PO PRN (09:40)
[2018-09-06] MEDS: ONDANSETRON 4 MG/2 ML VIAL IVP PRN ×2 (10:14→19:59)
[2018-09-06] MEDS: PANTOPRAZOLE SODIUM 40 MG TAB PO SCH (10:34)
[2018-09-06] MEDS: LIPASE 24,000/AMYLASE/PROTEASE (CREON) 1 CAP PO SCH ×2 (11:17→17:40)
--- NOTE | 2018-09-06 11:33 | HOSPPROG ---
Hospitalist Progress Note Assessment/Plan: #Abdominal pain: elevated lipase. EUS showed pancreatic parenchymal changes, biopsies taken for gastritis -trial PPI, pancreatic enzymes -IV dilaudid PRN -clear diet #Vomiting: antiemetics #Diet: clear #Disp: DC once pain controlled, tolerating PO Subjective: "burny abdominal pain" Objective: Vital Signs Temp Pulse Resp BP Pulse Ox 36.4 C 70 18 149/97 H 94 09/06/18 08:54 09/06/18 10:40 09/06/18 10:40 09/06/18 10:40 09/06/18 10:40 09/05/18 09/06/18 09/07/18 05:59 05:59 05:59 Intake Total 2910 500 Output Total 0 Balance 2910 500 - Time Spent With Patient Time Spent with Patient: greater than 35 minutes Time Spent with Patient: Greater than 35 minutes spent on this patients care, greater than 50% of time spent counseling, educating, and coordinating care regarding the above mentioned plan. - Physical Exam Constitutional: no apparent distress Ears, Nose, Mouth, Throat: moist mucous membranes Cardiovascular: regular rate and rhythym Respiratory: no respiratory distress Gastrointestinal: normoactive bowel sounds, other (TTP epigastrum to umbilicus) Genitourinary: no bladder fullness Skin: warm Musculoskeletal: full muscle strength Neurologic: AAOx3, CN II-XII Intact Psychiatric: interacting appropriately ICD10 Worksheet Patient Problems: Problems Problem Status Onset Abdominal pain Acute Hyperglycemia Active Hypokalemia Active Leukocytosis Active Anxiety Acute Cellulitis Acute Cellulitis of left hand Acute Cyclic vomiting syndrome Acute Dog bite of arm Acute Dog bite of left hand Acute Intractable abdominal pain Acute Intractable vomiting Acute Pancreatitis Acute Vomiting Acute
[2018-09-06] MEDS ORDERED: LIDOCAINE 2% VISCOUS 15 ML UDCUP PO ONE (11:36)
[2018-09-06] MEDS ORDERED: HYOSCYAMINE SULFATE 0.125 MG TAB PO ONE ×2 (11:36→20:17)
[2018-09-06] MEDS ORDERED: MAG HYDROX/AL HYDROX/SIMETH 30 ML UDCUP PO ONE (11:36)
--- NOTE | 2018-09-06 17:42 | PDMN ---
Medical Necessity Medical necessity: [facility] 33 yo w/ acute abd pain, n/v w/ recent hospitalization for same. Initially OBS for workup but cont to c/o severe pain requiring IV dilaudid [id number] for last 24 hours. Remains on IVF and frequent IV antiemetics. EGD shows pancreatic parenchymal changes. Meets [facility] IP criteria for severe pain requiring acute inpatient management as indicated by Intravenous opiate titration required as indicated by ALL of the followin.Pain unresponsive to non-opioid analgesia and nonpharmacologic treatment[C]. 2. Oral, transdermal, or submucosal route not appropriate or not sufficient(19)( 20)(21). 3. Anticipated titration not appropriate for lower level of care (eg, due to frequency, monitoring needs). Change to IP status 09/06/18@1614 per MD order. Hx Cyclic vomiting syndrome/functional abdominal pain, Gilbert's syndrome, etcopic , TBI, idiopathic pancreatitis
[2018-09-06] MEDS ORDERED: LACTULOSE 20 GM/30 ML UDCUP PO PRN (20:18)
[2018-09-06] MEDS ORDERED: POLYETHYLENE GLYCOL 3350 17 GM PKT PO PRN (20:18)
[2018-09-06] MEDS ORDERED: BISACODYL 10 MG SUPP PR PRN (20:18)
[2018-09-06] MEDS ORDERED: MAGNESIUM HYDROXIDE 30 ML UDCUP PO PRN (20:18)
[2018-09-06] MEDS: CITALOPRAM 20 MG TAB PO SCH (21:35)
[2018-09-06] MEDS: SENNOSIDES/DOCUSATE SODIUM TAB PO SCH (23:36)
[2018-09-06] MEDS: MAG HYDROX/AL HYDROX/SIMETH 30 ML UDCUP PO ONE (23:36)
[2018-09-06] MEDS: LIDOCAINE 2% VISCOUS 15 ML UDCUP PO ONE (23:36)
[2018-09-07] MEDS: HYDROmorphONE/DILAUDID 1 MG/ML INJ IVP PRN ×3 (04:18→10:27)
[2018-09-07] MEDS: ONDANSETRON 4 MG/2 ML VIAL IVP PRN (04:20)
[2018-09-07] MEDS: clonazePAM 0.5 MG TAB PO PRN (06:44)
[2018-09-07] MEDS: PROMETHAZINE HCL 25 MG/ML INJ IVP PRN (07:13)
[2018-09-07] MEDS: KETOROLAC 30 MG/1 ML SDV IVP PRN (07:55)
[2018-09-07] MEDS: SENNOSIDES/DOCUSATE SODIUM TAB PO SCH (08:14)
[2018-09-07] MEDS: LIPASE 24,000/AMYLASE/PROTEASE (CREON) 1 CAP PO SCH ×2 (08:14→12:34)
[2018-09-07] MEDS: PANTOPRAZOLE SODIUM 40 MG TAB PO SCH (08:14)
[2018-09-07] MEDS: LIDOCAINE 2% VISCOUS 15 ML UDCUP PO ONE (09:16)
[2018-09-07] MEDS: MAG HYDROX/AL HYDROX/SIMETH 30 ML UDCUP PO ONE (09:16)
[2018-09-07] MEDS: oxyCODONE IR 5 MG TAB PO PRN ×2 (10:53→15:21)
[2018-09-07 11:26] VITALS: BP 157/86
[2018-09-07] MEDS ORDERED: HYOSCYAMINE SULFATE 0.125 MG TAB PO PRN (12:00)
--- NOTE | 2018-09-07 15:49 | ASDISCHSUM ---
Discharge Information Plan Status:Home with No Needs Medically Cleared to Leave:09/07/2018 Discharge Date:09/07/2018 CM D/C Disposition:Home, Routine, Self-Care ADT D/C Disposition:Home, Routine, Self-Care Projected Discharge Date:09/07/2018 Transportation at D/C: Discharge Delay Reason: Follow-Up Date:09/07/2018 Discharge Slot: Final Diagnosis: Placement Information Patient Contact Information Contact Name:LESLY Relationship:Mother Address:[address] City:[place] Alternate Phone: [facility]/Zip Code:[place] [address] Email: Financial Information Financial Class:Self-Pay Primary Plan Desc:SP UNINSURED Primary Plan Number:[id number] Secondary Plan Desc: Secondary Plan Number: Assessment Information LACE LACE Length of stay for Answers: Less than 1 day current admission Comorbidities - select Answers: Opioid dependence all that apply / Chronic pain Other Notes: Cyclic vomiting syndrome; TBI # of Emergency department Answers: 12+ visits in the last 6 months Social determinants Answers: Mental health diagnosis (anxiety, depression, pers onality disorders, etc.) Score: 14 Date Signed: 09/07/2018 03:45 PM Electronically Signed By:Deborah Valdez [facility] CM Progress Note CM Note CM Note Notes: Patient plan of care reviewed in interdisciplinary rounds. She has had multiple admissions for recurring symptoms but GI workup negative for pancreatitis, She is to be discharged to home independently. Plan: Dc to home with family support Date Signed: 09/05/2018 11:15 AM Electronically Signed By:Delmy Morales RN [facility] CM Progress Note CM Note CM Note Notes: Per hospital medicine, patient will reamain overnight for further diagnostics tomorrow. CM available should needs arise. Plan: [place]. Date Signed: 09/05/2018 02:24 PM Electronically Signed By:Delmy Morales RN Case Management Discharge Plan Note Case Management Discharge Discharge Order Complete? Answers: Yes Patient to Obtain Answers: Independently Medications Discharge Comments Notes: Pt is being discharged and medically stable to leave. No other CM needs at this time. Date Signed: 09/07/2018 03:48 PM Electronically Signed By:Deborah Valdez Intervention Information
--- NOTE | 2018-09-07 20:56 | GDS ---
[f rep st] DISCHARGE SUMMARY DISCHARGE DIAGNOSES: 1. Abdominal pain. 2. Cyclic nausea/vomiting syndrome. 3. Marijuana dependence. 4. Elevated lipase. CONSULTATION: GI. PROCEDURES: EUS: Pancreatic parenchymal abnormalities which were lobular without honeycombing. Hyperechoic ovalles in the entire pancreas. Biopsies for gastritis taken. HISTORY OF PRESENT ILLNESS: 33-year-old female with cyclic vomiting syndrome/ functional abdominal pain, marijuana use, presented to ER for intractable nausea and vomiting. This is the 3rd visit this month. No fevers, chills, or sweats. No diarrhea. CT of abdomen and pelvis and MRCP were negative for acute pancreatitis last visit. HOSPITAL COURSE BY PROBLEM: 1. Cyclic nausea/vomiting syndrome: suspect related to marijuana use. EUS showed possible gastritis and pancreatic changes. She did have an elevated lipase. GI recommends trial of PPI, pancreatic enzymes, THC abstinence. I counseled on this as well. Her pain is now controlled on orals and is tolerating p.o. diet. We will discharge on Levsin as well. Follow up with GI in 4 weeks. 2. Tetrahydrocannabinol dependence. Again, counseled on cessation. 3. Anxiety: Reason for using marijuana. I counseled her on other means of stress release, including yoga, meditation, or exercise. DISPOSITION: Patient is stable for discharge home, tolerating p.o. NEW MEDICATIONS: See medication reconciliation. PHYSICAL EXAMINATION: VITAL SIGNS: Today, temperature is 36.9, blood pressure 157/86, heart rate 67, respirations 20, and 96% on room air. GENERAL: Overweight, no acute distress. HEENT: PERRLA. Moist mucous membranes. CV: Regular rate and rhythm. LUNGS: Clear. ABDOMEN: Epigastric tenderness much improved. No rebound or guarding. Positive bowel sounds. . No May. MUSCULOSKELETAL: 5/5 upper and lower extremity strength. NEURO: 2 through 12 intact. PSYCH: Alert and oriented x3. TIME SPENT ON DISCHARGE: Greater than 30 minutes. Case discussed with Dr. Tapia. /[id number]/MODL MTDD
--- NOTE | 2018-09-07 21:04 | SOAPPROG ---
SOAP Progress Note Assessment/Plan: Assessment: Plan: 09/07/18 20:59 A/P 1. Abdominal pain- with nausea and vomiting. Multiple imaging tests and blood work over the years. Elevated pancreatic enzymes. S/p EGD and EUS with parenchymal pancreatic changes. Suspect has functional component to her symptoms. Recommend to continue antispasmodic, PPI, and trial of pancreatic enzymes. F/u in office in 4 weeks. GI will sign off. Thank you for allowing me to participate in care of your patient. 09/07/18 21:04 Subjective: cc: F/u abdominal pain, nausea, and vomiting Feeling better. Tolerating liquids. Objective: Vital Signs Temp Pulse Resp BP Pulse Ox 36.9 C 67 20 157/86 H 96 09/07/18 11:24 09/07/18 11:24 09/07/18 11:24 09/07/18 11:24 09/07/18 11:24 09/06/18 09/07/18 09/08/18 05:59 05:59 05:59 Intake Total 550 Output Total 900 Balance -350 Physical Exam - Physical Exam General Appearance: alert, no apparent distress EENT: No scleral icterus (R), No scleral icterus (L) Respiratory: lungs clear, normal breath sounds, rhonchi, No crackles, No rales Cardiac/Chest: regular rate, rhythm, No diastolic murmur, No systolic murmur Abdomen: non-tender (tender in midepigastricum), soft, No pulsatile mass, No distended, No guarding, No rebound Skin: normal color, warm/dry, No jaundice Extremities: non-tender, normal inspection Neuro/Psych: alert, normal mood/affect, oriented x 3, No abnormal cerebellar tests ICD10 Worksheet Patient Problems: Problems Problem Status Onset Hyperglycemia Active Hypokalemia Active Leukocytosis Active Abdominal pain Acute Anxiety Acute Cellulitis Acute Cellulitis of left hand Acute Cyclic vomiting syndrome Acute Dog bite of arm Acute Dog bite of left hand Acute Intractable abdominal pain Acute Intractable vomiting Acute Pancreatitis Acute Vomiting Acute
== END 2018-09-07 15:51 | disposition home or self-care (01) | DRG 392 ==
LOC: F1N 06:39 → OBSVTOIN 09-06 16:14
PROVIDERS: ADMIT Family Medicine; ATTEND Family Medicine
DX: K29.30 Chronic superficial gastritis without bleeding (principal); F12.288 Cannabis dependence with other cannabis-induced disorder; E86.0 Dehydration; G43.A0 Cyclical vomiting, in migraine, not intractable; E16.9 Disorder of pancreatic internal secretion, unspecified; F41.9 Anxiety disorder, unspecified; E66.9 Obesity, unspecified; Z68.34 Body mass index [BMI] 34.0-34.9, adult; E80.4 Gilbert syndrome; K76.0 Fatty (change of) liver, not elsewhere classified; F43.10 Post-traumatic stress disorder, unspecified; Z87.820 Personal history of traumatic brain injury
CPT/HCPCS: 84120-90; 96374; G0378; G0480; J1170; J1200; J1885; J2060; J2405; J2550; J2704

== ENCOUNTER 2018-09-20 07:50 | Inpatient (IN) | payer OTHER ==
--- NOTE | 2018-09-20 08:08 | EDPHY ---
H & P Time Seen by Provider: 09/20/18 08:01 HPI/ROS: Chief complaint. Abdominal pain HPI. 33-year-old female presents emergency department with upper abdominal pain and nausea. She has recurrent and chronic pancreatitis. Patient has been seen August 30, September 02, September 06 and been admitted each time for abdominal pain pancreatitis. She says her menses began yesterday and that may sometimes be the trigger. She has pain in the upper abdomen that radiates through to her back. She describes as aching. She has had nausea since yesterday but not vomiting or diarrhea. No fever. No chest pain or shortness of breath. No urinary symptoms. Similar symptoms to previous pancreatitis ROS 10 systems were reviewed and negative with the exception of the elements mentioned in the history of present illness Past Medical/Surgical History: Cyclic vomiting syndrome, pancreatitis, closed-head injury, asthma, cholecystectomy Social History: Single, nonsmoker, no alcohol Smoking Status: Former smoker Physical Exam: General Appearance: Alert pleasant well-developed female moderate distress. Vital signs are stable Eyes: Pupils equal and round no pallor or injection. ENT, Mouth: Mucous membranes are moist. Respiratory: There are no retractions, lungs are clear to auscultation. Cardiovascular: Regular rate and rhythm. Gastrointestinal: Abdomen is soft with tenderness in the epigastrium. Normal bowel sounds. No masses Neurological: Awake and alert, sensory and motor exams grossly normal. Skin: Warm and dry, no rashes. Musculoskeletal: Neck is supple nontender. Extremities symmetrical, full range of motion. Psychiatric: Patient is oriented X 3, there is no agitation. Constitutional: Initial Vital Signs Temperature (C) 36.6 C 09/20/18 07:57 Heart Rate 88 09/20/18 07:57 Respiratory Rate 20 09/20/18 07:57 Blood Pressure 173/103 H 09/20/18 07:57 O2 Sat (%) 98 09/20/18 07:57 O2 Delivery Mode Room Air Allergies/Adverse Reactions: Penicillins Allergy (Severe, Verified 09/05/18 02:44) swells airway haloperidol [From Haldol] Allergy (Mild, Verified 09/05/18 02:44) agitation tramadol Allergy (Mild, Verified 09/05/18 02:44) agitation Home Medications: Medication Instructions Recorded Promethazine HCl [Phenergan 12.5mg 12.5 mg PO TID PRN #20 tablet 07/29/18 tab] Citalopram Hydrobromide [Celexa] 40 mg PO HS 08/29/18 clonazePAM [Klonopin (*)] 0.5 mg PO DAILY PRN 08/29/18 Hyoscyamine Sulfate [Levsin, 0.125 mg PO Q6HRS PRN #30 tab 09/07/18 Hyomax-Sl 0.125 mg (*)] Lipase 24,000/Amylase/Protease 1 cap PO TIDMEAL #90 cap 09/07/18 [Creon 24 (*)] Pantoprazole Sodium [Protonix 40mg 40 mg PO HS 09/20/18 (*)] Medical Decision Making Procedures: IV normal saline. Dilaudid, Phenergan, Ativan IV ED Course/Re-evaluation: Re-evaluation 9:15 a.m. Patient is asking for more pain medication. Patient and I discussed laboratory evaluation, treatment plan including recommendation for admission. She expresses understanding and agreement I consulted discussed case with Dr. Carmona, hospitalist, who agrees to the admission Differential Diagnosis: Chronic and recurrent pancreatitis. Acute on chronic pancreatitis today - Data Points Laboratory Results: Laboratory Results 09/20/18 08:44 09/20/18 08:44 09/20/18 09/20/18 09/20/18 08:44 08:44 08:44 WBC 14.85 10^3/uL H 10^3/uL (3.80-9.50) RBC 4.54 10^6/uL 10^6/uL (4.18-5.33) Hgb 13.5 g/dL g/dL (12.6-16.3) Hct 40.0 % % (38.0-47.0) MCV 88.1 fL fL (81.5-99.8) MCH 29.7 pg pg (27.9-34.1) MCHC 33.8 g/dL g/dL (32.4-36.7) RDW 13.0 % % (11.5-15.2) Plt Count 471 10^3/uL H 10^3/uL (150-400) MPV 8.7 fL fL (8.7-11.7) Neut % (Auto) 82.3 % H % (39.3-74.2) Lymph % (Auto) 10.9 % L % (15.0-45.0) [place] % (Auto) 5.1 % % (4.5-13.0) Eos % (Auto) 0.6 % % (0.6-7.6) Baso % (Auto) 0.6 % % (0.3-1.7) Nucleat RBC Rel Count 0.0 % % (0.0-0.2) Absolute Neuts (auto) 12.22 10^3/uL H 10^3/uL (1.70-6.50) Absolute Lymphs (auto) 1.62 10^3/uL 10^3/uL (1.00-3.00) Absolute Monos (auto) 0.76 10^3/uL 10^3/uL (0.30-0.80) Absolute Eos (auto) 0.09 10^3/uL 10^3/uL (0.03-0.40) Absolute Basos (auto) 0.09 10^3/uL 10^3/uL (0.02-0.10) Absolute Nucleated RBC 0.00 10^3/uL 10^3/uL (0-0.01) Immature Gran % 0.5 % % (0.0-1.1) Immature Gran # 0.07 10^3/uL 10^3/uL (0.00-0.10) Sodium 139 mEq/L mEq/L (135-145) Potassium 3.6 mEq/L mEq/L (3.5-5.2) Chloride 94 mEq/L L mEq/L (97-110) Carbon Dioxide 21 mEq/l L mEq/l (22-31) Anion Gap 24 mEq/L H mEq/L (6-14) BUN 6 mg/dL L mg/dL (7-23) Creatinine 0.6 mg/dL mg/dL (0.6-1.0) Estimated GFR > 60 Glucose 149 mg/dL H mg/dL (70-100) Calcium 9.5 mg/dL mg/dL (8.5-10.4) Total Bilirubin 1.4 mg/dL mg/dL (0.1-1.4) Conjugated Bilirubin 0.0 mg/dL mg/dL (0.0-0.5) Unconjugated Bilirubin 1.4 mg/dL H mg/dL (0.0-1.1) AST 57 IU/L H IU/L (14-46) ALT 52 IU/L IU/L (9-52) Alkaline Phosphatase 85 IU/L IU/L (38-126) Total Protein 7.5 g/dL g/dL (6.3-8.2) Albumin 4.8 g/dL g/dL (3.5-5.0) Lipase 468 IU/L H IU/L (23-300) Beta HCG, Qual NEGATIVE Medications Given: Hydromorphone HCl (Dilaudid) 0.4 - 0.8 mg IVP Q2H PRN; Protocol PRN Reason: Pain, Severe Unable to Take PO Stop: 09/30/18 10:38 Last Admin: 09/20/18 13:50 Dose: 0.8 mg Potassium Chloride/Sodium Chloride (Ns W/ 20 Kcl/L) 1,000 mls @ 150 mls/hr IV CONT NAMRATA Stop: 03/19/19 10:44 Last Admin: 09/20/18 11:44 Dose: 1,000 mls Ondansetron HCl (Zofran) 4 mg IVP Q4HRS PRN PRN Reason: Nausea/Vomiting, Can't Take PO Stop: 03/19/19 10:38 Last Admin: 09/20/18 13:52 Dose: 4 mg Pantoprazole Sodium (Protonix) 40 mg IVP DAILY NAMRATA Stop: 03/19/19 12:59 Last Admin: 09/20/18 13:52 Dose: 40 mg Promethazine HCl (Phenergan) 6.25 - 12.5 mg IVP Q6HRS PRN PRN Reason: Nausea/Vomiting, Use 2nd Stop: 03/19/19 10:38 Last Admin: 09/20/18 11:44 Dose: 12.5 mg Discontinued Medications Hydromorphone HCl (Dilaudid) 1 mg IVP EDNOW ONE Stop: 09/20/18 08:14 Last Admin: 09/20/18 08:43 Dose: 1 mg Hydromorphone HCl (Dilaudid) 1 mg IVP EDNOW ONE Stop: 09/20/18 09:19 Last Admin: 09/20/18 09:21 Dose: 1 mg Sodium Chloride (Ns) 1,000 mls @ 0 mls/hr IV EDNOW ONE; Wide Open PRN Reason: Protocol Stop: 09/20/18 08:14 Last Admin: 09/20/18 08:43 Dose: 1,000 mls Lorazepam (Ativan Injection) 1 mg IVP EDNOW ONE Stop: 09/20/18 08:15 Last Admin: 09/20/18 08:43 Dose: 1 mg Promethazine HCl (Phenergan) 12.5 mg IVP EDNOW ONE Stop: 09/20/18 08:14 Last Admin: 09/20/18 08:43 Dose: 12.5 mg Departure - Departure Disposition: [facility] Acute Clinical Impression: Pancreatitis Qualifiers: Chronicity: acute Pancreatitis type: unspecified pancreatitis type Acute pancreatitis complication: unspecified Qualified Code(s): K85.90 - Acute pancreatitis without necrosis or infection, unspecified Condition: Fair
[2018-09-20] MEDS ORDERED: PROMETHAZINE HCL 25 MG/ML INJ IVP ONE (08:13)
[2018-09-20] MEDS ORDERED: HYDROmorphONE/DILAUDID 2 MG/ML INJ IVP ONE ×2 (08:13→09:18)
[2018-09-20] MEDS ORDERED: NS 1,000 ML IV ONE (08:13)
[2018-09-20] MEDS ORDERED: LORazepam 2 MG/ML INJ IVP ONE (08:14)
[2018-09-20] MEDS ORDERED: PROMETHAZINE HCL 25 MG/ML INJ ONE (08:39)
[2018-09-20 08:53] LABS: PLATELET COUNT 471 10^3/uL (150-400)
[2018-09-20] MEDS ORDERED: ACETAMINOPHEN 325 MG TAB PO PRN (10:39)
[2018-09-20] MEDS ORDERED: ONDANSETRON DISINTEGRATING 4 MG TAB PO PRN (10:39)
[2018-09-20] MEDS: PROMETHAZINE HCL 25 MG/ML INJ IVP PRN ×2 (11:44→18:12)
[2018-09-20] MEDS: NS W/ 20 KCl/L 1,000 ML IV SCH ×2 (11:44→18:20)
[2018-09-20] MEDS: HYDROmorphONE/DILAUDID 1 MG/ML INJ IVP PRN ×6 (11:45→22:51)
[2018-09-20] MEDS ORDERED: hydrALAZINE 25 MG TAB PO PRN (12:35)
[2018-09-20] MEDS ORDERED: clonazePAM 0.5 MG TAB PO PRN (12:50)
[2018-09-20] MEDS ORDERED: HYOSCYAMINE SULFATE 0.125 MG TAB PO PRN (12:50)
[2018-09-20] MEDS: ONDANSETRON 4 MG/2 ML VIAL IVP PRN ×2 (13:52→22:52)
[2018-09-20] MEDS: PANTOPRAZOLE SODIUM 40 MG VIAL IVP SCH (13:52)
--- NOTE | 2018-09-20 14:30 | PDGENHP ---
History and Physical - Chief Complaint epigastric pain - History of Present Illness 33 yo female with h/o cyclic vomiting and frequent ED visits presents to ED with epigastric pain, nausea and vomiting. She was admitted earlier this month with similar symptoms and underwent EGD which showed gastritis and EUS showed some pancreatic changes. Her lipase at that time was nearly 2,000. She denies fevers or diarrhea. She was started on Levsin, PPI and pancreatic enzymes at discharge <2 weeks ago, which she initially thought was helpful. However, today her symptoms recurred. She thinks her symptoms now correlate to her menstrual cycle and she recently saw a MESSAGE AND DELIVERY SERVICE PRICER who ordered a pelvic u/s but she has not done this study yet. Here, she denies pelvic pain and her pain is localized to the epigastrium without radiation. In the ED, she received 2 mg IV Dilaudid and 1 mg IV Ativan. She is admitted for pain control and symptom management. History Information - Allergies/Home Medication List Allergies/Adverse Reactions: Penicillins Allergy (Severe, Verified 09/05/18 02:44) swells airway haloperidol [From Haldol] Allergy (Mild, Verified 09/05/18 02:44) agitation tramadol Allergy (Mild, Verified 09/05/18 02:44) agitation Home Medications: Citalopram Hydrobromide [Celexa] 40 mg PO HS 08/29/18 [Last Taken 09/19/18] clonazePAM [Klonopin (*)] 0.5 mg PO DAILY PRN 08/29/18 [Last Taken 09/04/18] Pantoprazole Sodium [Protonix 40mg (*)] 40 mg PO HS 09/20/18 [Last Taken ] I have personally reviewed and updated: family history, medical history, social history, surgical history - Past Medical History Additional medical history: Cyclic vomiting syndrome/functional abdominal pain, Gilbert's syndrome, h/o ectopic , TBI, idiopathic pancreatitis - Surgical History Additional surgical history: Cholecystectomy, last EGD December 2014 - Family History Additional family history: No family history of immune deficiency disorder, second-degree relative with breast cancer, biliary disease; grandmother (92yo) recently diagnosed with pancreatic cancer - Social History Smoking Status: Former smoker Drug Use: Marijuana Additional social history: Lives with carlos, works for [email or web address] Review of Systems Review of Systems: ROS: 10pt was reviewed & negative except for what was stated in HPI & below Physical Exam Physical Exam: Temp Pulse Resp BP Pulse Ox 36.9 C 68 19 162/114 H 98 09/20/18 10:55 09/20/18 10:55 09/20/18 10:55 09/20/18 10:55 09/20/18 10:55 Constitutional: no apparent distress Eyes: PERRL Ears, Nose, Mouth, Throat: moist mucous membranes Cardiovascular: regular rate and rhythym, no murmur, rub, or gallop Respiratory: no respiratory distress, clear to auscultation Gastrointestinal: other (soft, nd, +extreme pain with minimal touching of her skin of the epigastrium, far out of proportion to exam, which is benign. ) Skin: warm Musculoskeletal: full muscle strength Neurologic: AAOx3 Psychiatric: interacting appropriately Lab Data & Imaging Review 09/20/18 08:44 09/20/18 08:44 WBC 14.85 10^3/uL (3.80-9.50) H 09/20/18 08:44 RBC 4.54 10^6/uL (4.18-5.33) 09/20/18 08:44 Hgb 13.5 g/dL (12.6-16.3) 09/20/18 08:44 Hct 40.0 % (38.0-47.0) 09/20/18 08:44 MCV 88.1 fL (81.5-99.8) 09/20/18 08:44 MCH 29.7 pg (27.9-34.1) 09/20/18 08:44 MCHC 33.8 g/dL (32.4-36.7) 09/20/18 08:44 RDW 13.0 % (11.5-15.2) 09/20/18 08:44 Plt Count 471 10^3/uL (150-400) H 09/20/18 08:44 MPV 8.7 fL (8.7-11.7) 09/20/18 08:44 Neut % (Auto) 82.3 % (39.3-74.2) H 09/20/18 08:44 Lymph % (Auto) 10.9 % (15.0-45.0) L 09/20/18 08:44 [place] % (Auto) 5.1 % (4.5-13.0) 09/20/18 08:44 Eos % (Auto) 0.6 % (0.6-7.6) 09/20/18 08:44 Baso % (Auto) 0.6 % (0.3-1.7) 09/20/18 08:44 Nucleat RBC Rel Count 0.0 % (0.0-0.2) 09/20/18 08:44 Absolute Neuts (auto) 12.22 10^3/uL (1.70-6.50) H 09/20/18 08:44 Absolute Lymphs (auto) 1.62 10^3/uL (1.00-3.00) 09/20/18 08:44 Absolute Monos (auto) 0.76 10^3/uL (0.30-0.80) 09/20/18 08:44 Absolute Eos (auto) 0.09 10^3/uL (0.03-0.40) 09/20/18 08:44 Absolute Basos (auto) 0.09 10^3/uL (0.02-0.10) 09/20/18 08:44 Absolute Nucleated RBC 0.00 10^3/uL (0-0.01) 09/20/18 08:44 Immature Gran % 0.5 % (0.0-1.1) 09/20/18 08:44 Immature Gran # 0.07 10^3/uL (0.00-0.10) 09/20/18 08:44 Sodium 139 mEq/L (135-145) 09/20/18 08:44 Potassium 3.6 mEq/L (3.5-5.2) 09/20/18 08:44 Chloride 94 mEq/L (97-110) L 09/20/18 08:44 Carbon Dioxide 21 mEq/l (22-31) L 09/20/18 08:44 Anion Gap 24 mEq/L (6-14) H 09/20/18 08:44 BUN 6 mg/dL (7-23) L 09/20/18 08:44 Creatinine 0.6 mg/dL (0.6-1.0) 09/20/18 08:44 Estimated GFR > 60 09/20/18 08:44 Glucose 149 mg/dL (70-100) H 09/20/18 08:44 Calcium 9.5 mg/dL (8.5-10.4) 09/20/18 08:44 Total Bilirubin 1.4 mg/dL (0.1-1.4) 09/20/18 08:44 Conjugated Bilirubin 0.0 mg/dL (0.0-0.5) 09/20/18 08:44 Unconjugated Bilirubin 1.4 mg/dL (0.0-1.1) H 09/20/18 08:44 AST 57 IU/L (14-46) H 09/20/18 08:44 ALT 52 IU/L (9-52) 09/20/18 08:44 Alkaline Phosphatase 85 IU/L (38-126) 09/20/18 08:44 Total Protein 7.5 g/dL (6.3-8.2) 09/20/18 08:44 Albumin 4.8 g/dL (3.5-5.0) 09/20/18 08:44 Lipase 468 IU/L (23-300) H 09/20/18 08:44 Beta HCG, Qual NEGATIVE 09/20/18 08:44 Assessment & Plan Assessment: Epigastric pain - EGD earlier this month showed mild gastritis, neg H pylori. Lipase today just minimally elevated and no e/o pancreatitis on recent CT. EUS from last admission reviewed, which showed lobularity without honeycombing, normal CBD. Also previously worked up for porphyria, which was negative. -will keep NPO for bowel rest, IVF's, pain control -cont PPI, will give IV for now -cont pancreatic enzymes, Levsin -defer imaging for now given benign exam and recent CT unrevealing N/V - suspect cyclic vomiting. Pt says she quit THC use, note last level >800. -supportive care, anti-emetics, IVF's -check drug screen AGMA - suspect starvation ketosis given poor oral intake in setting of N/V and pain -follow with IVF's Full code Dispo - obs
[2018-09-20] MEDS: KETOROLAC 15 MG/1 ML SDV IVP PRN (16:07)
[2018-09-20] MEDS: SUCRALFATE 1 GM/10 ML UDCUP PO SCH ×2 (17:45→20:49)
[2018-09-20] MEDS: LIPASE 24,000/AMYLASE/PROTEASE (CREON) 1 CAP PO SCH (18:41)
[2018-09-20] MEDS: hydrALAZINE 20 MG/ML VIAL IVP PRN (20:34)
[2018-09-20] MEDS: CITALOPRAM 20 MG TAB PO SCH (20:49)
[2018-09-21] MEDS: KETOROLAC 15 MG/1 ML SDV IVP PRN ×4 (00:45→23:19)
[2018-09-21] MEDS: NS W/ 20 KCl/L 1,000 ML IV SCH ×2 (01:04→16:39)
[2018-09-21] MEDS: PROMETHAZINE HCL 25 MG/ML INJ IVP PRN ×3 (01:04→17:50)
[2018-09-21] MEDS: HYDROmorphONE/DILAUDID 1 MG/ML INJ IVP PRN ×7 (01:15→23:57)
[2018-09-21 05:27] LABS: PLATELET COUNT 425 10^3/uL (150-400)
[2018-09-21] MEDS: ONDANSETRON 4 MG/2 ML VIAL IVP PRN ×3 (07:45→21:41)
[2018-09-21] MEDS: SUCRALFATE 1 GM/10 ML UDCUP PO SCH ×4 (08:20→21:42)
[2018-09-21] MEDS: LIPASE 24,000/AMYLASE/PROTEASE (CREON) 1 CAP PO SCH ×3 (08:20→17:32)
[2018-09-21] MEDS ORDERED: HYOSCYAMINE SULFATE 0.125 MG TAB PO ONE (08:25)
[2018-09-21] MEDS ORDERED: LIDOCAINE 2% VISCOUS 15 ML UDCUP PO ONE (08:25)
[2018-09-21] MEDS ORDERED: MAG HYDROX/AL HYDROX/SIMETH 30 ML UDCUP PO ONE (08:25)
--- NOTE | 2018-09-21 08:38 | HOSPPROG ---
Hospitalist Progress Note Assessment/Plan: Epigastric pain - EGD earlier this month showed mild gastritis, neg H pylori. Lipase now normal. EUS from last admission reviewed, which showed lobularity without honeycombing, normal CBD. Also previously worked up for porphyria, which was negative. -trial clears as tolerated -cont PPI -cont pancreatic enzymes, Levsin -defer imaging for now given benign exam and recent CT unrevealing -discussed decreasing IV dilaudid to 0.4 mg q4h and change to po meds when able to take po N/V - suspect cyclic vomiting. Pt says she quit THC use, but continues to have level >800. -supportive care, anti-emetics, IVF's -urged cessation of THC AGMA - suspect starvation ketosis given poor oral intake in setting of N/V and pain, improved today Full code Dispo - change to inpt for ongoing pain control Subjective: Pt continues to c/o pain 12/09. Some vomiting this am. No appetite. No fevers/chills. No BM yet today. Not taking po. good uop. Using 0.8 mg IV dilaudid q2h overnight. Objective: Vital Signs Temp Pulse Resp BP Pulse Ox 37.1 C 84 18 151/95 H 97 09/21/18 07:23 09/21/18 07:23 09/21/18 07:23 09/21/18 07:23 09/21/18 07:23 Laboratory Results 09/21/18 04:20 09/21/18 04:20 09/20/18 09/21/18 09/22/18 05:59 05:59 05:59 Intake Total 2757 Output Total 300 Balance 2457 - Physical Exam Constitutional: no apparent distress Eyes: PERRL Ears, Nose, Mouth, Throat: moist mucous membranes Cardiovascular: regular rate and rhythym Respiratory: no respiratory distress, clear to auscultation Gastrointestinal: normoactive bowel sounds, other (soft, nd, pain out of proportion to exam, exam is benign) Skin: warm Musculoskeletal: full muscle strength Neurologic: AAOx3 Psychiatric: interacting appropriately ICD10 Worksheet Patient Problems: Problems Problem Status Onset Pancreatitis Acute Hyperglycemia Active Hypokalemia Active Leukocytosis Active Abdominal pain Acute Anxiety Acute Cellulitis Acute Cellulitis of left hand Acute Cyclic vomiting syndrome Acute Dog bite of arm Acute Dog bite of left hand Acute Intractable abdominal pain Acute Intractable vomiting Acute Vomiting Acute
[2018-09-21] MEDS: PANTOPRAZOLE SODIUM 40 MG VIAL IVP SCH (09:01)
--- NOTE | 2018-09-21 12:06 | PDMN ---
Medical Necessity Medical necessity: MCG M370 vomiting- A-1 day: epigastric pain with persistent vomiting after obs. period, suspect cyclic vomiting , also with epigastric pain, status changed to INPT 09/21 for ongoing med nec. further monitoring and tx of vomiting, pain, > 2 MN IV pain, IV antiemetics, IV protonix, IVF,
--- NOTE | 2018-09-21 12:53 | ASMTCASEMG ---
Living Arrangements What is your living Answers: With Partner arrangement? Who do you live with? Type Of Residence What kind of residence do Answers: Condo/Townhouse you live in? Case Management Evaluation Functional: Able to Answers: Yes return Home with Prior Level of Function/Care Discharge Plan Comments Coordination Status Comments Notes: CM was admitted yesterday through ED with pancreatitis. This has been a recurrent problem for her recently, with admissions for the same on August 30, September 02, and September 06. Pt lives at home with her fiance Ike Rubalcava. She is independent in her ADLs and does not anticipate needing any help upon discharge. No therapies have been ordered. Her PCP is Jeny Bentley. CM will be available if needs change. CM D/C plan: TBD, likely independent to home Date Signed: 09/21/2018 12:52 PM Electronically Signed By:Carla Carney
[2018-09-21] MEDS ORDERED: LORazepam 2 MG/ML INJ IVP PRN (19:57)
[2018-09-21] MEDS: hydrALAZINE 20 MG/ML VIAL IVP PRN (20:15)
[2018-09-21] MEDS: CITALOPRAM 20 MG TAB PO SCH (21:41)
[2018-09-21] MEDS ORDERED: LORazepam 2 MG/ML INJ IVP ONE (23:41)
--- NOTE | 2018-09-21 23:57 | HOSPPROG ---
Hospitalist Progress Note Assessment/Plan: XC: Notified by RN of patient complaints of uncontrolled pain. The patient tells me her pain has been wildly out of control since 4:30 PM. Her Dilaudid IV was decreased from 0.8 q2h to 0.4 q4h this morning. The patient's exam is overall reassuring. Her abdomen is soft although she complains of extreme pain even with light touch. Pain is less pronounced when examined with distraction. I reviewed her vital signs and laboratory work-up, all of which are reassuring. I will slightly increase the frequency of her PRN medication to q3h. I have discussed with the patient that I do not feel a further increase in her opiates will be of particular use to treat the underlying pathology. In fact, I believe opiates are likely making these pain crises more difficult to treat as opiate tolerance and dependency are adding an additional layer of complexity to her treatment. I will continue non-narcotic pain medications as an adjunct as well ( APAP, hyoscyamine, Toradol, sucralfate). If abdominal exam changes, will consider imaging or repeat laboratory work-up. Objective: Vital Signs Temp Pulse Resp BP Pulse Ox 37.5 C 79 18 148/89 H 99 09/21/18 23:04 09/21/18 23:04 09/21/18 23:04 09/21/18 23:04 09/21/18 23:04 09/20/18 09/21/18 09/22/18 05:59 05:59 05:59 Intake Total 3218 Balance 3218 ICD10 Worksheet Patient Problems: Problems Problem Status Onset Hyperglycemia Active Leukocytosis Active Hypokalemia Active Pancreatitis Acute Cellulitis Acute Dog bite of arm Acute Dog bite of left hand Acute Cellulitis of left hand Acute Cyclic vomiting syndrome Acute Intractable abdominal pain Acute Intractable vomiting Acute Abdominal pain Acute Anxiety Acute Vomiting Acute
[2018-09-22] MEDS: NS W/ 20 KCl/L 1,000 ML IV SCH ×2 (00:04→10:16)
[2018-09-22] MEDS: PROMETHAZINE HCL 25 MG/ML INJ IVP PRN ×2 (03:00→15:22)
[2018-09-22] MEDS: HYDROmorphONE/DILAUDID 1 MG/ML INJ IVP PRN ×6 (03:01→21:03)
[2018-09-22] MEDS ORDERED: LIDOCAINE 2% VISCOUS 15 ML UDCUP PO ONE ×2 (04:27→08:48)
[2018-09-22] MEDS ORDERED: MAG HYDROX/AL HYDROX/SIMETH 30 ML UDCUP PO ONE ×2 (04:27→08:48)
[2018-09-22] MEDS ORDERED: HYOSCYAMINE SULFATE 0.125 MG TAB PO ONE ×2 (04:27→08:48)
[2018-09-22 04:48] LABS: PLATELET COUNT 378 10^3/uL (150-400)
[2018-09-22] MEDS: KETOROLAC 15 MG/1 ML SDV IVP PRN ×2 (07:32→13:41)
[2018-09-22] MEDS: SUCRALFATE 1 GM/10 ML UDCUP PO SCH ×4 (07:33→21:01)
[2018-09-22] MEDS: PANTOPRAZOLE SODIUM 40 MG TAB PO SCH (09:24)
[2018-09-22] MEDS: LIPASE 24,000/AMYLASE/PROTEASE (CREON) 1 CAP PO SCH ×3 (09:25→18:41)
[2018-09-22] MEDS ORDERED: hydrOXYzine HCL 25 MG TAB PO PRN (09:46)
--- NOTE | 2018-09-22 11:39 | HOSPPROG ---
Hospitalist Progress Note Assessment/Plan: Epigastric pain with N/V - No vomiting here. There has been suspicion for cannabis hyperemesis and cyclic vomiting syndrome per chart review. Per recent GI note, there is likely functional component to her pain. There has also been a documented history of chronic pancreatitis. EGD earlier this month showed mild gastritis, neg H pylori. EUS from last admission reviewed, which showed pancreatic parenchymal changes, lobularity without honeycombing, normal CBD. Also previously worked up for porphyria, which was negative. Lipase now normal (was mildly elevated at 468 on arrival). Exam has been benign, pain out of proportion to exam. -clears as tolerated -cont PPI -cont pancreatic enzymes, Levsin -defer imaging for now given benign exam and recent CT unrevealing -discussed that I do not think ongoing high dose opioids are an appropriate treatment plan due to the risk of hyperalgesia and meterman issues with opioid dependence -GI is reconsulted for their opinion abt her pain and management options Opioid dependence - Reviewed PDMP. She has received 12 scheduled substance Rx' s from various providers at [facility] since 05/2018. Yesterday, we discussed decreasing her IV dilaudid to 0.4 mg q4h to which she was agreeable. Today, she called her own stat team with family members in the room and pt and her father proceeded to curse and scream at me demanding higher IV dilaudid doses. I listened to her for several minutes, but after she continued to escalate, scream and curse, I politely excused myself and noting I would not tolerate that behavior. It seems to me she has poor coping mechanisms and is relying on opiates as a coping method, which I believe is not in her best interest going forward. -she continues to have IV dilaudid 0.4 mg IV q4h available on her JUN, though I've recommended we continue to wean this -offered integrative care consult, acupuncture consult, IV toradol, tylenol, heating pad and other non-opioid approaches to her pain -could also try TCA Marijuana dependence - pt adamantly denies cannabis hyperemesis and says she has not use marijuana for >3 weeks, but tox screen shows level >800 c/w ongoing use -encouraged cessation AGMA - suspect starvation ketosis given poor oral intake in setting of N/V and pain, improved today Full code Dispo - cont inpt, though I offered to discharge her as I do not think she needs ongoing inpatient care. Pt has requested 2nd opinion from a different hospitalist and we will oblige. Dr. Siegel will also see the patient today. Subjective: Pt called her own STAT team, wanted more IV Dilaudid than what was ordered. She was angry, distraught and emotionally out of control when I arrived. Her father was at the bedside and shared her anger. Objective: Vital Signs Temp Pulse Resp BP Pulse Ox 37.2 C 81 18 151/113 H 100 09/22/18 07:25 09/22/18 07:25 09/22/18 07:25 09/22/18 07:25 09/22/18 07:25 Laboratory Results 09/22/18 04:33 09/21/18 09/22/18 09/23/18 05:59 05:59 05:59 Intake Total 5018 Balance 5018 ICD10 Worksheet Patient Problems: Problems Problem Status Onset Pancreatitis Acute Hyperglycemia Active Hypokalemia Active Leukocytosis Active Abdominal pain Acute Anxiety Acute Cellulitis Acute Cellulitis of left hand Acute Cyclic vomiting syndrome Acute Dog bite of arm Acute Dog bite of left hand Acute Intractable abdominal pain Acute Intractable vomiting Acute Vomiting Acute
--- NOTE | 2018-09-22 14:31 | SOAPPROG ---
SOAP Progress Note Assessment/Plan: Assessment:Plan: see full dictated consult to follow 33 y/o female with recurrent n/v - unclear if cyclical vomiting or not still ingesting marijuana - PO intake not smoking 09/22/18 14:25 Objective: Vital Signs Temp Pulse Resp BP Pulse Ox 37.4 C 74 18 153/110 H 98 09/22/18 11:47 09/22/18 11:47 09/22/18 11:47 09/22/18 11:47 09/22/18 11:47 Laboratory Results 09/22/18 04:33 09/21/18 09/22/18 09/23/18 05:59 05:59 05:59 Intake Total 5018 Balance 5018 ICD10 Worksheet Patient Problems: Problems Problem Status Onset Pancreatitis Acute Hyperglycemia Active Hypokalemia Active Leukocytosis Active Abdominal pain Acute Anxiety Acute Cellulitis Acute Cellulitis of left hand Acute Cyclic vomiting syndrome Acute Dog bite of arm Acute Dog bite of left hand Acute Intractable abdominal pain Acute Intractable vomiting Acute Vomiting Acute
--- NOTE | 2018-09-22 15:19 | ASMTCMCOM ---
CM Note CM Note Notes: CM met with pt and . Pt reports that she does not need support making an appt with her PCP. Pt met with Babs Alexandre. Pt lives with her fiance Ike Rubalcava. At this time, CM is available if needs arise. Plan: Independent Date Signed: 09/22/2018 03:18 PM Electronically Signed By:Deborah Valdez
--- NOTE | 2018-09-22 16:13 | GCON ---
[f rep st] CONSULTATION DATE OF CONSULTATION: 09/22/2018 REFERRING PHYSICIAN: Polina Main MD REASON FOR CONSULTATION: Nausea, vomiting, abdominal pain. HPI: I have been asked by Dr. Main to see the patient in consultation for chief complaint of nausea, vomiting, abdominal pain. She has been seen by our practice dating back to 2008, for similar issues. She has had elevated lipase along with abdominal pain, nausea, vomiting, as well as possible IBS syndrome. 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 She has had intermittent symptoms for many years. She has been admitted to [facility] multiple times as well as [facility] for the similar issues. She says that she stopped smoking marijuana for 2 years and had no change in symptoms, but I have no documentation of that. She has had positive urine tox on numerous occasions for marijuana, at different times benzodiazepines, narcotics, and barbiturates. I do not know if the medications were prescribed or not. She states her episodes usually occur early in the morning and when she starts vomiting bile if it continues, she needs to come in for evaluation. She believes her most recent episodes have occurred with her menstrual cycle, although in the past they have occurred with stressful events. She has had endoscopic ultrasound, EGD recently with my partner, Dr. Tapia, which showed some changes of pancreatic parenchyma, but do not meet the exact criteria for chronic pancreatitis. She states she used to drink alcohol in high school on weekends, but stopped that years ago when these issues started. She says she is currently ingesting marijuana by mouth and not smoking it. Imaging studies have not been revealing and have not shown changes of pancreatitis. She has had elevated lipase values, which may be related just to her nausea and vomiting, and not a pancreatitis. She is currently unhappy with her medication regimen and is asking for more narcotics at the present time for her pain. I am now here to help and evaluate for possible cyclical vomiting syndrome versus cannabis hyperemesis. PAST MEDICAL HISTORY: Nausea, vomiting, abdominal pain as above, possible cyclical vomiting syndrome versus cannabis hyperemesis. 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 PAST SURGICAL HISTORY: Cholecystectomy, EGD, EUS. FAMILY HISTORY: The grandmother of pancreatic cancer at age 91. Her cousin has CF, but her mother is not a carrier. Her mom has Kaiden thyroid disease. MEDICATIONS: At home include Celexa, pantoprazole, clonazepam, Creon, Levsin, promethazine and Phenergan suppositories. Medications in hospital include Tylenol p.r.n., Creon 1 cap p.o. with meals, Celexa 40 mg q.h.s., Klonopin 0.5 mg p.o. daily p.r.n. anxiety, Apresoline 10 mg IV q.6, Dilaudid 0.5 mg IVP q.4 p.r.n., hydroxyzine 25 mg p.o. q.6 p.r.n., Levsin 0.125 mg q.6 p.r.n., Toradol 50 mg IVP q.6 p.r.n., Zofran 4 mg IV q.4 p.r.n., Protonix 40 mg daily, Phenergan p.r.n., sucralfate 1 g p.o. q.h.s. ALLERGIES: Penicillin causes hives and airway swelling. Haldol causes agitation. Tramadol causes agitation. SOCIAL HISTORY: She says she does not drink alcohol since she is 24. She is given alternating responses to her marijuana usage. She tells me that she does not smoke marijuana anymore, but continues to ingest a couple times a week, although her tox screen is markedly positive, so I think she ingests more than she is telling us. REVIEW OF SYSTEMS: A complete review of systems performed and negative other than in the HPI. PHYSICAL EXAM: GENERAL: Well-developed, overweight female sitting in her bed. Emotional. and father in the room. VITAL SIGNS: Blood pressure is 153/110, heart rate is 74, respirations 18, 98% on room air, temperature 37.4. EYES: Anicteric. PERRL, EOMI. Mouth: No lesions. Moist membranes. NECK: Supple. Full range of motion. No JVD. BACK: No spine tenderness. No CVA tenderness. LUNGS: Clear. CARDIAC: S1, S2. Regular rate and rhythm. No murmurs, rubs or gallops appreciated. ABDOMEN: She complains of significant pain when you put your stethoscope on her belly, but you can talk to her and press somewhat more deeply on her belly, but she complains of diffuse pain. She has no significant guarding and no rebound. EXTREMITIES: No cyanosis, clubbing, or edema. NEUROLOGIC: Cranial nerves intact. Nonfocal. SKIN: No stigmata of advanced liver disease. No rashes. LABORATORY DATA: From today, sodium 138, potassium 3.9, chloride 109, bicarb 19 , BUN 6, creatinine 0.6, glucose 97, calcium 8.8. From yesterday 09/20, bilirubin 1.4, unconjugated 1.4. AST mildly elevated at 57, ALT 52, alkaline phosphatase 85, total protein 7.5, albumin 4.8. Lipase mildly elevated at 468, and then from today lipase is 86. Beta HCG is negative. Toxicology from yesterday 09/20, shows that she has an opiate level of 573. She is negative for barbiturates, phencyclidine, amphetamines, and benzodiazepines and cocaine. Her marijuana THC is above 800. I can see a number of historical tox screens from August 22, 2016, that shows positive benzodiazepines, cannabis and opiates. On March 01, 2016, she was positive for cannabis and opiates. Historical lab data from January 17, 2009, catecholamines, 24-hour urine dopamine was 202 which is normal. Norepinephrine is less than 10, epinephrine is less than 3. 5-HIAA testing from December 2008, was 3 which is normal. Also, from the same day urine porphyrins was 0, heptacarboxylporphyrin was 0, and coproporphyrin was 5. Gastric emptying study from January 16, 2009, was 82 minutes; was actually abnormal, with normal at that point being 60 minutes. Urine test from January 25, 2013, was positive for cannabis. February 01, 2013 , was positive for barbiturates, cannabis and opiates. IMAGING: Abdominal CT scan performed August 30, 2018, with IV but no oral contrast , showed gallbladder surgically absent, pancreas and spleen are normal, bile ducts are normal, mild hepatomegaly and diffuse fatty infiltration of the liver was noted. Abdominal MRI MRCP from April 20, 2018, common bile duct is normal in size. There was no mass or filling defects found. The pancreatic duct is also normal in caliber and appearance. An EGD, EUS performed September 06, 2018, by Dr. Tapia, revealed hiatal hernia, erythematous gastric mucosa, normal duodenum. Pancreatic parenchymal abnormalities consisting of lobularity was noted in the entire pancreas as well as hyperechoic strands and had a branched endosonographic appearance and hyperechoic ovalles. There was no evidence of pathology in the common bile duct or the liver. These are only 3 minor criteria and do not make the diagnosis of chronic pancreatitis, in conjunction with a CT scan that showed no stranding or abnormalities. HIDA scan from December 10, 2008, was reportedly unremarkable. I cannot view the study. This was from the consultation report. Pathology from Dr. Tapia's procedure September 06, 2018, showed minimal superficial chronic inactive gastritis negative for H pylori, and duodenum was unremarkable. ASSESSMENT: 1. Abdominal pain, out of proportion to my exam. 2. Nausea, vomiting, although none recently. 3. Long history of cannabis use. 4. Concern for drug-seeking behavior has been noted before and at different hospitals including notes from [facility]. RECOMMENDATION: 1. Treatment with antinausea as per hospitalist. 2. Aggressive IV hydration. 3. Recommend that she abstain from cannabis for a number of months. The diagnosis of cannabis hyperemesis is still present until she has had negative tox screens for a few months with continued symptoms. 4. I do agree with trying to limit pain medications as they are not a common necessity in patient's with cyclical vomiting syndrome, but certainly are present in some patients. 5. As an outpatient, can repeat gastric emptying study. She needs to be off any pain medications or any medications that slow down gastric emptying. 6. Consider adding ranitidine 300 mg p.o. at bedtime. 7. If cyclical vomiting syndrome is found to be correct, then restarting amitriptyline may be appropriate. This was changed to Celexa recently. 8. Further plans as per hospitalists. /[id number]/MODL MTDD
[2018-09-22] MEDS ORDERED: LORazepam 2 MG/ML INJ IVP ONE (17:22)
[2018-09-22] MEDS ORDERED: NS 1,000 ML IV ONE (17:28)
[2018-09-22] MEDS: ONDANSETRON 4 MG/2 ML VIAL IVP SCH (18:01)
--- NOTE | 2018-09-22 18:11 | HOSPPROG ---
Hospitalist Progress Note Assessment/Plan: I have been asked to visit and assess and care for this patient who requested that she not be seen further by Dr. Main during this hospital stay. The patient had a severe outburst which included both the patient and her father and jesus yelling incessantly at Dr. Main as well as nursing staff earlier today. Dr. Main left the room after informing them that she would not tolerate this type of interaction from them. DIAGNOSES: * Acute exacerbation of Cyclic Vomiting Syndrome with presence of marijuana use * Severe Acute anxiety with chronic anxiety disorder * Hx of traumatic brain injury * Hx of ectopic * I do not think she has actually had significant pancreatitis after review of her clinical history and multiple prior hospital records including my personal review of her Abdominal CT, MRI and US images, and review of her recent endoscopic US with Dr Doherty and Dr Tapia. Rather I think she likely gets some mild pancreatic irritation at times cause by her functional syndrome and dehydration associated with it. I have reviewed her medical records here with multiple past admissions and also reviewed her abdominal imaging studies. I have reviewed her chronic and acute current syndrome in detail today with Dr Doherty and Dr Main She has a clinic syndrome that exactly fits what I would expect for someone with cyclic vomiting syndrome and/or marijuana hyperemesis syndrome. She has had numerous hospitalizations here as well as other local hospitals over the years. The symptoms have been quite consistent and the lack of findings of organ injury or inflammation have been quite consistent as well. She has a remarkable amount of chronic anxiety, traumatic brain injury, ongoing use of marijuana, disordered sleep, and other factors that would be expected to perpetuate her syndrome. During a recent hospital stay lipase blood tests were elevated. There are many potential causes of an elevated lipase in this situation. I reviewed the CT scan done at the beginning of this month while this was going on and her pancreas shows absolutely no signs of either acute or chronic pancreatitis on that study which is a high quality set of images. She also had an MRI of the abdomen in April at which time the pancreas appeared normal with no acute or chronic changes. In endoscopic ultrasound was done earlier this month and showed some very subtle abnormalities which in total do not really at up to a score of 3 minor criteria for chronic pancreatitis and there were no major criteria identified. (I reviewed this with Dr. Doherty and Dr. Tapia). Typical of patients with her syndrome, when she does have an episode at home, she will wait as many as 3 or 4 days or more until she is in severe pain, severely anxious, and quite dehydrated before coming to the ER. By the time she gets to the hospital is very difficult to get her symptoms to respond. The patient here in this hospital stay as well as during some previous hospital stays, has had some very significantly maladaptive behaviors around requesting pain medication. This has led to significant interactional difficulties for her with nursing and physician staff. These scenarios then feel more anxiety which aggravates her nausea and pain problems. I had a very long discussion with the patient and her family at the bedside including her father and fiancee. We discussed that this is a mind body type syndrome that is very complex in its physiology and that we need to approach this syndrome from multiple standpoints. This will include treating her anxiety aggressively, treating her dehydration aggressively, and treating her nausea very aggressively. I believe that if we do these things successfully her pain will be much easier to manage without using nearly as much pain medicine. At this time there mostly able to hear this and agree with that. As far as pain medicines, her pain medicine had been decreased quite significantly yesterday. She was extremely upset about this and is quite upset that she has not gotten increases in her pain medicine dosing here. At the moment my tendency would be to not increase her pain medicine. I think it would be inappropriate to get back to the 0.8 mg Dilaudid q.2 hours that she was getting yesterday. However she is so anxious and has had such severely maladaptive interactions with staff here, that at the moment a very minimal increase in dose from 0.4 to 0.5 Dilaudid may at least make her think that we are listening to her so that she will work better with us. At the same time I think planning to continue decreasing the dose of her pain medicines fairly rapidly is in order, including possibly further decreases overnight or early tomorrow morning depending on how we are progressing. I did review with the family and the patient that all of the nursing and physician staff here want to treat her symptoms and make them better but there are dangers to narcotics and we did review some of those dangers, and that we will continue to always practice what we feel is safe medicine for her. PLANS FOR TONIGHT: * give another L of IV saline and continue IV hydration continuous * high dose scheduled phenergan and zofran, both q 6 hrs alternating so she gets med q 3 hrs * Ativan, initally a 1 mg dose and see how she responds to that, and decide on a schedule and dosing of ativan for the next 24-48 hrs * will give a small increase in dilaudid dose now, and follow response, with plan to then continue weaning down dose of dilaudid hopefully quickly over next day or two * I agree that she needs to stop using marijuana (she now says she has been taking edible, after initiallly stating she "stopped smoking" it without mentioning edible.) It will take quite a while for her current body content of marijuana to be eliminated * strongly recommended to her and family that she not wait until she is in such dire straights before coming to ER. * strongly recommended continued work with CBT in the outpatient setting * strongly recommend she have a psychiatrist be advising her on medicines for anxiety/mood stabilization * Strongly recommended that in the future she not wait at home until she has severe symptoms before coming for acute help, making better use of urgent care and ER settings to get hydrated and IV nausea medicines and anxiety medicines. Greater than 45 min spent at the bedside by me today in addition to time spent reviewing her charts and reviewing with her other practicing physician, nursing staff, and administrators here. SUBJECTIVE: Patient continues to have severe pain nausea and anxiety at this time as I am visiting her OBJECTIVE Vitals reviewed: Some hypertension otherwise normal without fever Exam: alert oriented quite anxious, cannot hold still, does look somewhat uncomfortable but more from anxiety than pain to me skin warm dry color ok no jaundice, no rash resps not labored abd soft nondistended nontender, bowel sounds present limbs warm, no edema iv site ok Laboratory data: White blood cell count remains elevated at 15,000 thousand otherwise stable CBC Objective: Vital Signs Temp Pulse Resp BP Pulse Ox 37.4 C 73 18 167/105 H 98 09/22/18 11:47 09/22/18 16:00 09/22/18 16:00 09/22/18 16:00 09/22/18 11:47 Laboratory Results 09/22/18 04:33 09/21/18 09/22/18 09/23/18 06:59 06:59 06:59 Intake Total 5018 Balance 5018 ICD10 Worksheet Patient Problems: Problems Problem Status Onset Pancreatitis Acute Hyperglycemia Active Hypokalemia Active Leukocytosis Active Abdominal pain Acute Anxiety Acute Cellulitis Acute Cellulitis of left hand Acute Cyclic vomiting syndrome Acute Dog bite of arm Acute Dog bite of left hand Acute Intractable abdominal pain Acute Intractable vomiting Acute Vomiting Acute
[2018-09-22] MEDS ORDERED: LORazepam 2 MG/ML INJ IVP PRN (18:29)
[2018-09-22] MEDS: CAPSACIAN 0.075% CREAM TP SCH ×2 (19:16→21:10)
[2018-09-22] MEDS: PROMETHAZINE HCL 25 MG/ML INJ IVP SCH (21:02)
[2018-09-22] MEDS: LORazepam 2 MG/ML INJ IVP SCH (21:02)
[2018-09-22] MEDS: CITALOPRAM 20 MG TAB PO SCH (21:02)
[2018-09-23] MEDS: ONDANSETRON 4 MG/2 ML VIAL IVP SCH ×5 (00:06→23:14)
[2018-09-23] MEDS: HYDROmorphONE/DILAUDID 1 MG/ML INJ IVP PRN ×7 (00:06→21:22)
[2018-09-23] MEDS: LORazepam 2 MG/ML INJ IVP SCH ×5 (02:36→21:22)
[2018-09-23] MEDS: PROMETHAZINE HCL 25 MG/ML INJ IVP SCH ×3 (02:36→17:22)
[2018-09-23] MEDS: KETOROLAC 15 MG/1 ML SDV IVP PRN (05:42)
[2018-09-23] MEDS: SUCRALFATE 1 GM/10 ML UDCUP PO SCH ×4 (09:21→21:22)
[2018-09-23] MEDS: PANTOPRAZOLE SODIUM 40 MG TAB PO SCH (09:21)
[2018-09-23] MEDS: LIPASE 24,000/AMYLASE/PROTEASE (CREON) 1 CAP PO SCH ×3 (10:05→18:14)
[2018-09-23] MEDS: CAPSACIAN 0.075% CREAM TP SCH ×3 (10:05→21:23)
[2018-09-23] MEDS ORDERED: PROMETHAZINE HCL 25 MG/ML INJ IVP SCH (11:30)
--- NOTE | 2018-09-23 11:35 | HOSPPROG ---
Hospitalist Progress Note Assessment/Plan: * Acute exacerbation of Cyclic Vomiting Syndrome with presence of marijuana use * She has had numerous hospitalizations here as well as other local hospitals over the years. The symptoms have been quite consistent and the lack of findings of organ injury or inflammation have been quite consistent as well. She has a remarkable amount of chronic anxiety, traumatic brain injury, ongoing use of marijuana, disordered sleep, and other factors that would be expected to perpetuate her syndrome. * Severe Acute anxiety with chronic anxiety disorder * Hx of traumatic brain injury * Hx of ectopic * ?chronic Pancreatitis: No e/o of this at this time. Negative recent Abdominal CT, MRI and US images, and recent endoscopic US with Dr Tapia. She likely gets some mild pancreatic irritation at times cause by her functional syndrome and dehydration associated with it. * Possible Pain Medication seeking behavior. She uses narcotic pain meds and benzo's to "reset" PLANS * cont IVF * Decrease Dilaudid to 0.5mg IV q 4hrs prn. IF here tomorrow, would decrease further to q6 hrs. She is in agreement with this. * Decrease scheduled Phenergan to q8hrs * Cont scheduled Zofran at current dose. * Decrease Ativan scheduled dose to Q6hrs. * Schedule Bentyll * stop using marijuana (she now says she has been taking edible, after initiallly stating she "stopped smoking" it without mentioning edible.) It will take quite a while for her current body content of marijuana to be eliminated * strongly recommended continued work with CBT in the outpatient setting * strongly recommend she have a psychiatrist be advising her on medicines for anxiety/mood stabilization * Strongly recommended that in the future she not wait at home until she has severe symptoms before coming for acute help, making better use of urgent care and ER settings to get hydrated and IV nausea medicines and anxiety medicines. If the patient is here tomorrow, need to decrease Dilaudid, Ativan, Phenergan. Can hopefully transition Ativan to PRN only. For future hospitalizations, would avoid the use of narcotic pain meds especially scheduled For future hospitalizations, would avoid the use of benzo's, especially scheduled Once ready for discharge would avoid the use of continued opiates or short acting benzo's Subjective: she reports some improvement. no cp or sb. abd pain is still present but better. Denies nausea. She was pleasant. Fiance at bedside. She is agreement with decrease to meds Objective: Vital Signs Temp Pulse Resp BP Pulse Ox 37.1 C 72 14 133/82 H 97 09/23/18 08:00 09/23/18 08:00 09/23/18 08:00 09/23/18 08:00 09/23/18 08:00 Laboratory Results 09/22/18 04:33 09/22/18 09/23/18 09/24/18 05:59 05:59 05:59 Intake Total 5018 1740 Balance 5018 1740 - Physical Exam Constitutional: no apparent distress Eyes: PERRL, EOMI Ears, Nose, Mouth, Throat: moist mucous membranes, hearing normal Cardiovascular: regular rate and rhythym, No edema Respiratory: no respiratory distress, no rales or rhonchi, clear to auscultation Gastrointestinal: normoactive bowel sounds, No tenderness, No distension Skin: warm Neurologic: AAOx3 Psychiatric: interacting appropriately, not anxious, not encephalopathic ICD10 Worksheet Patient Problems: Problems Problem Status Onset Pancreatitis Acute Hyperglycemia Active Hypokalemia Active Leukocytosis Active Abdominal pain Acute Anxiety Acute Cellulitis Acute Cellulitis of left hand Acute Cyclic vomiting syndrome Acute Dog bite of arm Acute Dog bite of left hand Acute Intractable abdominal pain Acute Intractable vomiting Acute Vomiting Acute
[2018-09-23] MEDS ORDERED: LORazepam 2 MG/ML INJ IVP SCH (12:00)
[2018-09-23] MEDS: HYOSCYAMINE SULFATE 0.125 MG TAB PO SCH ×3 (13:35→23:13)
--- NOTE | 2018-09-23 16:15 | ASMTCMCOM ---
CM Note CM Note Notes: CM faxed referral to [facility]. CM to follow. Date Signed: 09/23/2018 04:14 PM Electronically Signed By:Deborah Valdez
[2018-09-23] MEDS: CITALOPRAM 20 MG TAB PO SCH (21:22)
[2018-09-23] MEDS: NS W/ 20 KCl/L 1,000 ML IV SCH (22:20)
[2018-09-24] MEDS: PROMETHAZINE HCL 25 MG/ML INJ IVP SCH ×2 (01:20→10:59)
[2018-09-24] MEDS: HYDROmorphONE/DILAUDID 1 MG/ML INJ IVP PRN ×3 (01:21→09:47)
[2018-09-24] MEDS: LORazepam 2 MG/ML INJ IVP SCH ×2 (04:22→09:50)
[2018-09-24] MEDS: NS W/ 20 KCl/L 1,000 ML IV SCH (04:30)
[2018-09-24] MEDS: HYOSCYAMINE SULFATE 0.125 MG TAB PO SCH ×2 (05:34→12:22)
[2018-09-24] MEDS: ONDANSETRON 4 MG/2 ML VIAL IVP SCH (05:35)
[2018-09-24 08:34] VITALS: BP 145/78
--- NOTE | 2018-09-24 08:54 | HOSPPROG ---
Hospitalist Progress Note Assessment/Plan: see discharge summary Subjective: per nursing wants to try all PO and go home today Objective: Vital Signs Temp Pulse Resp BP Pulse Ox 98.6 F 68 16 145/78 H 97 09/24/18 08:34 09/24/18 08:34 09/24/18 08:34 09/24/18 08:34 09/24/18 08:34 Laboratory Results 09/22/18 04:33 09/22/18 09/23/18 09/24/18 11:59 11:59 11:59 Intake Total 5018 1740 3600 Balance 5018 1740 3600 ICD10 Worksheet Patient Problems: Problems Problem Status Onset Hyperglycemia Active Hypokalemia Active Leukocytosis Active Abdominal pain Acute Anxiety Acute Cellulitis Acute Cellulitis of left hand Acute Cyclic vomiting syndrome Acute Dog bite of arm Acute Dog bite of left hand Acute Intractable abdominal pain Acute Intractable vomiting Acute Pancreatitis Acute Vomiting Acute
[2018-09-24] MEDS: SUCRALFATE 1 GM/10 ML UDCUP PO SCH (09:46)
[2018-09-24] MEDS: CAPSACIAN 0.075% CREAM TP SCH (09:54)
[2018-09-24] MEDS: PANTOPRAZOLE SODIUM 40 MG TAB PO SCH (10:06)
[2018-09-24] MEDS ORDERED: clonazePAM 0.5 MG TAB PO PRN (10:11)
[2018-09-24] MEDS ORDERED: HYDROmorphONE/DILAUDID 4 MG TAB PO PRN (10:14)
[2018-09-24] MEDS ORDERED: PROMETHAZINE HCL 25 MG TAB PO PRN ×2 (10:30)
[2018-09-24] MEDS: LIPASE 24,000/AMYLASE/PROTEASE (CREON) 1 CAP PO SCH (10:39)
--- NOTE | 2018-09-24 12:11 | ASMTDCNOTE ---
Case Management Discharge Discharge Order Complete? Answers: Yes Patient to Obtain Answers: Independently Medications Transportation Arranged Answers: Family/Friends Family Notified Answers: No Discharge Comments Notes: Medically cleared for independent discharge to home. Referral previously placed with opioid Resource for support. No other needs at this time. CM available should needs arise. Date Signed: 09/24/2018 12:10 PM Electronically Signed By:Delmy Morales RN
--- NOTE | 2018-09-24 14:03 | GDS ---
[f rep st] DISCHARGE SUMMARY SERVICE: [facility] CONSULTANTS: Gastroenterology, Dr. Dohrety. PROCEDURES: None. HISTORY AND PHYSICAL: Please see previously entered note by Dr. Main. ADMISSION DIAGNOSES: 1. [id number]-[id number] abdominal pain, nausea, vomiting. 2. Cyclic vomiting syndrome. 3. Anion gap metabolic acidosis. 4. Traumatic brain injury. DISCHARGE DIAGNOSES: 1. Ehxnn-ce-odtfgpp abdominal pain, nausea, vomiting, improved. 2. Cyclic vomiting syndrome, improved. 3. Anion gap metabolic acidosis, resolved. 4. Traumatic brain injury, chronic. HOSPITAL COURSE: The patient came into the emergency department because of worsening abdominal pain, nausea and vomiting. She has a history of idiopathic pancreatitis/chronic abdominal pain, along with intermittent cyclic vomiting syndromes. She has had multiple hospitalizations and significant GI evaluations previously for the same issues. She has been advised previously to stop marijuana use and claims to have stopped smoking, but is still doing edibles. She was admitted to the hospital for symptom management with IV pain medications, antiemetics, and IV fluids. She was n.p.o. and placed on a proton pump inhibitor IV. Gastroenterology was asked to assist in her management. Dr. Doherty did not feel that any additional evaluations or procedures were needed at this time, and agreed with symptom management. During her stay, she had some intermittent difficulties with hospital staff and hospitalists, which required a change in hospitalist staffing. A plan was created between her, her family, and Dr. Siegel. This involved decreasing her IV medications slowly. On the day of discharge, this plan has been in place for 2 days, and she felt well enough to discharge home with oral medications today. She has been given a trial of crackers and a bland clear diet to advance as tolerated. Her exam was benign, and her vital signs have all been stable. She will be discharged home to follow up with her primary care provider at [facility], Jeny Bentley PA-C. She had previously been a patient of Dr. Hong Borrego, but returned to [facility], because she felt that they better understood her chronic issues. She has a followup appointment that has already been scheduled for her on Tuesday. DISCHARGE MEDICATIONS: She is to continue all of her chronic home medications with the addition of sucralfate 4 times a day, a small prescription for Klonopin 0.5 mg to use once a day as needed, #6, and a small prescription for hydromorphone 4 mg to use every 6 to 8 hours as needed, #12. DISCHARGE INSTRUCTIONS: She was advised to continue with a clear diet and very slowly advance to a regular diet as able. She has been instructed to completely stop any form of marijuana, whether it be edible or smoked, to decrease the recurrence of cyclic vomiting syndrome. If at any time she has worsening symptoms, she should return to the emergency department for treatment this weekend. /[id number]/MODL MTDD
[2018-09-24] MEDS ORDERED: PANTOPRAZOLE SODIUM 40 MG TAB PO SCH (21:00)
== END 2018-09-24 12:24 | disposition home or self-care (01) | DRG 103 ==
LOC: INTOOBSV 09:36 → F3E 10:43 → OBSVTOIN 09-21 08:30
PROVIDERS: ADMIT Hospitalist; ATTEND Internal Medicine
DX: G43.A0 Cyclical vomiting, in migraine, not intractable (principal); E87.2 Acidosis; E86.9 Volume depletion, unspecified; Z87.820 Personal history of traumatic brain injury; Z87.891 Personal history of nicotine dependence; F12.20 Cannabis dependence, uncomplicated; F41.9 Anxiety disorder, unspecified
CPT/HCPCS: 96374; G0378; G0480; J0360; J1170; J1200; J1885; J2060; J2405; J2550